=== PATIENT | female | born 1950 | race Caucasian/White ===

== ENCOUNTER → 2018-03-06 07:58 | Outpatient (CLI) | payer MEDICARE, SELFPAY ==
--- NOTE | 2018-03-06 08:05 | BI_ITS ---
MAMMOGRAPHY - BILATERAL SCREENING REASON FOR EXAM: Female, 67 years old. Routine annual screening examination. PERTINENT HISTORY: Aunt with breast cancer. TECHNIQUE: Digital bilateral breast [place] (3D mammographic acquisition) in the CC and MLO projections. 2-D mediolateral oblique (MLO) and craniocaudad (CC) views of both breasts were obtained. CAD: Full Field Digital Mammography with Computer Added Detection was performed. COMPARISON: Comparison is made with prior study dated August 01, 2016 and April 17, 2015. FINDINGS: Breast Composition: The breasts are heterogeneously dense, which may obscure small masses. There are no dominant masses or suspicious calcifications. Stable scattered bilateral calcifications. Stable well-defined 8 mm nodule in the upper lateral portion of the right breast. This is suggestive of a small benign-appearing lymph node. No other significant abnormalities are identified. There has been no significant change since the prior study. BI/SCREENING MAMM (CAD), BILAT IMPRESSION: Stable bilateral screening mammogram. Yearly follow-up mammogram recommended. (A) ASSESSMENT CATEGORY: BIRADS Category 2: Benign. A letter regarding these results will be sent to the patient by the facility within 30 days. Approximately 10% of breast cancers are not detected by mammography. A normal mammogram should not delay biopsy of a clinically suspicious abnormality. [id number] Electronically Signed: Keyon Floyd MD at 10:29 EDT Tel [phone], Service support ,
== END ==
PROVIDERS: Family Provider Family Medicine; PCP Family Medicine; Visit Provider Family Medicine
DX: Z12.31 Encounter for screening mammogram for malignant neoplasm of breast (principal)
CPT/HCPCS: 77063; 77067

== ENCOUNTER → 2019-03-09 07:36 | Outpatient (CLI) | payer MEDICARE, OTHER, SELFPAY ==
[2019-03-09 10:36] LABS: Absolute Neutrophil Count 1.7 X10^3/uL (2.0-7.7); Basophil# 0.07 X10^3/uL; Basophil% 1.7 % (0-1); Eosinophil# 0.65 X10^3/uL; Eosinophils% 15.9 % (0-5); Hematocrit 40.7 % (37-47); Hemoglobin 13.3 g/dl (12.0-15.0); Lymphocyte % 26.9 % (19-41); Mean Corp Hgb Conc 32.7 g/gl (32-36); Mean Corpuscular Hgb 30.6 pg (27.0-32.0); Mean Corpuscular Volume 93.6 fL (81-99); Mean Platelet Vol. 9.9 fl (6.2-12.0); Monocyte# 0.54 X10^3/uL; Monocyte% 13.2 % (0-10); Neutrophil # 1.71 X10^3/uL (2.7-7.7); Neutrophil % 41.8 % (47-70); Platelet Count 253 K/mm3 (150-450); RBC Distribution Width CV 12.9 % (11.6-14.6); Red Blood Count 4.35 M/mm3 (4.2-5.4); White Blood Count 4.1 K/mm3 (4.4-11.0)
[2019-03-09 10:43] LABS: POSITIVE COUNT NO; POSITIVE DIFFERENTIAL NO; POSITIVE MORPHOLOGY NO
[2019-03-09 10:44] LABS: Color, Urine Yellow (Yellow); Glucose, Dipstick Normal (Normal); Ketone-Dipstick Negative (Negative); Leukocyte Esterase-Dipstick 500 /ul (Negative); Nitrite-Dipstick Positive (Negative); Occult Blood-Urine 25 /ul (Negative); Protein-Dipstick 15 mg/dl (Negative); Specific Gravity, Urine 1.015 (1.002-1.030); Urine Bilirubin Dipstick Negative (Negative); Urine Clarity Sl. Cloudy (Clear); Urine Urobilinogen Normal (Normal)
[2019-03-09 10:52] LABS: ALB/GLOB Ratio 1.1 RATIO (0.9-2.4); AST(SGOT) 20 U/L (15-37); Alanine Aminotransfer ALT/SGPT 22 U/L (13-56); Albumin, Serum 3.7 g/dL (3.2-5.0); Alkaline Phosphatase 71 U/L (45-117); Anion Gap 5 (5-15); BUN 28 mg/dL (7-18); BUN/Creat Ratio 25.5 RATIO (10-20); Calcium,Total 8.8 mg/dL (8.5-10.1); Chloride 107 mmol/L (98-107); Cholesterol 207 mg/dL (200); EST Glomerular Filtration Rate 53 mL/min (>60); Est Glom Filt Rate - Afr Amer 64 mL/min (>60); Globulin 3.5 g/dL (2.2-4.2); Glucose 98 mg/dL (74-106); High Density Lipoprotein 88 mg/dL; Potassium 4.1 mmol/L (3.5-5.1); Protein, Total 7.2 g/dL (6.4-8.2); Sodium Level 138 mmol/L (136-145); Thyroid Stim Hormone (TSH) 0.32 uIU/mL (0.358-3.74); Triglycerides 56 mg/dL; Very Low Density Lipoprotein 11 mg/dL (5-40)
== END ==
PROVIDERS: Family Provider Family Medicine; PCP Family Medicine; Referring Provider Family Medicine; Visit Provider Family Medicine
DX: Z00.00 Encounter for general adult medical examination without abnormal findings (principal); E03.9 Hypothyroidism, unspecified; I10 Essential (primary) hypertension; K21.9 Gastro-esophageal reflux disease without esophagitis
CPT/HCPCS: 36415; 80053; 80061; 81002; 84443; 85025

== ENCOUNTER → 2019-04-30 14:42 | Outpatient (CLI) | payer MEDICARE, OTHER, SELFPAY ==
--- NOTE | 2019-04-30 14:47 | BI_ITS ---
MAMMOGRAPHY - BILATERAL SCREENING 3-D TOMOSYNTHESIS REASON FOR EXAM: Female, 68 years old. Bilateral Screening 3-D tomosynthesis PERTINENT HISTORY: No significant family history. TECHNIQUE: 2-D mammograms and 3-D Tomosynthesis of the breast (s) were performed. CAD was performed. COMPARISON: March 06, 2018, August 01, 2016 FINDINGS: The breast composition is composed of scattered fibroglandular density. Scattered benign calcifications are seen. No dense spiculated masses or suspicious microcalcifications are identified. No architectural distortion is identified. There is no skin thickening or retraction. There is a stable lymph node in the upper outer quadrant of the right breast. There has been no significant change since the prior study. BI/SCREEN MAMM (CAD) W/MAGGIE BILAT IMPRESSION: No mammographic signs of malignancy. Routine yearly mammograms recommended. ASSESSMENT CATEGORY: BIRADS Category 2: Benign. A letter regarding these results will be sent to the patient by the facility within 30 days. FOLLOW UP RECOMMENDATION: Yearly follow up mammogram recommended. (A) Approximately 10% of breast cancers are not detected by mammography. A normal mammogram should not delay biopsy of a clinically suspicious abnormality. Electronically Signed: Reji Valero MD at 18:03 EDT , Service support ,
== END ==
PROVIDERS: Family Provider Family Medicine; PCP Family Medicine; Referring Provider Family Medicine; Visit Provider Family Medicine
DX: Z12.31 Encounter for screening mammogram for malignant neoplasm of breast (principal)
CPT/HCPCS: 77063; 77067

== ENCOUNTER → 2020-05-08 12:51 | Outpatient (CLI) | payer MEDICARE, OTHER, SELFPAY ==
--- NOTE | 2020-05-08 12:54 | BI_ITS ---
MAMMOGRAPHY - BILATERAL SCREENING REASON FOR EXAM: Female, 69 years old. Routine annual screening examination. PERTINENT HISTORY: Aunts with breast cancer. TECHNIQUE: Digital bilateral breast maggie (3D mammographic acquisition) in the CC and MLO projections. 2-D mediolateral oblique (MLO) and craniocaudad (CC) views of both breasts were obtained. CAD: Full Field Digital Mammography with Computer Added Detection was performed. COMPARISON: Comparison is made with prior examination dated April 30, 2019 and March 06, 2018. FINDINGS: Breast Composition: The breasts are heterogeneously dense, which may obscure small masses. There are no dominant masses or suspicious calcifications. Stable bilateral microcalcifications. Stable 8 mm lymph node in the axillary region of the right breast. No other significant abnormalities are identified. There has been no significant change since the prior study. BI/SCREEN MAMM (CAD) W/MAGGIE BILAT IMPRESSION: Stable bilateral screening mammogram. Yearly follow-up mammogram recommended. (A) ASSESSMENT CATEGORY: BIRADS Category 2: Benign. A letter regarding these results will be sent to the patient by the facility within 30 days. Approximately 10% of breast cancers are not detected by mammography. A normal mammogram should not delay biopsy of a clinically suspicious abnormality. [id number] Electronically Signed: Keyon Floyd, at 13:54 EDT , Service support ,
== END ==
PROVIDERS: PCP Family Medicine; Referring Provider Family Medicine; Visit Provider Family Medicine
DX: Z12.31 Encounter for screening mammogram for malignant neoplasm of breast (principal)
CPT/HCPCS: 77063; 77067

== ENCOUNTER → 2021-05-08 11:54 | Outpatient (CLI) | payer MEDICARE, OTHER, SELFPAY ==
[2021-05-08 15:12] LABS: Absolute Lymphocyte Count 1.03 X10^3/uL (0.83-4.51); Absolute Neutrophil Count 2.6 X10^3/uL (2.0-7.7); Basophil# 0.06 X10^3/uL; Basophil% 1.4 % (0-1); Eosinophil# 0.36 X10^3/uL; Eosinophils% 8.2 % (0-5); Hematocrit 38.8 % (37-47); Hemoglobin 12.8 g/dL (12.0-15.0); Lymphocyte # 1.03 X10^3/ul (0.83-4.51); Lymphocyte % 23.4 % (19-41); Mean Corpuscular Hgb 31.3 pg (27.0-32.0); Mean Corpuscular Volume 94.9 fL (81-99); Mean Platelet Vol. 10.2 fl (6.2-12.0); Monocyte# 0.39 X10^3/uL; Monocyte% 8.8 % (0-10); NRBC Flagged by Analyzer 0 % (0-5); Neutrophil # 2.55 X10^3/uL (2.7-7.7); Neutrophil % 57.7 % (47-70); POSITIVE MORPHOLOGY YES; Platelet Count 251 K/mm3 (150-450); RBC Distribution Width CV 12.2 % (11.6-14.6); RBC Distribution Width SD 42.8 fl (35.1-43.9); Red Blood Count 4.09 M/mm3 (4.2-5.4); White Blood Count 4.4 K/mm3 (4.4-11.0)
[2021-05-08 15:15] LABS: Differential Indicated SCAN CRITERIA MET
[2021-05-08 15:18] LABS: Color, Urine Yellow (Yellow); Glucose, Dipstick Normal (Normal); Ketone-Dipstick Negative (Negative); Leukocyte Esterase-Dipstick 100 /ul (Negative); Nitrite-Dipstick Positive (Negative); Occult Blood-Urine 10 /ul (Negative); Protein-Dipstick Negative (Negative); Urine Bilirubin Dipstick Negative (Negative); Urine Clarity Cloudy (Clear); Urine Urobilinogen Normal (Normal)
[2021-05-08 15:28] LABS: ALB/GLOB Ratio 1.1 RATIO (0.9-2.4); AST(SGOT) 23 U/L (15-37); Alanine Aminotransfer ALT/SGPT 20 U/L (13-56); Albumin, Serum 3.8 g/dL (3.2-5.0); Alkaline Phosphatase 65 U/L (45-117); Anion Gap 7 (5-15); BUN 29 mg/dL (7-18); BUN/Creat Ratio 20.3 RATIO (10-20); Chloride 107 mmol/L (98-107); Cholesterol 223 mg/dL (200); Creatinine, Serum 1.43 mg/dL (0.55-1.02); EST Glomerular Filtration Rate 39 mL/min (>60); Est Glom Filt Rate - Afr Amer 47 mL/min (>60); Globulin 3.5 g/dL (2.2-4.2); Glucose 84 mg/dL (74-106); High Density Lipoprotein 90 mg/dL; Potassium 4.3 mmol/L (3.5-5.1); Protein, Total 7.3 g/dL (6.4-8.2); Sodium Level 137 mmol/L (136-145); T4 Free Direct 1.16 ng/dL (0.76-1.46); Thyroid Stim Hormone (TSH) 2.11 uIU/mL (0.358-3.74); Triglycerides 62 mg/dL; Very Low Density Lipoprotein 12 mg/dL (5-40)
[2021-05-08 15:46] LABS: Differential Comment SCANNED
== END ==
PROVIDERS: PCP Family Medicine
DX: I10 Essential (primary) hypertension (principal); E78.5 Hyperlipidemia, unspecified; E03.9 Hypothyroidism, unspecified; Z13.0 Encounter for screening for diseases of the blood and blood-forming organs and certain disorders involving the immune mechanism
CPT/HCPCS: 36415; 80053; 80061; 81002; 84439; 84443; 85025

== ENCOUNTER → 2021-05-11 13:59 | Outpatient (CLI) | payer MEDICARE, OTHER, SELFPAY ==
--- NOTE | 2021-05-11 14:01 | BI_ITS ---
MAMMOGRAPHY - BILATERAL SCREENING REASON FOR EXAM: Female, 70 years old. Routine annual screening examination. PERTINENT HISTORY: Aunts with breast cancer. TECHNIQUE: Digital bilateral breast maggie (3D mammographic acquisition) in the CC and MLO projections. 2-D mediolateral oblique (MLO) and craniocaudad (CC) views of both breasts were obtained. CAD: Full Field Digital Mammography with Computer Added Detection was performed. COMPARISON: Comparison is made with prior examination dated 05/08/2020 and 04/30/2019. FINDINGS: Breast Composition: The breasts are heterogeneously dense, which may obscure small masses. There are no dominant masses or suspicious calcifications. Stable bilateral macrocalcifications. Stable benign-appearing right axillary lymph node. No other significant abnormalities are identified. There has been no significant change since the prior study. BI/SCRN MAMM (CAD)W/MAGGIE BILAT IMPRESSION: Stable bilateral screening mammogram. Yearly follow-up mammogram recommended. (A) ASSESSMENT CATEGORY: BIRADS Category 2: Benign. A letter regarding these results will be sent to the patient by the facility within 30 days. Approximately 10% of breast cancers are not detected by mammography. A normal mammogram should not delay biopsy of a clinically suspicious abnormality. [id number] Electronically Signed: Keyon Floyd MD at 15:03 EDT , Service support ,
== END ==
PROVIDERS: PCP Family Medicine
DX: Z12.31 Encounter for screening mammogram for malignant neoplasm of breast (principal); Z80.3 Family history of malignant neoplasm of breast
CPT/HCPCS: 77063; 77067

== ENCOUNTER → 2021-05-25 12:44 | Outpatient (CLI) | payer MEDICARE, OTHER, SELFPAY ==
[2021-05-25 13:22] LABS: Color, Urine Yellow (Yellow); Glucose, Dipstick Normal (Normal); Ketone-Dipstick Negative (Negative); Leukocyte Esterase-Dipstick 25 /ul (Negative); Nitrite-Dipstick Negative (Negative); Occult Blood-Urine Negative /ul (Negative); Protein-Dipstick Negative (Negative); Urine Bilirubin Dipstick Negative (Negative); Urine Clarity Clear (Clear); Urine Urobilinogen Normal (Normal)
[2021-05-25 13:41] LABS: Anion Gap 8 (5-15); BUN 28 mg/dL (7-18); BUN/Creat Ratio 20.3 RATIO (10-20); Calcium,Total 9.1 mg/dL (8.5-10.1); Chloride 105 mmol/L (98-107); Creatinine, Serum 1.38 mg/dL (0.55-1.02); EST Glomerular Filtration Rate 40 mL/min (>60); Est Glom Filt Rate - Afr Amer 49 mL/min (>60); Glucose 96 mg/dL (74-106); Potassium 4.7 mmol/L (3.5-5.1); Sodium Level 138 mmol/L (136-145)
== END ==
PROVIDERS: PCP Family Medicine
DX: N28.9 Disorder of kidney and ureter, unspecified (principal)
CPT/HCPCS: 36415; 80048; 81002

== ENCOUNTER → 2022-05-17 | Outpatient (CLI) | payer MEDICARE, OTHER, SELFPAY ==
--- NOTE | 2022-05-17 12:09 | BI_ITS ---
MAMMOGRAPHY - BILATERAL SCREENING REASON FOR EXAM: Female, 71 years old. Routine annual screening examination. PERTINENT HISTORY: Aunts with breast cancer. TECHNIQUE: Digital bilateral breast maggie (3D mammographic acquisition) in the CC and MLO projections. 2-D mediolateral oblique (MLO) and craniocaudad (CC) views of both breasts were obtained. CAD: Full Field Digital Mammography with Computer Added Detection was performed. COMPARISON: Comparison is made with prior study dated 05/11/2021 and 05/08/2020. FINDINGS: Breast Composition: The breasts are heterogeneously dense, which may obscure small masses. There are no dominant masses or suspicious calcifications. Stable scattered bilateral benign appearing calcifications. No other significant abnormalities are identified. There has been no significant change since the prior study. BI/SCRN MAMM (CAD)W/MAGGIE BILAT IMPRESSION: Stable bilateral screening mammogram. Yearly follow-up mammogram recommended. (A) ASSESSMENT CATEGORY: BIRADS Category 2: Benign. A letter regarding these results will be sent to the patient by the facility within 30 days. Approximately 10% of breast cancers are not detected by mammography. A normal mammogram should not delay biopsy of a clinically suspicious abnormality. [id number] Electronically Signed: Keyon Floyd MD at 12:53 EDT ,
== END | disposition home or self-care (01) ==
LOC: OPBI 12:06
PROVIDERS: PCP Family Medicine
DX: Z12.31 Encounter for screening mammogram for malignant neoplasm of breast (principal)
CPT/HCPCS: 77063; 77067

== ENCOUNTER 2022-09-24 12:11 | Day surgery (SDC) | payer MEDICARE, OTHER, SELFPAY ==
[2022-09-24] MEDS: Lactated Ringers 1,000 ML 15 ML IV (12:25)
[2022-09-24 12:40] VITALS: BP 158/85; PULSE 68; RESP 16; TEMP 36.8; O2SAT 99; BMI 24.0
--- NOTE | 2022-09-24 13:07 | PCM.HP.BLA ---
History and Physical Date of Admission: 09/24/22 71 F who presents to the office today for GERD. Has friends who of esophageal cancer. She has been on omeprazole 20 mg for several years, doesn't think it ever helped with symptoms. At times it feels like food gets stuck in mid to distal esophagus, may have to cough the food or even the water back up. Remote hx of esophagram, was told esophagus was sluggish. No retrosternal chest pain. No heartburn. Rarely feels acid come up. Can have burning in her stomach occas when she lies down, better with yogurt, better if she sleeps on left side. No nausea or vomiting. No early satiety. Can get gas and bloating. Can have diarrhea and cramping soon after eating, no pattern, could go for months w/o it but then might last for months when it happens. Tolerates dairy much of the time, other times it causes symtoms. Tries to avoid spicy foods. No abd pain other than cramping. No constipation. No melena or hematochezia. ROS Const Constitutional: No fatigue, fever(s), headache(s), weight change, sleep problems, abnormal sleep pattern or change in appetite ENT ENT: No headache(s), difficulty swallowing, hoarseness or sore throat Resp Respiratory: No cough, hemoptysis or shortness of breath Cardio Cardiology: No chest pain at rest or generalized swelling Gastro GI: No abdominal pain, belching, bloating, change in bowel habits, change in stool character, coffee ground emesis, constipation, cramping, diarrhea, heartburn, difficulty swallowing, feeling full early, excessive flatus, incontinent of stools, Vomiting blood/hematemesis, Blood in stool, loose stools, Black,tarry stools, nausea/dyspepsia, pain with swallowing or vomiting Musc Musculoskeletal: Positive for Arthritis and restless legs; No joint pain, back pain, joint swelling, numbness or tingling Skin Skin: No itchy eyes or rash Neuro Neurology: Positive for restless legs; No behavioral changes, confusion, headache(s), numbness or tingling Psych Psychiatric: No abnormal sleep pattern, No anxiety, No behavioral changes, No change in appetite, No confusion and No depression Endo Endocrine: No cold intolerance, fatigue, heat intolerance, increased thirst/drinking or weight change Aller/Imm Allergy/Immunologic: No food intolerance or itchy eyes Santos/Lymp Hematologic/Lymphatic: No easy bleeding, easy bruising or enlarged lymph nodes Exam Const General: cooperative, healthy appearing, well developed and well groomed Nutritional Appearance: average body habitus Orientation: alert, awake and oriented x3 HENMT Head: normal to inspection Eyes General: appearance normal, both eyes and all related structures Resp Effort & Inspection: normal respiratory effort GI Inspection: normal to inspection Palpation: soft, no hepatosplenomegaly, no masses and nontender Skin General: no jaundice Neuro Speech: speech normal Gait: normal gait Quality Reporting Tobacco Screening ([facility] 138) Smoking Status: Never smoker Assessment and Plan Assessment and Plan (1) Dysphagia: ?Status:?Acute ?Plan: Will schedule EGD Not due for colonoscopy for another year She'll continue omeprazole 20 mg for now I have examined the patient and the H&P has been reviewed. There are no clinical changes since date of exam.
--- NOTE | 2022-09-24 13:15 | EGD_PTH ---
PATIENT: BETHANY BANKS LOC: EN U#:[id number] AGE/SX: 71/F ROOM: RE09/24/[address]: Dr. Mj Abarca DO : 1950 BED: DIS: 09/24/2022 SPEC #: [id number] RECD: 09/24/22 15:47 STATUS: JOCELYNE RETena #: [id number] [place]: 09/24/22 13:[address]: Mj Abarca DEPT: SURGICAL PATHOLOGY RECD BY: Bonnie Dooley ENTERED: 09/25/22 08:55 SP TYPE: EGD BIOPSY SEDRICK DR: Dr. Win Sandoval MD Tissues: Esophagus, NOS Procedures: Special Stain Group II Surgery Specimen Level IV Alcian Blue/PAS (control) HEADER OPERATION: EGD with biopsy and dilation (MAC) PRE-OP DIAGNOSIS: Dysphagia TISSUE SUBMITTED: Distal esophagus biopsy MICROSCOPIC DIAGNOSIS Distal esophagus, biopsy: Fragments of gastroesophageal mucosa with chronic inflammation. Intestinal metaplasia (goblet cell metaplasia) not identified. See comment. JONATHAN:ani 09/27/2022 COMMENT Alcian blue/PAS stain with matched control is used in the evaluation of the specimen. MICROSCOPIC DESCRIPTION Slides are reviewed. GROSS DESCRIPTION Received in fixative is one container labeled with the patient's name and designated distal esophagus biopsy. The specimen consists of multiple irregular fragments of light moe soft tissue that in aggregate measure 2 x 0.8 x 0.1 cm. The specimen is totally submitted in one cassette. / JONATHAN:ani 09/25/2022 TC:3 CPT: 92030, 69451
[2022-09-24 13:30] VITALS: BP 131/84; BP 158/85; PULSE 74; RESP 16; TEMP 36.7; O2SAT 98
--- NOTE | 2022-09-24 13:30 | OP.EGD_ITS ---
Patient Name: Gayle Burton Procedure Date: 09/24/2022 1:06 PM Date of : 1950 Age: 71 Procedure: Upper GI endoscopy Indications: Dysphagia, Heartburn Providers: Mj Abarca DO Referring MD: Mj Abarca DO Medicines: Monitored Anesthesia Care Patient Profile: This is a 71 year old female. This is a 71 year old female. Refer to note in patient chart for documentation of history and physical. Patient has symptoms of chronic dysphagia and chronic heartburn. Complications: No immediate complications. Procedure: Pre-Anesthesia Assessment: - Prior to the procedure, a History and Physical was performed, and patient medications and allergies were reviewed. The risks and benefits of the procedure and the sedation options and risks were discussed with the patient. All questions were answered and informed consent was obtained. Patient identification and proposed procedure were verified by the physician in the pre-procedure area. Mental Status Examination: alert and oriented. Airway Examination: normal oropharyngeal airway and neck mobility. Respiratory Examination: clear to auscultation. CV Examination: normal. Prophylactic Antibiotics: The patient does not require prophylactic antibiotics. Prior Anticoagulants: The patient has taken no previous anticoagulant or antiplatelet agents. ASA Grade Assessment: II - A patient with mild systemic disease. After reviewing the risks and benefits, the patient was deemed in satisfactory condition to undergo the procedure. The anesthesia plan was to use monitored anesthesia care (MAC). Immediately prior to administration of medications, the patient was re-assessed for adequacy to receive sedatives. The heart rate, respiratory rate, oxygen saturations, blood pressure, adequacy of pulmonary ventilation, and response to care were monitored throughout the procedure. The physical status of the patient was re-assessed after the procedure. After obtaining informed consent, the endoscope was passed under direct vision. Throughout the procedure, the patient's blood pressure, pulse, and oxygen saturations were monitored continuously. The gastroscope was introduced through the mouth, and advanced to the second part of duodenum. The upper GI endoscopy was accomplished without difficulty. The patient tolerated the procedure well. Scope In: 1:15:43 PM Scope Out: 1:23:29 PM Total Procedure Duration Time 0 hours 7 minutes 46 seconds Findings: LA Grade B (one or more mucosal breaks greater than 5 mm, not extending between the tops of two mucosal folds) esophagitis with no bleeding was found 37 to 38 cm from the incisors. Biopsies were taken with a cold forceps for histology. Verification of patient identification for the specimen was done. Estimated blood loss was minimal. A severe Schatzki ring was found in the lower third of the esophagus. A guidewire was placed and the scope was withdrawn. Dilation was performed with a Savary dilator with no resistance at 60 Fr. The dilation site was examined following endoscope reinsertion and showed moderate improvement in luminal narrowing. Estimated blood loss was minimal. A small hiatal hernia was present. No other significant abnormalities were identified in a careful examination of the stomach. The first portion of the duodenum was normal. Impression: - LA Grade B reflux esophagitis. Biopsied. - Severe Schatzki ring. Dilated. - Small hiatal hernia. - Normal first portion of the duodenum. Recommendation: - Discharge patient to home (ambulatory). - Advance diet as tolerated today. - Use Protonix (pantoprazole) 40 mg PO BID for 8 weeks. - Continue present medications. - No aspirin, ibuprofen, naproxen, or other non-steroidal anti-inflammatory drugs for 8 days after biopsy. Procedure Code(s): --- Professional --- 06508, Esophagogastroduodenoscopy, flexible, transoral; with insertion of guide wire followed by passage of dilator(s) through esophagus over guide wire 92763, 59, Esophagogastroduodenoscopy, flexible, transoral; with biopsy, single or multiple CPT copyright 2017 [employer]. All rights reserved. The codes documented in this report are preliminary and upon sub arc operator review may be revised to meet current compliance requirements. Mj Abarca DO 09/24/2022 1:29:48 PM This report has been signed electronically. Number of Addenda: 0 Note Initiated On: 09/24/2022 1:06 PM
--- NOTE | 2022-09-24 13:30 | OP.CCLET_ITS ---
09/24/2022 Win Sandoval Re : Upper GI endoscopy procedure for Gayle Burton Dear Jaime This procedure was performed on Saturday, September 24, 2022. My impressions and recommendations are as follows: Impressions : - LA Grade B reflux esophagitis. Biopsied. - Severe Schatzki ring. Dilated. - Small hiatal hernia. - Normal first portion of the duodenum. Recommendations : - Discharge patient to home (ambulatory). - Advance diet as tolerated today. - Use Protonix (pantoprazole) 40 mg PO BID for 8 weeks. - Continue present medications. - No aspirin, ibuprofen, naproxen, or other non-steroidal anti-inflammatory drugs for 8 days after biopsy. My findings are described in the full procedure note, which is enclosed. If I can be of further assistance, please feel free to contact me at . Sincerely, Mj Friend, 09/24/2022 1:29:48 PM This report has been signed electronically.
[2022-09-24 13:35] VITALS: BP 137/80; BP 158/85; PULSE 75; RESP 16; O2SAT 98
[2022-09-24 13:40] VITALS: BP 141/81; BP 158/85; PULSE 71; RESP 16; O2SAT 98
[2022-09-24 13:46] VITALS: BP 124/84; BP 158/85; PULSE 65; RESP 16; TEMP 36.5; O2SAT 98
[2022-09-24 14:08] VITALS: BP 158/85
[2022-09-24] MEDS: Pantoprazole Sodium 40 MG Tablet 80 MG PO (14:30)
== END 2022-09-24 14:34 | disposition home or self-care (01) ==
LOC: EN 12:13 → AC 12:15
PROVIDERS: PCP Family Medicine; Referring Provider Family Medicine; Visit Provider Internal Medicine Gastroenterology
PROC: 0DJ08ZZ Inspection of Upper Intestinal Tract, Via Natural or Artificial Opening Endoscopic (ICD-10-PCS; CPT 43235; principal; 2022-09-24 13:10)
DX: K22.2 Esophageal obstruction (principal); K21.00 Gastro-esophageal reflux disease with esophagitis, without bleeding; K44.9 Diaphragmatic hernia without obstruction or gangrene; E03.9 Hypothyroidism, unspecified; I10 Essential (primary) hypertension; Z79.899 Other long term (current) drug therapy
CPT/HCPCS: 43248; 43239; 88305; 88313; J7120; C1769; J2405

== ENCOUNTER → 2023-01-30 | Outpatient (CLI) | payer MEDICARE, OTHER, SELFPAY | END | disposition home or self-care (01) | LOC: LAB 10:16 | PROVIDERS: PCP Family Medicine; Referring Provider Family Medicine; Visit Provider Family Medicine | DX: E03.9 Hypothyroidism, unspecified (principal) | CPT/HCPCS: 36415; 84443 ==

== ENCOUNTER → 2023-04-14 | Outpatient (CLI) | payer MEDICARE, OTHER, SELFPAY ==
[2023-04-14 19:11] LABS: T4 Free Direct 1.18 ng/dL (0.76-1.46); Thyroid Stim Hormone (TSH) 1.87 uIU/mL (0.358-3.74)
== END | disposition home or self-care (01) ==
LOC: MFPLAB 15:52
PROVIDERS: PCP Family Medicine; Visit Provider Family Medicine
DX: E03.9 Hypothyroidism, unspecified (principal)
CPT/HCPCS: 36415; 84439; 84443

== ENCOUNTER → 2023-04-25 | Outpatient (CLI) | payer MEDICARE, OTHER, SELFPAY ==
--- NOTE | 2023-04-25 09:10 | ECHOD_ITS ---
Reason For Study: HEART MURMUR Procedure This was a 2D Doppler, Color Flow transthoracic echocardiogram. Exam performed in department. Left Ventricle Normal size and thickness. The left ventricular ejection fraction is 55 %. Unable to assess diastolic function based on available data. Right Ventricle Normal right ventricle. Atria The left atrium is severely enlarged. The right atrium is mildly enlarged. Mitral Valve Moderate (2+) eccentric mitral valve insufficiency. Tricuspid Valve Trivial tricuspid valve insufficiency. Unable to estimate RV systolic pressure due to insufficient tricuspid regurgitant envelope. Aortic Valve Normal aortic valve. Pulmonic Valve The pulmonic valve is not well visualized. Mild (1+) pulmonic valve insufficiency. Great Vessels Normal sized aortic root. Pericardium/Pleural No pericardial effusion. MMode/2D Measurements & Calculations LVIDd: 5.3 cm IVSd: 0.79 cm Ao root diam: 3.1 cm LVIDs: 4.0 cm LVPWd: 1.0 cm RVDd: 4.1 cm FS: 23.5 % LAV(MOD-bp): 72.6 ml LVAd ap4: 29.5 cm2 SV(MOD-sp4): 52.4 ml LAV(MOD-bp) Indexed: 39.0 ml/m2 LVLd ap4: 7.2 cm LAV(MOD-sp2): 76.5 ml EDV(MOD-sp4): 98.1 ml LAV(MOD-sp4): 67.0 ml EDV(sp4-el): 102.8 ml LVAs ap4: 18.7 cm2 LVLs ap4: 6.3 cm ESV(MOD-sp4): 45.7 ml ESV(sp4-el): 46.9 ml EF(MOD-sp4): 53.4 % EF(sp4-el): 54.4 % SV(sp4-el): 55.9 ml LA A4 area: 21.9 cm2 LA dimension(2D): 4.1 cm RA A4 area: 12.9 cm2 Time Measurements MV dec time: 0.07 sec Doppler Measurements & Calculations MV E max ismael: 100.7 cm/sec MV V2 max: 98.9 cm/sec MV dec slope: 1618 cm/sec2 MV A max ismael: 64.1 cm/sec MV max P.9 mmHg MV E/A: 1.6 MV V2 mean: 62.8 cm/sec MV mean P.8 mmHg MV V2 VTI: 26.1 cm Ao V2 max: 163.3 cm/sec LV V1 max: 130.4 cm/sec MR max ismael: 514.2 cm/sec Ao max P.7 mmHg LV V1 max P.9 mmHg MR max P.8 mmHg Ao V2 mean: 120.0 cm/sec LV V1 mean P.1 mmHg MR mean ismael: 399.3 cm/sec Ao mean P.4 mmHg LV V1 mean: 96.4 cm/sec MR mean P.4 mmHg Ao V2 VTI: 38.1 cm LV V1 VTI: 28.6 cm MR VTI: 190.4 cm AV (velocity ratio): 0.75 PA V2 max: 89.9 cm/sec PA V2 mean: 64.9 cm/sec ECHO/Echo Complete Interpretation Summary The left ventricular ejection fraction is 55 %. The right atrium is mildly enlarged. The left atrium is severely enlarged. Moderate (2+) eccentric mitral valve insufficiency. Mild (1+) pulmonic valve insufficiency. Ordering Physician: Rhianna Christine Referring Physician: Rhianna Christine Performed By: Queta Benton RCS
== END | disposition home or self-care (01) ==
LOC: CVS 09:09
PROVIDERS: PCP Family Medicine; Referring Provider Family Medicine; Visit Provider Family Medicine
DX: R01.1 Cardiac murmur, unspecified (principal)
CPT/HCPCS: 93306

== ENCOUNTER → 2023-05-27 | Outpatient (CLI) | payer MEDICARE, OTHER, SELFPAY ==
--- NOTE | 2023-05-27 15:07 | BI_ITS ---
MAMMOGRAPHY - BILATERAL SCREENING REASON FOR EXAM: Female, 72 years old. Routine annual screening examination. PERTINENT HISTORY: Aunts with breast cancer. TECHNIQUE: Digital bilateral breast maggie (3D mammographic acquisition) in the CC and MLO projections. 2-D mediolateral oblique (MLO) and craniocaudad (CC) views of both breasts were obtained. CAD: Full Field Digital Mammography with Computer Added Detection was performed. COMPARISON: Comparison is made with prior study dated May 17, 2022 and May 11, 2021. FINDINGS: Breast Composition: The breasts are heterogeneously dense, which may obscure small masses. There are no dominant masses or suspicious calcifications. Stable bilateral benign-appearing calcifications. Stable benign-appearing intramammary lymph node in the axillary region of the right breast. No other significant abnormalities are identified. There has been no significant change since the prior study. BI/SCRN MAMM (CAD)W/MAGGIE BILAT IMPRESSION: Stable bilateral screening mammogram. Yearly follow-up mammogram recommended. (A) ASSESSMENT CATEGORY: BIRADS Category 2: Benign. A letter regarding these results will be sent to the patient by the facility within 30 days. Approximately 10% of breast cancers are not detected by mammography. A normal mammogram should not delay biopsy of a clinically suspicious abnormality. [id number] Electronically Signed: Keyon Floyd MD at 8:13 EDT ,
== END | disposition home or self-care (01) ==
PROVIDERS: PCP Family Medicine; Referring Provider Family Medicine; Visit Provider Family Medicine
DX: Z12.31 Encounter for screening mammogram for malignant neoplasm of breast (principal)
CPT/HCPCS: 77063; 77067

== ENCOUNTER → 2023-10-17 | Outpatient (CLI) | payer MEDICARE, OTHER, SELFPAY ==
[2023-10-17 10:28] LABS: Microalbumin,Random Urine 96.8 mg/L (NO RANGE EST.)
[2023-10-17 10:54] LABS: AST(SGOT) 19 U/L (15-37); Alanine Aminotransfer ALT/SGPT 15 U/L (13-56); Albumin, Serum 3.5 g/dL (3.2-5.0); Alkaline Phosphatase 60 U/L (45-117); Anion Gap 8 (5-15); BUN 18 mg/dL (7-18); BUN/Creat Ratio 15.5 RATIO (10-20); Calcium,Total 8.6 mg/dL (8.5-10.1); Chloride 109 mmol/L (98-107); Cholesterol 201 mg/dL (200); Creatinine, Serum 1.16 mg/dL (0.55-1.02); EST Glomerular Filtration Rate 49 mL/min (>60); Est Glom Filt Rate - Afr Amer 59 mL/min (>60); Globulin 3.5 g/dL (2.2-4.2); Glucose 106 mg/dL (74-106); High Density Lipoprotein 94 mg/dL; Potassium 3.9 mmol/L (3.5-5.1); Sodium Level 140 mmol/L (136-145); T4 Free Direct 1.34 ng/dL (0.76-1.46); Thyroid Stim Hormone (TSH) 4.55 uIU/mL (0.358-3.74); Triglycerides 69 mg/dL; Very Low Density Lipoprotein 14 mg/dL (5-40)
== END | disposition home or self-care (01) ==
LOC: LAB 09:22
PROVIDERS: PCP Family Medicine; Referring Provider Family Medicine; Visit Provider Family Medicine
DX: I10 Essential (primary) hypertension (principal); E03.9 Hypothyroidism, unspecified; Z13.6 Encounter for screening for cardiovascular disorders
CPT/HCPCS: 36415; 80053; 80061; 82043; 82570; 84439; 84443

== ENCOUNTER → 2023-11-14 | Outpatient (CLI) | payer MEDICARE, OTHER, SELFPAY ==
--- OUTSIDE RECORDS SUMMARY | 2023-11-14 09:34 | XMS RPT_ITS | CCD ---
Author Name Unknown Address [address] [place] [address] Organization [facility] Care Team Providers Care Truck Cleaner Name Role Phone Anna Duque DO Primary Care Provider [phone] Kayden SUAREZ.Maria R TATE Primary Care Provid er CHATA TONG, DR KAPOOR Primary Care Physician GUICHO TONG, RENEE Cortés Attending Ghislaine BRIZUELA MD., DR. KAPOOR Primary Care Unavailab Kirsten TONG, RENEE Cortés Attending Ghislaine BRIZUELA MD., DR. KAPOOR Primary Care Unavailab Kirsten TONG, RENEE Cortés Attending Ghislaine BRIZUELA MD., DR. KAPOOR Primary Care Win Fang MD Primary Care Provider Win Brizuela MD Primary Care Provider MARIA R MEMBRENO Attending Unavailable MARIA R MEMBRENO Primary Care Unavailable MARIA R MEMBRENO Referring Unavailable MARIA R MEMBRENO Primary Care Unavailable MARIA R MEMBRENO Referring Unavailable MARIA R MEMBRENO Primary Care Unavailable WIN BRIZUELA Attending WIN Fang Primary Care WIN Fang Referring UnavailWIN Jacob Primary Care Juanjo charlton Allergies Allergy Classification Reported Allergen(s) Allergy Type Date of Onset Reaction(s) Facility (13 sources) olmesartan; Translations: [OLMESARTAN] Drug Allergy 07-15-2017 [facility] (1 source) Angiotensin-conv erting enzyme inhibitor agent; Translations: [angiotensin converting enzyme inhibitors] Propensity to adverse reactions to drug [facility] Medications Current Medications Medication Drug Class(es) Dates Sig (Normalized) Sig (Original) D3 (1 source) Start: 07-26-2022 D3 5000 IU, Oral, qDay, 0 Refill(s) Start Date: 07/26/22 Status: Ordered omeprazole 20 mg delayed release oral capsule (8 sources) Proton Pump Inhibitor Start: 07-26-2022 End: 11-13-2022 omeprazole 20 mg oral delayed release capsule Dose : 20 mg = 1 cap(s), Oral, qDay, 0 Refill(s) Start Date: 07/26/22 Status: Ordered Completed/Discontinued Medications Medication Drug Class(es) Dates Sig (Normalized) Sig (Original) amLODIPine 5 mg oral tablet (14 sources) Dihydropyridine Calcium Channel Fuentes Start: 03-08-2019 End: 11-13-2022 take 1 tablet by mouth once daily amLODIPine (NORVASC) 5 mg tablet Take 1 tablet by mouth once daily. 90 tablet 3 11/13/2022 Active Problems Active Problems Problem Classification Problem Date Documented Date Episodic/Chronic Disorders of lipid metabolism (16 sources) Hyperlipidemia; Translations: [Hyperlipidemia, unspecified] Onset: 10-24-2020 03-19-2022 Chronic Esophageal disorders (20 sources) Gastroesophageal reflux disease; Translations: [Gastro-esophageal reflux disease without esophagitis] Onset: 03-19-2022 03-19-2022 Chronic Esophageal disorders (1 source) Esophageal disorders; Translations: [Gastroesophageal reflux disease with esophagitis without hemorrhage] Onset: 03-19-2022 Essential hypertension (15 sources) Hypertensive disorder; Translations: [Essential (primary) hypertension] Onset: 07-15-2017 03-19-2022 Chronic Thyroid disorders (18 sources) Hypothyroidism; Translations: [Hypothyroidism, unspecified] Onset: 07-15-2017 03-19-2022 Chronic Past or Other Problems Problem Classification Problem Date Documented Date Episodic/Chronic Abdominal pain (12 sources) Abdominal pain; Translations: [Unspecified abdominal pain] Onset: 01-05-2020 03-19-2022 Episodic Immunizations and screening for infectious disease (12 sources) Requires vaccination; Translations: [Encounter for immunization] Onset: 05-01-2021 03-19-2022 Episodic Other diseases of kidney and ureters (13 sources) Renal impairment; Translations: [Disorder of kidney and ureter, unspecified] Onset: 10-25-2020 03-19-2022 Episodic Other diseases of kidney and ureters (1 source) Disorder of kidney and ureter, unspecified; Translations: [Renal insufficiency syndrome] Onset: 03-19-2022 Episodic Other screening for suspected conditions (not mental disorders or infectious disease) (20 sources) Patient encounter status; Translations: [Encounter for screening for malignant neoplasm of colon] Onset: 02-26-2018 03-19-2022 Episodic Urinary tract infections (12 sources) Urinary tract infectious disease; Translations: [Urinary tract infection, site not specified] Onset: 05-10-2021 03-19-2022 Episodic Viral infection (12 sources) Herpes zoster; Translations: [Zoster without complications] Onset: 09-30-2017 03-19-2022 Episodic Results Test Name Value Interpretation Reference Range Facil ity Vital Signs Date Time Vital Sign Value Performing Clinician Facility 11-13-2022 13:34-0500 Body height 175.3 cm Win Brizuela MD Work Phone: [facility] 11-13-2022 13:34-0500 Body temperature 97.3 [degF] Win Brizuela MD Work Phone: [facility] 11-13-2022 13:34-0500 Body weight 75.93 kg Win Brizuela MD Work Phone: [facility] 11-13-2022 13:34-0500 Diastolic blood pressure 82 mm[Hg] Win Brizuela MD Work Phone: [facility] 11-13-2022 13:34-0500 Heart rate 63 /min Win rBizuela MD Work Phone: [facility] 11-13-2022 13:34-0500 Respiratory rate 18 /min Win Brizuela MD Work Phone: [facility] 11-13-2022 13:34-0500 SaO2% (BldA) [Mass fraction] 97 % Win Brizuela MD Work Phone: [facility] 11-13-2022 13:34-0500 Systolic blood pressure 134 mm[Hg] Win Brizuela MD Work Phone: [facility] 07-26-2022 08:27-0400 Body height 172.[address] RENEE LINDO MD [facility] 07-26-2022 08:27-0400 Body weight 73.[address] RENEE LINDO MD [facility] 05-07-2022 13:09-0400 Body height 172.7 cm Maria R Membreno APRN.ELECTRIC LOCOMOTIVE FIRER/FIREMAN Work Phone: [facility] 05-07-2022 13:09-0400 Body temperature 97.11 [degF] Maria R Membreno PSYCHOLOGY DEPARTMENT CHAIR.ELECTRIC LOCOMOTIVE FIRER/FIREMAN Work Phone: [facility] 05-07-2022 13:09-0400 Body weight 76.57 kg Maria R Membreno APRN.ELECTRIC LOCOMOTIVE FIRER/FIREMAN Work Phone: [facility] 05-07-2022 13:09-0400 Diastolic blood pressure 84 mm[Hg] Maria R Membreno PSYCHOLOGY DEPARTMENT CHAIR.ELECTRIC LOCOMOTIVE FIRER/FIREMAN Work Phone: [facility] 05-07-2022 13:09-0400 Heart rate 61 /min Maria R Membreno PSYCHOLOGY DEPARTMENT CHAIR.ELECTRIC LOCOMOTIVE FIRER/FIREMAN Work Phone: [facility] 05-07-2022 13:09-0400 Respiratory rate 14 /min Maria R Membreno PSYCHOLOGY DEPARTMENT CHAIR.ELECTRIC LOCOMOTIVE FIRER/FIREMAN Work Phone: [facility] 05-07-2022 13:09-0400 SaO2% (BldA) [Mass fraction] 98 % Maria R Membreno PSYCHOLOGY DEPARTMENT CHAIR.ELECTRIC LOCOMOTIVE FIRER/FIREMAN Work Phone: [facility] 05-07-2022 13:09-0400 Systolic blood pressure 130 mm[Hg] Maria R Membreno APRN.ELECTRIC LOCOMOTIVE FIRER/FIREMAN Work Phone: [facility] 10-22-2021 07:39-0500 Body temperature 97.5 [degF] Emeli Membreno PSYCHOLOGY DEPARTMENT CHAIR.ELECTRIC LOCOMOTIVE FIRER/FIREMAN Work Phone: [facility] 10-22-2021 07:39-0500 Body weight 74.39 kg Emeli Membreno PSYCHOLOGY DEPARTMENT CHAIR.ELECTRIC LOCOMOTIVE FIRER/FIREMAN Work Phone: [facility] 10-22-2021 07:39-0500 Diastolic blood pressure 78 mm[Hg] Emeli Membreno APRN.ELECTRIC LOCOMOTIVE FIRER/FIREMAN Work Phone: [facility] 10-22-2021 07:39-0500 Heart rate 73 /min Emeli Membreno APRN.ELECTRIC LOCOMOTIVE FIRER/FIREMAN Work Phone: [facility] 10-22-2021 07:39-0500 Respiratory rate 14 /min Emeli Membreno APRN.ELECTRIC LOCOMOTIVE FIRER/FIREMAN Work Phone: [facility] 10-22-2021 07:39-0500 SaO2% (BldA) [Mass fraction] 98 % Emeli Membreno APRN.ELECTRIC LOCOMOTIVE FIRER/FIREMAN Work Phone: [facility] 10-22-2021 07:39-0500 Systolic blood pressure 112 mm[Hg] Emeli Membreno APRN.ELECTRIC LOCOMOTIVE FIRER/FIREMAN Work Phone: [facility] Encounters Encounter Date Encounter Type Care Provider Facility Start: 02-03-2023 Telephone encounter Win Brizuela MD Work Phone: [facility] Procedures Date Procedure Procedure Detail Performing Clinician Start: 01-30-2023 TSH, REFLEX Win Brizuela MD Work Phone: Start: 05-07-2022 Adult depression scr eening assessment Maria R Membrneo APRN.ELECTRIC LOCOMOTIVE FIRER/FIREMAN Work Phone: Start: 11-10-2006 Mammography [facility] Start: 01-02-2004 Colonoscopy [facility] Excision of bunion DR RENEE LINDO MD Plan of Treatment Date Care Activity Detail Author Start: 05-07-2027 LIPID SCREEN LIPID SCREEN [facility] Start: 10-24-2025 LIPID SCREEN LIPID SCREEN [facility] Start: 05-07-2025 DIABETES SCREEN DIABETES SCREEN [facility] Start: 03-24-2024 Colonoscopy COLONOSCOPY [facility] Start: 03-24-2024 COLORECTAL CANCER SCREENING COLORECTAL CANCER SCREENING [facility] Start: 11-13-2023 ANNUAL PCP TEAM CHRONIC DISEASE VISIT ANNUAL PCP TEAM CHRONIC DISEASE VISIT [facility] Start: 10-24-2023 DIABETES SCREEN DIABETES SCREEN [facility] Start: 05-07-2023 Adult depression screening assessment DEPRESSION SCREENING [facility] Start: 05-07-2023 ANNUAL PCP TEAM CHRONIC DISEASE VISIT ANNUAL PCP TEAM CHRONIC DISEASE VISIT [facility] Start: 03-05-2023 End: 05-05-2023 Thyrotropin [Units/volume] in Serum or Plasma TSH BLD Lab Routine Acquired hypothyroidism Expected: 03/05/2023, Expires: 05/05/2023 [facility] Work Phone: Immunizations Immunization Date Immunization Notes Care Provider Fa shahab 05-01-2021 pneumococcal polysaccharide vaccine, 23 valent Emeli Membreno PSYCHOLOGY DEPARTMENT CHAIR.ELECTRIC LOCOMOTIVE FIRER/FIREMAN Work Phone: [facility] 09-06-2019 influenza nasal, unspecified formulation Emeli Membreno PSYCHOLOGY DEPARTMENT CHAIR.ELECTRIC LOCOMOTIVE FIRER/FIREMAN Work Phone: [facility] Payers Date Payer Category Payer Medicare MEDICARE MEDICAR E A AND B [id number] 2017-Present [phone] [place] [address] Medicare [id number] 2017 Medicare [id number] 2017 Medicare MEDICARE MEDICAR E A AND B [id number] 2017-Present [phone] [place] [address] Medicare [id number] 2017 Unknown [id number] 2017 Unknown [employer] 2N D [id number] 2017-Present [phone] [address] [address] [place] [address] Indemnity [id number] 2006 Unknown [employer] BLUE CARD PPO OOS [id number] 2006-Present [phone] [address] [place] [address] PPO [id number] 2006 Unknown [id number] 2005 Unknown PSYCH GENERIC BH GENERIC [id number] 2005-Present [phone] [address] [place] [address] Indemnity [id number] 1952 Unknown [id number] 1952 Unknown [id number] 1950 Unknown [id number] Social History Date Type Detail Facility Start: 07-26-2022 End: 11-13-2022 Tobacco smoking status NHIS Never smoked tobacco [facility] Start: 05-15-2015 End: 11-13-2022 Alcohol intake Current drinker of alcohol (finding) [facility] Start: 1950 Sex Assigned At Not on [facility] Start: 1950 [facility] Assigned At [facility] Start: 04-27-2022 End: 05-07-2022 Exposure to SARS-CoV-2 (event) Not sure [facility] Start: 05-07-2022 End: 11-13-2022 Tobacco use and exposure Smokeless tobacco non-user [facility] Functional Status Date Assessment Result Facility 07-26-2022 Functional Status Sensory Deficits None A [facility] Clinical Notes 05-07-2022 to 02-03-2023 Telephone Encounter - Arline Farooq LPN - 02/03/2023 12:49 PM EDTTelephone Encounter - Arline Farooq LPN - 02/03/2023 12:49 PM Jewels Farooq LPN - 01/31/2023 2:16 PM EDTPatient Instructions Note Date & Type Note Facility 02-03-2023 Miscellaneous Notes Patient notified of information, verbalized understanding Arline Farooq LPN February 03, 2023 12:50 PM ----- Message from Win Brizuela MD sent at 02/03/2023 8:17 AM EDT ----- increase Synthroid to 112 mcg daily. Recheck in 2 months documented in this encounter [facility] 01-31-2023 Note HNO ID: [id number] Author: Arline Farooq LPN Service: ? Author Type: LICENSED NURSE Type: Progress Notes Filed: 01/31/2023 2:17 PM Note Text: TSH 10.8 [facility] Result scanned in chart Arline Farooq LPN January 31, 2023 2:17 PM [facility] 01-31-2023 History of Present illness Narrative TSH 10.8 [facility] Result scanned in chart Arline Farooq LPN January 31, 2023 2:17 PM documented in this encounter [facility] 01-20-2023 Miscellaneous Notes Patient phoned office, requesting order. Patient was advised in November to have lab rechecked in 2 months. Please sign attached order. Arline Farooq LPN January 20, 2023 11:52 AM documented in this encounter [facility] 12-20-2022 Miscellaneous Notes Lvm to sched mammo documented in this encounter [facility] 11-18-2022 Miscellaneous Notes Patient returned call. Stated that at the time she was taking her synthroid with her protonix together at 4 am. She stated that she now has been taking her Synthroid at 2 am and her protonix around 5 am Arline Farooq LPN November 18, 2022 4:32 PM Message left for patient to phone office at earliest convenience. Arline Farooq LPN November 18, 2022 4:12 PM ----- Message from Win Brizuela MD sent at 11/17/2022 8:48 PM EST ----- Patient's TSH elevated. Was she taking her thyroid medicine daily at the time of her lab? documented in this encounter [facility] 11-13-2022 Note HNO ID: [id number] Author: Win Brizuela MD Service: ? Author Type: Physician Type: Progress Notes Filed: 11/16/2022 3:51 PM Note Text: This note was created using Actimagineter. Subjective Gayle Burton is a 71 year old female. Gayle presents today for follow-up for multiple medical problems. See list. Her chronic medical problems have been stable. Her blood pressure is under good control on her current regimen. She is due for recheck of her TSH Review of Systems Constitutional: Negative. HENT: Negative. Eyes: Negative. Respiratory: Negative. Cardiovascular: Negative. Gastrointestinal: Negative. Endocrine: Negative. Genitourinary: Negative. Musculoskeletal: Negative. Skin: Negative. Allergic/Immunologic: Negative. Neurological: Negative. Hematological: Negative. Psychiatric/Behavioral: Negative. Objective BP 134/82 (BP Site: Left Arm, BP Position: Sitting, BP Cuff Size: Large Adult) Pulse 63 Temp 36.3 ?C (97.3 ?F) (Temporal) Resp 18 Ht 175.3 cm (5' 9 ) Wt 75.9 kg (167 lb 6.4 oz) LMP 04/12/2005 SpO2 97% BMI 24.72 kg/m? Physical Exam Vitals reviewed. Constitutional: Appearance: Normal appearance. HENT: Head: Normocephalic and atraumatic. Nose: Nose normal. Eyes: Extraocular Movements: Extraocular movements intact. Pupils: Pupils are equal, round, and reactive to light. Cardiovascular: Rate and Rhythm: Normal rate and regular rhythm. Pulmonary: Effort: Pulmonary effort is normal. Breath sounds: Normal breath sounds. Abdominal: General: Bowel sounds are normal. Palpations: Abdomen is soft. Musculoskeletal: General: Normal range of motion. Cervical back: Normal range of motion and neck supple. Skin: General: Skin is warm and dry. Capillary Refill: Capillary refill takes less than 2 seconds. Neurological: General: No focal deficit present. Mental Status: She is alert and oriented to person, place, and time. Mental status is at baseline. Psychiatric: Mood and Affect: Mood normal. Behavior: Behavior normal. Assessment and Plan Gayle was seen today for 6 month exam. Diagnoses and all orders for this visit: Acquired hypothyroidism - TSH BLD; Future Pure hypercholesterolemia Primary hypertension Gastroesophageal reflux disease with esophagitis without hemorrhage Renal insufficiency syndrome Other orders - metoprolol succinate ER (TOPROL XL) 50 mg 24 hr tablet; Take 1 tablet by mouth once daily. - amLODIPine (NORVASC) 5 mg tablet; Take 1 tablet by mouth once daily. - levothyroxine (SYNTHROID) 100 mcg tablet; Take 1 tablet by mouth once daily. - Cholecalciferol, Vitamin D3, 50 mcg (2,000 unit) cap; Take 1 capsule by mouth twice daily. - Ascorbic Acid 100 mg tablet; Take 1 tablet by mouth once daily. [facility] 11-13-2022 Note HNO ID: [id number] Author: Arline Farooq LPN Service: ? Author Type: LICENSED NURSE Type: Progress Notes Filed: 11/16/2022 3:51 PM Note Text: Patient is in office today for 6 month exam. No complaints or concerns at this time Arline Farooq LPN November 13, 2022 1:26 PM [facility] 11-13-2022 History of Present illness Narrative This note was created using Nyxoahriter. Subjective Gayle Burton is a 71 year old female. Gayle presents today for follow-up for multiple medical problems. See list. Her chronic medical problems have been stable. Her blood pressure is under good control on her current regimen. She is due for recheck of her TSH Review of Systems Constitutional: Negative. HENT: Negative. Eyes: Negative. Respiratory: Negative. Cardiovascular: Negative. Gastrointestinal: Negative. Endocrine: Negative. Genitourinary: Negative. Musculoskeletal: Negative. Skin: Negative. Allergic/Immunologic: Negative. Neurological: Negative. Hematological: Negative. Psychiatric/Behavioral: Negative. Objective BP 134/82 (BP Site: Left Arm, BP Position: Sitting, BP Cuff Size: Large Adult) Pulse 63 Temp 36.3 C (97.3 F) (Temporal) Resp 18 Ht 175.3 cm (5' 9 ) Wt 75.9 kg (167 lb 6.4 oz) LMP 04/12/2005 SpO2 97% BMI 24.72 kg/m Physical Exam Vitals reviewed. Constitutional: Appearance: Normal appearance. HENT: Head: Normocephalic and atraumatic. Nose: Nose normal. Eyes: Extraocular Movements: Extraocular movements intact. Pupils: Pupils are equal, round, and reactive to light. Cardiovascular: Rate and Rhythm: Normal rate and regular rhythm. Pulmonary: Effort: Pulmonary effort is normal. Breath sounds: Normal breath sounds. Abdominal: General: Bowel sounds are normal. Palpations: Abdomen is soft. Musculoskeletal: General: Normal range of motion. Cervical back: Normal range of motion and neck supple. Skin: General: Skin is warm and dry. Capillary Refill: Capillary refill takes less than 2 seconds. Neurological: General: No focal deficit present. Mental Status: She is alert and oriented to person, place, and time. Mental status is at baseline. Psychiatric: Mood and Affect: Mood normal. Behavior: Behavior normal. Assessment and Plan Gayle was seen today for 6 month exam. Diagnoses and all orders for this visit: Acquired hypothyroidism - TSH BLD; Future Pure hypercholesterolemia Primary hypertension Gastroesophageal reflux disease with esophagitis without hemorrhage Renal insufficiency syndrome Other orders - metoprolol succinate ER (TOPROL XL) 50 mg 24 hr tablet; Take 1 tablet by mouth once daily. - amLODIPine (NORVASC) 5 mg tablet; Take 1 tablet by mouth once daily. - levothyroxine (SYNTHROID) 100 mcg tablet; Take 1 tablet by mouth once daily. - Cholecalciferol, Vitamin D3, 50 mcg (2,000 unit) cap; Take 1 capsule by mouth twice daily. - Ascorbic Acid 100 mg tablet; Take 1 tablet by mouth once daily. Patient is in office today for 6 month exam. No complaints or concerns at this time Arline Farooq LPN November 13, 2022 1:26 PM documented in this encounter [facility] 09-30-2022 Miscellaneous Notes Last office visit 05-07-2022 Requested Prescriptions Pending Prescriptions Disp Refills metoprolol succinate ER (TOPROL XL) 50 mg 24 hr tablet [Pharmacy Med Name: Metoprolol Succinate ER 50 MG Oral Tablet Extended Release 24 Hour] 90 tablet 0 Sig: Take 1 tablet by mouth once daily Arline Farooq LPN September 30, 2022 12:07 PM documented in this encounter [facility] 05-07-2022 Note HNO ID: [id number] Author: Maria R Membreno APRN.ELECTRIC LOCOMOTIVE FIRER/FIREMAN Service: ? Author Type: Nurse Practitioner Type: Progress Notes Filed: 05/07/2022 1:45 PM Note Text: This note was created using Nyxoahriter. Subjective Gayle Burton is a 71 year old female. Patient presents to the office today for a wellness exam. Patient reports she is feeling good. Review of Systems Constitutional: Negative. HENT: Negative. Eyes: Negative. Respiratory: Negative. Cardiovascular: Negative. Gastrointestinal: Negative. Patient experiencing recurrent GERD symptoms despite PPI therapy Endocrine: Negative. Genitourinary: Negative. Musculoskeletal: Negative. Skin: Negative. Allergic/Immunologic: Negative. Neurological: Negative. Hematological: Negative. Psychiatric/Behavioral: Negative. Objective BP 130/84 (BP Site: Left Arm, BP Position: Sitting) Pulse 61 Temp 36.2 ?C (97.1 ?F) (Temporal) Resp 14 Ht 172.7 cm (5' 8 ) Wt 76.6 kg (168 lb 12.8 oz) LMP 04/12/2005 SpO2 98% BMI 25.67 kg/m? Physical Exam HENT: Head: Normocephalic. Right Ear: Tympanic membrane, ear canal and external ear normal. Left Ear: Tympanic membrane, ear canal and external ear normal. Nose: Nose normal. Eyes: Extraocular Movements: Extraocular movements intact. Conjunctiva/sclera: Conjunctivae normal. Pupils: Pupils are equal, round, and reactive to light. Cardiovascular: Rate and Rhythm: Normal rate and regular rhythm. Pulses: Normal pulses. Pulmonary: Effort: Pulmonary effort is normal. Breath sounds: Normal breath sounds. Chest: Chest wall: No mass, lacerations, deformity, swelling, tenderness, crepitus or edema. There is no dullness to percussion. Breasts: Right: Normal. No swelling, bleeding, inverted nipple, mass, nipple discharge, skin change or tenderness. Left: Normal. No swelling, bleeding, inverted nipple, mass, nipple discharge, skin change or tenderness. Abdominal: General: Bowel sounds are normal. Palpations: Abdomen is soft. Musculoskeletal: General: Normal range of motion. Cervical back: Normal range of motion and neck supple. Skin: General: Skin is warm and dry. Neurological: General: No focal deficit present. Mental Status: She is alert. Psychiatric: Mood and Affect: Mood normal. Behavior: Behavior normal. Thought Content: Thought content normal. Judgment: Judgment normal. Assessment and Plan ASSESSMENT/PLAN: 1. Wellness examination - ICD9: V70.0, ICD10: Z00.00 (primary diagnosis) - Counseled on healthy diet and regular exercise - Calcium intake with supplements or by diet of 1000 mg/day for under 50, 5180-6994 mg/day for 50+ - CBC + DIFF 2. Hypothyroidism, unspecified type - ICD9: 244.9, ICD10: E03.9 - Instructed patient on importance of taking on an empty stomach either first thing in the morning or at bedtime. Stable - Continue current medications - TSH BLD 3. Primary hypertension - ICD9: 401.9, ICD10: I10 - good control - Continue current medication(s) - Recommended regular aerobic exercise. - Recommend home blood pressure monitoring, to bring results in on next visit - Goal of BP <130/80 - COMP METABOLIC PANEL 4. Mixed hyperlipidemia - ICD9: 272.2, ICD10: E78.2 - good control and - to be determined upon return of lab results - Check fasting lipid panel - LIPID PANEL BASIC 5. Encounter for screening mammogram for malignant neoplasm of breast - ICD9: V76.12, ICD10: Z12.31 - Completed breast exam - Encouraged monthly BSE - Follow up for annual exam in one year. - CHRIS SCREENING 6. GERD without esophagitis - ICD9: 530.81, ICD10: K21.9 - Continue current meds - Refer for GI consult - CONSULT TO GASTROENTEROLOGY Maria R Membreno APRN.ELECTRIC LOCOMOTIVE FIRER/FIREMAN [facility] 05-07-2022 Note HNO ID: [id number] Author: Maria R Membreno APRN.ELECTRIC LOCOMOTIVE FIRER/FIREMAN Service: ? Author Type: Nurse Practitioner Type: Progress Notes Filed: 05/07/2022 1:45 PM Note Text: This note was created using [employer]. Subjective Gayle Burton is a 71 year old female. HPI Review of Systems Objective BP 130/84 (BP Site: Left Arm, BP Position: Sitting) Pulse 61 Temp 36.2 ?C (97.1 ?F) (Temporal) Resp 14 Ht 172.7 cm (5' 8 ) Wt 76.6 kg (168 lb 12.8 oz) LMP 04/12/2005 SpO2 98% BMI 25.67 kg/m? Physical Exam Assessment and Plan [facility] 05-07-2022 History of Present illness Narrative This note was created using [employer]. Subjective Gayle Burton is a 71 year old female. Patient presents to the office today for a wellness exam. Patient reports she is feeling good. Review of Systems Constitutional: Negative. HENT: Negative. Eyes: Negative. Respiratory: Negative. Cardiovascular: Negative. Gastrointestinal: Negative. Patient experiencing recurrent GERD symptoms despite PPI therapy Endocrine: Negative. Genitourinary: Negative. Musculoskeletal: Negative. Skin: Negative. Allergic/Immunologic: Negative. Neurological: Negative. Hematological: Negative. Psychiatric/Behavioral: Negative. Objective BP 130/84 (BP Site: Left Arm, BP Position: Sitting) Pulse 61 Temp 36.2 C (97.1 F) (Temporal) Resp 14 Ht 172.7 cm (5' 8 ) Wt 76.6 kg (168 lb 12.8 oz) LMP 04/12/2005 SpO2 98% BMI 25.67 kg/m Physical Exam HENT: Head: Normocephalic. Right Ear: Tympanic membrane, ear canal and external ear normal. Left Ear: Tympanic membrane, ear canal and external ear normal. Nose: Nose normal. Eyes: Extraocular Movements: Extraocular movements intact. Conjunctiva/sclera: Conjunctivae normal. Pupils: Pupils are equal, round, and reactive to light. Cardiovascular: Rate and Rhythm: Normal rate and regular rhythm. Pulses: Normal pulses. Pulmonary: Effort: Pulmonary effort is normal. Breath sounds: Normal breath sounds. Chest: Chest wall: No mass, lacerations, deformity, swelling, tenderness, crepitus or edema. There is no dullness to percussion. Breasts: Right: Normal. No swelling, bleeding, inverted nipple, mass, nipple discharge, skin change or tenderness. Left: Normal. No swelling, bleeding, inverted nipple, mass, nipple discharge, skin change or tenderness. Abdominal: General: Bowel sounds are normal. Palpations: Abdomen is soft. Musculoskeletal: General: Normal range of motion. Cervical back: Normal range of motion and neck supple. Skin: General: Skin is warm and dry. Neurological: General: No focal deficit present. Mental Status: She is alert. Psychiatric: Mood and Affect: Mood normal. Behavior: Behavior normal. Thought Content: Thought content normal. Judgment: Judgment normal. Assessment and Plan ASSESSMENT/PLAN: 1. Wellness examination - ICD9: V70.0, ICD10: Z00.00 (primary diagnosis) - Counseled on healthy diet and regular exercise - Calcium intake with supplements or by diet of 1000 mg/day for under 50, 1840-3499 mg/day for 50+ - CBC + DIFF 2. Hypothyroidism, unspecified type - ICD9: 244.9, ICD10: E03.9 - Instructed patient on importance of taking on an empty stomach either first thing in the morning or at bedtime. Stable - Continue current medications - TSH BLD 3. Primary hypertension - ICD9: 401.9, ICD10: I10 - good control - Continue current medication(s) - Recommended regular aerobic exercise. - Recommend home blood pressure monitoring, to bring results in on next visit - Goal of BP <130/80 - COMP METABOLIC PANEL 4. Mixed hyperlipidemia - ICD9: 272.2, ICD10: E78.2 - good control and - to be determined upon return of lab results - Check fasting lipid panel - LIPID PANEL BASIC 5. Encounter for screening mammogram for malignant neoplasm of breast - ICD9: V76.12, ICD10: Z12.31 - Completed breast exam - Encouraged monthly BSE - Follow up for annual exam in one year. - CHRIS SCREENING 6. GERD without esophagitis - ICD9: 530.81, ICD10: K21.9 - Continue current meds - Refer for GI consult - CONSULT TO GASTROENTEROLOGY Maria R Membreno APRN.CNP This note was created using [employer]. Subjective Gayle Burton is a 71 year old female. HPI Review of Systems Objective BP 130/84 (BP Site: Left Arm, BP Position: Sitting) Pulse 61 Temp 36.2 C (97.1 F) (Temporal) Resp 14 Ht 172.7 cm (5' 8 ) Wt 76.6 kg (168 lb 12.8 oz) LMP 04/12/2005 SpO2 98% BMI 25.67 kg/m Physical Exam Assessment and Plan documented in this encounter [facility] 05-07-2022 Instructions Maria R Membreno APRN.CNP - 05/07/2022 1:31 PM EDT - Complete labs, fast for 12 hrs prior to lab draw - Complete mammogram-----dial [phone] to schedule - Follow up with GI, notify office if you do not hear from them in next 1-2 weeks - Follow up with an OBGYN of your choice to complete cervical cancer screening pap smear - Will be due for repeat colonoscopy in 2023 - Continue current meds - Stay active and eat healthy - Notify office with any health issues or concerns documented in this encounter [facility] Evaluation + Plan note Future Appointments [facility] [place] [facility] Diagnosis Acquired hypothyroidism- Primary Unspecified hypothyroidism Pure hypercholesterolemia Primary hypertension Unspecified essential hypertension Gastroesophageal reflux disease with esophagitis without hemorrhage Renal insufficiency syndrome Unspecified disorder of kidney and ureter [facility] [place] [facility] Diagnosis Hypothyroidism, acquired- Primary Unspecified hypothyroidism documented in this encounter [facility] note* Diagnosis Acquired hypothyroidism- Primary Unspecified hypothyroidism documented in this encounter [facility] course Narrative No data available for this section [facility] Hospital Discharge instructions No data available for this section [facility] Summary Purpose Family History No Family History Records FoundNo Family History Records FoundNo Family History Records Found Advance Directives No Advanced Directives Records FoundNo Advanced Directives Records FoundNo Advanced Directives Records Found Reason for Referral Specialty Diagnoses / Procedures Referred By Eleonora martinez Referred To Contact Gastroenterology Diagnoses GERD without esophagitis Procedures CONSULT TO GASTROENTEROLOGY OFFICE/OUTPATIENT [facility] MDM 60-74 MINUTES Maria R Membreno, DANIELA.ELECTRIC LOCOMOTIVE FIRER/FIREMAN [address] [place] [address] Referral ID Status Reason Start Date Expiration Date Visits Requested Visits Authorized [id number] Authorized PCP Requested Referral 05/07/2022 05/07/2023 1 1 Specialty Diagnoses / Procedures Referred By Eleonora martinez Referred To Contact [facility] Diagnoses Encounter for screening mammogram for malignant neoplasm of breast Procedures CHRIS SCREENING SCREENING MAMMOGRAPHY BI 2-VIEW BREAST INC CAD Maria R Membreno, PSYCHOLOGY DEPARTMENT CHAIR.ELECTRIC LOCOMOTIVE FIRER/FIREMAN [address] [place] [address] [facility] [address] [place] [address] Referral ID Status Reason Start Date Expiration Date Visits Requested Visits Authorized [id number] Authorized Auto-Generat ed Referral 05/07/2022 06/06/2023 1 1 Additional Source Comments Source Comments (unrecognize d section and content) In the event this informatio n is protected by the Federal Confidentiality of Alcohol and Drug Abuse Patient Records regulations: The Federal rules restrict any use of the information to criminally investigate or prosecute any alcohol or drug abuse patient.[facility] the event this information is protected by the Federal Confidentiality of Alcohol and Drug Abuse Patient Records regulations: The Federal rules restrict any use of the information to criminally investigate or prosecute any alcohol or drug abuse patient.[facility] the event this information is protected by the Federal Confidentiality of Alcohol and Drug Abuse Patient Records regulations: The Federal rules restrict any use of the information to criminally investigate or prosecute any alcohol or drug abuse patient.[facility] the event this information is protected by the Federal Confidentiality of Alcohol and Drug Abuse Patient Records regulations: The Federal rules restrict any use of the information to criminally investigate or prosecute any alcohol or drug abuse patient.[facility] the event this information is protected by the Federal Confidentiality of Alcohol and Drug Abuse Patient Records regulations: The Federal rules restrict any use of the information to criminally investigate or prosecute any alcohol or drug abuse patient.[facility] the event this information is protected by the Federal Confidentiality of Alcohol and Drug Abuse Patient Records regulations: The Federal rules restrict any use of the information to criminally investigate or prosecute any alcohol or drug abuse patient.[facility] the event this information is protected by the Federal Confidentiality of Alcohol and Drug Abuse Patient Records regulations: The Federal rules restrict any use of the information to criminally investigate or prosecute any alcohol or drug abuse patient.[facility] the event this information is protected by the Federal Confidentiality of Alcohol and Drug Abuse Patient Records regulations: The Federal rules restrict any use of the information to criminally investigate or prosecute any alcohol or drug abuse patient.[facility] the event this information is protected by the Federal Confidentiality of Alcohol and Drug Abuse Patient Records regulations: The Federal rules restrict any use of the information to criminally investigate or prosecute any alcohol or drug abuse patient.[facility] the event this information is protected by the Federal Confidentiality of Alcohol and Drug Abuse Patient Records regulations: The Federal rules restrict any use of the information to criminally investigate or prosecute any alcohol or drug abuse patient.[facility] Center[facility] the event this information is protected by the Federal Confidentiality of Alcohol and Drug Abuse Patient Records regulations: The Federal rules restrict any use of the information to criminally investigate or prosecute any alcohol or drug abuse patient.[facility] Center[facility] the event this information is protected by the Federal Confidentiality of Alcohol and Drug Abuse Patient Records regulations: The Federal rules restrict any use of the information to criminally investigate or prosecute any alcohol or drug abuse patient.[facility] Center[facility] the event this information is protected by the Federal Confidentiality of Alcohol and Drug Abuse Patient Records regulations: The Federal rules restrict any use of the information to criminally investigate or prosecute any alcohol or drug abuse patient.[facility] Care Teams (unrecognized sec tion and content) Truck Cleaner Relationship Specialty Start Date End Date Anna Duque DO PCP - General Internal Medicine 03/27/12 Truck Cleaner Relationship Specialty Start Date End Date Maria R Membreno, PSYCHOLOGY DEPARTMENT CHAIR.ELECTRIC LOCOMOTIVE FIRER/FIREMAN [address] [place] [address] PCP - General Internal Medicine 05/07/22 Truck Cleaner Relationship Specialty Start Date End Date Maria R Membreno, PSYCHOLOGY DEPARTMENT CHAIR.ELECTRIC LOCOMOTIVE FIRER/FIREMAN [address] [place] [address] PCP - General Internal Medicine 05/07/22 Truck Cleaner Relationship Specialty Start Date End Date Win Brizuela MD [address] [place] [address] PCP - General Family Medicine 07/24/22 Truck Cleaner Relationship Specialty Start Date End Date Win Brizuela MD [address] [place] [address] PCP - General Family Medicine 07/24/22 Truck Cleaner Relationship Specialty Start Date End Date Win Brizuela MD [address] [place], [place] [id number] PCP - General Family Medicine 07/24/22 Truck Cleaner Relationship Specialty Start Date End Date Win Brizuela MD [address] [place], [place] [address] PCP - General Family Medicine 07/24/22 Truck Cleaner Relationship Specialty Start Date End Date Win Brizuela MD [address] [place], [place] [address] PCP - General Family Medicine 07/24/22 INFORMATION SOURCE (unrecogn ized section and content) DATE CREATED AUTHOR AUTHOR'S ORGANIZ ATION 08/14/2022 [facility] ([place]) DATE CREATED AUTHOR AUTHOR'S ORGANIZ ATION 02/05/2023 [facility] Reason for Visit (unrecogniz ed section and content) Reason Comments Orders Reason Comments Refill Request Reason Comments 6 Month Exam Reason Comments Results Reason Comments Appointment Care Team (unrecognized sect ion and content) Care Team Personnel Name: WIN BRIZUELA MD Member Role: Primary Care Physician Address: Address: [address] [place] [id number]- Care Team Related Persons Name: TEA FELICIANO Name: HARRIET BURTON Address: [address] [address] FOR RECORDS PERTAINING TO PATIENTS WHO ARE OR HAVE BEEN ENROLLED IN A CHEMICAL DEPENDENCY/SUBSTANCEABUSE PROGRAM, SOME INFORMATION MAY BE OMITTED. This clinical summary was aggregated from multiple sources. Caution should be exercised in using it in the provision of clinical care. This summary normalizes information from multiple sources, and as a consequence, information in this document may materially change the coding, format and clinical context of patient data. In addition, data may be omitted in some cases. CLINICAL DECISIONS SHOULD BE BASED ON THE PRIMARY CLINICAL RECORDS. [employer] [facility]. provides no warranty or guarantee of the accuracy or completeness of information in this document.
[2023-11-14 10:42] LABS: Anion Gap 6 (5-15); BUN 23 mg/dL (7-18); BUN/Creat Ratio 18.9 RATIO (10-20); Chloride 106 mmol/L (98-107); Creatinine, Serum 1.22 mg/dL (0.55-1.02); EST Glomerular Filtration Rate 46 mL/min (>60); Est Glom Filt Rate - Afr Amer 56 mL/min (>60); Glucose 92 mg/dL (74-106); Potassium 4.2 mmol/L (3.5-5.1); Sodium Level 138 mmol/L (136-145); T4 Free Direct 1.38 ng/dL (0.76-1.46); Thyroid Stim Hormone (TSH) 4.98 uIU/mL (0.358-3.74)
== END | disposition home or self-care (01) ==
PROVIDERS: PCP Family Medicine; Referring Provider Family Medicine; Visit Provider Family Medicine
DX: I10 Essential (primary) hypertension (principal); E03.9 Hypothyroidism, unspecified
CPT/HCPCS: 36415; 80048; 84439; 84443

== ENCOUNTER → 2024-01-02 | Outpatient (CLI) | payer MEDICARE, OTHER, SELFPAY ==
[2024-01-02 10:58] LABS: Anion Gap 3 (5-15); BUN 23 mg/dL (7-18); Calcium,Total 9.8 mg/dL (8.5-10.1); Chloride 113 mmol/L (98-107); Creatinine, Serum 1.21 mg/dL (0.55-1.02); EST Glomerular Filtration Rate 47 mL/min (>60); Est Glom Filt Rate - Afr Amer 56 mL/min (>60); Glucose 101 mg/dL (74-106); Potassium 4.3 mmol/L (3.5-5.1); Sodium Level 140 mmol/L (136-145); T4 Free Direct 1.53 ng/dL (0.76-1.46); Thyroid Stim Hormone (TSH) 0.36 uIU/mL (0.358-3.74)
== END | disposition home or self-care (01) ==
LOC: LAB 09:17
PROVIDERS: PCP Family Medicine; Referring Provider Family Medicine; Visit Provider Family Medicine
DX: I10 Essential (primary) hypertension (principal); E03.9 Hypothyroidism, unspecified
CPT/HCPCS: 36415; 80048; 84439; 84443

== ENCOUNTER → 2024-05-03 | Outpatient (CLI) | payer MEDICARE, OTHER, SELFPAY ==
--- NOTE | 2024-05-03 10:01 | US_ITS ---
STUDY: ABDOMINAL ULTRASOUND - ELASTOGRAPHY REASON FOR VISIT: Female, 73 years old. Abdomen pain, cholecystitis TECHNIQUE: Liver stiffness measurements were obtained on a [employer] RS 85 ultrasound machine using a CA 1-7 probe following the SRU guidelines. 3 measurements were obtained using a 2-D-SWE method. TheIQR/M was 12% suggesting a quality data set. TECHNICAL QUALITY: Adequate. COMPARISON: FINDINGS: Liver: There is no demonstrated mass lesion. Median liver stiffness measured 9.53 kPa. Abdomen: There is no demonstrated mass lesion. US/ABD Limited w/ Elastography IMPRESSION: Liver stiffness measures 9.53 kPa compatible with F2-F3 Metavir score. Electronically Signed: Marbin Fuentes MD at 12:31 EDT ,
== END | disposition home or self-care (01) ==
LOC: US 10:00
PROVIDERS: PCP Family Medicine; Referring Provider Internal Medicine; Visit Provider Internal Medicine
DX: R10.11 Right upper quadrant pain (principal); K21.9 Gastro-esophageal reflux disease without esophagitis
CPT/HCPCS: 76705; 76981

== ENCOUNTER → 2024-05-28 | Outpatient (CLI) | payer MEDICARE, OTHER, SELFPAY ==
--- NOTE | 2024-05-28 10:50 | BI_ITS ---
MAMMOGRAPHY - BILATERAL SCREENING REASON FOR EXAM: Female, 73 years old. Routine annual screening examination. PERTINENT HISTORY: Aunts with breast cancer. TECHNIQUE: Digital bilateral breast maggie (3D mammographic acquisition) in the CC and MLO projections. 2-D mediolateral oblique (MLO) and craniocaudad (CC) views of both breasts were obtained. CAD: Full Field Digital Mammography with Computer Added Detection was performed. COMPARISON: Comparison is made with prior study dated May 27, 2023 and May 17, 2022. FINDINGS: Breast Composition: The breasts are heterogeneously dense, which may obscure small masses. There are no dominant masses or suspicious calcifications. Stable bilateral benign-appearing calcifications. No other significant abnormalities are identified. There has been no significant change since the prior study. BI/SCRN MAMM (CAD)W/MAGGIE BILAT IMPRESSION: Stable bilateral screening mammogram. Yearly follow-up mammogram recommended. (A) ASSESSMENT CATEGORY: BIRADS Category 2: Benign. A letter regarding these results will be sent to the patient by the facility within 30 days. Approximately 10% of breast cancers are not detected by mammography. A normal mammogram should not delay biopsy of a clinically suspicious abnormality. [id number] Electronically Signed: Keyon Floyd MD at 12:24 EDT ,
== END | disposition home or self-care (01) ==
LOC: OPBI 10:49
PROVIDERS: PCP Family Medicine; Visit Provider Family Medicine
DX: Z12.31 Encounter for screening mammogram for malignant neoplasm of breast (principal)
CPT/HCPCS: 77063; 77067

== ENCOUNTER → 2024-06-09 | Outpatient (CLI) | payer MEDICARE, OTHER, SELFPAY ==
--- NOTE | 2024-06-09 13:37 | ECHOD_ITS ---
Reason For Study: MITRAL REGURGITATION Procedure This was a 2D Doppler, Color Flow transthoracic echocardiogram. Exam performed in department. Left Ventricle Normal LV size. Left ventricular systolic function is normal. The left ventricular ejection fraction is 55 %. Stage 1 diastolic dysfunction. No regional wall motion abnormalities noted. Right Ventricle Normal RV size. Normal systolic function. Atria Normal left atrium. Normal right atrium. Mitral Valve Normal mitral valve. Mild-Moderate (1-2+) eccentric mitral valve insufficiency. Tricuspid Valve Normal tricuspid valve. Aortic Valve Trisinus/trileaflet aortic valve. Pulmonic Valve Normal pulmonic valve. Great Vessels Normal aortic root. The pulmonary artery is normal size. Normal inferior vena cava. Pericardium/Pleural No pericardial effusion. MMode/2D Measurements & Calculations LVIDd: 5.1 cm IVSd: 0.95 cm LVOT diam: 2.0 cm LVIDs: 3.7 cm LVPWd: 0.80 cm LVOT area: 3.2 cm2 RVDd: 3.8 cm FS: 27.3 % Ao root diam: 3.5 cm LAV(MOD-bp): 72.6 ml LVAd ap4: 30.3 cm2 LAV(MOD-bp) Indexed: 39.4 ml/m2 LVLd ap4: 8.1 cm LAV(MOD-sp2): 85.8 ml EDV(MOD-sp4): 93.4 ml LAV(MOD-sp4): 59.5 ml EDV(sp4-el): 96.9 ml LVAs ap4: 18.3 cm2 LVLs ap4: 6.5 cm ESV(MOD-sp4): 42.0 ml ESV(sp4-el): 44.0 ml EF(MOD-sp4): 55.1 % EF(sp4-el): 54.6 % LVAd ap2: 29.7 cm2 SV(MOD-sp4): 51.5 ml SV(MOD-sp2): 49.9 ml LVLd ap2: 8.5 cm EDV(MOD-sp2): 84.9 ml EDV(sp2-el): 88.4 ml LVAs ap2: 17.8 cm2 LVLs ap2: 7.3 cm ESV(MOD-sp2): 35.0 ml ESV(sp2-el): 36.9 ml EF(MOD-sp2): 58.8 % SV(sp4-el): 52.9 ml LA dimension(2D): 3.7 cm LA A4 area: 20.5 cm2 RA A4 area: 12.5 cm2 TAPSE: 1.9 cm Time Measurements MV dec time: 0.21 sec Doppler Measurements & Calculations MV E max alok: 65.5 cm/sec Lat Peak E' Alok: 9.2 cm/sec Med Peak E' Alok: 5.1 cm/sec MV A max alok: 97.8 cm/sec E/E' lat: 7.1 E/E' med: 12.8 MV E/A: 0.67 Ao V2 max: 161.2 cm/sec LV V1 max: 121.3 cm/sec MV dec slope: 306.6 cm/sec2 Ao max P.4 mmHg LV V1 max P.9 mmHg Ao V2 mean: 111.1 cm/sec LV V1 mean P.6 mmHg Ao mean P.4 mmHg LV V1 mean: 89.8 cm/sec Ao V2 VTI: 36.1 cm LV V1 VTI: 27.7 cm AV (velocity ratio): 0.77 PENG(I,D): 2.5 cm2 PENG(V,D): 2.4 cm2 SV(LVOT): 88.7 ml PA V2 max: 82.5 cm/sec PA max PG (full): 0.82 mmHg ECHO/Echo Complete Interpretation Summary Normal LV size. Left ventricular systolic function is normal. The left ventricular ejection fraction is 55 %. Stage 1 diastolic dysfunction. Mild-Moderate (1-2+) eccentric mitral valve insufficiency. The global longitudinal strain is normal. The global longitudinal strain = -18. 1 % (normal). Ordering Physician: Jose Neil Referring Physician: Jose Neil MD Performed By: Loretta Cruz RDCS
== END | disposition home or self-care (01) ==
LOC: CVS 13:37
PROVIDERS: PCP Family Medicine; Referring Provider Internal Medicine Cardiovascular Disease; Visit Provider Internal Medicine Cardiovascular Disease
DX: I34.0 Nonrheumatic mitral (valve) insufficiency (principal)
CPT/HCPCS: 93306

== ENCOUNTER → 2024-07-27 | Outpatient (CLI) | payer MEDICARE, OTHER, SELFPAY ==
[2024-07-27 11:49] LABS: Absolute Lymphocyte Count 1.33 X10^3/uL (0.83-4.51); Absolute Neutrophil Count 2.4 X10^3/uL (2.0-7.7); Basophil# 0.04 X10^3/uL; Basophil% 0.8 % (0-1); Eosinophil# 0.61 X10^3/uL; Eosinophils% 12.7 % (0-5); Hematocrit 36.5 % (37-47); Hemoglobin 12.2 g/dL (12.0-15.0); Lymphocyte # 1.33 X10^3/ul (0.83-4.51); Lymphocyte % 27.6 % (19-41); Mean Corp Hgb Conc 33.4 g/dL (32-36); Mean Corpuscular Hgb 31.9 pg (27.0-32.0); Mean Corpuscular Volume 95.5 fL (81-99); Mean Platelet Vol. 9.5 fl (6.2-12.0); Monocyte# 0.47 X10^3/uL; Monocyte% 9.8 % (0-10); NRBC Flagged by Analyzer 0 % (0-5); Neutrophil # 2.36 X10^3/uL (2.7-7.7); Neutrophil % 48.9 % (47-70); Platelet Count 261 K/mm3 (150-450); RBC Distribution Width CV 12.9 % (11.6-14.6); RBC Distribution Width SD 45.4 fl (35.1-43.9); Red Blood Count 3.82 M/mm3 (4.2-5.4); White Blood Count 4.8 K/mm3 (4.4-11.0)
[2024-07-27 12:00] LABS: International Normalized Ratio 1.1; Prothrombin Time (Protime)PT. 14.6 SECONDS (11.7-14.9)
[2024-07-27 12:28] LABS: AST(SGOT) 19 U/L (15-37); Alanine Aminotransfer ALT/SGPT 20 U/L (13-56); Albumin, Serum 3.7 g/dL (3.2-5.0); Alkaline Phosphatase 61 U/L (45-117); Anion Gap 4 (5-15); BUN 25 mg/dL (7-18); BUN/Creat Ratio 17.9 RATIO (10-20); Bilirubin, Direct 0.12 mg/dL (0.00-0.30); CRP < 2.90 mg/L (0.0-3.0); Calcium,Total 9.3 mg/dL (8.5-10.1); Chloride 110 mmol/L (98-107); Cholesterol 211 mg/dL (200); EST Glomerular Filtration Rate 39 mL/min (>60); Est Glom Filt Rate - Afr Amer 48 mL/min (>60); Globulin 3.8 g/dL (2.2-4.2); Glucose 97 mg/dL (74-106); High Density Lipoprotein 90 mg/dL; Iron 92 ug/dL (50-170); Iron Binding Capacity,Total 240 ug/dL (250-450); Lipase 32 U/L (13-75); PERCENT IRON SATURATION 38.3 % (15.0-55.0); Phosphorus 3.2 mg/dL (2.5-4.9); Protein, Total 7.5 g/dL (6.4-8.2); Sodium Level 138 mmol/L (136-145); T4 Free Direct 1.07 ng/dL (0.76-1.46); Triglycerides 82 mg/dL; Very Low Density Lipoprotein 16 mg/dL (5-40)
[2024-07-28 15:08] LABS: ANTINUCLEAR ANTIBODIES DIRECT Negative (Negative); Anti-Mitochondrial AB <20.0 Units (0.0-20.0)
[2024-08-01 04:06] LABS: Albumin 3.9 g/dL (2.9-4.4); Alpha-1-Globulins 0.2 g/dL (0.0-0.4); Alpha-2-Globulins 0.6 g/dL (0.4-1.0); Anti-Parietal Cell AB, QN 1.9 Units (0.0-20.0); Anti-Smooth Muscle ABS 8 Units (0-19); Endomysial Antibody IgA Negative (Negative); Free Kappa Light Chains 31.6 mg/L (3.3-19.4); Free Lambda Light Chains 21.1 mg/L (5.7-26.3); Gamma Globulin 1.2 g/dL (0.4-1.8); Gastrin, Serum 22 pg/mL (0-115); HEPATITIS B SURFACE AG Negative (Negative); Hep C Antibodies Non Reactive (Non Reactive); Hepatitis A IgM Antibody Negative (Negative); Hepatitis B Core AB IgM Negative (Negative); Immunoglobulin A 245 mg/dL (64-422); Immunoglobulin E 59 IU/mL (6-495); Immunoglobulin G 1326 mg/dL (586-1602); Immunoglobulin M 50 mg/dL (26-217); Intrinsic Factor Ab 1.1 AU/mL (0.0-1.1); PROEL- TOTAL PROTEIN 6.7 g/dL (6.0-8.5); t-Transglutaminase IgA <2 U/mL (0-3)
== END | disposition home or self-care (01) ==
PROVIDERS: PCP Family Medicine; Referring Provider Internal Medicine; Visit Provider Internal Medicine
DX: R10.11 Right upper quadrant pain (principal); K21.9 Gastro-esophageal reflux disease without esophagitis; R10.13 Epigastric pain; L90.0 Lichen sclerosus et atrophicus; E78.5 Hyperlipidemia, unspecified; K44.9 Diaphragmatic hernia without obstruction or gangrene; R63.4 Abnormal weight loss; E03.9 Hypothyroidism, unspecified
CPT/HCPCS: 36415; 80053; 80061; 80074; 82248; 82784; 82785; 82941; 83516; 83540; 83550; 83690; 83883; 84100; 84165; 84439; 84443; 85025; 85610; 86038; 86140; 86225; 86235; 86255; 86334; 86340

== ENCOUNTER 2024-09-10 10:57 | Day surgery (SDC) | payer MEDICARE, OTHER, SELFPAY ==
[2024-09-10] VITALS (10 sets, daily range): BP systolic 73–125; BP diastolic 45–81; PULSE 55–75; RESP 16; TEMP 36.2–36.8; O2SAT 95–100; BMI 22.2
[2024-09-10] MEDS: 0.9% Normal Saline (500mL Bag) 500 ML 999 ML IV (13:23)
== END 2024-09-10 13:56 | disposition home or self-care (01) ==
LOC: EN 10:58 → AC 10:59
PROVIDERS: PCP Family Medicine; Referring Provider Family Medicine; Visit Provider Internal Medicine Gastroenterology
PROC: 0DJD8ZZ Inspection of Lower Intestinal Tract, Via Natural or Artificial Opening Endoscopic (ICD-10-PCS; CPT 45378; principal; 2024-09-10 11:55)
DX: K52.9 Noninfective gastroenteritis and colitis, unspecified (principal); K44.9 Diaphragmatic hernia without obstruction or gangrene; K22.2 Esophageal obstruction; K57.30 Diverticulosis of large intestine without perforation or abscess without bleeding; K63.89 Other specified diseases of intestine; K21.9 Gastro-esophageal reflux disease without esophagitis; I12.9 Hypertensive chronic kidney disease with stage 1 through stage 4 chronic kidney disease, or unspecified chronic kidney disease; N18.9 Chronic kidney disease, unspecified; E03.9 Hypothyroidism, unspecified; Z79.899 Other long term (current) drug therapy
CPT/HCPCS: 43239; 43248; 45380; 88305; 88312; J7040; A4216; C1769; J2405

== ENCOUNTER → 2024-10-18 | Outpatient (CLI) | payer MEDICARE, OTHER, SELFPAY | END | disposition home or self-care (01) | PROVIDERS: PCP Family Medicine; Referring Provider Family Medicine; Visit Provider Family Medicine | DX: E03.9 Hypothyroidism, unspecified (principal) | CPT/HCPCS: 36415; 84443 ==

== ENCOUNTER → 2024-11-10 | Outpatient (CLI) | payer MEDICARE, OTHER, SELFPAY ==
--- NOTE | 2024-11-10 12:08 | NM_ITS ---
CLINICAL: 73-year-old female with history of abdominal pain and reflux. SEMI-SOLID PHASE 99m Tc SULFUR COLLOID GASTRIC EMPTYING STUDY COMPARISON: Abdominal ultrasound report 05/03/2024 FINDINGS: The patient was administered 1.0 mCi of 99m Tc sulfur colloid mixed with oatmeal and consumed per os. Image acquisitions in the anterior-posterior projections for a total of 60 minutes. There is prompt visualization of the stomach. There is no gastroesophageal reflux identified. The T ? raw data emptying was calculated to be 27.18 minutes, (Normal: 12-56 minutes). NM/Gastric Emptying Study IMPRESSION: 1. NORMAL 99m Tc sulfur colloid semi-solid phase (oatmeal) gastric emptying imaging examination. A. There is normal and preserved semi-solid phase gastric emptying compared to normal controls. (Nicholas et al, J Nucl Med Tech 38: 186, 2010). Electronically Signed: Marbin Schreiber DO at 8:14 EST ,
== END | disposition home or self-care (01) ==
LOC: NM 12:08
PROVIDERS: PCP Family Medicine; Referring Provider Internal Medicine; Visit Provider Internal Medicine
DX: K31.89 Other diseases of stomach and duodenum (principal); K21.9 Gastro-esophageal reflux disease without esophagitis; R13.10 Dysphagia, unspecified
CPT/HCPCS: 78264; A9541

== ENCOUNTER 2024-11-16 14:33 | Emergency (ER) | payer MEDICARE, OTHER, SELFPAY ==
[2024-11-16 14:33] VITALS: BP 126/67; PULSE 58; RESP 16; TEMP 35.8; O2SAT 99; BMI 23.6
--- NOTE | 2024-11-16 15:15 | EX.ED.UPPERE ---
HPI History of Present Illness Chief Complaint: Upper Extremity Injury Narrative Narrative: Patient is a 73-year-old female past medical history of depression, hypertension, hypothyroidism, GERD who presented to the emergency department with a chief complaint of left wrist pain. Patient states that she was taking her neighbor her mail and when she was coming off the porch slipped on the step on ice causing her to fall and land on her left wrist. States that she has pain in the left wrist denies pain anywhere else. Patient states that she did not hit her head she did not pass out she remembers the entire event. Patient states that she did not take anything for pain prior to arrival here. [facility] Medical History Wears glasses Wears dentures Post-menopausal Low iron Non-smoker Leg cramps History of echocardiogram Cardiology follow-up encounter Renal insufficiency syndrome Depression Mitral stenosis Gallbladder anomaly RUQ abdominal pain Hiatal hernia Schatzki's ring of distal esophagus Thyroid disease Arthritis Restless legs Dysphagia Lichen sclerosus HTN (hypertension) Hypothyroidism GERD (gastroesophageal reflux disease) Home Medications ?Medication ?Instructions ?Recorded ?Last Taken ?Type amlodipine 5 mg tablet 5 mg PO DAILY 06/06/22 09/10/24 History metoprolol succinate 50 mg 50 mg PO DAILY 06/06/22 09/10/24 History tablet,extended release 24 hr Lactobacillus acidophilus 10 10,000 mmu cells PO DAILY 09/18/22 Unknown History billion cell capsule (Probiotic) levothyroxine 100 mcg tablet 100 mcg PO QDAY 1 month #30 tabs 07/28/24 Unknown Rx pantoprazole 40 mg tablet,delayed 40 mg PO BID 1 month #60 tabs 10/13/24 Unknown Rx release ondansetron 4 mg disintegrating 4 mg PO Q6H PRN nausea and 11/16/24 Unknown Rx tablet vomiting #20 tabs oxycodone-acetaminophen 5 mg-325 1 tab PO Q6H PRN pain 3 days #12 11/16/24 Unknown Rx mg tablet (Endocet) tabs Allergy/AdvReac Type Severity Reaction Status Date / Time HUY Inhibitors AdvReac Intermediate COUGH Verified 11/16/24 14:33 fosinopril (From Monopril) AdvReac Intermediate Cough Verified 11/16/24 14:33 Family History Mother Hypertension Thyroid disorder Father Hypertension Heart disease Arthritis Sister Arthritis Hyperlipidemia Hypertension Aunt Breast cancer Surgical History History of esophagogastroduodenoscopy (EGD) Hx of total knee arthroplasty History of tubal ligation History of rotator cuff surgery History of foot surgery Social History household members: spouse current occupational status: 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 Smoking Status: Never smoker alcohol intake: current alcohol intake frequency: a few times a month substance use type: does not use what type of physical activity do you participate in: none seatbelt use: always do you feel safe at home: Yes additional social history: - Felix ROS ROS ED ROS Narrative Constitutional: Denies any headaches, lightness, dizziness Eyes: Denies change in vision double vision blurry vision Cardiovascular: Denies chest pain or palpitations Respiratory: Denies coughing wheezing shortness of breath Abdomen: Denies abdominal pain nausea vomit diarrhea : Denies any urinary symptoms Neurological: Denies numbness, weakness, tingling Musculoskeletal: Complains of left wrist pain as noted above Skin: Denies rashes or lesions EXAM Physical Exam Narrative Exam Narrative: General: Patient lying in bed rest comfortably did not appear to be acute distress Head: Atraumatic, normocephalic Eyes: PERRL bilaterally, EOMI bilaterally, no conjunctival injection noted Neck: Soft, supple, trachea midline, no tense palpation midline of the cervical spine patient has full range of motion of her neck no pain elicited Cardiovascular: Regular rate and rhythm no murmurs gallops rubs noted Respiratory: Clear to auscultation bilaterally no rales rhonchi or wheezes noted Abdomen: Soft, nondistended, nontender to palpation, bowel sounds present x 4 Musculoskeletal: No tenderness palpation the midline of the thoracolumbar spine. Patient has tenderness palpation over the left wrist. No tenderness palpation her hand on the left side all other bony prominences palpated and joints taken through full range of motion no pain elicited Extremities: Radial pulses +2/4 in the bilateral upper extremities, +4/5 strength to the left hand secondary to pain, +5/5 strength noted in the rest of her extremities Neurological: Patient following commands knew that she was at [facility] year is 2024 sensation grossly intact in the median ulnar radial nerve distributions bilaterally Skin: Warm, dry, intact no rashes or lesions noted Const Vital Signs: 11/16/24 14:33 Temperature 96.5 F L Temperature Source Temporal Pulse Rate 58 L Respiratory Rate 16 Blood Pressure 126/67 H Blood Pressure Mean 86 Pulse Ox 99 Oxygen Delivery Method Room Air MDM MDM MDM Narrative Medical decision making narrative: patient is a 73-year-old female who presents to the emerged part with a chief complaint of left wrist pain after a mechanical fall on ice. On the differential diagnose includes but not limited to distal radius fracture, musculoskeletal strain, ulnar fracture. Once workup is obtained reviewed she will be reevaluated. Patient will be given a gram of Tylenol as she drove here. Patient's original x-ray was reviewed by myself and by radiology showed comminuted intra-articular displaced fracture of the distal radius. She Patient was placed in finger traps. I discussed case with on-call orthopedic surgeon who she also follows with Dr. Zamora who agrees with plan of reduction and sugar-tong splint and follow-up in the office. After significant mount time of the patient being in finger traps and was given a oxycodone with Zofran. The distal radius was attempted to be reduced with a sugar-tong splint applied. She remained neurovascular intact afterwards. Post reduction x-ray was obtained and reviewed by myself and by radiology which showed Reduction and cast placement for the distal wrist fracture. Patient was advised to ice and elevate. She was encouraged to rotate Tylenol and ibuprofen [id number] for mild to moderate pain and use the Percocet and Zofran for severe pain. She was advised to not operate anything under the influence of the narcotics. She is advised to return with worsening symptoms or concerns. She is agree with this plan she would like to go home at this point time all question concerns answered she was discharged home in stable condition. Discharge Plan Triage Chief Complaint: Upper Extremity Injury ED Provider: Tony Grant Dx/Rx/DC Orders Clinical Impression: Closed fracture of distal end of left radius Prescriptions: New oxycodone-acetaminophen [Endocet] 5-325 mg tablet 1 tab PO Q6H PRN (Reason: pain) 3 Days Qty: 12 0RF ondansetron 4 mg tablet,disintegrating 4 mg PO Q6H PRN (Reason: nausea and vomiting) Qty: 20 0RF No Action amlodipine 5 mg tablet 5 mg PO DAILY metoprolol succinate 50 mg tablet extended release 24 hr 50 mg PO DAILY pantoprazole 40 mg tablet,delayed release (DR/EC) 40 mg PO BID 30 Days Qty: 60 2RF Rx Instructions: Changed to 40 mg once daily on 10/26/2024. Probiotic 10 billion cell Capsule 10,000 mmu cells PO DAILY levothyroxine 100 mcg tablet 100 mcg PO QDAY 30 Days Qty: 30 6RF Primary Care Provider: Nathan Degroot Referrals: Nathan Degroot MD [Primary Care Provider] - Christiano Zamora MD [Med Staff - Active Staff] - Activity Restrictions/Additional Instructions: Follow-up with Dr. Zamora in the outpatient setting. Ice, elevate, rotate Tylenol and ibuprofen [id number] for pain control mild to moderate pain and use the Percocet Zofran for severe pain. Return with worsening symptoms or concerns. Print Language: Jordanian Disposition Disposition: Home, Self Care
--- NOTE | 2024-11-16 15:16 | RAD_ITS ---
INDICATION: fall on ice EXAMINATION/TECHNIQUE: X-RAY - LEFT XR Wrist Min 3 Views 3 VIEWS COMPARISON: No relevant prior comparison study available FINDINGS: SOFT TISSUES: Soft tissue swelling. No radiopaque foreign body. BONES/JOINTS: Comminuted intra-articular displaced fracture of the distal radius. Demineralization of the osseous structures. No evidence of dislocation. Degenerative arthrosis of the trapezium first metacarpal joint. No sclerotic or destructive changes observed. RAD/Wrist min 3 Views IMPRESSION: Comminuted intra-articular displaced fracture of the distal radius. Electronically Signed: Angelo Archibald MD at 15:40 EST ,
[2024-11-16] MEDS: Acetaminophen 500 MG Tablet 1000 MG PO (15:27)
[2024-11-16] MEDS: oxyCODONE 5 MG Tablet PO (16:44)
[2024-11-16] MEDS: Ondansetron ODT 4 MG Tablet PO (16:44)
--- NOTE | 2024-11-16 17:15 | RAD_ITS ---
INDICATION: distal radius fx s/p splint EXAMINATION/TECHNIQUE: X-RAY - LEFT XR Wrist Min 3 Views 3 VIEWS COMPARISON: November 16, 2024 at 15:11 hours FINDINGS: Status post reduction and cast placement for a distal radial comminuted fracture. Fracture fragments demonstrates slight improvement in alignment. RAD/Wrist min 3 Views IMPRESSION: Reduction and cast placement for distal radial fracture.. Electronically Signed: Cipriano Lewis DO at 17:30 EST ,
--- NOTE | 2024-11-16 18:17 | ED.RN ---
did not get bone health print off prior to dc
== END 2024-11-16 18:17 | disposition home or self-care (01) ==
PROVIDERS: Emergency Provider Emergency Medicine; PCP Family Medicine; Visit Provider Emergency Medicine
DX: S52.572A Other intraarticular fracture of lower end of left radius, initial encounter for closed fracture (principal); W00.1XXA Fall from stairs and steps due to ice and snow, initial encounter
CPT/HCPCS: 29125; 29405; 73110; 99283

== ENCOUNTER → 2024-11-25 | Outpatient (CLI) | payer MEDICARE, OTHER, SELFPAY ==
--- NOTE | 2024-11-25 12:51 | BD_ITS ---
STUDY: DUAL ENERGY X-RAY ABSORPTIOMETRY / DXA REASON FOR EXAM: Female, 73 years old. 733.00OsteoporosisBONE DENSITY REASON FOR EXAM TECHNIQUE: Bone Mineral Density (BMD) measurements of lumbar spine and bilateral hips were obtained. COMPARISON: Comparison is made with prior study dated November 13, 2011. FINDINGS: Lumbar Spine (L1-L4): g/cm2 (0.915) / T-score (-0.9) / Z-score (1.2) Findings are suggestive of normal bone density with a low fracture risk. Left Femur Total: g/cm2 (0.727) / T-score (-1.8) / Z-score (-0.2) Left Femoral Neck: g/cm2 (0.645) / T-score (-1.8) / Z-score (0.1) Right Femur Total: g/cm2 (0.676) / T-score (-2.2) / Z-score (-0.6) Right Femoral Neck: g/cm2 (0.575) / T-score (-2.5) / Z-score (-0.6) The T-Scores on the most recent prior examination were: Lumbar Spine (L1-L4): There has been worsening of bone density since the previous examination. Left Femur Total: which represents a worsening of 10.8%. Right Femur Total: which represents a worsening of 10.2%. BD/Dexa Bone Density Study IMPRESSION: The patient is considered osteopenic as outlined below according to World Joey Organization (WHO) criteria with a high fracture risk. There has been worsening of bone density since the previous examination. Reference Information: The T-score is the number of standard deviations above or below the standard which is normal for young adults at their peak bone mineral density. The World Health Organization (WHO) interprets the T-scores as follows: Above -1 Normal bone density Between -1 and -2.5 Osteopenia Equal to / or below -2.5 Osteoporosis As a practical clinical guideline, osteopenia may be graded as follows: Mild -1 through -1.5 Moderate -1.6 through -2.0 Severe -2.1 through -2.4 The Z-score is the number of standard deviations above or below age-matched controls. A Z-score of less than -1.5 would be considered abnormal. References: 1. NIH Osteoporosis and Related Bone Diseases www osteo.org 2. International Society for Clinical Densitometry www iscd.org 3. National Osteoporosis Foundation www nof.org Electronically Signed: Keyon Floyd MD at 14:27 EST ,
== END | disposition home or self-care (01) ==
PROVIDERS: PCP Family Medicine; Referring Provider Family Medicine; Visit Provider Family Medicine
DX: M81.0 Age-related osteoporosis without current pathological fracture (principal)
CPT/HCPCS: 77080

== ENCOUNTER 2025-01-20 07:06 | Day surgery (SDC) | payer MEDICARE, OTHER, SELFPAY ==
--- NOTE | 2025-01-14 19:16 | PAT.ANE_ITS ---
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 When Was Last Pacemaker Check QUESTION #4 FULL TEXT: You/Your Family Experience fever (hyperthermia) with Anesthesia Last Oral Intake Last Oral intake: Last Oral Intake NPO since Meds taken in AM with sips of water? Meds patient instructed to take am of surgery PONV PONV - equine breeder: PONV - equine breeder Female Yes 01/14/25 15:38 HX of Motion Sickness No 01/14/25 15:38 HX of N/V After Surgery No 01/14/25 15:38 Non-Smoker Yes 01/14/25 15:38 Duration of Surgery greater No 01/14/25 15:38 than 60 minutes Number of Risk Factors 2 01/14/25 15:38 PONV Score Moderate Risk 01/14/25 15:38 Height & Weight Height & Weight: Anesthesia: Height & Weight Height 5 ft 9 in 12/08/24 13:53 Respiratory Assessment Respiratory Assessment - equine breeder: Respiratory Tract Infection Hx - equine breeder Hx Respiratory Tract Infection No 01/14/25 15:38 STOP Sleep Apnea STOP Sleep Apnea - equine breeder: STOP Sleep Apnea - equine breeder Hx Hypertension Yes: CONTROLLED WITH MED 01/14/25 15:38 Hx Sleep Apnea No 01/14/25 15:38 CPAP BIPAP Do you snore loudly (louder Yes 01/14/25 15:38 than talking or can be heard Do you often feel tired/ No 01/14/25 15:38 fatigued/ sleepy during daytime? Has anyone observed you stop No 01/14/25 15:38 breathing during sleep? STOP Results Positive 01/14/25 15:38 QUESTION #5 FULL TEXT : Do you snore loudly (louder than talking or can be heard through closed doors)? 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 Specify any problems Hx of Preganancy in last 3 No 01/14/25 15:38 Months Nurse Filling Out Transfusion DSCHRIBER 01/14/25 15:38 & Questions: Date: 01/14/25 01/14/25 15:38 Time: 15:39 01/14/25 15:38 Patient unable to answer at this time (ie. confused, unrespo /Reproduction History /Reproductive History - equine breeder: /Reproductive Hx- equine breeder Hx Now No 01/14/25 15:38 Gestational Age (in weeks): EDC: Hx Hx Para Hx Section SAB No 01/14/25 15:38 PFSH Medical History (Updated 01/14/25 @ 15:46 by Carmen Carrero) Bladder disease Restless legs History of hiatal hernia Wears glasses Wears dentures Post-menopausal Low iron Non-smoker History of echocardiogram Cardiology follow-up encounter Renal insufficiency syndrome Depression Mitral stenosis Gallbladder anomaly RUQ abdominal pain Schatzki's ring of distal esophagus Thyroid disease Arthritis Restless legs Dysphagia Lichen sclerosus HTN (hypertension) Hypothyroidism GERD (gastroesophageal reflux disease) Home Medications ?Medication ?Instructions ?Recorded ?Last Taken ?Type amlodipine 5 mg tablet 5 mg PO DAILY 06/06/2209/10 History metoprolol succinate 50 mg 50 mg PO DAILY 06/06/2206/26 History tablet,extended release 24 hr Lactobacillus acidophilus 10 10,000 mmu cells PO DAILY 09/18/22 Unknown History billion cell capsule (Probiotic) levothyroxine 100 mcg tablet 100 mcg PO QDAY 1 month # 30 tabs 07/28/24 Unknown Rx cholecalciferol (vitamin D3) 125 125 mcg PO DAILY 01/01 02/25 Unknown History mcg (5,000 unit) tablet (Vitamin D3) pantoprazole 40 mg tablet,delayed 40 mg PO DAILY 01/14 Unknown History release Allergy/AdvReac Type Severity Reaction Status Date / Time HUY Inhibitors AdvReac Intermediate COUGH Verified 01/14/25 15:34 fosinopril (From Monopril) AdvReac Intermediate Cough Verified 01/14/25 15:34 Family History Mother Hypertension Thyroid disorder Father Hypertension Heart disease Arthritis Sister Arthritis Hyperlipidemia Hypertension Aunt Breast cancer Surgical History (Updated 01/14/25 @ 15:46 by Carmen Carrero) Hx of colonoscopy History of esophagogastroduodenoscopy (EGD) Hx of total knee arthroplasty History of tubal ligation History of rotator cuff surgery History of foot surgery Social History household members: spouse current occupational status: 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 Smoking Status: Never smoker alcohol intake: current alcohol intake frequency: a few times a month substance use type: does not use what type of physical activity do you participate in: none seatbelt use: always do you feel safe at home: Yes additional social history: - Felix Audit: Pertinent Findings Pertinent Findings EKG Perinent findings: 05/19/2024. Sinus rhythm with occasional ectopic ventricular beats. Echo (EF%) pertinent findings: 06/09/2024 EF 55%. Consult pertinent findings: Cardiology 05/19/2024. Mitral regurgitation. Asymptomatic. Hypertension. Chronic. Continue current medications. Recommendation Anesthesia Recommendation Anesthesia recommendation: OPTIMIZED for anesthesia
[2025-01-20] VITALS (9 sets, daily range): BP systolic 81–143; BP diastolic 54–69; PULSE 63–69; RESP 16–18; TEMP 36.1–36.5; O2SAT 92–100; BMI 24.5
--- NOTE | 2025-01-20 07:51 | PCM.PRE.AN2 ---
ASA Classification* ASA Classification ASA Classification: 3 Assessment & Plan Anesthesia* Anesthesia Assessment Anesthesia Assessment: Discussed sedation and/or anesthesia options, risks, benefits, and alternatives with patient/parents/legal guardian/POA. Questions invited. The patient/parents/legal guardian/POA seems to understand and agrees to proceed with anesthesia plan. Reviewed the physical assessment, medical history, allergy history and patient home medications list prior to surgery/procedure/anesthetic and documented any changes. Performed airway and anesthesia risk assessments. Anesthesia Type Anesthesia Type: MAC (General anesthesia as a backup.) History Source History Obtained from:: Patient and Chart Anesthesia Focused Assessment* Temperature: 97.7 F Pulse Rate: 69 Blood Pressure: 143/64 Respiratory Rate: 18 Pulse Ox: 98 Oxygen Delivery Method: Room Air Airway Assessment Mouth opens: >3 cm Mallampati Score: I Teeth Condition: Dentures (Patient has full upper and lower dentures.) Neck Range of motion (ROM): Full ROM Focused Labs Anesthesia Preop lab: CBC WBC 4.8 K/mm3 (4.4-11.0) 07/27/24 11:11 07/27/24 RBC 3.82 M/mm3 (4.2-5.4) L 07/27/24 11:11 07/27/24 Hgb 12.2 g/dL (12.0-15.0) 07/27/24 11:11 07/27/24 Hct 36.5 % (37-47) L 07/27/24 11:11 07/27/24 Plt Count 261 K/mm3 (150-450) 07/27/24 11:11 07/27/24 CHEMISTRY Potassium 4.0 mmol/L (3.5-5.1) 07/27/24 11:11 07/27/24 Sodium 138 mmol/L (136-145) 07/27/24 11:11 07/27/24 Phosphorus 3.2 mg/dL (2.5-4.9) 07/27/24 11:11 07/27/24 BUN 25 mg/dL (7-18) H 07/27/24 11:11 07/27/24 Creatinine 1.40 mg/dL (0.55-1.02) H 07/27/24 11:11 07/27/24 Glucose 97 mg/dL (74-106) 07/27/24 11:11 07/27/24 TSH 2.090 uIU/mL (0.358-3.740) 10/18/24 11:39 10/18/24 COAG PT 14.6 SECONDS (11.7-14.9) 07/27/24 11:11 07/27/24 Pre-Assessment Diagnosis/Proposed Procedure Planned Operative Procedure(s): CYSTO BLADDER BIOPSY WITH FULGERATION Anesthesia History Anesthesia History - operations management trainee: Anesthesia History - operations management trainee Hx Hospitalization No 01/14/25 15:38 Any Problems With Anesthesia No 01/14/25 15:38 Cholinesterase deficiency No 01/14/25 15:38 You/Your Family Experience No 01/14/25 15:38 fever (hyperthermia) with Relationship Recent Exposure to Contagious No 01/20/25 07:33 Disease Does patient have nerve No 01/14/25 15:38 stimulator Patient instructed to have device shut off --Does patient have Pacemaker No 01/20/25 07:34 or ICD? When Was Last Pacemaker Check QUESTION #4 FULL TEXT: You/Your Family Experience fever (hyperthermia) with Anesthesia Last Oral Intake Last Oral intake: Last Oral Intake NPO since 06:00 01/20/25 07:34 Meds taken in AM with sips of water? Meds patient instructed to take am of surgery Any additional information?: Yes NPO since: 06:30 (Patient had some black coffee at 6:30 AM.) Meds taken in AM with sips of water?: Yes PONV PONV - operations management trainee: PONV - operations management trainee Female Yes 01/14/25 15:38 HX of Motion Sickness No 01/14/25 15:38 HX of N/V After Surgery No 01/14/25 15:38 Non-Smoker Yes 01/14/25 15:38 Duration of Surgery greater No 01/14/25 15:38 than 60 minutes Number of Risk Factors 2 01/14/25 15:38 PONV Score Moderate Risk 01/14/25 15:38 Height & Weight Height & Weight: Anesthesia: Height & Weight Height 5 ft 9 in 01/20/25 07:34 Weight: 75.296 kg 01/20/25 07:34 Body Mass Index (BMI) 24.5 01/20/25 07:34 Respiratory Assessment Respiratory Assessment - operations management trainee: Respiratory Tract Infection Hx - operations management trainee Hx Respiratory Tract Infection No 01/14/25 15:38 STOP Sleep Apnea STOP Sleep Apnea - operations management trainee: STOP Sleep Apnea - operations management trainee Hx Hypertension Yes: CONTROLLED WITH MED 01/14/25 15:38 Hx Sleep Apnea No 01/14/25 15:38 CPAP BIPAP Do you snore loudly (louder Yes 01/14/25 15:38 than talking or can be heard Do you often feel tired/ No 01/14/25 15:38 fatigued/ sleepy during daytime? Has anyone observed you stop No 01/14/25 15:38 breathing during sleep? STOP Results Positive 01/14/25 15:38 QUESTION #5 FULL TEXT : Do you snore loudly (louder than talking or can be heard through closed doors)? 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 Specify any problems Hx of Preganancy in last 3 No 01/14/25 15:38 Months Nurse Filling Out Transfusion DSCHRIBER 01/14/25 15:38 & Questions: Date: 01/14/25 01/14/25 15:38 Time: 15:39 01/14/25 15:38 Patient unable to answer at this time (ie. confused, unrespo /Reproduction History /Reproductive History - operations management trainee: /Reproductive Hx- operations management trainee Hx Now No 01/14/25 15:38 Gestational Age (in weeks): EDC: Hx Hx Para Hx Section SAB No 01/14/25 15:38 Active Medications Active Medications: Current Medications Generic Name Dose Route Start Last Admin Trade Name Freq PRN Reason Stop Dose Admin Cefazolin Sodium 2 gm/ N/A 20 mls @ 400 mls/hr 01/20/25 08:30 IV 01/20/25 08:32 PREOP ONE PFSH Medical History Bladder disease Restless legs History of hiatal hernia Wears glasses Wears dentures Post-menopausal Low iron Non-smoker History of echocardiogram Cardiology follow-up encounter Renal insufficiency syndrome Depression Mitral stenosis Gallbladder anomaly RUQ abdominal pain Schatzki's ring of distal esophagus Thyroid disease Arthritis Restless legs Dysphagia Lichen sclerosus HTN (hypertension) Hypothyroidism GERD (gastroesophageal reflux disease) Home Medications ?Medication ?Instructions ?Recorded ?Last Taken ?Type amlodipine 5 mg tablet 5 mg PO DAILY 06/06/22 01/20/25 05:30 History metoprolol succinate 50 mg 50 mg PO DAILY 06/06/22 01/20/25 05:30 History tablet,extended release 24 hr Lactobacillus acidophilus 10 10,000 mmu cells PO DAILY 09/18/22 01/17/25 History billion cell capsule (Probiotic) levothyroxine 100 mcg tablet 100 mcg PO QDAY 1 month #30 tabs 07/28/24 01/20/25 05:30 Rx cholecalciferol (vitamin D3) 125 125 mcg PO DAILY 01/14/25 01/17/25 History mcg (5,000 unit) tablet (Vitamin D3) pantoprazole 40 mg tablet,delayed 40 mg PO DAILY 01/14/25 01/20/25 03:00 History release Allergy/AdvReac Type Severity Reaction Status Date / Time HUY Inhibitors AdvReac Intermediate COUGH Verified 01/20/25 07:31 fosinopril (From Monopril) AdvReac Intermediate Cough Verified 01/20/25 07:31 Family History Mother Hypertension Thyroid disorder Father Hypertension Heart disease Arthritis Sister Arthritis Hyperlipidemia Hypertension Aunt Breast cancer Surgical History Hx of colonoscopy History of esophagogastroduodenoscopy (EGD) Hx of total knee arthroplasty History of tubal ligation History of rotator cuff surgery History of foot surgery Social History household members: spouse current occupational status: retired 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
--- NOTE | 2025-01-20 08:30 | BLA_PTH ---
PATIENT: BETHANY BANKS LOC: [facility] [place][id number] AGE/SX: 74/F ROOM: RE01/20/[address]: Dr. Giselle Booth MD : 1950 BED: DIS: 01/20/2025 SPEC #: [id number] RECD: 01/20/25 10:29 STATUS: JOCELYNE BRAVO #: [id number] [place]: 01/20/25 08:[address]: Giselle Booth DEPT: SURGICAL PATHOLOGY RECD BY: Miguelina Levine ENTERED: 01/20/25 11:22 SP TYPE: BLADDER BX OTHR DR: Nathan Degroot MD Tissues: A - Urinary bladder, NOS Procedures: Surgery Specimen Level IV HEADER OPERATION: Bladder biopsy with fulguration PRE-OP DIAGNOSIS: Bladder ulceration TISSUE SUBMITTED: A- Bladder biopsy MICROSCOPIC DIAGNOSIS Bladder biopsy:Fragments of urothelium and underlying smooth muscle with erosion, acute and chronic inflammation, and lymphoid folliclesJ Sailors MD, 01/28/2025 MICROSCOPIC DESCRIPTION Slides are reviewed. GROSS DESCRIPTION A. Received in fixative is one container labeled with the patient's name and designated Bladder biopsy. The specimen consists of two pieces of pink tissue each measuring 0.1 x 0.1 x 0.1cm. The entire specimen is submitted in one cassette. 01/20/2025 CPT:25458, TC:2 & 3
[2025-01-20 08:38] LABS: Hematocrit 35.5 % (37-47); Hemoglobin 11.8 g/dL (12.0-15.0); Mean Corp Hgb Conc 33.2 g/dL (32-36); Mean Corpuscular Hgb 31.6 pg (27.0-32.0); Mean Corpuscular Volume 94.9 fL (81-99); Mean Platelet Vol. 10.3 fl (6.2-12.0); Platelet Count 221 K/mm3 (150-450); RBC Distribution Width CV 12.6 % (11.6-14.6); RBC Distribution Width SD 44.2 fl (35.1-43.9); Red Blood Count 3.74 M/mm3 (4.2-5.4); White Blood Count 4.6 K/mm3 (4.4-11.0)
--- NOTE | 2025-01-20 08:53 | EX.PCM.DISCH ---
Discharge Instructions Diet Discharge Diet: No restrictions Activity Discharge Activity: Return to Normal Activity May resume sexual activity in: No Restrictions Dressing / Incision Call your doctor if you observe: Fever of 101 or Higher, Inability to urinate and Inability to have a bowel movement Follow Up Care Please Follow Up With: Giselle Booth MD When: She will need to follow-up with her primary care physician regarding some premature atrial contractions seen during surgery. Test Results: Test results from this visit will be discussed in further detail at your follow-up appointment, if applicable. Discharge Plan Admission Attending Provider: Giselle Booth Primary Care Provider: Nathan Degroot Instructions Print Language: Kyrgyz Discharge Orders/Prescriptions Prescriptions: Continued amlodipine 5 mg tablet 5 mg PO DAILY metoprolol succinate 50 mg tablet extended release 24 hr 50 mg PO DAILY Probiotic 10 billion cell Capsule 10,000 mmu cells PO DAILY cholecalciferol (vitamin D3) [Vitamin D3] 125 mcg (5,000 unit) tablet 125 mcg PO DAILY pantoprazole 40 mg tablet,delayed release (DR/EC) 40 mg PO DAILY levothyroxine 100 mcg tablet 100 mcg PO QDAY 30 Days Qty: 30 6RF Referrals / Follow Up: Nathan Degroot MD [Primary Care Provider] - Disposition Disposition (needs filled in before D/C Order can be placed): Home, Self Care
[2025-01-20 08:56] LABS: Anion Gap 14 (5-15); BUN 24 mg/dL (4-19); BUN/Creat Ratio 19.2 RATIO (10-20); Carbon Dioxide 18.4 mmol/L (21.0-32.0); Chloride 108 mmol/L (98-108); Creatinine, Serum 1.24 mg/dL (0.70-1.20); EST Glomerular Filtration Rate 46 (>60); Estimated Creatinine Clearance 42.86 ml/min (50-250); Glucose 105 mg/dL (70-99); Potassium 3.9 mmol/L (3.3-5.1); Sodium Level 140 mmol/L (133-145)
[2025-01-20] MEDS: Cefazolin 2 GM in Syringe IV (09:00)
--- NOTE | 2025-01-20 09:31 | PCM.POST.ANE ---
Anesthesia: Postop Eval I Current Vital Signs Temperature: 97 F Pulse Rate: 68 Blood Pressure: 81/54 Respiratory Rate: 16 Pulse Ox: 96 Oxygen Delivery Method: Room Air Assessment Airway patent: Yes Spontaneous unlabored respirations: Yes Mental status: Awake and Calm nausea: No Vomiting: No Anesthesia Complication: No Fluid Hydration Crystalloid volume administer (ml): 10 Total IV fluid infused: 10 Progress Note Anesthesia document: Postop Eval 1 completed: Yes
--- NOTE | 2025-01-20 10:39 | OP.PCM_ITS ---
Operative Report (Standard) Operative Information Date of Procedure: 01/20/25 Pre-Operative Diagnosis: Bladder ulceration Post-Operative Diagnosis: Same Surgery/Procedure Performed: Cystoscopy, bladder biopsy with fulguration swaging machine adjuster: No Type of Anesthesia: MAC RN Documented Start/Stop Times: Operation Date: 01/20/25 08:30 Case Time Into Pre-Op 01/20/25 07:09 Out of Pre-Op 01/20/25 08:39 Anesthesia Start 01/20/25 08:43 Into Room 01/20/25 08:43 Procedure Start 01/20/25 09:11 Procedure End 01/20/25 09:19 Anesthesia End 01/20/25 09:25 Out of Room 01/20/25 09:25 Into Recovery 01/20/25 09:27 Out of Recovery 01/20/25 09:51 Into Phase II Recovery 01/20/25 09:53 Out of Phase II 01/20/25 10:25 Procedure Start Time: 09:11 Procedure Stop Time: 09:19 Select all DRAINS/GRAFTS/IMPLANTS that apply: None Estimated Blood Loss: 5cc Specimen collected: Yes Description of specimen(s) removed: Bladder biopsy x 2 Description of surgery: The patient is a 74-year-old female who is having issues with prolapse and had a cystoscopy in the office revealing 2 Hunner ulcerations. She now presents for biopsy and fulguration. Informed consent was obtained. The patient was taken to the operating room and placed on the operating room table. Anesthesia monitored the head, neck, airway, IV access and vital signs throughout the case. Once anesthesia was appropriately ministered she was placed into dorsolithotomy position was prepped and draped in usual sterile fashion. The cystoscope was inserted through the urethra under direct visualization into the urinary bladder. The ulcerations were identified 1 on the left lateral bladder wall and 1 on the right lateral bladder wall. Each approximately 1 cm in diameter. These appear to be approximately 50% improved in appearance from the time of cystoscopy in the office. Biopsy forceps were utilized to obtain specimens from each area. These areas were then fulgurated with the Bugbee cautery for hemostatic control and tissue treatment. The bladder was then emptied and the cystoscope was removed. She was awakened and taken to the recovery room in good condition. There were no complications during this procedure. Surgical Findings: Bladder biopsy x 2. Of note, she was experiencing some premature atrial contractions and will be following up with her primary care physician for further evaluation and management. Complications Complications: No Admit VTE Documentation VTE Present on Admission: Yes VTE Mechan Device Prophylaxis: SCD's VTE Pharm Prophylaxis ordered?: No Reason prophylaxis not ordered: Treatment Not Indicated
--- NOTE | 2025-01-20 14:12 | POSTOPAN2_ITS ---
Anesthesia Postop Eval I Sum Postop Eval Completion status Anesthesia document: Postop Eval 1 completed: Yes Anesthesia Postop Eval I Summary Anesthesia Postop Eval I Summary: Anesthesia Postop Eval I: Assessment Summary Airway patent Yes 01/20/25 09:32 JOB SITE SUPERINTENDENT.[email or web address] Spontaneous unlabored Yes 01/20/25 09:32 JOB SITE SUPERINTENDENT.MIN respirations Mental status Awake,Calm 01/20/25 09:32 JOB SITE SUPERINTENDENT.MIN nausea No 01/20/25 09:32 JOB SITE SUPERINTENDENT.MIN Vomiting No 01/20/25 09:32 JOB SITE SUPERINTENDENT.MIN Anesthesia Postop Eval I: Fluid Summary Crystalloid volume administer 10 01/20/25 09:32 JOB SITE SUPERINTENDENT.DEANNOBY (ml) Colloids volume administered ( ml) Blood Product volume administered (ml) Total IV fluid infused 10 01/20/25 09:32 JOB SITE SUPERINTENDENT.MIN Anesthesia Postop Eval I: Summary Notes Anesthesia Complication No 01/20/25 09:32 JOB SITE SUPERINTENDENTGHAZAL Anesthesia Complication Comment: Post-operative progress note Anesthesia: Postop Eval II Evaluation Mental status: Awake Pain Level: 1 nausea: No Vomiting: No
--- NOTE | 2025-01-20 14:12 | PCM.POSTANE2 ---
Anesthesia Postop Eval I Sum Postop Eval Completion status Anesthesia document: Postop Eval 1 completed: Yes Anesthesia Postop Eval I Summary Anesthesia Postop Eval I Summary: Anesthesia Postop Eval I: Assessment Summary Airway patent Yes 01/20/25 09:32 ASSISTANT PROFESSOR OF CHEMISTRY.DEANNOBNaz Spontaneous unlabored Yes 01/20/25 09:32 ASSISTANT PROFESSOR OF CHEMISTRY.MIN respirations Mental status Awake,Calm 01/20/25 09:32 ASSISTANT PROFESSOR OF CHEMISTRY.MIN nausea No 01/20/25 09:32 ASSISTANT PROFESSOR OF CHEMISTRY.MIN Vomiting No 01/20/25 09:32 ASSISTANT PROFESSOR OF CHEMISTRY.MIN Anesthesia Postop Eval I: Fluid Summary Crystalloid volume administer 10 01/20/25 09:32 ASSISTANT PROFESSOR OF CHEMISTRY.DEANNOBY (ml) Colloids volume administered ( ml) Blood Product volume administered (ml) Total IV fluid infused 10 01/20/25 09:32 ASSISTANT PROFESSOR OF CHEMISTRY.MIN Anesthesia Postop Eval I: Summary Notes Anesthesia Complication No 01/20/25 09:32 ASSISTANT PROFESSOR OF CHEMISTRYGHAZAL Anesthesia Complication Comment: Post-operative progress note Anesthesia: Postop Eval II Evaluation Mental status: Awake Pain Level: 1 nausea: No Vomiting: No
== END 2025-01-20 10:25 | disposition home or self-care (01) ==
LOC: SDC 07:06 → AC 07:07
PROVIDERS: Anesthesiology; PCP Family Medicine; Referring Provider Urology; Visit Provider Urology
PROC: 0TBB8ZX Excision of Bladder, Via Natural or Artificial Opening Endoscopic, Diagnostic (ICD-10-PCS; CPT 52204; principal; 2025-01-20 08:20)
DX: N32.89 Other specified disorders of bladder (principal); I10 Essential (primary) hypertension; N95.2 Postmenopausal atrophic vaginitis; N39.46 Mixed incontinence; R35.1 Nocturia; N81.2 Incomplete uterovaginal prolapse; Z79.899 Other long term (current) drug therapy
CPT/HCPCS: 52204; 52214; 00910; 80048; 84443; 85027; 88305; A4216; J2405

== ENCOUNTER → 2025-02-18 | Outpatient (CLI) | payer MEDICARE, OTHER, SELFPAY ==
--- NOTE | 2025-02-18 15:32 | US_ITS ---
PROCEDURE: PELVIC W/ TRANSVAGINAL 02/18/2025 REASON FOR EXAM: PROLAPSE TECHNIQUE: Transabdominal and transvaginal pelvic ultrasound COMPARISON: None. FINDINGS: The uterus is anteverted measuring 6.6 x 4.3 x 2.6 cm. The endometrium measures 8.2 mm in its thickness. Fluid is noted in the endometrial cavity. Normal visualized cervix. No intrauterine device is noted. Polyp is noted in the endometrial cavity measuring 0.3 x 0.3 x 0.1 cm. Normal right ovary measuring 2.5 x 2 x 2.1 cm. Normal left ovary measuring 2.5 x 1.9 x 1.1 cm, only visualized on transabdominal imaging. Normal bilateral ovarian flow without evidence of ovarian flow. No free fluid is noted in the pelvic cul-de-sac. The bladder volume measures 174 cc. US/Pelvic w/ Transvaginal IMPRESSION: 1. Endometrial polyp is noted measuring 0.3 x 0.3 x 0.1 cm. 2. Normal bilateral ovarian flow. Reading [facility]
== END | disposition home or self-care (01) ==
PROVIDERS: PCP Family Medicine; Referring Provider Obstetrics & Gynecology; Visit Provider Obstetrics & Gynecology
DX: N81.2 Incomplete uterovaginal prolapse (principal)
CPT/HCPCS: 76830; 76856

== ENCOUNTER → 2025-03-08 | Outpatient (CLI) | payer MEDICARE, OTHER, SELFPAY ==
[2025-03-08 11:32] LABS: Absolute Lymphocyte Count 1.22 X10^3/uL (0.83-4.51); Absolute Neutrophil Count 2.5 X10^3/uL (2.0-7.7); Basophil# 0.05 X10^3/uL; Basophil% 1.1 % (0-1); Eosinophils% 8.6 % (0-5); Hematocrit 37.6 % (37-47); Hemoglobin 12.5 g/dL (12.0-15.0); Lymphocyte # 1.22 X10^3/ul (0.83-4.51); Lymphocyte % 26.2 % (19-41); Mean Corp Hgb Conc 33.2 g/dL (32-36); Mean Corpuscular Hgb 31.1 pg (27.0-32.0); Mean Corpuscular Volume 93.5 fL (81-99); Mean Platelet Vol. 10.3 fl (6.2-12.0); Monocyte# 0.47 X10^3/uL; Monocyte% 10.1 % (0-10); NRBC Flagged by Analyzer 0 % (0-5); Neutrophil % 53.8 % (47-70); Platelet Count 231 K/mm3 (150-450); RBC Distribution Width SD 41.2 fl (35.1-43.9); Red Blood Count 4.02 M/mm3 (4.2-5.4); White Blood Count 4.7 K/mm3 (4.4-11.0)
[2025-03-08 12:39] LABS: ALB/GLOB Ratio 1.4 RATIO (0.9-2.4); AST(SGOT) 22 U/L (<=31); Alanine Aminotransfer ALT/SGPT 13 U/L (<=34); Albumin, Serum 4.1 g/dL (3.4-4.8); Alkaline Phosphatase 60 U/L (35-104); Anion Gap 13 (5-15); BUN 24 mg/dL (4-19); BUN/Creat Ratio 19.8 RATIO (10-20); Calcium,Total 9.3 mg/dL (7.6-11.0); Carbon Dioxide 19.3 mmol/L (21.0-32.0); Chloride 105 mmol/L (98-108); Creatinine, Serum 1.22 mg/dL (0.70-1.20); EST Glomerular Filtration Rate 47 (>60); Globulin 2.9 g/dL (2.2-4.2); Glucose 95 mg/dL (70-99); Sodium Level 137 mmol/L (133-145); Thyroid Stim Hormone (TSH) 0.267 uIU/mL (0.300-4.200); Total Bilirubin 0.46 mg/dL (0.00-1.30)
[2025-03-08 12:44] LABS: Vitamin D,25 Hydroxy 74.2 ng/mL (30-100)
[2025-03-08 17:11] LABS: CRP < 3.00 mg/L (0.0-3.0)
== END | disposition home or self-care (01) ==
LOC: LAB 09:48
PROVIDERS: Internal Medicine; PCP Family Medicine; Referring Provider Family Medicine; Visit Provider Family Medicine
DX: E03.9 Hypothyroidism, unspecified (principal); E55.9 Vitamin D deficiency, unspecified; K31.89 Other diseases of stomach and duodenum; K21.9 Gastro-esophageal reflux disease without esophagitis; R13.10 Dysphagia, unspecified
CPT/HCPCS: 80053; 82306; 84439; 84443; 85025; 86140

== ENCOUNTER 2025-05-17 11:32 | Day surgery (SDC) | payer MEDICARE, OTHER, SELFPAY ==
--- NOTE | 2025-05-05 10:09 | EKG12_ITS ---
Test Reason : PREOP Blood Pressure : */* mmHG Vent. Rate : 67 BPM Atrial Rate : 67 BPM P-R Int : 142 ms QRS Dur : 94 ms QT Int : 390 ms P-R-T Axes : 56 35 61 degrees QTcB Int : 412 ms Normal sinus rhythm Normal ECG Confirmed by LACIE TONG, LORNA ([id number]), publications editor JIM DOOLEY ([id number]) on 05/09/2025 9:48:19 AM Referred By: Gayle Dinh Confirmed By: LORNA MEDELLIN MD
--- NOTE | 2025-05-05 10:09 | EKG12_ITS ---
Test Reason : PREOP Blood Pressure : */* mmHG Vent. Rate : 67 BPM Atrial Rate : 67 BPM P-R Int : 142 ms QRS Dur : 94 ms QT Int : 390 ms P-R-T Axes : 56 35 61 degrees QTcB Int : 412 ms Normal sinus rhythm Normal ECG Confirmed by LACIE TONG, LORNA ([id number]), managing editor JIM DOOLEY ([id number]) on 05/09/2025 9:48:19 AM Referred By: Gayle Dinh Confirmed By: LORNA MEDELLIN MD
[2025-05-05 11:21] LABS: Hematocrit 36.4 % (37-47); Hemoglobin 12.1 g/dL (12.0-15.0); Immature Granulocytes Count 0.010 X10^3/uL (0.0-0.0); Mean Corp Hgb Conc 33.2 g/dL (32-36); Mean Corpuscular Volume 93.1 fL (81-99); Mean Platelet Vol. 9.6 fl (6.2-12.0); NRBC Flagged by Analyzer 0 % (0-5); Platelet Count 241 K/mm3 (150-450); RBC Distribution Width CV 12.7 % (11.6-14.6); RBC Distribution Width SD 43.3 fl (35.1-43.9); Red Blood Count 3.91 M/mm3 (4.2-5.4); White Blood Count 4.1 K/mm3 (4.4-11.0)
[2025-05-05 11:33] LABS: Prothrombin Time (Protime)PT. 13.2 SECONDS (11.7-14.9)
[2025-05-05 11:51] LABS: AST(SGOT) 23 U/L (<=31); Alanine Aminotransfer ALT/SGPT 15 U/L (<=34); Albumin, Serum 4.1 g/dL (3.4-4.8); Alkaline Phosphatase 56 U/L (35-104); Anion Gap 11 (5-15); BUN 24 mg/dL (4-19); BUN/Creat Ratio 20.9 RATIO (10-20); Calcium,Total 9.1 mg/dL (7.6-11.0); Carbon Dioxide 20.2 mmol/L (21.0-32.0); Chloride 104 mmol/L (98-108); Globulin 2.8 g/dL (2.2-4.2); Glucose 94 mg/dL (70-99); Potassium 4.3 mmol/L (3.3-5.1)
[2025-05-05 11:56] LABS: Cholesterol 201 mg/dL (<=200); Low Density Lipoprotein Calc. 104 mg/dL; Triglycerides 48 mg/dL; Very Low Density Lipoprotein 10 mg/dL (5-40); cholesterol:hdl ratio screen 2.29
[2025-05-05 12:00] LABS: CRP < 3.00 mg/L (0.0-3.0)
[2025-05-17] VITALS (8 sets, daily range): BP systolic 90–123; BP diastolic 62–81; PULSE 54–63; RESP 16; TEMP 36.2–36.3; O2SAT 93–97; BMI 23.8
--- NOTE | 2025-05-17 12:15 | HP.PCM_ITS ---
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 Is patient in pain?: No Allergies HUY Inhibitors Adverse Reaction (Intermediate, Verified 04/04/25 10:48) COUGHfosinopril (From Monopril) Adverse Reaction (Intermediate, Verified 04/04/25 10:48) Cough Medications ?Medication ?Instructions ?Recorded ?Confirmed ?Type amlodipine 5 mg tablet 5 mg PO DAILY 06/06/22 04/04/25 History metoprolol succinate 50 mg 50 mg PO DAILY 06/06/22 04/04/25 History tablet,extended release 24 hr Lactobacillus acidophilus 10 10,000 mmu cells PO DAILY 09/18/2204/04 History billion cell capsule (Probiotic) cholecalciferol (vitamin D3) 125 125 mcg PO DAILY 01/14/25 04/04/25 Histo ry mcg (5,000 unit) tablet (Vitamin D3) famotidine 20 mg tablet (Pepcid AC) 20 mg PO BID PRN heart burn 1 02/10/25 04/04/25 Rx month #60 tabs levothyroxine 75 mcg tablet 75 mcg PO QDAY 1 month #30 tabs 03/08/25 04/04/25 Rx misoprostol 200 mcg tablet 200 mcg PO .complex #2 tabs 04/04/2512/28 Rx (Cytotec) Is last menstrual period known: No Post menopausal: Yes Patient : No : No PFSH Medical History Bladder disease Restless legs History of hiatal hernia Wears glasses Wears dentures Post-menopausal Low iron Non-smoker History of echocardiogram Cardiology follow-up encounter Renal insufficiency syndrome Depression Mitral stenosis Gallbladder anomaly RUQ abdominal pain Schatzki's ring of distal esophagus Thyroid disease Arthritis Restless legs Dysphagia Lichen sclerosus HTN (hypertension) Hypothyroidism GERD (gastroesophageal reflux disease) Surgical History Hx of colonoscopy History of esophagogastroduodenoscopy (EGD) Hx of total knee arthroplasty History of tubal ligation History of rotator cuff surgery History of foot surgery Family History Mother Hypertension Thyroid disorderFather Hypertension Heart disease ArthritisSister Arthritis Hyperlipidemia HypertensionAunt Breast cancer Social History household members: spouse current occupational status: 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 she denies any bleeding or discharge. she had an attempted EMB and was unable to be done. s he is having ahsyterectomy in the fall. US shows 8 mm lining. History 2 Elective abortions Hx Para Spontaneous abortions Hx # Term Pregnancies Ectopic pregnancies Hx # Pregnancies Multiple births # of living children 2 ROS Const Constitutional: Reports system reviewed and no additional complaints, except as documented ENT ENT: Reports system reviewed and no additional complaints, except as documented Cardio Card: Denies chest pain Resp Resp: Denies cough or dyspnea GI GI: Reports system reviewed and no additional complaints, except as documented : Reports prolapse symptoms, urinary incontinence (with pessary in) and vaginal dryness; Denies nipple discharge, pelvic pain, vaginal discharge, vaginal odor or vaginal pruritus Musc Musc: Denies arthralgias or muscle weakness Skin Skin/Breast: Denies alopecia, change in hair, dry skin, breast mass, breast pain, breast skin changes or nipple discharge Neuro Neuro: Reports system reviewed and no additional complaints, except as documented Psych Psych: Reports system reviewed and no additional complaints, except as documented Endo Endo: Denies cold intolerance, excessive sweating, heat intolerance or polydipsia Santos/Lymph Hematologic/Lymphatic: Denies easy bleeding, Denies easy bruising and Denies lymphadenopathy Exam Const General: cooperative and no acute distress Nutritional Appearance: well nourished Orientation: oriented x3 HENMT Head: normal to inspection and normocephalic Ears: hearing grossly normal bilaterally and external ears normal Nose: external nose normal and nares normal Face and sinus: normal facial exam Neck Neck: normal visual inspection and no lymphadenopathy Thyroid: thyroid normal Chest Chest palpation & inspection: normal inspection of the chest Resp Effort & Inspection: normal respiratory effort Auscultation: clear to auscultation bilaterally Cardio Rate: regular rate Rhythm: regular rhythm Heart Sounds: S1 normal and S2 normal GI Inspection: normal to inspection and non-distended Palpation: soft and no hepatosplenomegaly Musc Other: gross motor intact no deficits, full bilateral strength Skin General: no rashes or lesions noted Neuro General: patient alert, patient awake, moves all extremities and no focal motor deficits Motor: muscle tone normal throughout Extrem General: normal to inspection and no pedal edema Psych Appearance: grossly normal Mental Status: mental status grossly normal Affect: normal affect Speech and Movement: speech and movement normal Coding Level of Care Code Off vis,est,level 4 Diagnoses Thickened endometrium R93.89 Stenosis, cervix N88.2 Cystocele and rectocele with incomplete uterovaginal prolapse N81.2 Assessment and Plan Assessment and Plan (1) Thickened endometrium: Status: Acute Comment: 8mm. Unable to complete EMB due to cervical stenosis. recommend d and c hysteroscopy prior to hyst (2) Stenosis, cervix: Status: Acute Comment: give cytotec preop (3) Cystocele and rectocele with incomplete uterovaginal prolapse: Status: Acute Comment: #3 donut fell out. #4 ring w/support and knob fell out. plan TVH BS combo with Emmy Medications: New misoprostol (Cytotec) take the night before and two hours prior to the procedure 2 tabs 1RF Plan After discussing the patient's diagnosis and treatment plan options, patient wishes to proceed with surgical management. I have discussed with the patient the risks, benefits, and alternatives of the procedure which include but are not limited to risks of anesthesia, bleeding, infection, possible damage to bowel, bladder, or surrounding vasculature which could lead to additional surgery to evaluate any complications. Patient agrees to procedure and wishes to proceed. ACOG/uptodate references given for additional information regarding procedure.
[2025-05-17] MEDS: Lactated Ringers 1,000 ML 15 ML IV (12:26)
--- NOTE | 2025-05-17 12:48 | PCM.PRE.AN2 ---
ASA Classification* ASA Classification ASA Classification: 2 Assessment & Plan Anesthesia* Anesthesia Assessment Anesthesia Assessment: Discussed sedation and/or anesthesia options, risks, benefits, and alternatives with patient/parents/legal guardian/POA. Questions invited. The patient/parents/legal guardian/POA seems to understand and agrees to proceed with anesthesia plan. Reviewed the physical assessment, medical history, allergy history and patient home medications list prior to surgery/procedure/anesthetic and documented any changes. Performed airway and anesthesia risk assessments. Anesthesia Type Anesthesia Type: MAC History Source History Obtained from:: Patient and Chart Anesthesia Focused Assessment* Temperature: 97.2 F Pulse Rate: 63 Blood Pressure: 121/81 Respiratory Rate: 16 Pulse Ox: 96 Oxygen Delivery Method: Room Air Airway Assessment Mouth opens: >3 cm Mallampati Score: III Teeth Condition: Dentures (Patient has full upper and lower dentures. They will stay in.) Neck Range of motion (ROM): Full ROM Labs Anesthesia Preop lab: CBC WBC 4.1 K/mm3 (4.4-11.0) L 05/05/25 10:05/05/25 RBC 3.91 M/mm3 (4.2-5.4) L 05/05/25 10:05/05/25 Hgb 12.1 g/dL (12.0-15.0) 05/05/25 10:05/05/25 Hct 36.4 % (37-47) L 05/05/25 10:05/05/25 Plt Count 241 K/mm3 (150-450) 05/05/25 10:05/05/25 CHEMISTRY Potassium 4.3 mmol/L (3.3-5.1) 05/05/25 10:05/05/25 Sodium 136 mmol/L (133-145) 05/05/25 10:05/05/25 Phosphorus 3.2 mg/dL (2.5-4.9) 07/27/24 11:11 07/27/24 BUN 24 mg/dL (4-19) H 05/05/25 10:05/05/25 Creatinine 1.17 mg/dL (0.70-1.20) 05/05/25 10:05/05/25 Glucose 94 mg/dL (70-99) 05/05/25 10:30 05/05/25 TSH 5.630 uIU/mL (0.300-4.200) H 05/05/25 10:29 05/05/25 COAG PT 13.2 SECONDS (11.7-14.9) 05/05/25 10:29 05/05/25 Pre-Assessment Diagnosis/Proposed Procedure Planned Operative Procedure(s): Hysteroscopy, Dilation and Curettage Anesthesia History 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 When Was Last Pacemaker Check QUESTION #4 FULL TEXT: You/Your Family Experience fever (hyperthermia) with Anesthesia Last Oral Intake Last Oral intake: Last Oral Intake NPO since 21:30 05/17/25 12:20 Meds taken in AM with sips of Yes 05/17/25 12:20 water? Meds patient instructed to LEVOTHYROXINE 05/17/25 12:20 take am of surgery AMLODIPINE METOPROLOL CYTOTEC Any additional information?: Yes Meds taken in AM with sips of water?: Yes PONV PONV - sectional belt mold assembler: PONV - sectional belt mold assembler Female Yes 05/03/25 14:01 HX of Motion Sickness No 05/03/25 14:01 HX of N/V After Surgery No 05/03/25 14:01 Non-Smoker Yes 05/03/25 14:01 Duration of Surgery greater No 05/03/25 14:01 than 60 minutes Number of Risk Factors 2 05/03/25 14:01 PONV Score Moderate Risk 05/03/25 14:01 Height & Weight Height & Weight: Anesthesia: Height & Weight Height 5 ft 9 in 05/17/25 12:20 Weight: 73 kg 05/17/25 12:20 Body Mass Index (BMI) 23.8 05/17/25 12:20 Respiratory Assessment Respiratory Assessment - sectional belt mold assembler: Respiratory Tract Infection Hx - sectional belt mold assembler Hx Respiratory Tract Infection No 05/03/25 14:01 STOP Sleep Apnea STOP Sleep Apnea - sectional belt mold assembler: STOP Sleep Apnea - sectional belt mold assembler Hx Hypertension Yes: CONTROLLED WITH MED 05/03/25 14:01 Hx Sleep Apnea No 05/03/25 14:01 CPAP BIPAP Do you snore loudly (louder No 05/03/25 14:01 than talking or can be heard Do you often feel tired/ No 05/03/25 14:01 fatigued/ sleepy during daytime? Has anyone observed you stop No 05/03/25 14:01 breathing during sleep? STOP Results Negative 05/03/25 14:01 QUESTION #5 FULL TEXT : Do you snore loudly (louder than talking or can be heard through closed doors)? 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 Specify any problems Hx of Preganancy in last 3 No 05/03/25 14:01 Months Nurse Filling Out Transfusion VCHRISTIN 05/03/25 14:01 & Questions: Date: 05/03/25 05/03/25 14:01 Time: 14:02 05/03/25 14:01 Patient unable to answer at this time (ie. confused, unrespo /Reproduction History /Reproductive History - sectional belt mold assembler: /Reproductive Hx- sectional belt mold assembler Hx Now No 05/03/25 14:01 Gestational Age (in weeks): EDC: Hx Hx Para Hx Section SAB No 05/03/25 14:01 Active Medications Active Medications: Current Medications Generic Name Dose Route Start Last Admin Trade Name Freq PRN Reason Stop Dose Admin Lactated Ringer's 1,000 mls @ 15 mls/hr 05/17/25 12:30 05/17/25 12:26 IV 15 mls/hr .Q48H EDUARDO Administration [facility] Medical History Bladder disease Restless legs History of hiatal hernia Wears glasses Wears dentures Post-menopausal Low iron Non-smoker History of echocardiogram Cardiology follow-up encounter Renal insufficiency syndrome Depression Mitral stenosis Gallbladder anomaly RUQ abdominal pain Schatzki's ring of distal esophagus Thyroid disease Arthritis Restless legs Dysphagia Lichen sclerosus HTN (hypertension) Hypothyroidism GERD (gastroesophageal reflux disease) Home Medications ?Medication ?Instructions ?Recorded ?Last Taken ?Type amlodipine 5 mg tablet 5 mg PO DAILY 06/06/22 05/17/25 History metoprolol succinate 50 mg 50 mg PO DAILY 06/06/22 05/17/25 History tablet,extended release 24 hr famotidine 20 mg tablet (Pepcid AC) 20 mg PO BID PRN heart burn 1 02/10/25 Unknown Rx month #60 tabs levothyroxine 75 mcg tablet 75 mcg PO QDAY 1 month #30 tabs 03/08/25 05/17/25 Rx misoprostol 200 mcg tablet 200 mcg PO .complex #2 tabs 04/04/25 05/17/25 Rx (Cytotec) Allergy/AdvReac Type Severity Reaction Status Date / Time HUY Inhibitors AdvReac Intermediate COUGH Verified 05/17/25 12:17 fosinopril (From Monopril) AdvReac Intermediate Cough Verified 05/17/25 12:17 Family History Mother Hypertension Thyroid disorder Father Hypertension Heart disease Arthritis Sister Arthritis Hyperlipidemia Hypertension Aunt Breast cancer Surgical History History of bladder surgery Hx of colonoscopy History of esophagogastroduodenoscopy (EGD) Hx of total knee arthroplasty History of tubal ligation History of rotator cuff surgery History of foot surgery Social History household members: spouse current occupational status: retired 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
--- NOTE | 2025-05-17 12:48 | PCM.PRE.AN2 ---
ASA Classification* ASA Classification ASA Classification: 2 Assessment & Plan Anesthesia* Anesthesia Assessment Anesthesia Assessment: Discussed sedation and/or anesthesia options, risks, benefits, and alternatives with patient/parents/legal guardian/POA. Questions invited. The patient/parents/legal guardian/POA seems to understand and agrees to proceed with anesthesia plan. Reviewed the physical assessment, medical history, allergy history and patient home medications list prior to surgery/procedure/anesthetic and documented any changes. Performed airway and anesthesia risk assessments. Anesthesia Type Anesthesia Type: MAC History Source History Obtained from:: Patient and Chart Anesthesia Focused Assessment* Temperature: 97.2 F Pulse Rate: 63 Blood Pressure: 121/81 Respiratory Rate: 16 Pulse Ox: 96 Oxygen Delivery Method: Room Air Airway Assessment Mouth opens: >3 cm Mallampati Score: III Teeth Condition: Dentures (Patient has full upper and lower dentures. They will stay in.) Neck Range of motion (ROM): Full ROM Labs Anesthesia Preop lab: CBC WBC 4.1 K/mm3 (4.4-11.0) L 05/05/25 10:05/05/25 RBC 3.91 M/mm3 (4.2-5.4) L 05/05/25 10:05/05/25 Hgb 12.1 g/dL (12.0-15.0) 05/05/25 10:05/05/25 Hct 36.4 % (37-47) L 05/05/25 10:05/05/25 Plt Count 241 K/mm3 (150-450) 05/05/25 10:05/05/25 CHEMISTRY Potassium 4.3 mmol/L (3.3-5.1) 05/05/25 10:05/05/25 Sodium 136 mmol/L (133-145) 05/05/25 10:05/05/25 Phosphorus 3.2 mg/dL (2.5-4.9) 07/27/24 11:11 07/27/24 BUN 24 mg/dL (4-19) H 05/05/25 10:05/05/25 Creatinine 1.17 mg/dL (0.70-1.20) 05/05/25 10:05/05/25 Glucose 94 mg/dL (70-99) 05/05/25 10:30 05/05/25 TSH 5.630 uIU/mL (0.300-4.200) H 05/05/25 10:29 05/05/25 COAG PT 13.2 SECONDS (11.7-14.9) 05/05/25 10:29 05/05/25 Pre-Assessment Diagnosis/Proposed Procedure Planned Operative Procedure(s): Hysteroscopy, Dilation and Curettage Anesthesia History Anesthesia History - talcer: Anesthesia History - talcer Hx Hospitalization No 05/03/25 14:01 Any Problems With Anesthesia No 05/03/25 14:01 Cholinesterase deficiency No 05/03/25 14:01 You/Your Family Experience No 05/03/25 14:01 fever (hyperthermia) with Relationship Recent Exposure to Contagious No 05/17/25 12:20 Disease Does patient have nerve No 05/03/25 14:01 stimulator Patient instructed to have device shut off --Does patient have Pacemaker No 05/17/25 12:20 or ICD? When Was Last Pacemaker Check QUESTION #4 FULL TEXT: You/Your Family Experience fever (hyperthermia) with Anesthesia Last Oral Intake Last Oral intake: Last Oral Intake NPO since 21:30 05/17/25 12:20 Meds taken in AM with sips of Yes 05/17/25 12:20 water? Meds patient instructed to LEVOTHYROXINE 05/17/25 12:20 take am of surgery AMLODIPINE METOPROLOL CYTOTEC Any additional information?: Yes Meds taken in AM with sips of water?: Yes PONV PONV - talcer: PONV - talcer Female Yes 05/03/25 14:01 HX of Motion Sickness No 05/03/25 14:01 HX of N/V After Surgery No 05/03/25 14:01 Non-Smoker Yes 05/03/25 14:01 Duration of Surgery greater No 05/03/25 14:01 than 60 minutes Number of Risk Factors 2 05/03/25 14:01 PONV Score Moderate Risk 05/03/25 14:01 Height & Weight Height & Weight: Anesthesia: Height & Weight Height 5 ft 9 in 05/17/25 12:20 Weight: 73 kg 05/17/25 12:20 Body Mass Index (BMI) 23.8 05/17/25 12:20 Respiratory Assessment Respiratory Assessment - talcer: Respiratory Tract Infection Hx - talcer Hx Respiratory Tract Infection No 05/03/25 14:01 STOP Sleep Apnea STOP Sleep Apnea - talcer: STOP Sleep Apnea - talcer Hx Hypertension Yes: CONTROLLED WITH MED 05/03/25 14:01 Hx Sleep Apnea No 05/03/25 14:01 CPAP BIPAP Do you snore loudly (louder No 05/03/25 14:01 than talking or can be heard Do you often feel tired/ No 05/03/25 14:01 fatigued/ sleepy during daytime? Has anyone observed you stop No 05/03/25 14:01 breathing during sleep? STOP Results Negative 05/03/25 14:01 QUESTION #5 FULL TEXT : Do you snore loudly (louder than talking or can be heard through closed doors)? 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 Specify any problems Hx of Preganancy in last 3 No 05/03/25 14:01 Months Nurse Filling Out Transfusion VCHRISTIN 05/03/25 14:01 & Questions: Date: 05/03/25 05/03/25 14:01 Time: 14:02 05/03/25 14:01 Patient unable to answer at this time (ie. confused, unrespo /Reproduction History /Reproductive History - talcer: /Reproductive Hx- talcer Hx Now No 05/03/25 14:01 Gestational Age (in weeks): EDC: Hx Hx Para Hx Section SAB No 05/03/25 14:01 Active Medications Active Medications: Current Medications Generic Name Dose Route Start Last Admin Trade Name Freq PRN Reason Stop Dose Admin Lactated Ringer's 1,000 mls @ 15 mls/hr 05/17/25 12:30 05/17/25 12:26 IV 15 mls/hr .Q48H EDUARDO Administration [facility] Medical History Bladder disease Restless legs History of hiatal hernia Wears glasses Wears dentures Post-menopausal Low iron Non-smoker History of echocardiogram Cardiology follow-up encounter Renal insufficiency syndrome Depression Mitral stenosis Gallbladder anomaly RUQ abdominal pain Schatzki's ring of distal esophagus Thyroid disease Arthritis Restless legs Dysphagia Lichen sclerosus HTN (hypertension) Hypothyroidism GERD (gastroesophageal reflux disease) Home Medications ?Medication ?Instructions ?Recorded ?Last Taken ?Type amlodipine 5 mg tablet 5 mg PO DAILY 06/06/22 05/17/25 History metoprolol succinate 50 mg 50 mg PO DAILY 06/06/22 05/17/25 History tablet,extended release 24 hr famotidine 20 mg tablet (Pepcid AC) 20 mg PO BID PRN heart burn 1 02/10/25 Unknown Rx month #60 tabs levothyroxine 75 mcg tablet 75 mcg PO QDAY 1 month #30 tabs 03/08/25 05/17/25 Rx misoprostol 200 mcg tablet 200 mcg PO .complex #2 tabs 04/04/25 05/17/25 Rx (Cytotec) Allergy/AdvReac Type Severity Reaction Status Date / Time HUY Inhibitors AdvReac Intermediate COUGH Verified 05/17/25 12:17 fosinopril (From Monopril) AdvReac Intermediate Cough Verified 05/17/25 12:17 Family History Mother Hypertension Thyroid disorder Father Hypertension Heart disease Arthritis Sister Arthritis Hyperlipidemia Hypertension Aunt Breast cancer Surgical History History of bladder surgery Hx of colonoscopy History of esophagogastroduodenoscopy (EGD) Hx of total knee arthroplasty History of tubal ligation History of rotator cuff surgery History of foot surgery Social History household members: spouse 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 Smoking Status: Never smoker alcohol intake: current alcohol intake frequency: a few times a month substance use type: does not use what type of physical activity do you participate in: none seatbelt use: always do you feel safe at home: Yes additional social history: - Felix Review of Systems (Anesthesia) ROS Narrative System reviewed and no additional complaints, except as documented.
[2025-05-17] MEDS: Silver Nitrate (BKC) 1 EACH (14:06)
--- NOTE | 2025-05-17 14:12 | OP.PCM_ITS ---
Problems Associated Problem List Diagnoses (1) Thickened endometrium: (2) Stenosis, cervix: (3) Cystocele and rectocele with incomplete uterovaginal prolapse: Multi Select Codes Urinary/Genital Urinary/Genital CPT Codes: 73935 RICHARD Operative Report (Standard) Operative Information Date of Procedure: 05/17/25 Pre-Operative Diagnosis: cervical stenosis Post-Operative Diagnosis: same Surgery/Procedure Performed: pelvic exam under anesthesia director internal communications: No Type of Anesthesia: MAC RN Documented Start/Stop Times: Operation Date: 05/17/25 13:15 Case Time Into Pre-Op 05/17/25 11:37 Out of Pre-Op 05/17/25 13:38 Anesthesia Start 05/17/25 13:39 Into Room 05/17/25 13:39 Procedure Start 05/17/25 13:55 Procedure End 05/17/25 14:07 Procedure Start Time: 13:55 Procedure Stop Time: 14:07 Select all DRAINS/GRAFTS/IMPLANTS that apply: None Estimated Blood Loss: 0 Specimen collected: No Description of surgery: Patient was placed under anesthesia and was prepped and draped in normal sterile fashion the dorsolithotomy position. Bladder drained of clear urine. Weighted speculum placed in the vagina and cervix inspected and absolutely no discernible cervical os visualized. There is barely an apical reflection present. Pelvic exam performed and uterus and cervix palpated however tissue was very thick over the vaginal apex where the opening of the cervix would be expected to be. No discernible location to be able to make an incision to open the vagina in order to get the cervix. Decision was made to abort the procedure to not disrupt anatomy that would interfere with the hysterectomy that she will have done in August. Will discuss with patient postoperatively how to proceed Surgical Findings: complete obliteration of the cervical opening Complications Complications: No
--- NOTE | 2025-05-17 14:12 | OP.PCM_ITS ---
Problems Associated Problem List Diagnoses (1) Thickened endometrium: (2) Stenosis, cervix: (3) Cystocele and rectocele with incomplete uterovaginal prolapse: Multi Select Codes Urinary/Genital Urinary/Genital CPT Codes: 75283 RICHARD Operative Report (Standard) Operative Information Date of Procedure: 05/17/25 Pre-Operative Diagnosis: cervical stenosis Post-Operative Diagnosis: same Surgery/Procedure Performed: pelvic exam under anesthesia school treasurer: No Type of Anesthesia: MAC RN Documented Start/Stop Times: Operation Date: 05/17/25 13:15 Case Time Into Pre-Op 05/17/25 11:37 Out of Pre-Op 05/17/25 13:38 Anesthesia Start 05/17/25 13:39 Into Room 05/17/25 13:39 Procedure Start 05/17/25 13:55 Procedure End 05/17/25 14:07 Procedure Start Time: 13:55 Procedure Stop Time: 14:07 Select all DRAINS/GRAFTS/IMPLANTS that apply: None Estimated Blood Loss: 0 Specimen collected: No Description of surgery: Patient was placed under anesthesia and was prepped and draped in normal sterile fashion the dorsolithotomy position. Bladder drained of clear urine. Weighted speculum placed in the vagina and cervix inspected and absolutely no discernible cervical os visualized. There is barely an apical reflection present. Pelvic exam performed and uterus and cervix palpated however tissue was very thick over the vaginal apex where the opening of the cervix would be expected to be. No discernible location to be able to make an incision to open the vagina in order to get the cervix. Decision was made to abort the procedure to not disrupt anatomy that would interfere with the hysterectomy that she will have done in August. Will discuss with patient postoperatively how to proceed Surgical Findings: complete obliteration of the cervical opening Complications Complications: No
--- NOTE | 2025-05-17 14:17 | PCM.DC ---
Discharge Instructions DC O2, CPAP, BIPAP needs Home O2 Discharge instructions: No Dressing / Incision Discharge Activity: Return to Normal Activity, May Shower and May Take a Tub Bath (after 1 week) May resume sexual activity in: 1-2 weeks Weight Bearing Status: Weight bearing as tolerated Lifting Restrictions: none Dressing / Incision Call your doctor if you observe: Fever of 101 or Higher, Using more than 1 pad per hour, Shortness of breath and Uncontrolled pain Follow Up Care Please Follow Up With: Gayle Dinh MD When: Call [phone] to schedule appointment. Test Results: Test results from this visit will be discussed in further detail at your follow-up appointment, if applicable. Discharge Plan Admission Attending Provider: Gayle Dinh Primary Care Provider: Nathan Degroot Consulting Providers: Giorgio Egan Instructions Print Language: Armenian Discharge Orders/Prescriptions Prescriptions: No Action amlodipine 5 mg tablet 5 mg PO DAILY metoprolol succinate 50 mg tablet extended release 24 hr 50 mg PO DAILY famotidine [Pepcid AC] 20 mg tablet 20 mg PO BID PRN (Reason: heart burn) 30 Days Qty: 60 2RF misoprostol [Cytotec] 200 mcg tablet 200 mcg PO .complex Qty: 2 1RF Rx Instructions: take the night before and two hours prior to the procedure levothyroxine 75 mcg tablet 75 mcg PO QDAY 30 Days Qty: 30 3RF Referrals / Follow Up: Nathan Degroot MD [Primary Care Provider] - Disposition Disposition (needs filled in before D/C Order can be placed): Home, Self Care
--- NOTE | 2025-05-17 14:19 | PCM.POST.ANE ---
Anesthesia: Postop Eval I Current Vital Signs Temperature: 97.3 F Pulse Rate: 61 Blood Pressure: 90/62 Respiratory Rate: 16 Pulse Ox: 97 Assessment Airway patent: Yes Spontaneous unlabored respirations: Yes nausea: No Vomiting: No Anesthesia Complication: No Fluid Hydration Crystalloid volume administer (ml): 800 Total IV fluid infused: 800 Progress Note Anesthesia document: Postop Eval 1 completed: Yes
--- NOTE | 2025-05-17 19:17 | POSTOPAN2_ITS ---
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 Spontaneous unlabored Yes 05/17/25 14:19 DEPUTY JUVENILE [email or web address].[email or web address] respirations Mental status nausea No 05/17/25 14:19 DEPUTY JUVENILE [email or web address].[email or web address] Vomiting No 05/17/25 14:19 DEPUTY JUVENILE [email or web address].TNES Anesthesia Postop Eval I: Fluid Summary Crystalloid volume administer 800 05/17/25 14:19 DEPUTY JUVENILE [email or web address].TNES (ml) Colloids volume administered ( ml) Blood Product volume administered (ml) Total IV fluid infused 800 05/17/25 14:19 DEPUTY JUVENILE [email or web address].[email or web address] Anesthesia Postop Eval I: Summary Notes Anesthesia Complication No 05/17/25 14:19 DEPUTY JUVENILE [email or web address].TNES Anesthesia Complication Comment: Post-operative progress note Anesthesia: Postop Eval II Evaluation Mental status: Awake and Calm Pain Level: 1 nausea: No Vomiting: No Complications Anesthesia Complication: No
--- NOTE | 2025-05-17 19:17 | POSTOPAN2_ITS ---
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 Spontaneous unlabored Yes 05/17/25 14:19 ASSEMBLER MOTOR [email or web address] respirations Mental status nausea No 05/17/25 14:19 ASSEMBLER MOTOR [email or web address] Vomiting No 05/17/25 14:19 ASSEMBLER MOTOR [email or web address] Anesthesia Postop Eval I: Fluid Summary Crystalloid volume administer 800 05/17/25 14:19 ASSEMBLER MOTOR [email or web address] (ml) Colloids volume administered ( ml) Blood Product volume administered (ml) Total IV fluid infused 800 05/17/25 14:19 ASSEMBLER MOTOR [email or web address] Anesthesia Postop Eval I: Summary Notes Anesthesia Complication No 05/17/25 14:19 ASSEMBLER MOTOR [email or web address] Anesthesia Complication Comment: Post-operative progress note Anesthesia: Postop Eval II Evaluation Mental status: Awake and Calm Pain Level: 1 nausea: No Vomiting: No Complications Anesthesia Complication: No
--- NOTE | 2025-05-17 19:17 | PCM.POSTANE2 ---
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 TILE [email or web address] Spontaneous unlabored Yes 05/17/25 14:19 ROOF TILE [email or web address].[email or web address] respirations Mental status nausea No 05/17/25 14:19 ROOF TILE [email or web address].TNES Vomiting No 05/17/25 14:19 ROOF TILE [email or web address] Anesthesia Postop Eval I: Fluid Summary Crystalloid volume administer 800 05/17/25 14:19 ROOF TILE [email or web address] (ml) Colloids volume administered ( ml) Blood Product volume administered (ml) Total IV fluid infused 800 05/17/25 14:19 ROOF TILE [email or web address] Anesthesia Postop Eval I: Summary Notes Anesthesia Complication No 05/17/25 14:19 ROOF TILE [email or web address] Anesthesia Complication Comment: Post-operative progress note Anesthesia: Postop Eval II Evaluation Mental status: Awake and Calm Pain Level: 1 nausea: No Vomiting: No Complications Anesthesia Complication: No
--- NOTE | 2025-05-17 19:17 | PCM.POSTANE2 ---
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 Spontaneous unlabored Yes 05/17/25 14:19 FOUNDRY [email or web address].TNES respirations Mental status nausea No 05/17/25 14:19 FOUNDRY [email or web address].TNES Vomiting No 05/17/25 14:19 FOUNDRY [email or web address].TNES Anesthesia Postop Eval I: Fluid Summary Crystalloid volume administer 800 05/17/25 14:19 FOUNDRY [email or web address].TNES (ml) Colloids volume administered ( ml) Blood Product volume administered (ml) Total IV fluid infused 800 05/17/25 14:19 FOUNDRY [email or web address].TNES Anesthesia Postop Eval I: Summary Notes Anesthesia Complication No 05/17/25 14:19 FOUNDRY [email or web address].TNES Anesthesia Complication Comment: Post-operative progress note Anesthesia: Postop Eval II Evaluation Mental status: Awake and Calm Pain Level: 1 nausea: No Vomiting: No Complications Anesthesia Complication: No
== END 2025-05-17 15:07 | disposition home or self-care (01) ==
LOC: SDC 11:33 → AC 11:34
PROVIDERS: Internal Medicine; PCP Family Medicine; Referring Provider Obstetrics & Gynecology; Visit Provider Obstetrics & Gynecology
PROC: 0UDB8ZZ Extraction of Endometrium, Via Natural or Artificial Opening Endoscopic (ICD-10-PCS; CPT 58558; principal; 2025-05-17 13:05)
DX: N88.2 Stricture and stenosis of cervix uteri (principal); N81.2 Incomplete uterovaginal prolapse; R93.89 Abnormal findings on diagnostic imaging of other specified body structures; I10 Essential (primary) hypertension; K21.9 Gastro-esophageal reflux disease without esophagitis; E03.9 Hypothyroidism, unspecified; K76.0 Fatty (change of) liver, not elsewhere classified; K52.832 Lymphocytic colitis; Z79.899 Other long term (current) drug therapy
CPT/HCPCS: 57410; 00940; 36415; 80053; 80061; 84439; 84443; 85025; 85610; 86140; 86850; 86900; 86901; 93005

== ENCOUNTER → 2025-06-02 | Outpatient (CLI) | payer MEDICARE, OTHER, SELFPAY ==
--- NOTE | 2025-06-02 09:37 | US_ITS ---
PROCEDURE: ABD LIMITED W/ ELASTOGRAPHY, 06/02/2025 REASON FOR EXAM: LIVER FIBROSIS, RULE OUT MASS COMPARISON: 05/03/2024 TECHNIQUE: Grayscale and color Doppler imaging of the right upper quadrant was performed. Elastography was performed for non-invasive assessment of liver tissue stiffness utilizing a [email or web address] S-shear wave imaging unit. FINDINGS: Liver: Questionably slightly coarsened appearance. 14.8 cm in length. Gallbladder: Unremarkable. Reportedly, sonographic Ruby's was negative. Biliary tree: Unremarkable. CBD measures 5 mm. Pancreas: Partially obscured by shadowing bowel gas, grossly unremarkable as visualized. Right kidney: 2.1 x 1.9 x 1.3 cm cyst. 8.6 cm in length. Other: Spleen measures 9.7 x 4.1 x 4.7 cm. Hepatic elastography: Number of measurements: 15 measurements across 3 regions, 5 measurements per region. US probe: CA1-7A. EQI median: 9.6 kPa EQI median velocity: 1.8 m/s IQR/Med: 16.3-24.5% (kPa) and 7.9-12.6% (m/s). If the IQR/Med is IQR/median >30% (for kPa) or >15% in m/s, the variance in the measurements is a large and the accuracy of the measurement may be in question. US/ABD Limited w/ Elastography IMPRESSION: 1. Questionable slight hepatic parenchymal coarsening which could be seen in ea rly chronic liver disease. Correlate with clinical and laboratory evaluation. 2. Liver stiffness is 9.6 kPa. Per the below 2020 SRU criteria, this is suggest elyse of compensated advanced chronic liver disease but requires further testing for confirmation. 3. Additional description as above. Assessment is per the Update to the SRU Liver Elastography Consensus Statement (2020) Note that the above assessment of liver fibrosis is vendor-neutral and intended for use in fibrosis related to viral etiologies and non-alcoholic fatty-liver disease (NAFLD); in causes other than viral hepat itis and NAFLD, the cutoff values are currently not well established. In some patients with NAFLD, the cutoff values for cACLD may be lower (7-9 kPa). Note also that in the setting of elevated LFTs, nonfasting or vascular congestion, the stage of lifer fibrosis may be overestimated. Previous SRU reference values: <1.37 m/s (5.7kPa): No to mild fibrosis 1.37 m/s - 2.2 m/s: Moderate to severe fibrosis >2.2 m/s (15kPa): Significant fibrosis / cirrhosis Reading Location: [id number]
== END | disposition home or self-care (01) ==
LOC: US 09:37
PROVIDERS: PCP Family Medicine; Referring Provider Internal Medicine; Visit Provider Internal Medicine
DX: K52.832 Lymphocytic colitis (principal); K31.89 Other diseases of stomach and duodenum; K76.0 Fatty (change of) liver, not elsewhere classified; N18.9 Chronic kidney disease, unspecified; I12.9 Hypertensive chronic kidney disease with stage 1 through stage 4 chronic kidney disease, or unspecified chronic kidney disease; E03.9 Hypothyroidism, unspecified
CPT/HCPCS: 76705; 76981

== ENCOUNTER → 2025-06-15 | Outpatient (CLI) | payer MEDICARE, OTHER, SELFPAY ==
--- NOTE | 2025-06-15 12:45 | ECHOD_ITS ---
Reason For Study Reason For Study: Mitral Valve Prolapse Procedure This was a 2D Doppler, Color Flow transthoracic echocardiogram. Myocardial strain analysis was performed in this exam to aid in the assessment of cardiac function. Exam performed in department. Left Ventricle Normal LV size. The global longitudinal strain = -19.4 % (normal). The left ventricular ejection fraction is 55 %. Stage 1 diastolic dysfunction. No regional wall motion abnormalities noted. Right Ventricle Normal RV size. Normal systolic function. Atria Normal left atrium. Normal right atrium. Mitral Valve Equivocal mitral valve prolapse. Tricuspid Valve Normal tricuspid valve. Aortic Valve Trisinus/trileaflet aortic valve. Pulmonic Valve Normal pulmonic valve. Great Vessels Normal aortic root. The pulmonary artery is normal size. Inferior vena cava collapse with respiration. Pericardium/Pleural No pericardial effusion. MMode/2D Measurements & Calculations LVIDd: 5.1 cm IVSd: 1.0 cm Ao root diam: 3.2 cm LVIDs: 4.0 cm LVPWd: 0.91 cm RVDd: 3.5 cm FS: 21.2 % LAV(MOD-bp): 59.8 ml LVAd ap4: 33.1 cm2 SV(MOD-sp4): 58.2 ml LAV(MOD-bp) Indexed: 31.6 ml/m2 LVLd ap4: 8.1 cm SI(MOD-sp4): 30.7 ml/m2 LAV(MOD-sp2): 62.1 ml EDV(MOD-sp4): 108.7 ml LAV(MOD-sp4): 57.9 ml EDV(sp4-el): 114.3 ml LVAs ap4: 20.5 cm2 LVLs ap4: 7.0 cm ESV(MOD-sp4): 50.5 ml ESV(sp4-el): 51.1 ml EF(MOD-sp4): 53.5 % EF(sp4-el): 55.3 % SV(sp4-el): 63.1 ml LA A4 area: 20.5 cm2 LA dimension(2D): 3.9 cm RA A4 area: 14.0 cm2 TAPSE: 2.1 cm Time Measurements MV dec time: 0.29 sec Doppler Measurements & Calculations MV E max alok: 64.2 cm/sec Lat Peak E' Alok: 10.1 cm/sec Med Peak E' Alok: 7.9 cm/sec MV A max alok: 104.9 cm/sec E/E' lat: 6.3 E/E' med: 8.2 MV E/A: 0.61 MV V2 max: 96.4 cm/sec MV P1/2t max alok: 70.5 cm/sec Ao V2 max: 153.9 cm/sec MV max P.7 mmHg MV P1/2t: 100.7 msec Ao max P.5 mmHg MV V2 mean: 45.3 cm/sec Ao V2 mean: 107.9 cm/sec MV mean P.0 mmHg MV dec slope: 205.2 cm/sec2 Ao mean P.2 mmHg MV V2 VTI: 35.1 cm MVA(P1/2t): 2.2 cm2 Ao V2 VTI: 36.8 cm AV (velocity ratio): 0.59 LV V1 max: 85.1 cm/sec MR max alok: 609.0 cm/sec PA V2 max: 89.4 cm/sec LV V1 max P.9 mmHg MR max P.3 mmHg PA V2 mean: 61.7 cm/sec LV V1 mean P.6 mmHg MR mean alok: 427.3 cm/sec LV V1 mean: 58.6 cm/sec MR mean P.3 mmHg LV V1 VTI: 21.7 cm MR VTI: 234.4 cm TR max alok: 243.7 cm/sec TR max P.8 mmHg ECHO/Echo Complete Interpretation Summary Normal LV size. The global longitudinal strain = -19.4 % (normal). The left ventricular ejection fraction is 55 %. Stage 1 diastolic dysfunction. Equivocal mitral valve prolapse. Ordering Physician: Lenora Cabezas Referring Physician: Lenora Cabezas Performed By: Claudy Navarro RCS
--- OUTSIDE RECORDS SUMMARY | 2025-06-15 19:52 | XMS RPT_ITS | CCD ---
Author Organization [facility] Care Team Providers Care Food And Beverage Service Manager Name Role Phone Anna Duque DO Primary Care Provider Temi FORESTRY TECHNICIAN.Chivo TATE Primary Care Provid er CHATA TONG, DR KAPOOR Primary Care Physician GUICHO TONG, RENEE Cortés Attending Ghislaine BRIZUELA MD., DR. KAPOOR Primary Care Juanjo Curtis MD, RENEE Cortés Attending Ghislaine BRIZUELA MD., DR. KAPOOR Primary Care Juanjo Curtis MD, RENEE Cortés Attending Ghislaine BRIZUELA MD., DR. KAPOOR Primary Care Antwon Hernandez MD Primary Care Provider Dr. Antwon Brizuela Primary Care Provider [phone] Dr. Antwon Brizuela Referring Provider Dillon JOYNER, DIRECTOR ALUMNI RELATIONS-C Katia Attending Provider [phone] Pérez JOYNER, DIRECTOR ALUMNI RELATIONS-C Rafaela Britt Attending Provider [phone] FriendDr. Barker Attending Provider [phone] Dr. Mj Abarca Other Provider [phone] Antwon Brizuela MD Primary Care Provider Dr. Antwon Brizuela Primary Care Provider Dr. Antwon Brizuela Referring Provider Pérez JOYNER, DIRECTOR ALUMNI RELATIONS-C Rafaela Britt Attending Provider Dr. Scar Davis Attending Provider CHIVO MEMBRENO Attending Unavailable CHIVO MEMBRENO Primary Care Unavailable CHIVO MEMBRENO Referring Unavailable TEMI, ZAINERIE M Primary Care Unavailable TEMI, ZAINERIE M Referring Unavailable TEMI, ZAINJAILYNE M Primary Care Unavailable CHATA, ANTWON SOLARES Attending Unavailab le CHATA, ANTWON SOLARES Primary Care Unavailab le CHATA, ANTWON SOLARES Referring Unavailab le CHATA, ANTWON SOLARES Primary Care Unavailab le Chata, Dr. Kapoor Primary Care Provider DO Rhianna Christine Primary Care Provider Dr. Juna Luna Attending Provider Nathan Degroot MD Primary Care Provider Nathan Degroot MD Referring Provider Jignesh TONG, Dr. Alvares Attending Provider Nathan Degroot MD Attending Provider Dr. Giorgio Egan MD Referring Provider Dillon JOYNER-CKatia Attending Provider Dr. Tony Grant DO Attending Provider Dr. Tony Grant DO Emergency Provider Luis DIRECTOR ALUMNI RELATIONS-CBetty Attending Provider Emmy TONG, Dr. Desai Attending Provider Dr. Giselle Booth MD Referring Provider Nathan Degroot MD Primary Care Provider Nathan Degroot MD Referring Provider Nathan Degroot MD Attending Provider Dr. Joseph Hodges MD Attending Provider Dr. Joseph Hodges MD Referring Provider Dr. Giorgio Egan MD Attending Provider Dr. Gayle Dinh MD Attending Provider Dr. Gayle Dinh MD Referring Provider [phone] Dr. Giorgio Egan MD Other Provider Zane MD, Chalon Primary Care Provider Zane TONG, Jolantaon Referring Provider Zane TONG, Nathan Attending Provider Dillon JOYNER-CKatia Attending Provider Zane TONG, Chalon Primary Care Provider Zane TONG, Nathan Referring Provider Allegra TONG, Dr. Araujo Other Provider [phone] Lenora Henderson Attending Provider Zane TONG, Chalon Primary Care Provider [phone] Emmy TONG, Dr. Desai Attending Provider Jolynn TONG, Dr. Garcia Attending Provider Jignesh TONG, Dr. Alvares Referring Provider Zane, Chalon Referring Unavailable Zane, Chalon Primary Care Unavailable Katia Carranza NP Attending Unavailable Betty Smith Attending Unavailable Zane, Chalon Referring Unavailable Zane, Chalon Primary Care Unavailable Zane, Chalon Attending Unavailable Zane, Chalon Referring Unavailable Zane, Chalon Primary Care Unavailable Jignesh, Giorgio Attending Unavailable Jignesh, Giorgio Referring Unavailable Zane, Chalon Primary Care Unavailable SailorsJoseph Attending Unavailable Sailors, Referring Unavailable Zane, Chalon Primary Care Unavailable Maggiony, Gayle Referring Unavailable Jose Neil Attending Unavailable Zane, Chalon Primary Care Unavailable Marcanthony, Gayle Referring Unavailable Marcanthony, Gayle Attending Unavailable Jignesh, Giorgio Consulting Unavailable Zane, Chalon Primary Care Unavailable Marcanthony, Gayle Consulting Unavailable Zane, Chalon Referring Unavailable Zane, Chalon Primary Care Unavailable Friend, Mj Consulting Unavailable Friend, Mj Attending Unavailable Zane, Chalon Attending Unavailable Zane, Chalon Referring Unavailable Zane, Chalon Primary Care Unavailable Zane, Chalon Referring Unavailable Zane, Chalon Primary Care Unavailable Zane, Chalon Attending Unavailable Jignesh, Giorgio Consulting Unavailable Zane, Chalon Primary Care Unavailable Jignesh, Giorgio Attending Unavailable Jignesh, Giorgio Referring Unavailable Zane, Chalon Primary Care Unavailable Wyneski, Giselle Attending Unavailable Giselle Booth Referring Unavailable Marcanthony, Gayle Attending Unavailable Zane, Chalon Referring Unavailable Zane, Chalon Primary Care Unavailable Zane, Chalon Primary Care Unavailable Zane, Chalon Referring Unavailable Jignesh, Giorgio Attending Unavailable Zane, Chalon Referring Unavailable Zane, Chalon Primary Care Unavailable Dillon DIRECTOR ALUMNI RELATIONS, Katia Attending Unavailable Marcanthony, Gayle Referring Unavailable Jignesh, Giorgio Consulting Unavailable Marcanthony, Gayle Attending Unavailable Zane, Chalon Primary Care Unavailable Marcanthony, Gayle Attending Unavailable Marcanthony, Gayle Referring Unavailable Zane, Chalon Primary Care Unavailable Zane, Chalon Primary Care Unavailable Marcanthony, Gayle Attending Unavailable Raulito PA, Lenora Britt Attending Unavail able Raulito PA, Lenora Britt Referring Unavail able Zane, Chalon Primary Care Unavailable Zane, Chalon Primary Care Unavailable Tony Grant Attending Unavailable Zane, Chalon Referring Unavailable Zane, Chalon Primary Care Unavailable Dillon DIRECTOR ALUMNI RELATIONS, Katia Attending Unavailable Zane, Chalon Referring Unavailable Zane, Chalon Primary Care Unavailable Marcanthony, Gayle Attending Unavailable Zane, Chalon Referring Unavailable Jignesh, Giorgio Attending Unavailable Zane, Chalon Primary Care Unavailable Jignesh, Giorgio Attending Unavailable Jignesh, Giorgio Referring Unavailable Zane, Chalon Primary Care Unavailable Zane, Chalon Referring Unavailable Zane, Chalon Primary Care Unavailable Mj Abarca Attending Unavailable Zane, Chalon Referring Unavailable Raulito BAKER, Lenora Britt Attending Unavail able Zane, Chalon Primary Care Unavailable Marcanthony, Gayle Attending Unavailable Zane, Chalon Referring Unavailable Zane, Chalon Primary Care Unavailable Zane, Chalon Referring Unavailable Zane, Chalon Primary Care Unavailable Jignesh, Giorgio Attending Unavailable Allergies Allergy Classification Reported Allergen(s) Allergy Type Date of Onset Reaction(s) Facility (13 sources) olmesartan; Translations: [OLMESARTAN] Drug Allergy 7 Cough [facility] (1 source) Angiotensin-con verting enzyme inhibitor agent; Translations: [angiotensin converting enzyme inhibitors] Propensity to adverse reactions to drug [facility] Comment on above: COUGH (8 sources) Angiotensin-con verting enzyme inhibitor agent; Translations: [HUY INHIBITORS] Drug Allergy 3 Other: See Comments [facility] (7 sources) Angiotensin Converting Enzyme (Huy) Inhibitors Propensity to adverse reactions 5 [facility] (7 sources) Fosinopril Drug Allergy 5 [facility] (1 source) Angiotensin Converting Enzyme (Huy) Inhibitors Drug allergy (disorder) 5 [facility] (1 source) Fosinopril Drug Allergy 5 [facility] Medications Current Medications Medication Drug Class(es) Dates Sig (Normalized) Sig (Original) amLODIPine 5 mg oral tablet (20 sources) Dihydropyridine Calcium Channel Fuentes Start: 03-08-2019 End: 11-13-2022 take 1 tablet by mouth once daily Amlodipine 5 mg tablet Active 5 mg PO DAILY June 06, 2022 12:00am Comment on above: Take 1 tablet by deonte th once daily. Calcium Carbonate / vitamin D3 (20 sources) Start: 06-06-2022 take 1 capsule by mouth once daily Calcium Carbonate-Vitami n D3 Active 1 CAP PO DAILY June 06, 2022 12:00am Start: 06-06-2022 take 1 capsule by mo uth once daily Calcium Carbonate-Vitamin D3 Active 1 CAP PO DAILY June 05, 2022 11:00pm CALCIUM CARBONAT E/VITAMIN D3 (CALCIUM 500 + D, D3, ORAL) Take by mouth twice daily. 0 Active Comment on above: Take by mouth twice daily. D3 (1 source) Start: 2 D3 5000 IU, Oral, qDay, 0 Refill(s) Start Date: 07/26/22 Status: Ordered famotidine 20 mg oral tablet (6 sources) Histamine-2 Receptor Antagonist Start: 5 take 1 tablet by mouth twice daily as needed Famotidine (Pepcid Ac) 20 mg tablet Active 20 mg PO TWICE A DAY as needed for heart burn 60 30 2 February 10, 2025 12:00am levothyroxine sodium 0.088 mg oral tablet (20 sources) l-Thyroxine Start: 5 take 1 tablet by mouth once daily Levothyroxine 88 mcg tablet Active 88 ug PO daily May 19, 2025 12:00am Start: 03-08-2025 End: 05-19-2025 take 1 tablet by mouth once daily Levothyroxine 75 mcg tablet Discontinued 75 ug PO daily 30 30 3 March 08, 2025 12:00am May 19, 2025 10:35am Start: 07-28-2024 End: 03-08-2025 take 1 tablet by mouth once daily Levothyroxine 100 mcg tablet Discontinued 100 ug PO daily 30 30 6 July 28, 2024 12:00am March 08, 2025 3:23pm Start: 05-19-2024 End: 07-28-2024 take 1 tablet by mouth once daily Levothyroxine 88 mcg tablet Discontinued 88 ug PO daily May 19, 2024 12:00am July 28, 2024 3:35pm Start: 04-16-2024 End: 05-19-2024 take 1 tablet by mouth once daily Levothyroxine 125 mcg tablet Discontinued 125 ug PO daily April 16, 2024 12:00am May 19, 2024 11:20am Start: 04-15-2024 End: 04-16-2024 take 1 tablet by mouth once daily Levothyroxine 88 mcg tablet Discontinued 88 ug PO DAILY 30 30 4 April 15, 2024 12:00am April 16, 2024 11:38am Start: 07-26-2022 levothyroxine 100 mcg (0.1 mg) oral tablet Dose : 100 mcg = 1 tab(s), Oral, qDay, 0 Refill(s) Start Date: 07/26/22 Status: Ordered Start: 06-06-2022 End: 04-15-2024 take 1 capsule by mouth once daily Levothyroxine 100 mcg capsule Discontinued 100 ug PO DAILY June 06, 2022 12:00am April 15, 2024 12:09pm Start: 07-15-2017 End: 11-13-2022 take 1 tablet by mouth once daily levothyroxine (SYNTHROID) 100 mcg tablet Take 1 tablet by mouth once daily. 90 tablet 3 11/13/2022 Active End: 03-19-2022 take 1 tablet by mouth once daily before breakfast levothyroxine (LEVOXYL) 112 mcg tablet Take 112 mcg by mouth daily before breakfast. 0 03/19/2022 Discontinued (Dosage adjustment) Comment on above: Take 112 mcg by mout h daily before breakfast. Take 1 tablet by deonte th once daily. Probiotic (1 source) Start: 07-26-2022 take 1 tablet by mouth once daily Probiotic 1 TAB, Oral, qDay, 0 Refill(s) Start Date: 07/26/22 Status: Ordered Completed/Discontinued Medications Medication Drug Class(es) Dates Sig (Normalized) Sig (Original) acetaminophen 325 mg / oxyCODONE hydrochloride 5 mg oral tablet (7 sources) Opioid Agonist Start: 11-16-2024 End: 01-14-2025 Oxycodone-Acetami nophen (Endocet) 5-325 mg tablet Discontinued 1 {tbl} PO EVERY 6 HOURS as needed for pain 12 3 0 November 16, 2024 January 14, 2025 3:35pm Closed fracture of distal end of left radius ascorbic acid 100 mg oral tablet (20 sources) Vitamin C Start: 06-06-2022 End: 07-27-2024 take 1 tablet by mouth once daily Ascorbic Acid (Vitamin C) 100 mg tablet Discontinued 100 mg PO DAILY June 06, 2022 12:00am July 27, 2024 10:10am Comment on above: Take 100 mg by mouth once daily. Take 1 tablet by deonte th once daily. budesonide 3 mg delayed release oral capsule (20 sources) Corticosteroid Start: 09-20-2024 End: 11-16-2024 Budesonide 3 mg capsule,delayed,e xtend.release Discontinued 0 PO EVERY MORNING 20 0 October 13, 2024 11:59am November 16, 2024 12:03pm 9mg daily till 10/19,start taper on 10/20, 6mg x 5 days then 3 mg for 5 days then stop. Start: 09-16-2024 End: 10-13-2024 take 1 tablet by mouth once daily in the morning Budesonide 9 mg tablet,delayed and ext.release Discontinued 9 mg PO EVERY MORNING 90 90 0 September 16, 2024 1:00am December 14, 2024 1:00am October 13, 2024 12:22pm Calcium Carbonate-Vitamin D3 500 mg(1,250mg) -50 unit capsule (7 sources) Start: 06-06-2022 End: 07-27-2024 Calcium Carbonate-Vitamin D3 500 mg(1,250mg) -50 unit capsule Discontinued 1 NMA PO DAILY June 06, 2022 12:00am July 27, 2024 10:11am cholecalciferol 0.125 mg oral tablet (20 sources) Vitamin D Start: 01-14-2025 End: 05-03-2025 take 1 tablet by mouth once daily Cholecalciferol (Vitamin D3) (Vitamin D3) 125 mcg (5,000 unit) tablet Discontinued 125 ug PO DAILY January 14, 2025 12:00am May 03, 2025 1:57pm Start: 11-13-2022 End: 11-13-2022 take 1 capsule by mouth twice daily Cholecalciferol, Vitamin D3, 50 mcg (2,000 unit) cap Take 1 capsule by mouth twice daily. 180 capsule 3 11/13/2022 Active Comment on above: Take by mouth twice daily. Take 1 capsule by [facility] twice daily. clobetasol propionate 0.0005 mg/mg topical ointment (15 sources) Corticosteroid Start: 06-24-2022 End: 04-15-2024 Clobetasol 0.05 % ointment Discontinued 1 NMA TOPICAL .COMPLEX 15 2 June 24, 2022 12:00am April 15, 2024 11:41am 1 applic topical apply bid X 2 weeks, daily X 2 weeks then prn. Small amount and massge in; estradiol 0.1 mg/ml vaginal cream (20 sources) Estrogen Start: 07-24-2022 estradiol (ESTRACE) 0.01 % (0.1 mg/gram) vaginal cream Estradiol Active 0 VAGINAL .COMPLEX 42.5 July 23, 2022 11:00pm small amount as directed vaginal every other day X 4 weeks then twice a week; 0 07/24/2022 Active Start: 07-24-2022 End: 04-15-2024 Estradiol 0.01 % (0.1 mg/gra m) cream Discontinued 0 VAGINAL .COMPLEX 42.5 2 July 24, 2022 12:00am April 15, 2024 11:41am small amount as directed vaginal every other day X 4 weeks then twice a week; Start: 07-24-2022 Estradiol Acti ve 0 VAGINAL .COMPLEX 42.5 July 23, 2022 11:00pm small amount as directed vaginal every other day X 4 weeks then twice a week; Comment on above: Estradiol Active 0 V AGINAL .COMPLEX 42.5 July 23, 2022 11:00pm small amount as directed vaginal every other day X 4 weeks then twice a week; lactobacillus acidophilus [id number] unt oral capsule (15 sources) Start: 09-18-20 End: 05-03-20 take 10 capsules by mouth once daily Lactobacillus Acidophilus (Probiotic) 10 billion cell Capsule Discontinued [id number] NMA PO DAILY September 18, 2022 1:00am May 03, 2025 1:57pm 24 hr metoprolol succinate 50 mg extended release oral tablet (20 sources) beta-Adrenergic Fuentes Start: 07-26-20 Metoprolol Succinate ER 50 mg oral TABLET extended release Dose : 50 mg = 1 tab(s), Oral, qDay, 0 Refill(s) Start Date: 07/26/22 Status: Ordered Start: 07-15-2017 End: 11-13-2022 take 1 tablet by mouth once daily Metoprolol Succinate 50 mg tablet extended release 24 hr Active 50 mg PO DAILY June 06, 2022 12:00am Comment on above: Take 1 tablet by deonte th once daily. Take 1 tablet by deonte th once daily miSOPROStol 0.2 mg oral tablet (4 sources) Prostaglandin E1 Analog Start: 04-04-2025 End: 05-19-2025 Misoprostol (Cytotec) 200 mcg tablet Discontinued 200 ug PO .complex 2 1 April 04, 2025 12:00am May 19, 2025 10:36am take the night before and two hours prior to the procedure Multivitamin tablet (14 sources) Start: 05-19-2024 End: 09-07-2024 Multivitamin tablet Discontinued 1 {tbl} PO DAILY as needed May 19, 2024 11:20am September 07, 2024 3:39pm Start: 04-16-2024 End: 05-19-2024 Multivitamin tablet Disconti nued 1 {tbl} PO DAILY April 16, 2024 12:00am May 19, 2024 11:20am nebivolol 5 mg oral tablet (3 sources) End: 05-07-2022 take 1 tablet by mouth once daily nebivolol (BYSTOLIC) 5 mg tablet Take 5 mg by mouth once daily. 0 05/07/2022 Discontinued Comment on above: Take 5 mg by mouth o nce daily. omeprazole 20 mg delayed release oral capsule (20 sources) Proton Pump Inhibitor Start: 06-06-2022 End: 11-13-2022 take 1 capsule by mouth once daily Omeprazole 20 mg capsule,delayed release(DR/EC) Discontinued 20 mg PO DAILY June 06, 2022 12:00am October 08, 2022 9:07am Comment on above: Take 20 mg by mouth once daily. ondansetron 4 mg disintegrating oral tablet (7 sources) Serotonin-3 Receptor Antagonist Start: 11-16-2024 End: 01-14-2025 take 1 tablet by mouth every six hours as needed for nausea and vomiting Ondansetron 4 mg tablet,disintegrat ing Discontinued 4 mg PO EVERY 6 HOURS as needed for nausea and vomiting 20 November 16, 2024 1:00am January 14, 2025 3:35pm OTC NUTRITIONAL SUPPLEMENT (13 sources) Start: 10-30-2005 OTC NUTRITIONAL SUPPLEMENT Multi-Vitamin, Take one(1) tablet daily. 0 10/30/2005 Active Comment on above: Multi-Vitamin, Take one(1) tablet daily. pantoprazole 40 mg delayed release oral tablet (20 sources) Proton Pump Inhibitor Start: 01-14-2025 End: 02-10-2025 take 1 tablet by mouth once daily Pantoprazole 40 mg tablet,delayed release (DR/EC) Discontinued 40 mg PO DAILY January 14, 2025 12:00am February 10, 2025 12:28pm Start: 07-27-2024 End: 01-14-2025 take 1 tablet by mouth twice daily Pantoprazole 40 mg tablet,delayed release (DR/EC) Discontinued 40 mg PO TWICE A DAY 60 30 October 13, 2024 12:22pm January 14, 2025 3:36pm Changed to 40 mg once daily on 10/26/2024. Start: 11-26-2022 End: 04-15-2024 take 1 tablet by mouth once daily in the morning Pantoprazole 40 mg tablet,delayed release (DR/EC) Discontinued 40 mg PO EVERY MORNING 90 November 26, 2022 10:00am April 15, 2024 11:42am Start: 09-24-2022 End: 11-26-2022 take 1 tablet by mouth twice daily Pantoprazole 40 mg tablet,delayed release (DR/EC) Discontinued 40 mg PO TWICE A DAY 60 1 September 24, 2022 1:00am November 26, 2022 10:00am Comment on above: Take 40 mg by mouth twice daily. 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] 04-16-2024 Chronic Disorders of lipid metabolism (17 sources) Hyperlipidemia; Translations: [Hyperlipidemia, unspecified] Onset: 0 03-19-2022 Chronic Esophageal disorders (20 sources) Gastroesophageal reflux disease; Translations: [Gastro-esophageal reflux disease without esophagitis] Onset: 2 03-19-2022 Chronic Comment on above: CONTROLLED WITH MED Esophageal disorders (1 source) Esophageal disorders; Translations: [Gastroesophageal reflux disease with esophagitis without hemorrhage] Onset: 2 Essential hypertension (20 sources) Hypertensive disorder; Translations: [Essential (primary) hypertension] Onset: 7 03-19-2022 Chronic Comment on above: CONTROLLED WITH MED Fracture of upper limb (7 sources) Closed fracture of distal end of radius; Translations: [Unspecified fracture of the lower end of left radius, initial encounter for closed fracture] 11-24-2024 Episodic Genitourinary symptoms and ill-defined conditions (3 sources) Urinary incontinence Chronic Heart valve disorders (19 sources) Mitral valve regurgitation; Translations: [Nonrheumatic mitral (valve) insufficiency] Onset: 5 05-19-2024 Chronic Menopausal disorders (20 sources) Atrophic vaginitis; Translations: [Postmenopausal atrophic vaginitis] Onset: 5 Chronic Comment on above: add estradiol cream next visit Mood disorders (7 sources) Depressive disorder; Translations: [Depression] 04-16-2024 Chronic Noninfectious gastroenteritis (16 sources) Lymphocytic colitis; Translations: [Lymphocytic colitis] Onset: 5 10-13-2024 Chronic Osteoarthritis (7 sources) Arthritis; Translations: [Unspecified osteoarthritis, unspecified site] 04-16-2024 Chronic Osteoporosis (1 source) Age-related osteoporosis without current pathological fracture; Translations: [Age-related osteoporosis without current pathological fracture] Onset: 5 Chronic Other diseases of bladder and urethra (1 source) Other specified disorders of bladder; Translations: [Other specified disorders of bladder] Onset: 5 Chronic Other diseases of kidney and ureters (20 sources) Renal impairment; Translations: [Disorder of kidney and ureter, unspecified] Onset: 0 03-19-2022 Episodic Other disorders of stomach and duodenum (14 sources) Stenosis of stomach; Translations: [Other diseases of stomach and duodenum] 10-13-2024 Episodic Other female genital disorders (20 sources) Stenosis of cervix; Translations: [Stricture and stenosis of cervix uteri] 03-08-2025 Episodic Comment on above: EMB deferred give cytotec preop severe, unidentifiab le os. will reevaluate the lining on US by radiologist in house Other female genital disorders (1 source) Stricture and stenosis of cervix uteri; Translations: [Stricture and stenosis of cervix uteri] Onset: 5 Episodic Other gastrointestinal disorders (1 source) Irritable bowel syndrome with diarrhea; Translations: [Irritable bowel syndrome with diarrhea] Onset: 4 Chronic Other gastrointestinal disorders (15 sources) Dysphagia; Translations: [Dysphagia, unspecified] 07-26-2022 Episodic Other gastrointestinal disorders (1 source) Dysphagia, unspecified; Translations: [Dysphagia, unspecified] Episodic Other hereditary and degenerative nervous system conditions (7 sources) Restless legs; Translations: [Restless legs syndrome] 09-07-2024 Chronic Comment on above: OCC Other liver diseases (13 sources) Fatty (change of) liver, not elsewhere classified; Translations: [Metabolic dysfunction-associated steatotic liver disease (MASLD)] Onset: 5 02-10-2025 Chronic Other nutritional; endocrine; and metabolic disorders (2 sources) Abnormal weight loss; Translations: [Abnormal weight loss] Onset: 4 Episodic Other screening for suspected conditions (not mental disorders or infectious disease) (20 sources) Endometrium thickened; Translations: [Abnormal findings on diagnostic imaging of other specified body structures] Onset: 5 03-08-2025 Chronic Comment on above: 8mm. Unable to compl ete EMB due to cervical stenosis 8mm. Unable to compl ete EMB due to cervical stenosis. recommend d and c hysteroscopy prior to hyst Other skin disorders (17 sources) Lichen sclerosus et atrophicus; Translations: [Lichen sclerosus et atrophicus] Chronic Comment on above: clobetesol Prolapse of female genital organs (20 sources) Cystocele and rectocele co-occurrent with incomplete uterovaginal prolapse; Translations: [Incomplete uterovaginal prolapse] Onset: 5 Chronic Comment on above: #3 donut fell out. # 4 ring w/support and knob fell out #3 donut fell out. # 4 ring w/support and knob fell out. plan [facility] combo with [facility] care; fitting of prostheses; and adjustment of devices (3 sources) Patient encounter status; Translations: [Encounter for fitting and adjustment of other specified devices] Onset: 5 11-16-2024 Chronic Thyroid disorders (20 sources) Hypothyroidism; Translations: [Hypothyroidism, unspecified] Onset: 7 03-19-2022 Chronic Thyroid disorders (8 sources) Disorder of thyroid gland; Translations: [Disorder of thyroid, unspecified] Onset: 5 09-07-2024 Episodic Comment on above: ON MED Unclassified (6 sources) Cystocele and rectocele with incomplete uterovaginal prolapse; Translations: [R32 - Unspecified urinary incontinence,N81.2 - Incomplete uterovaginal prolapse] Past or Other Problems Problem Classification Problem Date Documented Da te Episodic/Chronic Abdominal hernia (17 sources) Hiatal hernia; Translations: [Diaphragmatic hernia without obstruction or gangrene] Onset: 08-31-2024 10-08-2022 Episodic Abdominal pain (20 sources) Abdominal pain; Translations: [Unspecified abdominal pain] Onset: 01-05-2020 03-19-2022 Episodic Deficiency and other anemia (1 source) Anemia, unspecified; Translations: [Anemia, unspecified] Onset: 08-31-2024 Episodic Immunizations and screening for infectious disease (12 sources) Requires vaccination; Translations: [Encounter for immunization] Onset: 05-01-2021 03-19-2022 Episodic Other diseases of kidney and ureters (1 source) Disorder of kidney and ureter, unspecified; Translations: [Renal insufficiency syndrome] Onset: 03-19-2022 Episodic Other disorders of stomach and duodenum (1 source) Other diseases of stomach and duodenum; Translations: [Other diseases of stomach and duodenum] Onset: 11-30-2024 Episodic Other gastrointestinal disorders (1 source) Diarrhea, unspecified; Translations: [Diarrhea, unspecified] Onset: 08-31-2024 Episodic Other non-traumatic joint disorders (1 source) Pain in left wrist; Translations: [Pain in left wrist] Onset: 12-06-2024 Episodic Other screening for suspected conditions (not [...] Results Test Name Value Interpretation Reference Range Facility ABD Limited w/ Elastographyo n 06-02-2025 ABD Limited w/ Elastography [facility] Imaging Services [address] [place] [address] [id number] ABD Limited w/ Elastography MR#: [id number] Acct: [id number] Name: GAYLE BANKS MELVIN Rep #: [id number] : 1950 F 74 From: Eriberto Alvarez MD PCP: Dr. Nathan Degroot MD Status: [facility] CL Study: ABD Limited w/ Elastography Date of Exam: 05/05 11/27 Exam# [id number] Ordering Dr: Giorgio Egan MD PROCEDURE: ABD LIMITED W/ ELASTOGRAPHY, 06/02/2025 REASON FOR EXAM: LIVER FIBROSIS, RULE OUT MASS COMPARISON: 05/03/2024 TECHNIQUE: Grayscale and color Doppler imaging of the right upper quadrant was performed. Elastography was performed for non-invasive assessment of liver tissue stiffness utilizing a [employer] S-shear wave imaging unit. FINDINGS: Liver: Questionably slightly coarsened appearance. 14.8 cm in length. Gallbladder: Unremarkable. Reportedly, sonographic Ruby's was negative. Biliary tree: Unremarkable. CBD measures 5 mm. Pancreas: Partially obscured by shadowing bowel gas, grossly unremarkable as visualized. Right kidney: 2.1 x 1.9 x 1.3 cm cyst. 8.6 cm in length. Other: Spleen measures 9.7 x 4.1 x 4.7 cm. Hepatic elastography: Number of measurements: 15 measurements across 3 regions, 5 measurements per region. US probe: CA1-7A. EQI median: 9.6 kPa EQI median velocity: 1.8 m/s IQR/Med: 16.3-24.5% (kPa) and 7.9-12.6% (m/s). If the IQR/Med is IQR/median >30% (for kPa) or >15% in m/s, the variance in the measurements is a large and the accuracy of the measurement may be in question. US/ABD Limited w/ Elastography IMPRESSION: 1. Questionable slight hepatic parenchymal coarsening which could be seen in early chronic liver disease. Correlate with clinical and laboratory evaluation. 2. Liver stiffness is 9.6 kPa. Per the below 2020 SRU criteria, this is suggestive of compensated advanced chronic liver disease but requires further testing for confirmation. 3. Additional description as above. Assessment is per the Update to the SRU Liver Elastography Consensus Statement (2020) Note that the above assessment of liver fibrosis is vendor-neutral and intended for use in fibrosis related to viral etiologies and non-alcoholic fatty-liver disease (NAFLD); in causes other than viral hepatitis and NAFLD, the cutoff values are currently not well established. In some patients with NAFLD, the cutoff values for cACLD may be lower (7-9 kPa). Note also that in the setting of elevated LFTs, nonfasting or vascular congestion, the stage of lifer fibrosis may be overestimated. Previous SRU reference values: <1.37 m/s (5.7kPa): No to mild fibrosis 1.37 m/s - 2.2 m/s: Moderate to severe fibrosis >2.2 m/s (15kPa): Significant fibrosis / cirrhosis Reading Location: [id number] CC: Dr. Nathan Degroot MD; Dr. Giorgio Egan MD Site Director: Signed Normal [facility] Special Education Para Professional Office Visit Reporton 05-27-2025 Special Education Para Professional Office Visit Report [facility] [address], [address] [place] [id number] OFFICE VISIT Date of Service: 05/27/25 MR#: [id number] Acct: [id number] Name: GAYLE BANKS Rep #: [id number] : 1950 Provider: Dr. Gayle stephen MD Age/Sex: 74/F [place] [facility] Status: Signed Intake Vital Signs 04/04/25 10:50 05/19/25 10:34 05/27/25 11:05 Height 5 ft 9 in 5 ft 9 in 5 ft 9 in Weight: 163 lb 163 lb 4 oz BMI 24.0 24.0 BP 126/73 H 117/68 Blood Pressure Location Lt brachial Position Sitting Respiration 18 Pulse 65 Pulse Source Monitor Intake Visit Reasons: 2 wk post op D C Report Writer Required: No Is patient in pain?: No Allergies HUY Inhibitors Adverse Reaction (Intermediate, Verified 05/27/25 11:12) COUGH fosinopril (From Monopril) Adverse Reaction (Intermediate, Verified 05/27/25 11:12) Cough Medications ???Medication ???Instructions ???Recorded ???Confirmed ???Type amlodipine 5 mg tablet 5 mg PO DAILY 06/06/22 05/27/25 Hi story metoprolol succinate 50 mg 50 mg PO DAILY 06/06/22 05/27/25 H istory tablet,extended release 24 hr famotidine 20 mg tablet (Pepcid AC) 20 mg PO BID PRN heart burn 1 0 02/10/25 05/27/25 Rx month #60 tabs levothyroxine 88 mcg tablet 88 mcg PO QDAY 05/19/25 05/27/25 H istory Is last menstrual period known: No Post menopausal: Yes Patient : No : No PFSH Medical History Bladder disease Restless legs History of hiatal hernia Wears glasses Wears dentures Post-menopausal Low iron Non-smoker History of echocardiogram Cardiology follow-up encounter Renal insufficiency syndrome Depression Mitral stenosis Gallbladder anomaly RUQ abdominal pain Schatzki's ring of distal esophagus Thyroid disease Arthritis Restless legs Dysphagia Lichen sclerosus HTN (hypertension) Hypothyroidism GERD (gastroesophageal reflux disease) Surgical History History of bladder surgery Hx of colonoscopy History of esophagogastroduodenoscopy (EGD) Hx of total knee arthroplasty History of tubal ligation History of rotator cuff surgery History of foot surgery Family History Mother Hypertension Thyroid disorder Father Hypertension Heart disease Arthritis Sister Arthritis Hyperlipidemia Hypertension Aunt Breast cancer Social History household members: spouse current occupational status: retired 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 d and c unable to be done due to severe cervical stenosis, os unable to be identified. History 2 Elective abortions Hx Para Spontaneous abortions Hx # Term Pregnancies Ectopic pregnancies Hx # Pregnancies Multiple births # of living children 2 ROS Const Constitutional: Reports system reviewed and no additional complaints, except as documented GI GI: Denies abdominal pain, cramping, nausea or vomiting : Denies pelvic pain, urinary frequency, urinary incontinence, urinary urgency, vaginal discharge, vaginal dryness or vaginal odor Exam Const General: cooperative, healthy appearing, comfortable and no acute distress Coding Level of Care Code Off vis,est,level 2 Diagnoses Thickened endometrium R93.89 Stenosis, cervix N88.2 Assessment and Plan Assessment and Plan (1) Thickened endometrium: Status: Acute Comment: 8mm. Unable to complete EMB due to cervical stenosis. recommend d and c hysteroscopy prior to hyst (2) Stenosis, cervix: Status: Acute Comment: severe, unidentifiable os. will reevaluate the lining on US by radiologist in house Plan Problem list updated and treatment plans were reviewed with the patient and relevant educational handouts given. See problem list details for specific plan information. 05/31/25 1651 Date Gayle Dinh MD Cosigner Signature: Date (if applicable) CC: Normal [facility] Cardiology Visit Reporton Cardiology Visit Report [facility] [address] [place] [address] OFFICE VISIT Date of Service: 05/19/25 MR#: [id number] Acct: [id number] Name: GAYLE BANKS MELVIN Rep #: [id number] : 1950 Provider: SAMUEL Gamble Age/Sex: 74/F Location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 She does have a history of moderate mitral valve regurgitation. From a cardiac standpoint, patient is doing well. She does not have any chest discomfort/heaviness/tightn ess. Her exercise tolerance is stable for her age. She does not have any worsening symptoms of shortness of breath. She does not have any orthopnea. She denies PND. She does not have any symptoms of congestive heart failure. She does not have any palpitations that she is aware of. She does not have any lightheadedness or dizziness. She does not have any near- syncope or syncope. She does not have any lower extremity edema. She does not have any symptoms of claudication. Intake Vital Signs 05/19/24 11:16 05/17/25 12:20 05/19/25 10:34 Height 5 ft 9 in 5 ft 9 in 5 ft 9 in Weight: 163 lb BMI 24.0 BP 126/73 H Blood Pressure Location Lt brachial Position Sitting Respiration 18 Pulse 65 Pulse Source Monitor Intake Visit Reasons: 1 Y FU Report Writer Required: No Accompanied by: Self Is patient in pain?: No Allergies HUY Inhibitors Adverse Reaction (Intermediate, Verified 05/19/25 10:34) COUGH fosinopril (From Monopril) Adverse Reaction (Intermediate, Verified 05/19/25 10:34) Cough Medications ???Medication ???Instructions ???Recorded ???Confirmed ???Type amlodipine 5 mg tablet 5 mg PO DAILY 06/06/22 05/19/25 Hi story metoprolol succinate 50 mg 50 mg PO DAILY 06/06/22 05/19/25 H istory tablet,extended release 24 hr famotidine 20 mg tablet (Pepcid AC) 20 mg PO BID PRN heart burn 1 0 02/10/25 05/19/25 Rx month #60 tabs levothyroxine 88 mcg tablet 88 mcg PO QDAY 05/19/25 05/19/25 H istory Ejection fraction %: 55 Have you fallen in the past year?: Yes (november fell on ice) [facility] Medical History Bladder disease Restless legs History of hiatal hernia Wears glasses Wears dentures Post-menopausal Low iron Non-smoker History of echocardiogram Cardiology follow-up encounter Renal insufficiency syndrome Depression Mitral stenosis Gallbladder anomaly RUQ abdominal pain Schatzki's ring of distal esophagus Thyroid disease Arthritis Restless legs Dysphagia Lichen sclerosus HTN (hypertension) Hypothyroidism GERD (gastroesophageal reflux disease) Surgical History History of bladder surgery Hx of colonoscopy History of esophagogastroduodenoscopy (EGD) Hx of total knee arthroplasty History of tubal ligation History of rotator cuff surgery History of foot surgery Family History Mother Hypertension Thyroid disorder Father Hypertension Heart disease Arthritis Sister Arthritis Hyperlipidemia Hypertension Aunt Breast cancer Social History household members: spouse current occupational status: retired 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[employer] Smoking Status: Never smoker alcohol intake: current alcohol intake frequency: a few times a month substance use type: does not use what type of physical activity do you participate in: none seatbelt use: always do you feel safe at home: Yes additional social history: - Felix ROS Const Const: Negative for fatigue or weakness Eyes Eyes: Negative for change in vision ENT ENT: Negative for dizziness or balance problems Cardio Chest Pain: No Palpitations: No Edema: None Resp Respiratory: Negative for SOB with activity, SOB at rest or SOB orthopnea SOB lying down GI GI: Negative nausea or heartburn Musc Musc: Negative for balance problems Neuro Neuro: Negative for dizziness, lightheadedness, near syncope, syncope or weakness Endo Endo: Negative for fatigue Cardiology Exam Const Appearance: cooperative, no acute distress and well developed Orientation: alert, awake and oriented x3 Head Head: normocephalic and atraumatic Mouth: moist mucous membranes Eyes General: appearance normal, both eyes and all related structures Conjunctivae: conjunctivae normal Pupils: PERRL EOM: EOM intact bilaterally Neck Neck: normal visual inspection, no lymphadenopathy and no JVD Carotids: Negative bruit Neck Mass: Nega (more content not included)... Normal [facility] Discharge Instructionon 05-03 Discharge Instruction [facility] Medical Records Department [address] [place] [address] Instructions for Home/Discharge Instructions 05/17/25 1417 MR#: [id number] Acct: [id number] Name: SONIAGAYLE HODGE MELVIN Rep #: [id number] : 1950 74 From: Gayle Dinh MD PCP: Dr. Nathan Degroot MD Status:REG SDC Discharge Instructions DC O2, CPAP, BIPAP needs Home O2 Discharge instructions: No Dressing / Incision Discharge Activity: Return to Normal Activity, May Shower and May Take a Tub Bath (after 1 week) May resume sexual activity in: 1-2 weeks Weight Bearing Status: Weight bearing as tolerated Lifting Restrictions: none Dressing / Incision Call your doctor if you observe: Fever of 101 or Higher, Using more than 1 pad per hour, Shortness of breath and Uncontrolled pain Follow Up Care Please Follow Up With: Gayle Dinh MD When: Call [phone] to schedule appointment. Test Results: Test results from this visit will be discussed in further detail at your follow-up appointment, if applicable. Discharge Plan Admission Attending Provider: Gayle Dinh Primary Care Provider: Nathan Degroot Consulting Providers: Giorgio Egan Instructions Print Language: Uruguayan Discharge Orders/Prescriptions Prescriptions: No Action amlodipine 5 mg tablet 5 mg PO DAILY metoprolol succinate 50 mg tablet extended release 24 hr 50 mg PO DAILY famotidine [Pepcid AC] 20 mg tablet 20 mg PO BID PRN (Reason: heart burn) 30 Days Qty: 60 2RF misoprostol [Cytotec] 200 mcg tablet 200 mcg PO .complex Qty: 2 1RF Rx Instructions: take the night before and two hours prior to the procedure levothyroxine 75 mcg tablet 75 mcg PO QDAY 30 Days Qty: 30 3RF Referrals / Follow Up: Nathan Degroot MD [Primary Care Provider] - Disposition Disposition (needs filled in before D/C Order can be placed): Home, Self Care 05/17/25 1418 Gayle Dinh MD CC: Dr. Nathan Degroot MD; Dr. Giorgio Egan MD Signed [facility] MR/POSTOP.Debbi 05-17-2025 MR/POSTOP.[facility] Medical Records Department [address] [place] [address] Anesthesia Postop Eval I 05/17/25 1419 MR#: [id number] Acct: [id number] Name: GAYLE BANKS MELVIN Rep #: [id number] : 1950 74 From: Hernan Olivas CRNA PCP: Dr. Nathan Degroot MD Status:REG SDC Y Race: C Location: [place] [address] Anesthesia: Postop Eval I Current Vital Signs Temperature: 97.3 F Pulse Rate: 61 Blood Pressure: 90/62 Respiratory Rate: 16 Pulse Ox: 97 Assessment Airway patent: Yes Spontaneous unlabored respirations: Yes nausea: No Vomiting: No Anesthesia Complication: No Fluid Hydration Crystalloid volume administer (ml): 800 Total IV fluid infused: 800 Progress Note Anesthesia document: Postop Eval 1 completed: Yes 05/17/25 1420 Date Hernan Olivas LOGISTICS TECH Cosigner Signature: Date CC: Signed [facility] MR/[id number] 05-17-2025 MR/POSTOPAN2 [facility] Medical Records Department [address] [place] [address] Anesthesia Postop Eval II 05/17/251916 MR#: [id number] Acct: [id number] Name: GAYLE BANKS Rep #: [id number] : 1950 74 From: Juan Limon MD PCP: Dr. Nathan Degroot MD Status:DEP [facility] Y Race: C [place] [facility] 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/25 14:19 LOGISTICS TECH.TNES Spontaneous unlabored Yes 05/17/25 14:19 LOGISTICS TECH.TNES respirations Mental status nausea No 05/17/25 14:19 LOGISTICS TECH.TNES Vomiting No 05/17/25 14:19 LOGISTICS TECH.TNES Anesthesia Postop Eval I: Fluid Summary Crystalloid volume administer 800 05/17/25 14:19 LOGISTICS TECH.TNES (ml) Colloids volume administered ( ml) Blood Product volume administered (ml) Total IV fluid infused 800 05/17/25 14:19 LOGISTICS TECH.TNES Anesthesia Postop Eval I: Summary Notes Anesthesia Complication No 05/17/25 14:19 LOGISTICS TECH.TNES Anesthesia Complication Comment: Post-operative progress note Anesthesia: Postop Eval II Evaluation Mental status: Awake and Calm Pain Level: 1 nausea: No Vomiting: No Complications Anesthesia Complication: No 05/17/251916 Date Juan Limon MD Cosigner Signature: Date CC: Signed [facility] Operative Reporton Operative Report [facility] Medical Records Department [address] [place] [address] Operative Report 05/17/25 1412 MR#: [id number] Acct: [id number] Name: GAYLE BANKS Rep #: [id number] : 1950 74 From: Gayle Dinh MD PCP: Dr. Nathan Degroot MD Status:[facility] Location: [place] [address] Problems Associated Problem List Diagnoses (1) Thickened endometrium: (2) Stenosis, cervix: (3) Cystocele and rectocele with incomplete uterovaginal prolapse: Multi Select Codes Urinary/Genital Urinary/Genital CPT Codes: 48902 PEUA Operative Report (Standard) Operative Information Date of Procedure: 05/17/25 Pre-Operative Diagnosis: cervical stenosis Post-Operative Diagnosis: same Surgery/Procedure Performed: pelvic exam under anesthesia carver and checkerer specials: No Type of Anesthesia: MAC RN Documented Start/Stop Times: Operation Date: 05/17/25 13:15 Case Time Into Pre-Op 05/17/25 11:37 Out of Pre-Op 05/17/25 13:38 Anesthesia Start 05/17/25 13:39 Into Room 05/17/25 13:39 Procedure Start 05/17/25 13:55 Procedure End 05/17/25 14:07 Procedure Start Time: 13:55 Procedure Stop Time: 14:07 Select all DRAINS/GRAFTS/IMPLANTS that apply: None Estimated Blood Loss: 0 Specimen collected: No Description of surgery: Patient was placed under anesthesia and was prepped and draped in normal sterile fashion the dorsolithotomy position. Bladder drained of clear urine. Weighted speculum placed in the vagina and cervix inspected and absolutely no discernible cervical os visualized. There is barely an apical reflection present. Pelvic exam performed and uterus and cervix palpated however tissue was very thick over the vaginal apex where the opening of the cervix would be expected to be. No discernible location to be able to make an incision to open the vagina in order to get the cervix. Decision was made to abort the procedure to not disrupt anatomy that would interfere with the hysterectomy that she will have done in August. Will discuss with patient postoperatively how to proceed Surgical Findings: complete obliteration of the cervical opening Complications Complications: No 05/17/25 1417 Cosigner Signature (if applicable): CC: Dr. Nathan Degroot MD; Dr. Giorgio Egan MD; Dr. Gayle Dinh MD Signed Normal [facility] [id number] 05-11-2025 [facility] [place]. COMMENT Normal . [facility] Comment on above: Order Comment: Order Date: 10/18/24 Order Info: 3016-3 - TSH Result Comment: Test Ordered: [id number] Enhanced Liver Fibrosis (ELF) ELF(TM) Score 10.33 [H ] BN Reference Range: <9.80 ELF(TM) Score Interpretation: Risk cut-offs to assess the likelihood of progression to cirrhosis and liver-related clinical events within 3.9 years following baseline ELF score (IQR: 14.0-22.4 months)*: Lower risk < 9.80 Mid risk 9.80 - 11.29 Higher risk >11.29 Note: The ELF(TM) Score is a unitless numerical value. *Nagi SA, Aureliano VW, Franny T, et al. Selonsertib for patients with bridging fibrosis or compensated cirrhosis due to SAWYER: Results from randomized phase III STELLAR trials. J Hepatol. 2020 May;73(1):26-39. Performed at: [facility] [address] [id number] [employer] Mate M: Clifford Denise MD, Phone: [phone] Performed at: [facility] [address] [id number] [employer] M: Caesar Brewster PhD, Phone: [phone] Performed By: #### L 500.4050, L501.6710, L506.0400 #### [facility] [address] [facility] [place], [place], [address] Electrocardiogram reportOrde red By: Jose Neil on 05-09-2025 EKG study [facility] Cardiovascular Services [address] [place] [address] 12 Lead EKG 05/05/25 1019 MR#: [id number] Acct: [id number] Name: GAYLE BANKS MELVIN Rep #:[id number] : 1950 74 From: Jose Neil MD Attending Dr: Dr. Gayle Dinh MD Status: PRE SDC Ordering Dr: Gayle Dinh MD Ronald e: 05/05/25 [place] [facility] Sex: F C Admitted: Test Reason : PREOP Blood Pressure : */* mmHG Vent. Rate : 67 BPM Atrial Rate : 67 BPM P-R Int : 142 ms QRS Dur : 94 ms QT Int : 390 ms P-R-T Axes : 56 35 61 degrees QTcB Int : 412 ms Normal sinus rhythm Normal ECG Confirmed by JOSE NEIL MD ([id number]), electronic news gathering editor JIM DOOLEY ([id number]) on 05/09/2025 9:48:19 AM Referred By: Gayle Dinh Confirmed By: JOSE NEIL MD 05/09/25 0948 Date _ Jose Neil MD CC: Dr. Nathan Degroot MD; Dr. Gayle Dinh MD ~ Signed [facility] Work Phone: 12 Lead EKGon 05-05-2025 12 Lead EKG [facility] Cardiovascular Services [address] [place] [address] 12 Lead EKG 05/05/25 1019 MR#: [id number] Acct: [id number] Name: GAYLE BANKS Rep #: [id number] : 1950 74 From: Jose Neil MD Attending Dr: Dr. Gayle Dinh MD Status: PRE SDC Ordering Dr: Gayle Dinh MD Date: 05/05/25 [place] [facility] Sex: F C Admitted: Test Reason : PREOP Blood Pressure : */* mmHG Vent. Rate : 67 BPM Atrial Rate : 67 BPM P-R Int : 142 ms QRS Dur : 94 ms QT Int : 390 ms P-R-T Axes : 56 35 61 degrees QTcB Int : 412 ms Normal sinus rhythm Normal ECG Confirmed by JOSE NEIL MD ([id number]), electronic news gathering editor JIM DOOLEY ([id number]) on 05/09/2025 9:48:19 AM Referred By: Gayle Dinh Confirmed By: JOSE NEIL MD 05/09/25 0948 Date Jose Neil MD CC: Dr. Nathan Degroot MD; Dr. Gayle Dinh MD Signed Normal [facility] Absolute lymphocyte countOrd ered By: Gayle Dinh on 05-05-2025 Lymphocytes Auto (Unsp spec) [#/Vol] 1.22 10*3/uL 0.83-4.51 [facility] Absolute neutrophil countOrd ered By: Gayle Dinh on 05-05-2025 Neutrophils (Bld) [#/Vol] 1.9 10*3/uL Low 2.0-7.7 [facility] Anion gap in Serum or Plasma Ordered By: Gayle Dinh on 05-05-2025 Anion gap [Moles/Vol] 11 mmol/L 5-15 [facility] Automated lymphocyte count a s percentage of total leukocytesOrdered By: Gayle Dinh on 05-05-2025 Lymphocytes/100 WBC Auto (Unsp spec) 30.0 % 19-41 [facility] BUN/creatinine ratioOrdered By: Gayle Dinh on 05-05-2025 Urea nitrogen/Creatinine [Mass ratio] 20.9 mg/mg High 10-20 [facility] Basophil percentageOrdered B y: Gayle Dinh on 05-05-2025 Basophils/100 WBC (Bld) 1.7 % High 0-1 [facility] Bilirubin, totalOrdered By: Gayle Dinh on 05-05-2025 Bilirubin [Mass/Vol] 0.49 mg/dL 0.00-1.30 [facility] CBC W/Diff, Automatedon Absolute Lymph 1.22 X10 3/uL Normal 0.83-4.51 [facility] Comment on above: Order Comment: Order Date: 10/18/24 Order Info: 3016-3 - TSH Performed By: #### L 500.4050, L501.6710, L506.0400 #### [facility] [address] [place], [address] Absolute Neut 1.9 X10 3/uL Low 2.0-7.7 [facility] Comment on above: Order Comment: Order Date: 10/18/24 Order Info: 3016-3 - TSH Performed By: #### L 500.4050, L501.6710, L506.0400 #### [facility] [address] [place], [address] Basophils/100 WBC (Bld) 1.7 % High 0-1 [facility] Comment on above: Order Comment: Order Date: 10/18/24 Order Info: 3016-3 - TSH Performed By: #### L 500.4050, L501.6710, L506.0400 #### [facility] [address] [place], [address] Eosinophils/100 WBC (Bld) 9.6 % High 0-5 [facility] Comment on above: Order Comment: Order Date: 10/18/24 Order Info: 3016-3 - TSH Performed By: #### L 500.4050, L501.6710, L506.0400 #### [facility] [address] [place], [address] Erythrocyte distribution width (RBC) [Ratio] 12.7 % Normal 11.6-14.6 [facility] Comment on above: Order Comment: Order Date: 10/18/24 Order Info: 3016-3 - TSH Performed By: #### L 500.4050, L501.6710, L506.0400 #### [facility] [address] [place], [address] Hematocrit (Bld) [Volume fraction] 36.4 % Low 37-47 [facility] Comment on above: Order Comment: Order Date: 10/18/24 Order Info: 3016-3 - TSH Performed By: #### L 500.4050, L501.6710, L506.0400 #### [facility] [address] [place], [address] Hemoglobin (Bld) [Mass/Vol] 12.1 g/dL Normal 12.0-15.0 [facility] Comment on above: Order Comment: Order Date: 10/18/24 Order Info: 3016-3 - TSH Performed By: #### L 500.4050, L501.6710, L506.0400 #### [facility] [address] [place], [address] IG% 0.200 Normal 0.0-0.9 [facility] Comment on above: Order Comment: Order Date: 10/18/24 Order Info: 3016-3 - TSH Result Comment: IG% - Immature Granulocytes (promyelocytes, myelocytes and metamyelocytes) > 1% indicates that a LEFT SHIFT is Present. Performed By: #### L 500.4050, L501.6710, L506.0400 #### [facility] [address] [place], [address] Lymphocytes/100 WBC (Bld) 30.0 % Normal 19-41 [facility] Comment on above: Order Comment: Order Date: 10/18/24 Order Info: 3016-3 - TSH Performed By: #### L 500.4050, L501.6710, L506.0400 #### [facility] [address] [place], [address] MCH (RBC) [Entitic mass] 30.9 pg Normal 27.0-32.0 [facility] Comment on above: Order Comment: Order Date: 10/18/24 Order Info: 3016-3 - TSH Performed By: #### L 500.4050, L501.6710, L506.0400 #### [facility] [address] [place], [address] MCHC (RBC) [Mass/Vol] 33.2 g/dL Normal 32-36 [facility] Comment on above: Order Comment: Order Date: 10/18/24 Order Info: 3016-3 - TSH Performed By: #### L 500.4050, L501.6710, L506.0400 #### [facility] [address] [place], [address] MCV (RBC) [Entitic vol] 93.1 fL Normal 81-99 [facility] Comment on above: Order Comment: Order Date: 10/18/24 Order Info: 3016-3 - TSH Performed By: #### L 500.4050, L501.6710, L506.0400 #### [facility] [address] [place], [address] Monocytes/100 WBC (Bld) 11.5 % High 0-10 [facility] Comment on above: Order Comment: Order Date: 10/18/24 Order Info: 3016-3 - TSH Performed By: #### L 500.4050, L501.6710, L506.0400 #### [facility] [address] [place], [address] Neutrophils/100 WBC (Bld) 47.0 % Normal 47-70 [facility] Comment on above: Order Comment: Order Date: 10/18/24 Order Info: 3016-3 - TSH Performed By: #### L 500.4050, L501.6710, L506.0400 #### [facility] [address] [place], [address] Nucleated RBC (Bld) [#/Vol] 0 10*3/uL Normal 0-5 [facility] Comment on above: Order Comment: Order Date: 10/18/24 Order Info: 3016-3 - TSH Performed By: #### L 500.4050, L501.6710, L506.0400 #### [facility] [address] [place], [address] Platelet mean volume (Bld) [Entitic vol] 9.6 fL Normal 6.2-12.0 [facility] Comment on above: Order Comment: Order Date: 10/18/24 Order Info: 3016-3 - TSH Performed By: #### L 500.4050, L501.6710, L506.0400 #### [facility] [address] [place], [address] Platelets (Bld) [#/Vol] 241 10*3/uL Normal 150-450 [facility] Comment on above: Order Comment: Order Date: 10/18/24 Order Info: 3016-3 - TSH Performed By: #### L 500.4050, L501.6710, L506.0400 #### [facility] [address] [place], [address] RBC (Bld) [#/Vol] 3.91 10*6/uL Low 4.2-5.4 [facility] Comment on above: Order Comment: Order Date: 10/18/24 Order Info: 3016-3 - TSH Performed By: #### L 500.4050, L501.6710, L506.0400 #### [facility] [address] [place], [address] RDW SD 43.3 fl Normal 35.1-43.9 [facility] Comment on above: Order Comment: Order Date: 10/18/24 Order Info: 3016-3 - TSH Performed By: #### L 500.4050, L501.6710, L506.0400 #### [facility] [address] [place], [address] WBC (Bld) [#/Vol] 4.1 10*3/uL Low 4.4-11.0 [facility] Comment on above: Order Comment: Order Date: 10/18/24 Order Info: 3016-3 - TSH Performed By: #### L 500.4050, L501.6710, L506.0400 #### [facility] [address] [place], [address] Absolute Neut Normal 2.0-7.7 [facility] Comment on above: Result Comment: ON O THER REG Performed By: #### L 500.4050, L501.6710, L506.0400 #### [facility] [address] [place], [address] HCT Normal 37-47 [facility] Comment on above: Result Comment: ON O THER REG Performed By: #### L 500.4050, L501.6710, L506.0400 #### [facility] [address] [place], [address] HGB Normal 12.0-15.0 [facility] Comment on above: Result Comment: ON O THER REG Performed By: #### L 500.4050, L501.6710, L506.0400 #### [facility] [address] [place], [address] MCH Normal 27.0-32.0 [facility] Comment on above: Result Comment: ON O THER REG Performed By: #### L 500.4050, L501.6710, L506.0400 #### [facility] [address] [place], [address] MCHC Normal 32-36 [facility] Comment on above: Result Comment: ON O THER REG Performed By: #### L 500.4050, L501.6710, L506.0400 #### [facility] [address] [place], [address] MCV Normal 81-99 [facility] Comment on above: Result Comment: ON O THER REG Performed By: #### L 500.4050, L501.6710, L506.0400 #### [facility] [address] [place], [address] NEUT% Normal 47-70 [facility] Comment on above: Result Comment: ON O THER REG Performed By: #### L 500.4050, L501.6710, L506.0400 #### [facility] [address] [place], [address] PLT Normal 150-450 [facility] Comment on above: Result Comment: ON O THER REG Performed By: #### L 500.4050, L501.6710, L506.0400 #### [facility] [address] [place], [address] RBC Normal 4.2-5.4 [facility] Comment on above: Result Comment: ON O THER REG Performed By: #### L 500.4050, L501.6710, L506.0400 #### [facility] [address] [place], [address] RDW CV Normal 11.6-14.6 [facility] Comment on above: Result Comment: ON O THER REG Performed By: #### L 500.4050, L501.6710, L506.0400 #### [facility] [address] [place], [address] RDW SD Normal 35.1-43.9 [facility] Comment on above: Result Comment: ON O THER REG Performed By: #### L 500.4050, L501.6710, L506.0400 #### [facility] [address] [place], [address] WBC Normal 4.4-11.0 [facility] Comment on above: Result Comment: ON O THER REG Performed By: #### L 500.4050, L501.6710, L506.0400 #### [facility] [address] [place], [address] CRPon 05-05-2025 C-REACTIVE PROT < 3.00 Normal 0.0-3.0 [facility] Comment on above: Performed By: #### L 500.4050, L501.6710, L506.0400 #### [facility] [address] [place], [address] Calculated very low density lipoprotein (VLDL) cholesterol measurementOrdered By: Giorgio Eagn on 05-05-2025 Calculated very low density lipoprotein (VLDL) cholesterol measurement 10 mg/dL 5-40 [facility] Carbon dioxide, total [Moles /volume] in Central venous bloodOrdered By: Gayle Dinh on 05-05-2025 CO2 [Moles/Vol] 20.2 mmol/L Low 21.0-32.0 [facility] Chloride assayOrdered By: Bree Dinh on 05-05-2025 Chloride [Moles/Vol] 104 mmol/L 98-108 [facility] Metabolic Prof ilon 05-05-2025 Albumin [Mass/Vol] 4.1 g/dL Normal 3.4-4.8 [facility] Comment on above: Order Comment: Order Date: 10/18/24 Order Info: 3016-3 - TSH Performed By: #### L 500.4050, L501.6710, L506.0400 #### [facility] [address] [place], [address] Albumin/Globulin [Mass ratio] 1.5 {ratio} Normal 0.9-2.4 [facility] Comment on above: Order Comment: Order Date: 10/18/24 Order Info: 3016-3 - TSH Performed By: #### L 500.4050, L501.6710, L506.0400 #### [facility] [address] [place], [address] ALK PHOS 56 U/L Normal 35-104 [facility] Comment on above: Order Comment: Order Date: 10/18/24 Order Info: 3016-3 - TSH Performed By: #### L 500.4050, L501.6710, L506.0400 #### [facility] [address] [place], [address] ALT [Catalytic activity/Vol] 15 U/L Normal <=34 [facility] Comment on above: Order Comment: Order Date: 10/18/24 Order Info: 3016-3 - TSH Performed By: #### L 500.4050, L501.6710, L506.0400 #### [facility] [address] [place], [address] AST [Catalytic activity/Vol] 23 U/L Normal <=31 [facility] Comment on above: Order Comment: Order Date: 10/18/24 Order Info: 3016-3 - TSH Performed By: #### L 500.4050, L501.6710, L506.0400 #### [facility] [address] [place], [address] Bilirubin [Mass/Vol] 0.49 mg/dL Normal 0.00-1.30 [facility] Comment on above: Order Comment: Order Date: 10/18/24 Order Info: 3016-3 - TSH Performed By: #### L 500.4050, L501.6710, L506.0400 #### [facility] [address] [place], [address] BUN/CRE 20.9 RATIO High 10-20 [facility] Comment on above: Order Comment: Order Date: 10/18/24 Order Info: 3016-3 - TSH Performed By: #### L 500.4050, L501.6710, L506.0400 #### [facility] [address] [place], [address] Calcium [Mass/Vol] 9.1 mg/dL Normal 7.6-11.0 [facility] Comment on above: Order Comment: Order Date: 10/18/24 Order Info: 3016-3 - TSH Performed By: #### L 500.4050, L501.6710, L506.0400 #### [facility] [address] [place], [address] Chloride [Moles/Vol] 104 mmol/L Normal 98-108 [facility] Comment on above: Order Comment: Order Date: 10/18/24 Order Info: 3016-3 - TSH Performed By: #### L 500.4050, L501.6710, L506.0400 #### [facility] [address] [place], [address] CO2 [Moles/Vol] 20.2 mmol/L Low 21.0-32.0 [facility] Comment on above: Order Comment: Order Date: 10/18/24 Order Info: 3016-3 - TSH Performed By: #### L 500.4050, L501.6710, L506.0400 #### [facility] [address] [place], [address] Creatinine [Mass/Vol] 1.17 mg/dL Normal 0.70-1.20 [facility] Comment on above: Order Comment: Order Date: 10/18/24 Order Info: 3016-3 - TSH Performed By: #### L 500.4050, L501.6710, L506.0400 #### [facility] [address] [place], [address] GAP 11 Normal 5-15 [facility] Comment on above: Order Comment: Order Date: 10/18/24 Order Info: 3016-3 - TSH Performed By: #### L 500.4050, L501.6710, L506.0400 #### [facility] [address] [place], [address] GFR/1.73 sq M.predicted among non-blacks MDRD (S/P/Bld) [Vol rate/Area] 50 mL/min/{1.73_m2} Low >60 [facility] Comment on above: Order Comment: Order Date: 10/18/24 Order Info: 3016-3 - TSH Result Comment: mL/m in/1.73m2 CKD-EPI Creatinine Equation (2020) Performed By: #### L 500.4050, L501.6710, L506.0400 #### [facility] [address] [place], [address] Globulin (S) [Mass/Vol] 2.8 g/dL Normal 2.2-4.2 [facility] Comment on above: Order Comment: Order Date: 10/18/24 Order Info: 3016-3 - TSH Performed By: #### L 500.4050, L501.6710, L506.0400 #### [facility] [address] [place], [address] Glucose [Mass/Vol] 94 mg/dL Normal 70-99 [facility] Comment on above: Order Comment: Order Date: 10/18/24 Order Info: 3016-3 - TSH Performed By: #### L 500.4050, L501.6710, L506.0400 #### [facility] [address] [place], [address] Potassium [Moles/Vol] 4.3 mmol/L Normal 3.3-5.1 [facility] Comment on above: Order Comment: Order Date: 10/18/24 Order Info: 3016-3 - TSH Performed By: #### L 500.4050, L501.6710, L506.0400 #### [facility] [address] [place], [address] Sodium [Moles/Vol] 136 mmol/L Normal 133-145 [facility] Comment on above: Order Comment: Order Date: 10/18/24 Order Info: 3016-3 - TSH Performed By: #### L 500.4050, L501.6710, L506.0400 #### [facility] [address] [place], [address] T PROT 6.8 g/dL Normal 5.9-8.4 [facility] Comment on above: Order Comment: Order Date: 10/18/24 Order Info: 3016-3 - TSH Performed By: #### L 500.4050, L501.6710, L506.0400 #### [facility] [address] [place], [place], [address] Urea nitrogen [Mass/Vol] 24 mg/dL High 4-19 [facility] Comment on above: Order Comment: Order Date: 10/18/24 Order Info: 3016-3 - TSH Performed By: #### L 500.4050, L501.6710, L506.0400 #### [facility] [address] [place], [address] Eosinophil percentageOrdered By: Gayle Dinh on 05-05-2025 Eosinophils/100 WBC (Bld) 9.6 % High 0-5 [facility] Erythrocyte distribution wid th ratioOrdered By: Gayle Dinh on 05-05-2025 Erythrocyte distribution width (RBC) [Ratio] 12.7 % 11.6-14.6 [facility] Erythrocyte distribution wid th standard deviationOrdered By: Gayle Dinh on 05-05-2025 Erythrocyte distribution width (RBC) [Ratio] 43.3 fl 35.1-43.9 [facility] Glomerular filtration rate ( GFR) estimation/1.73 sq m using serum, plasma, or whole bOrdered By: Gayle Dinh on 05-05-2025 GFR/1.73 sq M.predicted among non-blacks MDRD (S/P/Bld) [Vol rate/Area] 50 mL/min/{1.73_m2} Low >60 [facility] Comment on above: mL/min/1.73m2 CKD-EP I Creatinine Equation (2020) Hematocrit Auto (Bld) [Volum e fraction]Ordered By: Gayle Dinh on 05-05-2025 Hematocrit (Bld) [Volume fraction] 36.4 % Low 37-47 [facility] Hemoglobin measurementOrdere d By: Gayle Dinh on 05-05-2025 Hemoglobin (Bld) [Mass/Vol] 12.1 g/dL 12.0-15.0 [facility] Immature granulocytes/100 WB C Auto (Bld)Ordered By: Gayle Dinh on 05-05-2025 Immature granulocytes/100 WBC (Bld) 0.200 % 0.0-0.9 [facility] Comment on above: IG% - Immature Granu locytes (promyelocytes, myelocytes and metamyelocytes) > 1% indicates that a LEFT SHIFT is Present. International normalized rat io (INR) calculationOrdered By: Giorgio Egan on 05-05-2025 INR Coag (Bld) [Relative time] 1.0 {INR} [facility] LDL calc ser/plasOrdered By: Giorgio Egan on 05-05-2025 Cholesterol in LDL [Mass/Vol] 104 mg/dL [facility] Comment on above: Dbvwwgxyaq=536-736 m g/dL & Higher Qfnl=743 mg/dL or greater Laboratory - Chemistry and C hemistry - challengeOrdered By: Gayle Dinh on 05-05-2025 AST [Catalytic activity/Vol] 23 U/L <32 [facility] Lipid Profileon 05-05-2025 CHOL:HDL 2.29 Normal [facility] Comment on above: Performed By: #### L 500.4050, L501.6710, L506.0400 #### [facility] [address] [place], [place], [address] (236) Cholesterol [Mass/Vol] 201 mg/dL Normal <=200 [facility] Comment on above: Result Comment: Chol esterol level, Desirable <200 mg/dL Borderline high cholesterol 200-239 mg/dL High cholesterol >=240 mg/dL Recommendations of the NCEP Adult Treatment Panel for the following risk-cutoff thresholds for the [place] population. Performed By: #### L 500.4050, L501.6710, L506.0400 #### [facility] [address] [place], [address] Cholesterol in HDL [Mass/Vol] 88 mg/dL Normal [facility] Comment on above: Result Comment: Nora onal Cholesterol Education Program (NCEP) guidelines: <40 mg/dL: Low HDL-cholesterol (major risk factor for CHD) >= 60 mg/dL: High HDL-cholesterol (negative risk factor for CHD) HDL-cholesterol is affected by a number of factors, e.g. smoking, exercise, hormones, sex and age. Performed By: #### L 500.4050, L501.6710, L506.0400 #### [facility] [address] [place], [address] Cholesterol in LDL [Mass/Vol] 104 mg/dL Normal [facility] Comment on above: Result Comment: Bord grxjkt=968-071 mg/dL Higher Keng=241 mg/dL or greater Performed By: #### L 500.4050, L501.6710, L506.0400 #### [facility] [address] [place], [address] Cholesterol in VLDL [Mass/Vol] 10 mg/dL Normal 5-40 [facility] Comment on above: Performed By: #### L 500.4050, L501.6710, L506.0400 #### [facility] [address] [place], [address] Triglyceride [Mass/Vol] 48 mg/dL Normal [facility] Comment on above: Result Comment: The drugs N-Acetylcysteine and Metamizole may falsely depress this assay. Normal range: <150 mg/dL Borderline High: 150-199 mg/dL High: 200-499 mg/dL Very High: >500 mg/dL Performed By: #### L 500.4050, L501.6710, L506.0400 #### [facility] [address] [place], [address] MCV (mean corpuscular volume ) determinationOrdered By: Gayle Dinh on 05-05-2025 MCV (RBC) [Entitic vol] 93.1 fL 81-99 [facility] Mean corpuscular hemoglobin (MCH) determinationOrdered By: Gayle Dinh on 05-05-2025 MCH (RBC) [Entitic mass] 30.9 pg 27.0-32.0 [facility] Mean corpuscular hemoglobin concentration (MCHC) determinationOrdered By: Gayle Dinh on 05-05-2025 MCHC (RBC) [Mass/Vol] 33.2 g/dL 32-36 [facility] Mean platelet volume determi nationOrdered By: Gayle Dinh on 05-05-2025 Platelet mean volume (Bld) [Entitic vol] 9.6 fL 6.2-12.0 [facility] Monocyte percentageOrdered B y: Gayle Dinh on 05-05-2025 Monocytes/100 WBC (Bld) 11.5 % High 0-10 [facility] Neutrophil percentageOrdered By: Gayle Dinh on 05-05-2025 Neutrophils/100 WBC (Bld) 47.0 % 47-70 [facility] Nucleated red blood cell per centageOrdered By: Gayle Dinh on 05-05-2025 Nucleated RBC/100 WBC (Bld) [Ratio] 0 % 0-5 [facility] Platelet countOrdered By: Bree Dinh on 05-05-2025 Platelets (Bld) [#/Vol] 241 10*3/uL 150-450 [facility] Potassium measurement (mass/ volume)Ordered By: Gayle Dinh on 05-05-2025 Potassium (Unsp spec) [Mass/Vol] 4.3 mmol/L 3.3-5.1 [facility] Prothrombin Time w/INRon INR Coag (PPP) [Relative time] 1.0 {INR} Normal [facility] Comment on above: Performed By: #### L 500.4050, L501.6710, L506.0400 #### [facility] [address] [place], [address] PT Coag (PPP) [Time] 13.2 s Normal 11.7-14.9 [facility] Comment on above: Performed By: #### L 500.4050, L501.6710, L506.0400 #### [facility] [address] [place], [address] Prothrombin timeOrdered By: Giorgio Egan on 05-05-2025 PT Coag (PPP) [Time] 13.2 s 11.7-14.9 [facility] RBC Auto (Bld) [#/Vol]Ordere d By: Gayle Dinh on 05-05-2025 RBC (Bld) [#/Vol] 3.91 10*6/uL Low 4.2-5.4 [facility] Screening total cholesterol/ high density lipoprotein (HDL) cholesterol ratioOrdered By: Giorgio Egan on 05-05-2025 Cholesterol.total/Chol esterol in HDL [Mass ratio] 2.29 {ratio} [facility] Serum creatinine measurement (mass/volume)Ordered By: Gayle Dinh on 05-05-2025 Creatinine [Mass/Vol] 1.17 mg/dL 0.70-1.20 [facility] Serum globulin measurementOr dered By: Gayle Dinh on 05-05-2025 Globulin (S) [Mass/Vol] 2.8 g/dL 2.2-4.2 [facility] Serum glucose measurement (m ass/volume)Ordered By: Gayle Dinh on 05-05-2025 Glucose [Mass/Vol] 94 mg/dL 70-99 [facility] Serum or plasma C reactive p rotein measurement (mass/volume)Ordered By: Giorgio Egan on 05-05-2025 CRP [Mass/Vol] mg/L 0.0-3.0 [facility] Serum or plasma alanine alvarez otransferase (ALT) measurementOrdered By: Gayle Dinh on 05-05-2025 ALT [Catalytic activity/Vol] 15 U/L <35 [facility] Serum or plasma albumin carlitos urement (mass/volume)Ordered By: Gayle Dinh on 05-05-2025 Albumin [Mass/Vol] 4.1 g/dL 3.4-4.8 [facility] Serum or plasma albumin/glob ulin mass ratioOrdered By: Gayle Dinh on 05-05-2025 Albumin/Globulin [Mass ratio] 1.5 {ratio} 0.9-2.4 [facility] Serum or plasma alkaline micha sphatase measurementOrdered By: Gayle Dinh on 05-05-2025 ALP [Catalytic activity/Vol] 56 U/L 35-104 [facility] Serum or plasma calcium carlitos urement (mass/volume)Ordered By: Gayle Dinh on 05-05-2025 Calcium [Mass/Vol] 9.1 mg/dL 7.6-11.0 [facility] Serum or plasma cholesterol in HDL measurement (mass/volume)Ordered By: Giorgio Egan on 05-05-2025 Cholesterol in HDL [Mass/Vol] 88 mg/dL >40 [facility] Comment on above: National Cholesterol Education Program (NCEP) guidelines:<40 mg/dL: Low HDL-cholesterol (major risk factor for CHD)>= 60 mg/dL: High HDL-cholesterol (negative risk factor for CHD)HDL-cholesterol is affected by a number of factors, e.g. smoking, exercise, hormones, sex and age. Serum or plasma cholesterol measurement (mass/volume)Ordered By: Giorgio Egan on 05-05-2025 Cholesterol [Mass/Vol] 201 mg/dL <201 [facility] Comment on above: Cholesterol level, D esirable <200 mg/dLBorderline high cholesterol 200-239 mg/dLHigh cholesterol >=240 mg/dLRecommendations of the NCEP Adult Treatment Panel for the following risk-cutoff thresholds for the [place] population. Serum or plasma urea nitroge n measurement (mass/volume)Ordered By: Gayle Dinh on 05-05-2025 Urea nitrogen [Mass/Vol] 24 mg/dL High 4-19 [facility] Sodium levelOrdered By: Scout Dinh on 05-05-2025 Sodium [Moles/Vol] 136 mmol/L 133-145 [facility] T4 Free Directon 05-05-2025 T4 FREE DIRECT 1.30 ng/dL Normal 0.76-1.46 [facility] Comment on above: Performed By: #### L 500.4050, L501.6710, L506.0400 #### [facility] [address] [place] [place], [address] T4 freeOrdered By: Giorgio escalante on 05-05-2025 Free T4 [Mass/Vol] 1.30 ng/dL 0.76-1.46 [facility] TSH DL <= 0.005 mIU/L QnOrde red By: Giorgio Egan on 05-05-2025 TSH Qn 5.630 uIU/mL High 0.300-4.20 0 [facility] Thyroid Stim Hormone (TSH)on 05-05-2025 TSH 5.630 uIU/mL High 0.300-4.20 0 [facility] Comment on above: Performed By: #### L 500.4050, L501.6710, L506.0400 #### [facility] [address] [place], [place], [address] Total proteinOrdered By: Kurtis Dinh on 05-05-2025 Protein [Mass/Vol] 6.8 g/dL 5.9-8.4 [facility] Triglycerides measurementOrd ered By: Giorgio Egan on 05-05-2025 Triglyceride [Mass/Vol] 48 mg/dL <199 [facility] Comment on above: The drugs N-Acetylcy steine and Metamizole may falsely depress this assay. Normal range: <150 mg/dLBorderline High: 150-199 mg/dLHigh: 200-499 mg/dLVery High: >500 mg/dL Type AND Screen - PAT ONLYon 05-05-2025 Ab SCREEN GEL Negative Normal [facility] Comment on above: Order Comment: Order Date: 10/18/24 Order Info: 3016-3 - TSH Performed By: #### L 500.4050, L501.6710, L506.0400 #### [facility] [address] [place], [place], [address] White blood cell (WBC) count Ordered By: Gayle Dinh on 05-05-2025 WBC (Bld) [#/Vol] 4.1 10*3/uL Low 4.4-11.0 [facility] Special Education Para Professional Office Visit Reporton 04-04-2025 Special Education Para Professional Office Visit Report [facility] [address], [address] [place] [address] OFFICE VISIT Date of Service: 04/04/25 MR#: [id number] Acct: [id number] Name: SONIAGAYLE HODGE MELVIN Rep #: [id number] : 1950 Provider: Dr. Gayle stephen MD Age/Sex: 74/F [place] [facility] [place] Status: Signed Intake Vital Signs 05/06/25 10:30 04/04/25 10:50 Height 5 ft 9 in 5 ft 9 in Weight: 162 lb 4 oz BMI 23.9 BP 128/71 H Intake Visit Reasons: fu prolapse/stenosis per Report Writer Required: No Is patient in pain?: No Allergies HUY Inhibitors Adverse Reaction (Intermediate, Verified 04/04/25 10:48) COUGH fosinopril (From Monopril) Adverse Reaction (Intermediate, Verified 04/04/25 10:48) Cough Medications ???Medication ???Instructions ???Recorded ???Confirmed ???Type amlodipine 5 mg tablet 5 mg PO DAILY 06/06/22 04/04/25 Hi story metoprolol succinate 50 mg 50 mg PO DAILY 06/06/22 04/04/25 H istory tablet,extended release 24 hr Lactobacillus acidophilus 10 10,000 mmu cells PO DAILY 09/18/22 04/04/25 History billion cell capsule (Probiotic) cholecalciferol (vitamin D3) 125 125 mcg PO DAILY 01/14/25 04/04/25 History mcg (5,000 unit) tablet (Vitamin D3) famotidine 20 mg tablet (Pepcid AC) 20 mg PO BID PRN heart burn 1 0 02/10/25 04/04/25 Rx month #60 tabs levothyroxine 75 mcg tablet 75 mcg PO QDAY 1 month #30 tabs 04/04/25 Rx misoprostol 200 mcg tablet 200 mcg PO .complex #2 tabs 04/04/25 Rx (Cytotec) Is last menstrual period known: No Post menopausal: Yes Patient : No : No PFSH Medical History Bladder disease Restless legs History of hiatal hernia Wears glasses Wears dentures Post-menopausal Low iron Non-smoker History of echocardiogram Cardiology follow-up encounter Renal insufficiency syndrome Depression Mitral stenosis Gallbladder anomaly RUQ abdominal pain Schatzki's ring of distal esophagus Thyroid disease Arthritis Restless legs Dysphagia Lichen sclerosus HTN (hypertension) Hypothyroidism GERD (gastroesophageal reflux disease) Surgical History Hx of colonoscopy History of esophagogastroduodenoscopy (EGD) Hx of total knee arthroplasty History of tubal ligation History of rotator cuff surgery History of foot surgery Family History Mother Hypertension Thyroid disorder Father Hypertension Heart disease Arthritis Sister Arthritis Hyperlipidemia Hypertension Aunt Breast cancer Social History household members: spouse current occupational status: 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 she denies any bleeding or discharge. she had an attempted EMB and was unable to be done. s he is having ahsyterectomy in the fall. US shows 8 mm lining. History 2 Elective abortions Hx Para Spontaneous abortions Hx # Term Pregnancies Ectopic pregnancies Hx # Pregnancies Multiple births # of living children 2 ROS Const Constitutional: Reports system reviewed and no additional complaints, except as documented ENT ENT: Reports system reviewed and no additional complaints, except as documented Cardio Card: Denies chest pain Resp Resp: Denies cough or dyspnea GI GI: Reports system reviewed and no additional complaints, except as documented : Reports prolapse symptoms, urinary incontinence (with pessary in) and vaginal dryness; Denies nipple discharge, pelvic pain, vaginal discharge, vaginal odor or vaginal pruritus Musc Musc: Denies arthralgias or muscle weakness Skin Skin/Breast: Denies alopecia, change in hair, dry skin, breast mass, breast pain, breast skin changes or nipple discharge Neuro Neuro: Reports system reviewed and no additional complaints, except as documented Psych Psych: Reports system reviewed and no additional complaints, except as documented Endo Endo: Denies cold intolerance, excessive sweating, heat intolerance or polydipsia Santos/Lymph Hematologic/Lymphatic: Denies easy bleeding, Denies easy bruising and Denies lymphadenopathy Exam Const General: cooperative and no acute distress Nut (more content not included)... Normal [facility] Absolute lymphocyte countOrd ered By: Giorgio Egan on 03-08-2025 Lymphocytes Auto (Unsp spec) [#/Vol] 1.22 10*3/uL 0.83-4.51 [facility] Absolute neutrophil countOrd ered By: Giorgio Egan on 03-08-2025 Neutrophils (Bld) [#/Vol] 2.5 10*3/uL 2.0-7.7 [facility] Anion gap in Serum or Plasma Ordered By: Giorgio Egan on 03-08-2025 Anion gap [Moles/Vol] 13 mmol/L 5-15 [facility] Automated lymphocyte count a s percentage of total leukocytesOrdered By: Giorgio Egan on 03-08-2025 Lymphocytes/100 WBC Auto (Unsp spec) 26.2 % 19-41 [facility] BUN/creatinine ratioOrdered By: Giorgio Egan on 03-08-2025 Urea nitrogen/Creatinine [Mass ratio] 19.8 mg/mg 10-20 [facility] Basophil percentageOrdered B y: Giorgio Egan on 03-08-2025 Basophils/100 WBC (Bld) 1.1 % High 0-1 [facility] Bilirubin, totalOrdered By: Giorgio Egan on 03-08-2025 Bilirubin [Mass/Vol] 0.46 mg/dL 0.00-1.30 [facility] CBC W/Diff, Automatedon Absolute Lymph 1.22 X10 3/uL Normal 0.83-4.51 [facility] Comment on above: Performed By: #### L 500.4050, L501.6710, L506.0400 #### [facility] [address] [place], [address] Absolute Neut 2.5 X10 3/uL Normal 2.0-7.7 [facility] Comment on above: Performed By: #### L 500.4050, L501.6710, L506.0400 #### [facility] [address] [place], [address] Basophils/100 WBC (Bld) 1.1 % High 0-1 [facility] Comment on above: Performed By: #### L 500.4050, L501.6710, L506.0400 #### [facility] [address] [place], [address] Eosinophils/100 WBC (Bld) 8.6 % High 0-5 [facility] Comment on above: Performed By: #### L 500.4050, L501.6710, L506.0400 #### [facility] [address] [place], [address] Erythrocyte distribution width (RBC) [Ratio] 12.0 % Normal 11.6-14.6 [facility] Comment on above: Performed By: #### L 500.4050, L501.6710, L506.0400 #### [facility] [address] [place], [address] Hematocrit (Bld) [Volume fraction] 37.6 % Normal 37-47 [facility] Comment on above: Performed By: #### L 500.4050, L501.6710, L506.0400 #### [facility] [address] [place], [address] Hemoglobin (Bld) [Mass/Vol] 12.5 g/dL Normal 12.0-15.0 [facility] Comment on above: Performed By: #### L 500.4050, L501.6710, L506.0400 #### [facility] [address] [place], [address] IG% 0.200 Normal 0.0-0.9 [facility] Comment on above: Result Comment: IG% - Immature Granulocytes (promyelocytes, myelocytes and metamyelocytes) > 1% indicates that a LEFT SHIFT is Present. Performed By: #### L 500.4050, L501.6710, L506.0400 #### [facility] [address] [place], [address] Lymphocytes/100 WBC (Bld) 26.2 % Normal 19-41 [facility] Comment on above: Performed By: #### L 500.4050, L501.6710, L506.0400 #### [facility] [address] [place], [address] MCH (RBC) [Entitic mass] 31.1 pg Normal 27.0-32.0 [facility] Comment on above: Performed By: #### L 500.4050, L501.6710, L506.0400 #### [facility] [address] [place], [address] MCHC (RBC) [Mass/Vol] 33.2 g/dL Normal 32-36 [facility] Comment on above: Performed By: #### L 500.4050, L501.6710, L506.0400 #### [facility] [address] [place], [address] MCV (RBC) [Entitic vol] 93.5 fL Normal 81-99 [facility] Comment on above: Performed By: #### L 500.4050, L501.6710, L506.0400 #### [facility] [address] [place], [address] Monocytes/100 WBC (Bld) 10.1 % High 0-10 [facility] Comment on above: Performed By: #### L 500.4050, L501.6710, L506.0400 #### [facility] [address] [place], [address] Neutrophils/100 WBC (Bld) 53.8 % Normal 47-70 [facility] Comment on above: Performed By: #### L 500.4050, L501.6710, L506.0400 #### [facility] [address] [place], [address] Nucleated RBC (Bld) [#/Vol] 0 10*3/uL Normal 0-5 [facility] Comment on above: Performed By: #### L 500.4050, L501.6710, L506.0400 #### [facility] [address] [place], [address] Platelet mean volume (Bld) [Entitic vol] 10.3 fL Normal 6.2-12.0 [facility] Comment on above: Performed By: #### L 500.4050, L501.6710, L506.0400 #### [facility] [address] [place], [address] Platelets (Bld) [#/Vol] 231 10*3/uL Normal 150-450 [facility] Comment on above: Performed By: #### L 500.4050, L501.6710, L506.0400 #### [facility] [address] [place], [address] RBC (Bld) [#/Vol] 4.02 10*6/uL Low 4.2-5.4 [facility] Comment on above: Performed By: #### L 500.4050, L501.6710, L506.0400 #### [facility] [address] [place], [address] RDW SD 41.2 fl Normal 35.1-43.9 [facility] Comment on above: Performed By: #### L 500.4050, L501.6710, L506.0400 #### [facility] [address] [place], [address] WBC (Bld) [#/Vol] 4.7 10*3/uL Normal 4.4-11.0 [facility] Comment on above: Performed By: #### L 500.4050, L501.6710, L506.0400 #### [facility] [address] [place], [address] CRPon 03-08-2025 C-REACTIVE PROT < 3.00 Normal 0.0-3.0 [facility] Comment on above: Order Comment: Order Date: 10/18/24 Order Info: 3016-3 - TSH Performed By: #### L 500.4050, L501.6710, L506.0400 #### [facility] [address] [place], [address] Carbon dioxide, total [Moles /volume] in Central venous bloodOrdered By: Giorgio Egan on 03-08-2025 CO2 [Moles/Vol] 19.3 mmol/L Low 21.0-32.0 [facility] Chloride assayOrdered By: Val Egan on 03-08-2025 Chloride [Moles/Vol] 105 mmol/L 98-108 [facility] Comprehensive Metabolic Prof ilon 03-08-2025 Albumin [Mass/Vol] 4.1 g/dL Normal 3.4-4.8 [facility] Comment on above: Order Comment: Order Date: 10/18/24 Order Info: 3016-3 - TSH Performed By: #### L 500.4050, L501.6710, L506.0400 #### [facility] [address] [place], [address] Albumin/Globulin [Mass ratio] 1.4 {ratio} Normal 0.9-2.4 [facility] Comment on above: Order Comment: Order Date: 10/18/24 Order Info: 3016-3 - TSH Performed By: #### L 500.4050, L501.6710, L506.0400 #### [facility] [address] [place], [address] ALK PHOS 60 U/L Normal 35-104 [facility] Comment on above: Order Comment: Order Date: 10/18/24 Order Info: 3016-3 - TSH Performed By: #### L 500.4050, L501.6710, L506.0400 #### [facility] [address] [place], [address] ALT [Catalytic activity/Vol] 13 U/L Normal <=34 [facility] Comment on above: Order Comment: Order Date: 10/18/24 Order Info: 3016-3 - TSH Performed By: #### L 500.4050, L501.6710, L506.0400 #### [facility] [address] [place], [address] AST [Catalytic activity/Vol] 22 U/L Normal <=31 [facility] Comment on above: Order Comment: Order Date: 10/18/24 Order Info: 3016-3 - TSH Performed By: #### L 500.4050, L501.6710, L506.0400 #### [facility] [address] [place], [address] Bilirubin [Mass/Vol] 0.46 mg/dL Normal 0.00-1.30 [facility] Comment on above: Order Comment: Order Date: 10/18/24 Order Info: 3016-3 - TSH Performed By: #### L 500.4050, L501.6710, L506.0400 #### [facility] [address] [place], [address] BUN/CRE 19.8 RATIO Normal 10-20 [facility] Comment on above: Order Comment: Order Date: 10/18/24 Order Info: 3016-3 - TSH Performed By: #### L 500.4050, L501.6710, L506.0400 #### [facility] [address] [place], [address] Calcium [Mass/Vol] 9.3 mg/dL Normal 7.6-11.0 [facility] Comment on above: Order Comment: Order Date: 10/18/24 Order Info: 3016-3 - TSH Performed By: #### L 500.4050, L501.6710, L506.0400 #### [facility] [address] [place], [address] Chloride [Moles/Vol] 105 mmol/L Normal 98-108 [facility] Comment on above: Order Comment: Order Date: 10/18/24 Order Info: 3016-3 - TSH Performed By: #### L 500.4050, L501.6710, L506.0400 #### [facility] [address] [place], [address] CO2 [Moles/Vol] 19.3 mmol/L Low 21.0-32.0 [facility] Comment on above: Order Comment: Order Date: 10/18/24 Order Info: 3016-3 - TSH Performed By: #### L 500.4050, L501.6710, L506.0400 #### [facility] [address] [place], [address] Creatinine [Mass/Vol] 1.22 mg/dL High 0.70-1.20 [facility] Comment on above: Order Comment: Order Date: 10/18/24 Order Info: 3016-3 - TSH Performed By: #### L 500.4050, L501.6710, L506.0400 #### [facility] [address] [place], [address] GAP 13 Normal 5-15 [facility] Comment on above: Order Comment: Order Date: 10/18/24 Order Info: 3016-3 - TSH Performed By: #### L 500.4050, L501.6710, L506.0400 #### [facility] [address] [place], [address] GFR/1.73 sq M.predicted among non-blacks MDRD (S/P/Bld) [Vol rate/Area] 47 mL/min/{1.73_m2} Low >60 [facility] Comment on above: Order Comment: Order Date: 10/18/24 Order Info: 3016-3 - TSH Result Comment: mL/m in/1.73m2 CKD-EPI Creatinine Equation (2020) Performed By: #### L 500.4050, L501.6710, L506.0400 #### [facility] [address] [place], [address] Globulin (S) [Mass/Vol] 2.9 g/dL Normal 2.2-4.2 [facility] Comment on above: Order Comment: Order Date: 10/18/24 Order Info: 3016-3 - TSH Performed By: #### L 500.4050, L501.6710, L506.0400 #### [facility] [address] [place], [address] Glucose [Mass/Vol] 95 mg/dL Normal 70-99 [facility] Comment on above: Order Comment: Order Date: 10/18/24 Order Info: 3016-3 - TSH Performed By: #### L 500.4050, L501.6710, L506.0400 #### [facility] [address] [place], [address] Potassium [Moles/Vol] 4.0 mmol/L Normal 3.3-5.1 [facility] Comment on above: Order Comment: Order Date: 10/18/24 Order Info: 3016-3 - TSH Performed By: #### L 500.4050, L501.6710, L506.0400 #### [facility] [address] [place], [address] Sodium [Moles/Vol] 137 mmol/L Normal 133-145 [facility] Comment on above: Order Comment: Order Date: 10/18/24 Order Info: 3016-3 - TSH Performed By: #### L 500.4050, L501.6710, L506.0400 #### [facility] [address] [place], [address] T PROT 7.0 g/dL Normal 5.9-8.4 [facility] Comment on above: Order Comment: Order Date: 10/18/24 Order Info: 3016-3 - TSH Performed By: #### L 500.4050, L501.6710, L506.0400 #### [facility] [address] [place], [place], [address] Urea nitrogen [Mass/Vol] 24 mg/dL High 4-19 [facility] Comment on above: Order Comment: Order Date: 10/18/24 Order Info: 3016-3 - TSH Performed By: #### L 500.4050, L501.6710, L506.0400 #### [facility] [address] [place] [place], [address] Eosinophil percentageOrdered By: Giorgio Egan on 03-08-2025 Eosinophils/100 WBC (Bld) 8.6 % High 0-5 [facility] Erythrocyte distribution wid th ratioOrdered By: Giorgio Egan on 03-08-2025 Erythrocyte distribution width (RBC) [Ratio] 12.0 % 11.6-14.6 [facility] Erythrocyte distribution wid th standard deviationOrdered By: Giorgio Egan on 03-08-2025 Erythrocyte distribution width (RBC) [Ratio] 41.2 fl 35.1-43.9 [facility] Glomerular filtration rate ( GFR) estimation/1.73 sq m using serum, plasma, or whole bOrdered By: Giorgio Egan on 03-08-2025 GFR/1.73 sq M.predicted among non-blacks MDRD (S/P/Bld) [Vol rate/Area] 47 mL/min/{1.73_m2} Low >60 [facility] Comment on above: mL/min/1.73m2 CKD-EP I Creatinine Equation (2020) Hematocrit Auto (Bld) [Volum e fraction]Ordered By: Giorgio Egan on 03-08-2025 Hematocrit (Bld) [Volume fraction] 37.6 % 37-47 [facility] Hemoglobin measurementOrdere d By: Giorgio Egan on 03-08-2025 Hemoglobin (Bld) [Mass/Vol] 12.5 g/dL 12.0-15.0 [facility] Immature granulocytes/100 WB C Auto (Bld)Ordered By: Giorgio Egan on 03-08-2025 Immature granulocytes/100 WBC (Bld) 0.200 % 0.0-0.9 [facility] Comment on above: IG% - Immature Granu locytes (promyelocytes, myelocytes and metamyelocytes) > 1% indicates that a LEFT SHIFT is Present. Laboratory - Chemistry and C hemistry - challengeOrdered By: Giorgio Egan on 03-08-2025 AST [Catalytic activity/Vol] 22 U/L <32 [facility] MCV (mean corpuscular volume ) determinationOrdered By: Giorgio Egan on 03-08-2025 MCV (RBC) [Entitic vol] 93.5 fL 81-99 [facility] Mean corpuscular hemoglobin (MCH) determinationOrdered By: Giorgio Egan on 03-08-2025 MCH (RBC) [Entitic mass] 31.1 pg 27.0-32.0 [facility] Mean corpuscular hemoglobin concentration (MCHC) determinationOrdered By: Giorgio Egan on 03-08-2025 MCHC (RBC) [Mass/Vol] 33.2 g/dL 32-36 [facility] Mean platelet volume determi nationOrdered By: Giorgio Egan on 03-08-2025 Platelet mean volume (Bld) [Entitic vol] 10.3 fL 6.2-12.0 [facility] Monocyte percentageOrdered B y: Giorgio Egan on 03-08-2025 Monocytes/100 WBC (Bld) 10.1 % High 0-10 [facility] Neutrophil percentageOrdered By: Giorgio Egan on 03-08-2025 Neutrophils/100 WBC (Bld) 53.8 % 47-70 [facility] Nucleated red blood cell per centageOrdered By: Giorgio Egan on 03-08-2025 Nucleated RBC/100 WBC (Bld) [Ratio] 0 % 0-5 [facility] Special Education Para Professional Office Visit Reporton 03-08-2025 Special Education Para Professional Office Visit Report [facility] [address], [address] [place] [address] OFFICE VISIT Date of Service: 03/08/25 MR#: [id number] Acct: [id number] Name: GAYLE BANKS MELVIN Rep #: [id number] : 1950 Provider: PATRICE merino Age/Sex: 74/F [place] [facility] [place] Status: Signed with Addenda ADDENDUM by PATRICE Carranza on 03/08/25 at 1151 Assessment and Plan Assessment and Plan (1) Thickened endometrium: Status: Acute Comment: 8mm. Unable to complete EMB due to cervical stenosis (2) Stenosis, cervix: Status: Acute Comment: EMB deferred (3) Cystocele and rectocele with incomplete uterovaginal prolapse: Status: Acute Comment: #3 donut fell out. #4 ring w/support and knob fell out. plan TVH BS combo with Emmy (4) Atrophic vaginitis: Status: Acute Orders: Orders Endometrial Biopsy Today R93.89 - Abnormal findings on diagnostic imaging of other specified body structures Plan Endometrial biopsy was NOT completed 03/08/25 1151 Date Katia Carranza NP cc: * Signed Intake Vital Signs 02/15/25 09:56 03/08/25 10:29 03/08/25 10:30 Height 5 ft 9 in 5 ft 9 in 5 ft 9 in Weight: 164 lb 165 lb 8 oz BMI 24.2 24.4 BP 101/66 139/73 H Intake Visit Reasons: EMB Report Writer Required: No Is patient in pain?: No Allergies HUY Inhibitors Adverse Reaction (Intermediate, Verified 03/08/25 10:34) COUGH fosinopril (From Monopril) Adverse Reaction (Intermediate, Verified 03/08/25 10:34) Cough Medications ???Medication ???Instructions ???Recorded ???Confirmed ???Type amlodipine 5 mg tablet 5 mg PO DAILY 06/06/22 03/08/25 Hi story metoprolol succinate 50 mg 50 mg PO DAILY 06/06/22 03/08/25 H istory tablet,extended release 24 hr Lactobacillus acidophilus 10 10,000 mmu cells PO DAILY 09/18/22 03/08/25 History billion cell capsule (Probiotic) levothyroxine 100 mcg tablet 100 mcg PO QDAY 1 month #30 tabs 0 07/28/24 03/08/25 Rx cholecalciferol (vitamin D3) 125 125 mcg PO DAILY 01/14/25 03/08/25 History mcg (5,000 unit) tablet (Vitamin D3) famotidine 20 mg tablet (Pepcid AC) 20 mg PO BID PRN heart burn 1 0 02/10/25 03/08/25 Rx month #60 tabs Is last menstrual period known: No Post menopausal: Yes Patient : No : No PFSH PFSH Medical History Bladder disease Restless legs History of hiatal hernia Wears glasses Wears dentures Post-menopausal Low iron Non-smoker History of echocardiogram Cardiology follow-up encounter Renal insufficiency syndrome Depression Mitral stenosis Gallbladder anomaly RUQ abdominal pain Schatzki's ring of distal esophagus Thyroid disease Arthritis Restless legs Dysphagia Lichen sclerosus HTN (hypertension) Hypothyroidism GERD (gastroesophageal reflux disease) Surgical History Hx of colonoscopy History of esophagogastroduodenoscopy (EGD) Hx of total knee arthroplasty History of tubal ligation History of rotator cuff surgery History of foot surgery Family History Mother Hypertension Thyroid disorder Father Hypertension Heart disease Arthritis Sister Arthritis Hyperlipidemia Hypertension Aunt Breast cancer Social History household members: spouse current occupational status: retired 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 Plans LAVH, A P repair Lashawn Dinh/Emmy. US indicates lining of 8mm. Denies recent bleeding. ROS Const Constitutional: Reports system reviewed and no additional complaints, except as documented Eyes Eyes: Reports system reviewed and no additional complaints, except as documented GI GI: Denies abdominal pain or change in bowel habits : Reports as per HPI Exam Const General: cooperative and no acute distress Nutritional Appearance: well nourished Orientation: oriented x3 Resp Effort Inspection: normal respiratory effort General: bladder normal to palpation External Female Exam: normal a (more content not included)... Normal [facility] Platelet countOrdered By: Val Egan on 03-08-2025 Platelets (Bld) [#/Vol] 231 10*3/uL 150-450 [facility] Potassium measurement (mass/ volume)Ordered By: Giorgio Egan on 03-08-2025 Potassium (Unsp spec) [Mass/Vol] 4.0 mmol/L 3.3-5.1 [facility] RBC Auto (Bld) [#/Vol]Ordere d By: Giorgio Egan on 03-08-2025 RBC (Bld) [#/Vol] 4.02 10*6/uL Low 4.2-5.4 [facility] Serum creatinine measurement (mass/volume)Ordered By: Giorgio Egan on 03-08-2025 Creatinine [Mass/Vol] 1.22 mg/dL High 0.70-1.20 [facility] Serum globulin measurementOr dered By: Giorgio Egan on 03-08-2025 Globulin (S) [Mass/Vol] 2.9 g/dL 2.2-4.2 [facility] Serum glucose measurement (m ass/volume)Ordered By: Giorgio Egan on 03-08-2025 Glucose [Mass/Vol] 95 mg/dL 70-99 [facility] Serum or plasma C reactive p rotein measurement (mass/volume)Ordered By: Giorgio Egan on 03-08-2025 CRP [Mass/Vol] mg/L 0.0-3.0 [facility] Serum or plasma alanine alvarez otransferase (ALT) measurementOrdered By: Giorgio Egan on 03-08-2025 ALT [Catalytic activity/Vol] 13 U/L <35 [facility] Serum or plasma albumin carlitos urement (mass/volume)Ordered By: Giorgio Egan on 03-08-2025 Albumin [Mass/Vol] 4.1 g/dL 3.4-4.8 [facility] Serum or plasma albumin/glob ulin mass ratioOrdered By: Giorgio Egan on 03-08-2025 Albumin/Globulin [Mass ratio] 1.4 {ratio} 0.9-2.4 [facility] Serum or plasma alkaline micha sphatase measurementOrdered By: Giorgio Egan on 03-08-2025 ALP [Catalytic activity/Vol] 60 U/L 35-104 [facility] Serum or plasma calcium carlitos urement (mass/volume)Ordered By: Giorgio Egan on 03-08-2025 Calcium [Mass/Vol] 9.3 mg/dL 7.6-11.0 [facility] Serum or plasma urea nitroge n measurement (mass/volume)Ordered By: Giorgio Egan on 03-08-2025 Urea nitrogen [Mass/Vol] 24 mg/dL High 4-19 [facility] Sodium levelOrdered By: Bryanna Egan on 03-08-2025 Sodium [Moles/Vol] 137 mmol/L 133-145 [facility] T4 Free Directon 03-08-2025 T4 FREE DIRECT 1.90 ng/dL High 0.76-1.46 [facility] Comment on above: Order Comment: Order Date: 10/18/24 Order Info: 3016-3 - TSH Performed By: #### L 500.4050, L501.6710, L506.0400 #### [facility] [address] [place], [place], [address] T4 freeOrdered By: Giorgio escalante on 03-08-2025 Free T4 [Mass/Vol] 1.90 ng/dL High 0.76-1.46 [facility] TSH DL <= 0.005 mIU/L QnOrde red By: Nathan Degroot on 03-08-2025 TSH Qn 0.267 uIU/mL Low 0.300-4.20 0 [facility] Thyroid Stim Hormone (TSH)on 03-08-2025 TSH 0.267 uIU/mL Low 0.300-4.20 0 [facility] Comment on above: Order Comment: Order Date: 10/18/24Order Info: 3016-3 - TSH Performed By: #### L 501.9520 ####[facility] [address] [place], [address] Total proteinOrdered By: Graham Egan on 03-08-2025 Protein [Mass/Vol] 7.0 g/dL 5.9-8.4 [facility] Vitamin D,25 Hydroxyon 03-08 Vitamin D 25-OH 74.2 ng/mL Normal 30-100 [facility] Comment on above: Result Comment: Yanna min D Status Deficiency: <20 ng/mL (50nmol/L) Insufficiency: 20-30 ng/mL (50-75 nmol/L) Sufficiency: 30-100 ng/mL (75-250 nmol/L) Toxicity: >100 ng/mL (>250 nmol/L) Performed By: #### L 500.4050, L501.6710, L506.0400 #### [facility] [address] [place], [address] White blood cell (WBC) count Ordered By: Giorgiobree Egan on 03-08-2025 WBC (Bld) [#/Vol] 4.7 10*3/uL 4.4-11.0 [facility] Pelvic w/ Transvaginalon Pelvic w/ Transvaginal [facility] Imaging Services [address] [place], [place] [address] Pelvic w/ Transvaginal MR#: [id number] Acct: [id number] Name: GAYLE BANKS MELVIN Rep #: [id number] : 1950 F 74 From: Nohemy steen MD PCP: Dr. Nathan Degroot MD Status: REG CLI Study: Pelvic w/ Transvaginal Date of Exam: 02/18/25 Exam# [id number] Ordering Dr: Gayle Dinh PROCEDURE: PELVIC W/ TRANSVAGINAL 02/18/2025 REASON FOR EXAM: PROLAPSE TECHNIQUE: Transabdominal and transvaginal pelvic ultrasound COMPARISON: None. FINDINGS: The uterus is anteverted measuring 6.6 x 4.3 x 2.6 cm. The endometrium measures 8.2 mm in its thickness. Fluid is noted in the endometrial cavity. Normal visualized cervix. No intrauterine device is noted. Polyp is noted in the endometrial cavity measuring 0.3 x 0.3 x 0.1 cm. Normal right ovary measuring 2.5 x 2 x 2.1 cm. Normal left ovary measuring 2.5 x 1.9 x 1.1 cm, only visualized on transabdominal imaging. Normal bilateral ovarian flow without evidence of ovarian flow. No free fluid is noted in the pelvic cul-de-sac. The bladder volume measures 174 cc. US/Pelvic w/ Transvaginal IMPRESSION: 1. Endometrial polyp is noted measuring 0.3 x 0.3 x 0.1 cm. 2. Normal bilateral ovarian flow. Reading [facility] CC: Dr. Nathan Degroot MD; Dr. Gayle Dinh MD Site Director: Signed Normal [facility] Special Education Para Professional Office Visit Reporton 02-15-2025 Special Education Para Professional Office Visit Report [facility] Women[facility] [address], [address] [place] [address] OFFICE VISIT Date of Service: 02/15/25 MR#: [id number] Acct: [id number] Name: GALYE BANKS MELVIN Rep #: [id number] : 1950 Provider: Dr. Gayle stephen MD Age/Sex: 74/F [place] [facility] Status: Signed Intake Vital Signs 12/08/24 13:53 01/20/25 07:34 02/10/25 11:09 02/15/25 09:56 Height 5 ft 9 in 5 ft 9 in 5 ft 9 in 5 ft 9 in Weight: 166 lb 164 lb BMI 24.5 24.2 BP 118/65 101/66 Blood Pressure Location Lt brachial Position Sitting Respiration 16 Pulse 64 Pulse Source Monitor Temp 98.1 F Pulse Oximetry (%) 95 Oxygen Delivery Method room air Intake Visit Reasons: Consult hysterectomy, combo surgery Report Writer Required: No Is patient in pain?: No Allergies HUY Inhibitors Adverse Reaction (Intermediate, Verified 02/15/25 09:57) COUGH fosinopril (From Monopril) Adverse Reaction (Intermediate, Verified 02/15/25 09:57) Cough Medications ???Medication ???Instructions ???Recorded ???Confirmed ???Type amlodipine 5 mg tablet 5 mg PO DAILY 06/06/22 02/15/25 Hi story metoprolol succinate 50 mg 50 mg PO DAILY 06/06/22 02/15/25 H istory tablet,extended release 24 hr Lactobacillus acidophilus 10 10,000 mmu cells PO DAILY 09/18/22 02/15/25 History billion cell capsule (Probiotic) levothyroxine 100 mcg tablet 100 mcg PO QDAY 1 month #30 tabs 0 07/28/24 02/15/25 Rx cholecalciferol (vitamin D3) 125 125 mcg PO DAILY 01/14/25 02/15/25 History mcg (5,000 unit) tablet (Vitamin D3) famotidine 20 mg tablet (Pepcid AC) 20 mg PO BID PRN heart burn 1 0 02/10/25 02/15/25 Rx month #60 tabs Is last menstrual period known: No Post menopausal: Yes Patient : No : No [facility] Medical History Bladder disease Restless legs History of hiatal hernia Wears glasses Wears dentures Post-menopausal Low iron Non-smoker History of echocardiogram Cardiology follow-up encounter Renal insufficiency syndrome Depression Mitral stenosis Gallbladder anomaly RUQ abdominal pain Schatzki's ring of distal esophagus Thyroid disease Arthritis Restless legs Dysphagia Lichen sclerosus HTN (hypertension) Hypothyroidism GERD (gastroesophageal reflux disease) Surgical History Hx of colonoscopy History of esophagogastroduodenoscopy (EGD) Hx of total knee arthroplasty History of tubal ligation History of rotator cuff surgery History of foot surgery Family History Mother Hypertension Thyroid disorder Father Hypertension Heart disease Arthritis Sister Arthritis Hyperlipidemia Hypertension Aunt Breast cancer Social History household members: spouse current occupational status: retired 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 she has been struggling with this for years and it is worsening now and the pessary won't stay in, she has been seeing Katia and Betty. she is feels vaginal bulge and pressure that is annoying, mainly the bladder. History 2 Elective abortions Hx Para Spontaneous abortions Hx # Term Pregnancies Ectopic pregnancies Hx # Pregnancies Multiple births # of living children 2 ROS Const Constitutional: Reports system reviewed and no additional complaints, except as documented ENT ENT: Reports system reviewed and no additional complaints, except as documented Cardio Card: Denies chest pain Resp Resp: Denies cough or dyspnea GI GI: Reports system reviewed and no additional complaints, except as documented : Reports prolapse symptoms, urinary incontinence (with pessary in) and vaginal dryness; Denies nipple discharge, pelvic pain, vaginal discharge, vaginal odor or vaginal pruritus Musc Musc: Denies arthralgias or muscle weakness Skin Skin/Breast: Denies alopecia, change in hair, dry skin, breast mass, breast pain, breast skin changes or nipple discharge Neuro Neuro: Reports system reviewed and no additional complaints, except as documented Psych Psych: Reports system reviewed and no additional complaints, except as documented Endo Endo: Denies cold intolerance, excessive sweating (more content not included)... Normal [facility] Gastroenterology Visit Repor ton 02-10-2025 Gastroenterology Visit Report [facility] Gastroenterology [address] [place] [address] OFFICE VISIT Date of Service: 02/10/25 MR#: [id number] Acct: [id number] Name: GAYLE BANKS Rep #: [id number] : 1950 Provider: Dr. Giorgio machuca MD Age/Sex: 74/F Location: [email or web address] Status: Signed Intake Vital Signs 10/13/24 10:41 12/08/24 13:53 01/20/25 07:34 02/10/25 11:09 Height 5 ft 9 in 5 ft 9 in 5 ft 9 in 5 ft 9 in Weight: 166 lb BMI 24.5 BP 118/65 Blood Pressure Location Lt brachial Position Sitting Respiration 16 Pulse 64 Pulse Source Monitor Temp 98.1 F Temp Source Oral Pulse Oximetry (%) 95 Oxygen Delivery Method room air Intake Visit Reasons: 4 M FU Report Writer Required: No Accompanied by: Self Is patient in pain?: No Allergies HUY Inhibitors Adverse Reaction (Intermediate, Verified 02/10/25 11:10) COUGH fosinopril (From Monopril) Adverse Reaction (Intermediate, Verified 02/10/25 11:10) Cough Medications ???Medication ???Instructions ???Recorded ???Confirmed ???Type amlodipine 5 mg tablet 5 mg PO DAILY 06/06/22 02/10/25 Hi story metoprolol succinate 50 mg 50 mg PO DAILY 06/06/22 02/10/25 H istory tablet,extended release 24 hr Lactobacillus acidophilus 10 10,000 mmu cells PO DAILY 09/18/22 02/10/25 History billion cell capsule (Probiotic) levothyroxine 100 mcg tablet 100 mcg PO QDAY 1 month #30 tabs 0 07/28/24 02/10/25 Rx cholecalciferol (vitamin D3) 125 125 mcg PO DAILY 01/14/25 02/10/25 History mcg (5,000 unit) tablet (Vitamin D3) famotidine 20 mg tablet (Pepcid AC) 20 mg PO BID PRN heart burn 1 0 02/10/25 02/10/25 Rx month #60 tabs Have you fallen in the past year?: No PFSH Medical History Bladder disease Restless legs History of hiatal hernia Wears glasses Wears dentures Post-menopausal Low iron Non-smoker History of echocardiogram Cardiology follow-up encounter Renal insufficiency syndrome Depression Mitral stenosis Gallbladder anomaly RUQ abdominal pain Schatzki's ring of distal esophagus Thyroid disease Arthritis Restless legs Dysphagia Lichen sclerosus HTN (hypertension) Hypothyroidism GERD (gastroesophageal reflux disease) Surgical History Hx of colonoscopy History of esophagogastroduodenoscopy (EGD) Hx of total knee arthroplasty History of tubal ligation History of rotator cuff surgery History of foot surgery Family History Mother Hypertension Thyroid disorder Father Hypertension Heart disease Arthritis Sister Arthritis Hyperlipidemia Hypertension Aunt Breast cancer Social History household members: spouse current occupational status: retired 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 Pt has new concerns about her gallbladder. For the last 6 months she has been experiencing episodes of RUQ and epigastric pain. She said the pain is around the right upper quadrant wraps around the back, on and off stays for half an hour, recurrent for 1 to 2 weeks and then goes away, pain-free for about 2 to 3 months. Last pain episode was 2 and half weeks ago. She mostly grilled food without oily or spicy food. Her father mother all had cholecystectomy. BM are usually 1-2 times a day. Will have intermittent post prandial diarrhea. Has not had any issues of heartburn or dysphagia. Has cut out spicy foods, red sauces and greasy foods. Says both her parents had gallbladder issues and wants to have hers worked up. OV 07.27.24- During the last month increased episodes abdominal pain, cramping, and diarrhea especially after eating. Stools watery dark brown and sometimes slimy. Vegetables may contribute to diarrhea at times. Although, diarrhea episodes may not be consistent with certain types of foods. Reports feeling better and having first solid BM today. Questions need for cholecystectomy. 05/05/24 US/ABD Limited w/ Elastography IMPRESSION: Liver stiffness measures 9.53 kPa compatible with F2-F3 Metavir score. EGD/Colonoscopy 09.10.24 10.13.24 Pt here for f/u and reports she is feeling well. Denies swallowing issues. Denies GI issues. No (more content not included)... Normal [facility] Anion gap in Serum or Plasma Ordered By: Giselle Booth on 01-20-2025 Anion gap [Moles/Vol] 14 mmol/L 5-15 [facility] BUN/creatinine ratioOrdered By: Giselle Booth on 01-20-2025 Urea nitrogen/Creatinine [Mass ratio] 19.2 mg/mg 08-22 [facility] Basic Metabolic Profile (BMP )on 01-20-2025 BUN/CRE 19.2 RATIO Normal 08-22 [facility] Comment on above: Performed By: #### L 500.4050, L501.6710, L506.0400 #### [facility] [address] [place], [address] Calcium [Mass/Vol] 9.0 mg/dL Normal 7.6-11.0 [facility] Comment on above: Performed By: #### L 500.4050, L501.6710, L506.0400 #### [facility] [address] [place], [address] Chloride [Moles/Vol] 108 mmol/L Normal 98-108 [facility] Comment on above: Performed By: #### L 500.4050, L501.6710, L506.0400 #### [facility] [address] [place], [address] CO2 [Moles/Vol] 18.4 mmol/L Low 21.0-32.0 [facility] Comment on above: Performed By: #### L 500.4050, L501.6710, L506.0400 #### [facility] [address] [place], [address] Creatinine [Mass/Vol] 1.24 mg/dL High 0.70-1.20 [facility] Comment on above: Performed By: #### L 500.4050, L501.6710, L506.0400 #### [facility] [address] [place], [address] ECRCL 42.86 ml/min Low 50-250 [facility] Comment on above: Performed By: #### L 500.4050, L501.6710, L506.0400 #### [facility] [address] [place], [address] GAP 14 Normal 5-15 [facility] Comment on above: Performed By: #### L 500.4050, L501.6710, L506.0400 #### [facility] [address] [place], [address] GFR/1.73 sq M.predicted among non-blacks MDRD (S/P/Bld) [Vol rate/Area] 46 mL/min/{1.73_m2} Low >60 [facility] Comment on above: Result Comment: mL/m in/1.73m2 CKD-EPI Creatinine Equation (2020) Performed By: #### L 500.4050, L501.6710, L506.0400 #### [facility] [address] [place], [address] Glucose [Mass/Vol] 105 mg/dL High 70-99 [facility] Comment on above: Performed By: #### L 500.4050, L501.6710, L506.0400 #### [facility] [address] [place], [address] Potassium [Moles/Vol] 3.9 mmol/L Normal 3.3-5.1 [facility] Comment on above: Performed By: #### L 500.4050, L501.6710, L506.0400 #### [facility] [address] [place], [address] Sodium [Moles/Vol] 140 mmol/L Normal 133-145 [facility] Comment on above: Performed By: #### L 500.4050, L501.6710, L506.0400 #### [facility] [address] [place], [address] Urea nitrogen [Mass/Vol] 24 mg/dL High 4-19 [facility] Comment on above: Performed By: #### L 500.4050, L501.6710, L506.0400 #### [facility] [address] [place], [address] CBC-Complete Blood Cnt No Di ffon 01-20-2025 Erythrocyte distribution width (RBC) [Ratio] 12.6 % Normal 11.6-14.6 [facility] Comment on above: Performed By: #### L 500.4050, L501.6710, L506.0400 #### [facility] [address] [place], [address] Hematocrit (Bld) [Volume fraction] 35.5 % Low 37-47 [facility] Comment on above: Performed By: #### L 500.4050, L501.6710, L506.0400 #### [facility] [address] [place], [address] Hemoglobin (Bld) [Mass/Vol] 11.8 g/dL Low 12.0-15.0 [facility] Comment on above: Performed By: #### L 500.4050, L501.6710, L506.0400 #### [facility] [address] [place], [address] MCH (RBC) [Entitic mass] 31.6 pg Normal 27.0-32.0 [facility] Comment on above: Performed By: #### L 500.4050, L501.6710, L506.0400 #### [facility] [address] [place], [address] MCHC (RBC) [Mass/Vol] 33.2 g/dL Normal 32-36 [facility] Comment on above: Performed By: #### L 500.4050, L501.6710, L506.0400 #### [facility] [address] [place], [address] MCV (RBC) [Entitic vol] 94.9 fL Normal 81-99 [facility] Comment on above: Performed By: #### L 500.4050, L501.6710, L506.0400 #### [facility] [address] [place], [address] Platelet mean volume (Bld) [Entitic vol] 10.3 fL Normal 6.2-12.0 [facility] Comment on above: Performed By: #### L 500.4050, L501.6710, L506.0400 #### [facility] [address] [place], [address] Platelets (Bld) [#/Vol] 221 10*3/uL Normal 150-450 [facility] Comment on above: Performed By: #### L 500.4050, L501.6710, L506.0400 #### [facility] [address] [place], [address] RBC (Bld) [#/Vol] 3.74 10*6/uL Low 4.2-5.4 [facility] Comment on above: Performed By: #### L 500.4050, L501.6710, L506.0400 #### [facility] [address] [place], [address] RDW SD 44.2 fl High 35.1-43.9 [facility] Comment on above: Performed By: #### L 500.4050, L501.6710, L506.0400 #### [facility] [address] [place], [address] WBC (Bld) [#/Vol] 4.6 10*3/uL Normal 4.4-11.0 [facility] Comment on above: Performed By: #### L 500.4050, L501.6710, L506.0400 #### [facility] [address] [place], [address] Carbon dioxide, total [Moles /volume] in Central venous bloodOrdered By: Giselle Booth on 01-20-2025 CO2 [Moles/Vol] 18.4 mmol/L Low 21.0-32.0 [facility] Chloride assayOrdered By: Iasías nunezregna Emmy on 01-20-2025 Chloride [Moles/Vol] 108 mmol/L 98-108 [facility] Discharge Instructionon 01-02 Discharge Instruction [facility] Medical Records Department [address] [place] [address] Instructions for Home/Discharge Instructions 01/20/25 0853 MR#: [id number] Acct: [id number] Name: GAYLE BANKS Rep #: [id number] : 1950 74 From: Giselle Booth MD PCP: Dr. Nathan Degroot MD Status:[place] [facility] [place] Instructions Diet Discharge Diet: No restrictions Activity Discharge Activity: Return to Normal Activity May resume sexual activity in: No Restrictions Dressing / Incision Call your doctor if you observe: Fever of 101 or Higher, Inability to urinate and Inability to have a bowel movement Follow Up Care Please Follow Up With: Giselle Booth MD When: She will need to follow-up with her primary care physician regarding some premature atrial contractions seen during surgery. Test Results: Test results from this visit will be discussed in further detail at your follow-up appointment, if applicable. Discharge Plan Admission Attending Provider: Giselle Booth Primary Care Provider: Nathan Degroot Instructions Print Language: Uruguayan Discharge Orders/Prescriptions Prescriptions: Continued amlodipine 5 mg tablet 5 mg PO DAILY metoprolol succinate 50 mg tablet extended release 24 hr 50 mg PO DAILY Probiotic 10 billion cell Capsule 10,000 mmu cells PO DAILY cholecalciferol (vitamin D3) [Vitamin D3] 125 mcg (5,000 unit) tablet 125 mcg PO DAILY pantoprazole 40 mg tablet,delayed release (DR/EC) 40 mg PO DAILY levothyroxine 100 mcg tablet 100 mcg PO QDAY 30 Days Qty: 30 6RF Referrals / Follow Up: Nathan Degroot MD [Primary Care Provider] - Disposition Disposition (needs filled in before D/C Order can be placed): Home, Self Care 01/20/25 5544 Giselle Booth MD CC: Dr. Nathan Degroot MD Signed Normal [facility] Erythrocyte distribution wid th ratioOrdered By: Giselle Booth on 01-20-2025 Erythrocyte distribution width (RBC) [Ratio] 12.6 % 11.6-14.6 [facility] Erythrocyte distribution wid th standard deviationOrdered By: Giselle Booth on 01-20-2025 Erythrocyte distribution width (RBC) [Entitic vol] 44.2 fL High 35.1-43.9 [facility] Erythrocyte distribution width (RBC) [Ratio] 44.2 fl High 35.1-43.9 [facility] Estimation of creatinine stacy aranceOrdered By: Giselle Booth on 01-20-2025 Estimated Creatinine Clearance Calc 42.86 ml/min Low 50-250 [facility] GFR/1.73 sq M.predicted zuhair g non-blacks MDRD (S/P/Bld) [Vol rate/Area]Ordered By: Giselle Booth on 01-20-2025 Estimated GFR (MDRD) Non-Af Amer 46 Low >60 [facility] Comment on above: mL/min/1.73m2 CKD-EP I Creatinine Equation (2020) Glomerular filtration rate ( GFR) estimation/1.73 sq m using serum, plasma, or whole bOrdered By: Giselle Booth on 01-20-2025 GFR/1.73 sq M.predicted among non-blacks MDRD (S/P/Bld) [Vol rate/Area] 46 mL/min/{1.73_m2} Low >60 [facility] Comment on above: mL/min/1.73m2 CKD-EP I Creatinine Equation (2020) Hematocrit Auto (Bld) [Volum e fraction]Ordered By: Giselle Booth on 01-20-2025 Hematocrit (Bld) [Volume fraction] 35.5 % Low 37-47 [facility] Hemoglobin measurementOrdere d By: Giselle Booth on 01-20-2025 Hemoglobin (Bld) [Mass/Vol] 11.8 g/dL Low 12.0-15.0 [facility] MCV (mean corpuscular volume ) determinationOrdered By: Giselle Booth on 01-20-2025 MCV (RBC) [Entitic vol] 94.9 fL 81-99 [facility] MR/POSTOP.ANEon 01-20-2025 MR/POSTOP.ANE [facility] Medical Records Department [address] [place] [address] Anesthesia Postop Eval I 01/20/25 0931 MR#: [id number] Acct: [id number] Name: GAYLE BANKS MELVIN Rep #: [id number] : 1950 74 From: Juliane Taveras CRNA PCP: Dr. Nathan Degroot MD Status:[facility] Y Race: C Location: [place] [address] Anesthesia: Postop Eval I Current Vital Signs Temperature: 97 F Pulse Rate: 68 Blood Pressure: 81/54 Respiratory Rate: 16 Pulse Ox: 96 Oxygen Delivery Method: Room Air Assessment Airway patent: Yes Spontaneous unlabored respirations: Yes Mental status: Awake and Calm nausea: No Vomiting: No Anesthesia Complication: No Fluid Hydration Crystalloid volume administer (ml): 10 Total IV fluid infused: 10 Progress Note Anesthesia document: Postop Eval 1 completed: Yes 01/20/25931 Date Juliane Taveras CRNA Cosigner Signature: Date CC: Signed Normal [facility] MR/[id number] 01-20-2025 MR/POSTOPAN2 [facility] Medical Records Department [address] [place] [address] Anesthesia Postop Eval II 01/20/25 1412 MR#: [id number] Acct: [id number] Name: GAYLE BANKS MELVIN Rep #: [id number] : 1950 74 From: Miranda Link PCP: Dr. Nathan Degroot MD Status:DEP [facility] [place] Race: C [place] [facility] Anesthesia Postop Eval I Sum Postop Eval Completion status Anesthesia document: Postop Eval 1 completed: Yes Anesthesia Postop Eval I Summary Anesthesia Postop Eval I Summary: Anesthesia Postop Eval I: Assessment Summary Airway patent Yes 01/20/25 09:32 LOGISTICS TECH.MIN Spontaneous unlabored Yes 01/20/25 09:32 LOGISTICS TECHGHAZAL respirations Mental status Awake,Calm 01/20/25 09:32 LOGISTICS TECHGHAZAL nausea No 01/20/25 09:32 LOGISTICS TECH.MIN Vomiting No 01/20/25 09:32 LOGISTICS TECHGHAZAL Anesthesia Postop Eval I: Fluid Summary Crystalloid volume administer 10 01/20/25 09:32 TATYANA (ml) Colloids volume administered ( ml) Blood Product volume administered (ml) Total IV fluid infused 10 01/20/25 09:32 TATYANA Anesthesia Postop Eval I: Summary Notes Anesthesia Complication No 01/20/25 09:32 TATYANA Anesthesia Complication Comment: Post-operative progress note Anesthesia: Postop Eval II Evaluation Mental status: Awake Pain Level: 1 nausea: No Vomiting: No 01/20/25 1412 Date Miranda Acosta Signature: Date CC: Signed Normal [facility] Mean corpuscular hemoglobin (MCH) determinationOrdered By: Giselle Booth on 01-20-2025 MCH (RBC) [Entitic mass] 31.6 pg 27.0-32.0 [facility] Mean corpuscular hemoglobin concentration (MCHC) determinationOrdered By: Giselle Booth on 01-20-2025 MCHC (RBC) [Mass/Vol] 33.2 g/dL 32-36 [facility] Mean platelet volume determi nationOrdered By: Giselle Booth on 01-20-2025 Platelet mean volume (Bld) [Entitic vol] 10.3 fL 6.2-12.0 [facility] Operative Reporton 5 Operative Report [facility] Medical Records Department [address] [place] [address] Operative Report 01/20/25 1039 MR#: [id number] Acct: [id number] Name: GAYLE BANKS Rep #: [id number] : 1950 74 From: Giselle Booth MD PCP: Dr. Nathan Degroot MD Status:[facility] Location[place] [facility] Operative Report (Standard) Operative Information Date of Procedure: 01/20/25 Pre-Operative Diagnosis: Bladder ulceration Post-Operative Diagnosis: Same Surgery/Procedure Performed: Cystoscopy, bladder biopsy with fulguration carver and checkerer specials: No Type of Anesthesia: MAC RN Documented Start/Stop Times: Operation Date: 01/20/25 08:30 Case Time Into Pre-Op 01/20/25 07:09 Out of Pre-Op 01/20/25 08:39 Anesthesia Start 01/20/25 08:43 Into Room 01/20/25 08:43 Procedure Start 01/20/25 09:11 Procedure End 01/20/25 09:19 Anesthesia End 01/20/25 09:25 Out of Room 01/20/25 09:25 Into Recovery 01/20/25 09:27 Out of Recovery 01/20/25 09:51 Into Phase II Recovery 01/20/25 09:53 Out of Phase II 01/20/25 10:25 Procedure Start Time: 09:11 Procedure Stop Time: 09:19 Select all DRAINS/GRAFTS/IMPLANTS that apply: None Estimated Blood Loss: 5cc Specimen collected: Yes Description of specimen(s) removed: Bladder biopsy x 2 Description of surgery: The patient is a 74-year-old female who is having issues with prolapse and had a cystoscopy in the office revealing 2 Hunner ulcerations. She now presents for biopsy and fulguration. Informed consent was obtained. The patient was taken to the operating room and placed on the operating room table. Anesthesia monitored the head, neck, airway, IV access and vital signs throughout the case. Once anesthesia was appropriately ministered she was placed into dorsolithotomy position was prepped and draped in usual sterile fashion. The cystoscope was inserted through the urethra under direct visualization into the urinary bladder. The ulcerations were identified 1 on the left lateral bladder wall and 1 on the right lateral bladder wall. Each approximately 1 cm in diameter. These appear to be approximately 50% improved in appearance from the time of cystoscopy in the office. Biopsy forceps were utilized to obtain specimens from each area. These areas were then fulgurated with the Bugbee cautery for hemostatic control and tissue treatment. The bladder was then emptied and the cystoscope was removed. She was awakened and taken to the recovery room in good condition. There were no complications during this procedure. Surgical Findings: Bladder biopsy x 2. Of note, she was experiencing some premature atrial contractions and will be following up with her primary care physician for further evaluation and management. Complications Complications: No Admit VTE Documentation VTE Present on Admission: Yes VTE Mechan Device Prophylaxis: SCD's VTE Pharm Prophylaxis ordered?: No Reason prophylaxis not ordered: Treatment Not Indicated 01/20/25 1042 Cosigner Signature (if applicable): CC: Dr. Nathan Degroot MD; Dr. Giselle Booth MD Signed Normal [facility] Platelet countOrdered By: Isaías Booth on 01-20-2025 Platelets (Bld) [#/Vol] 221 10*3/uL 150-450 [facility] Potassium (Unsp spec) [Mass/ Vol]Ordered By: Giselle Booth on 01-20-2025 Potassium [Moles/Vol] 3.9 mmol/L 3.3-5.1 [facility] Potassium measurement (mass/ volume)Ordered By: Giselle Booth on 01-20-2025 Potassium (Unsp spec) [Mass/Vol] 3.9 mmol/L 3.3-5.1 [facility] RBC Auto (Bld) [#/Vol]Ordere d By: Giselle Booth on 01-20-2025 RBC (Bld) [#/Vol] 3.74 10*6/uL Low 4.2-5.4 [facility] Serum creatinine measurement (mass/volume)Ordered By: Giselle Booth on 01-20-2025 Creatinine [Mass/Vol] 1.24 mg/dL High 0.70-1.20 [facility] Serum glucose measurement (m ass/volume)Ordered By: Giselle Booth on 01-20-2025 Glucose [Mass/Vol] 105 mg/dL High 70-99 [facility] Serum or plasma calcium carlitos urement (mass/volume)Ordered By: Giselle Booth on 01-20-2025 Calcium [Mass/Vol] 9.0 mg/dL 7.6-11.0 [facility] Serum or plasma urea nitroge n measurement (mass/volume)Ordered By: Giselle Booth on 01-20-2025 Urea nitrogen [Mass/Vol] 24 mg/dL High 4-19 [facility] Sodium levelOrdered By: Miguel Booth on 01-20-2025 Sodium [Moles/Vol] 140 mmol/L 133-145 [facility] Surgery Specimen Level Ruby 01-20-2025 Surgery Specimen Level IV Patient Age/Sex Location Account Attending Physician GAYLE BANKS 74/F [facility] [id number] [place]. Giselle Booth MD Specimen: [id number] Received: 01/20/25 Status: JOCELYNE Gresham: [id number] Spec Type: BLADDER BX Subm Dr: Dr. Giselle Booth MD HEADER OPERATION: Bladder biopsy with fulguration PRE-OP DIAGNOSIS: Bladder ulceration TISSUE SUBMITTED: A- Bladder biopsy MICROSCOPIC DIAGNOSIS Bladder biopsy:Fragments of urothelium and underlying smooth muscle with erosion, acute and chronic inflammation, and lymphoid folliclesWillie Hodges MD, 01/28/2025 MICROSCOPIC DESCRIPTION Slides are reviewed. GROSS DESCRIPTION A. Received in fixative is one container labeled with the patient's name and designated Bladder biopsy. The specimen consists of two pieces of pink tissue each measuring 0.1 x 0.1 x 0.1cm. The entire specimen is submitted in one cassette. 01/20/2025 CPT:49058, TC:2 3 Patient Age/Sex Location Account Attending Physician GAYLE BANKS 74/F [facility] [id number] Dr. Giselle Booth MD Signed (signature on file) Dr. Joseph Hodges MD 01/28/252225 Normal [facility] Comment on above: Performed By: #### L 500.4050, L501.6710, L506.0400 #### [facility] [address] [place], [address] TSH DL <= 0.005 mIU/L QnOrde red By: Tito Peter on 01-20-2025 Thyroid Stimulating Hormone (TSH) 5.430 uIU/mL High 0.300-4.20 0 [facility] TSH Qn 5.430 uIU/mL High 0.300-4.20 0 [facility] Thyroid Stim Hormone (TSH)on 01-20-2025 TSH 5.430 uIU/mL High 0.300-4.20 0 [facility] Comment on above: Performed By: #### L 100.0100, L803.2200, L3100.3425, L500.4100, L501.2450, L501.6710, L3410.2400, L501.9520, L3300.1800, L501.2300, L3410.0900, L3200.1100, L500.4050, L3130.0010, L800.1280, L501.4700, L3410.1000, L3000.0375, L503.6030, L300.3900, L506.0400, L3100.5450 #### [facility] [address] [place], [address] White blood cell (WBC) count Ordered By: Giselle Booth on 01-20-2025 WBC (Bld) [#/Vol] 4.6 10*3/uL 4.4-11.0 [facility] MR/PAT.ANE 01-14-2025 MR/PAT.ANE [facility] Medical Records Department [address] [place] [address] PAT - Anesthesia 01/14/251915 MR#: [id number] Acct: [id number] Name: GAYLE BANKS Rep #: [id number] : 1950 74 From: Tito Peter MD PCP: Dr. 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 When Was Last Pacemaker Check QUESTION #4 FULL TEXT: You/Your Family Experience fever (hyperthermia) with Anesthesia Last Oral Intake Last Oral intake: Last Oral Intake NPO since Meds taken in AM with sips of water? Meds patient instructed to take am of surgery PONV PONV - facility operations manager: PONV - facility operations manager Female Yes 01/14/25 15:38 HX of Motion Sickness No 01/14/25 15:38 HX of N/V After Surgery No 01/14/25 15:38 Non-Smoker Yes 01/14/25 15:38 Duration of Surgery greater No 01/14/25 15:38 than 60 minutes Number of Risk Factors 2 01/14/25 15:38 PONV Score Moderate Risk 01/14/25 15:38 Height Weight Height Weight: Anesthesia: Height Weight Height 5 ft 9 in 12/08/24 13:53 Respiratory Assessment Respiratory Assessment - facility operations manager: Respiratory Tract Infection Hx - facility operations manager Hx Respiratory Tract Infection No 01/14/25 15:38 STOP Sleep Apnea STOP Sleep Apnea - facility operations manager: STOP Sleep Apnea - facility operations manager Hx Hypertension Yes: CONTROLLED WITH MED 01/14/25 15:38 Hx Sleep Apnea No 01/14/25 15:38 CPAP BIPAP Do you snore loudly (louder Yes 01/14/25 15:38 than talking or can be heard Do you often feel tired/ No 01/14/25 15:38 fatigued/ sleepy during daytime? Has anyone observed you stop No 01/14/25 15:38 breathing during sleep? STOP Results Positive 01/14/25 15:38 QUESTION #5 FULL TEXT : Do you snore loudly (louder than talking or can be heard through closed doors)? 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 Specify any problems Hx of Preganancy in last 3 No 01/14/25 15:38 Months Nurse Filling Out Transfusion DSCHRIBER 01/14/25 15:38 Questions: Date: 01/14/25 01/14/25 15:38 Time: 15:39 01/14/25 15:38 Patient unable to answer at this time (ie. confused, unrespo /Reproduction History /Reproductive History - facility operations manager: /Reproductive Hx- facility operations manager Hx Now No 01/14/25 15:38 Gestational Age (in weeks): EDC: Hx Hx Para Hx Section SAB No 01/14/25 15:38 PFSH Medical History (Updated 01/14/25 @ 15:46 by Carmen Carrero) Bladder disease Restless legs History of hiatal hernia Wears glasses Wears dentures Post-menopausal Low iron Non-smoker History of echocardiogram Cardiology follow-up encounter Renal insufficiency syndrome Depression Mitral stenosis Gallbladder anomaly RUQ abdominal pain Schatzki's ring of distal esophagus Thyroid disease Arthritis Restless legs Dysphagia Lichen sclerosus HTN (hypertension) Hypothyroidism GERD (gastroesophageal reflux disease) Home Medications ???Medication ???Instructions ???Recorded ???Last Taken ???Type amlodipine 5 mg tablet 5 mg PO DAILY 06/06/22 09/10/24 Hi story metoprolol succinate 50 mg 50 mg PO DAILY 06/06/22 09/10/24 H istory tablet,extended release 24 hr Lactobacillus acidophilus 10 10,000 mmu cells PO DAILY 09/18/22 Unknown History billion cell capsule (Probiotic) levothyroxine (more content not included)... Normal [facility] Special Education Para Professional Office Visit Reporton 12-08-2024 Special Education Para Professional Office Visit Report [facility] Women[facility] [address], [address] [place] [address] OFFICE VISIT Date of Service: 12/08/24 MR#: [id number] Acct: [id number] Name: GAYLE BANKS Rep #: [id number] : 1950 Provider: PATRICE Poe Age/Sex: 73/F [place] [facility] Status: Signed Intake Vital Signs 11/22/24 09:45 12/08/24 13:47 12/08/24 13:53 Height 5 ft 9 in 5 ft 9 in 5 ft 9 in Weight: 162 lb 162 lb BMI 23.9 23.9 BP 138/82 H 161/65 H Intake Visit Reasons: Pessary won't stay in Report Writer Required: No Is patient in pain?: No Allergies HUY Inhibitors Adverse Reaction (Intermediate, Verified 12/08/24 13:46) COUGH fosinopril (From Monopril) Adverse Reaction (Intermediate, Verified 12/08/24 13:46) Cough Medications ???Medication ???Instructions ???Recorded ???Confirmed ???Type amlodipine 5 mg tablet 5 mg PO DAILY 06/06/22 12/08/24 Hi story metoprolol succinate 50 mg 50 mg PO DAILY 06/06/22 12/08/24 H istory tablet,extended release 24 hr Lactobacillus acidophilus 10 10,000 mmu cells PO DAILY 09/18/22 12/08/24 History billion cell capsule (Probiotic) levothyroxine 100 mcg tablet 100 mcg PO QDAY 1 month #30 tabs 0 07/28/24 12/08/24 Rx pantoprazole 40 mg tablet,delayed 40 mg PO BID 1 month #60 tabs 09/2612/08/24 Rx release ondansetron 4 mg disintegrating 4 mg PO Q6H PRN nausea and 5 12/08/24 Rx tablet vomiting #20 tabs oxycodone-acetaminophen 5 mg-325 1 tab PO Q6H PRN pain 3 days #12 0 11/16/24 12/08/24 Rx mg tablet (Endocet) tabs Is last menstrual period known: No Post menopausal: No Patient : No : No [facility] Medical History Wears glasses Wears dentures Post-menopausal Low iron Non-smoker Leg cramps History of echocardiogram Cardiology follow-up encounter Renal insufficiency syndrome Depression Mitral stenosis Gallbladder anomaly RUQ abdominal pain Hiatal hernia Schatzki's ring of distal esophagus Thyroid disease Arthritis Restless legs Dysphagia Lichen sclerosus HTN (hypertension) Hypothyroidism GERD (gastroesophageal reflux disease) Surgical History History of esophagogastroduodenoscopy (EGD) Hx of total knee arthroplasty History of tubal ligation History of rotator cuff surgery History of foot surgery Family History Mother Hypertension Thyroid disorder Father Hypertension Heart disease Arthritis Sister Arthritis Hyperlipidemia Hypertension Aunt Breast cancer Social History household members: spouse current occupational status: retired 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 She has previously tried a donut number 3; this fell out on its own. She was then refitted with a ring with support with knob size 4. She reports this fell out about a week or 2 as well on its own. She continues to feel a vaginal bulge. Interested in her other options. History 2 Elective abortions Hx Para Spontaneous abortions Hx # Term Pregnancies Ectopic pregnancies Hx # Pregnancies Multiple births # of living children 2 ROS Const Constitutional: Reports system reviewed and no additional complaints, except as documented GI GI: Reports system reviewed and no additional complaints, except as documented : Reports prolapse symptoms, urinary incontinence (with pessary in) and vaginal dryness; Denies pelvic pain, vaginal discharge, vaginal odor or vaginal pruritus Exam Const General: cooperative and no acute distress Nutritional Appearance: well nourished Orientation: oriented x3 External Female Exam: other (atrophic changes. No silver whitening. Regression of minora) Speculum Exam - Vagina: vagina atrophic Bimanual Exam- Vagina Uterus: normal bimanual exam and uterine size normal Bimanual Exam- Adnexa, other: normal adnexae, rectocele (stage 2), cystocele (stage 4) and vaginal apex descent Pelvic Support: cystocele (stage 4) moderate, rectocele (stage 2), vaginal apex descent and other Coding Level of Care Code Established Pt Off vis,est,level 3 Patient Type Established Diagnoses Cystocele and rectocele with incomplete uterovaginal prolapse N81.2 Assess (more content not included)... Normal [facility] Dexa Bone Density Studyon Dexa Bone Density Study [facility] Imaging Services [address] [place] [id number] Dexa Bone Density Study MR#: [id number] Acct: [id number] Name: GAYLE BANKS MELVIN Rep #: [id number] : 1950 F 73 From: Keoyn nolan MD PCP: Dr. Nathan Degroot MD Status: REG CLI Study: Dexa Bone Density Study Date of Exam: 11/25/24 Exam# [id number] Ordering Dr: Nathan Degroot MD 2:[id number] STUDY: DUAL ENERGY X-RAY ABSORPTIOMETRY / DXA REASON FOR EXAM: Female, 73 years old. 733.00OsteoporosisBONE DENSITY REASON FOR EXAM TECHNIQUE: Bone Mineral Density (BMD) measurements of lumbar spine and bilateral hips were obtained. COMPARISON: Comparison is made with prior study dated November 13, 2011. FINDINGS: Lumbar Spine (L1-L4): g/cm2 (0.915) / T-score (-0.9) / Z-score (1.2) Findings are suggestive of normal bone density with a low fracture risk. Left Femur Total: g/cm2 (0.727) / T-score (-1.8) / Z-score (-0.2) Left Femoral Neck: g/cm2 (0.645) / T-score (-1.8) / Z-score (0.1) Right Femur Total: g/cm2 (0.676) / T-score (-2.2) / Z-score (-0.6) Right Femoral Neck: g/cm2 (0.575) / T-score (-2.5) / Z-score (-0.6) The T-Scores on the most recent prior examination were: Lumbar Spine (L1-L4): There has been worsening of bone density since the previous examination. Left Femur Total: which represents a worsening of 10.8%. Right Femur Total: which represents a worsening of 10.2%. BD/Dexa Bone Density Study IMPRESSION: The patient is considered osteopenic as outlined below according to World Joey Organization (WHO) criteria with a high fracture risk. There has been worsening of bone density since the previous examination. Reference Information: The T-score is the number of standard deviations above or below the standard which is normal for young adults at their peak bone mineral density. The World Health Organization (WHO) interprets the T-scores as follows: Above -1 Normal bone density Between -1 and -2.5 Osteopenia Equal to / or below -2.5 Osteoporosis As a practical clinical guideline, osteopenia may be graded as follows: Mild -1 through -1.5 Moderate -1.6 through -2.0 Severe -2.1 through -2.4 The Z-score is the number of standard deviations above or below age-matched controls. A Z-score of less than -1.5 would be considered abnormal. References: 1. NIH Osteoporosis and Related Bone Diseases www osteo.org 2. International Society for Clinical Densitometry www iscd.org 3. National Osteoporosis Foundation www nof.org Electronically Signed: Keyon Floyd MD at 14:27 EST , CC: Dr. Nathan Degroot MD Site Director: Signed Normal [facility] Special Education Para Professional Office Visit Reporton 11-22-2024 Special Education Para Professional Office Visit Report [facility], [address] [place] [address] OFFICE VISIT Date of Service: 11/22/24 MR#: [id number] Acct: [id number] Name: GAYLE BANKS MLEVIN Rep #: [id number] : 1950 Provider: PATRICE merino Age/Sex: 73/F [place] [facility] Status: Signed Intake Vital Signs 11/16/24 11:03 11/16/24 14:33 11/22/24 09:45 Height 5 ft 9 in 5 ft 9 in 5 ft 9 in Weight: 162 lb BMI 23.9 BP 138/82 H Intake Visit Reasons: PESSARY CHECK Chief Complaint: Pessary check Report Writer Required: No Is patient in pain?: No Allergies HUY Inhibitors Adverse Reaction (Intermediate, Verified 11/22/24 09:50) COUGH fosinopril (From Monopril) Adverse Reaction (Intermediate, Verified 11/22/24 09:50) Cough Medications ???Medication ???Instructions ???Recorded ???Confirmed ???Type amlodipine 5 mg tablet 5 mg PO DAILY 06/06/22 11/22/24 History metoprolol succinate 50 mg 50 mg PO DAILY 06/06/22 11/22/24 History tablet,extended release 24 hr Lactobacillus acidophilus 10 10,000 mmu cells PO DAILY 09/18/22 11/22/24 History billion cell capsule (Probiotic) levothyroxine 100 mcg tablet 100 mcg PO QDAY 1 month #30 tabs 07/28/24 11/22/24 Rx pantoprazole 40 mg tablet,delayed 40 mg PO BID 1 month #60 tabs 10/13/24 11/22/24 Rx release ondansetron 4 mg disintegrating 4 mg PO Q6H PRN nausea and 11/16/24 11/22/24 Rx tablet vomiting #20 tabs oxycodone-acetaminophen 5 mg-325 1 tab PO Q6H PRN pain 3 days #12 11/16/24 11/22/24 Rx mg tablet (Endocet) tabs Is last menstrual period known: No Post menopausal: Yes Patient : No : No [facility] Medical History Wears glasses Wears dentures Post-menopausal Low iron Non-smoker Leg cramps History of echocardiogram Cardiology follow-up encounter Renal insufficiency syndrome Depression Mitral stenosis Gallbladder anomaly RUQ abdominal pain Hiatal hernia Schatzki's ring of distal esophagus Thyroid disease Arthritis Restless legs Dysphagia Lichen sclerosus HTN (hypertension) Hypothyroidism GERD (gastroesophageal reflux disease) Surgical History History of esophagogastroduodenoscopy (EGD) Hx of total knee arthroplasty History of tubal ligation History of rotator cuff surgery History of foot surgery Family History Mother Hypertension Thyroid disorder Father Hypertension Heart disease Arthritis Sister Arthritis Hyperlipidemia Hypertension Aunt Breast cancer Social History household members: spouse current occupational status: retired 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 Was fitted 1 week ago with #3 donut and it fell out later same day. After leaving office, fell at neighbors house and broke left wrist. Did not need surgery. History 2 Elective abortions Hx Para Spontaneous abortions Hx # Term Pregnancies Ectopic pregnancies Hx # Pregnancies Multiple births # of living children 2 ROS Const Constitutional: Reports system reviewed and no additional complaints, except as documented Eyes Eyes: Reports system reviewed and no additional complaints, except as documented GI GI: Denies abdominal pain or change in bowel habits : Reports as per HPI Exam Const General: cooperative and no acute distress Nutritional Appearance: well nourished Orientation: oriented x3 Other: Refitted with #4 ring w/support and know. Unable to displaced. Trimosan gel used. Patient tolerated well External Female Exam: other (atrophic changes. No silver whitening. Regression of minora) Bimanual Exam- Adnexa, other: cystocele (2cm above introitus) Pelvic Support: cystocele (2cm above introitus) moderate Coding Level of Care Code Off vis,est,level 3 Diagnoses Cystocele and rectocele with incomplete uterovaginal prolapse N81.2 Atrophic vaginitis N95.2 Assessment and Plan Assessment and Plan (1) Cystocele and rectocele with incomplete uterovaginal prolapse: Status: Acute Comment: #3 donut fell out. #4 ring w/support and knob (2) Atrophic vaginitis: Status: Acute Comment: add estradiol cream next visit Plan RTO 1 week 11/22/24 1020 Date (more content not included)... Normal [facility] Emergency Department Summary on 11-16-2024 Emergency Department Summary [facility] Medical Records Department [address] [place] [address] Emergency Department Summary 11/16/24 MR#: [id number] Acct: [id number] Name: GAYLE BANKS MELVIN Rep #: [id number] : 1950 73 From: Tony Grant DO PCP: Dr. Nathan Degroot MD Status:REG ER Location: ED HPI History of Present Illness Chief Complaint: Upper Extremity Injury Narrative Narrative: Patient is a 73-year-old female past medical history of depression, hypertension, hypothyroidism, GERD who presented to the emergency department with a chief complaint of left wrist pain. Patient states that she was taking her neighbor her mail and when she was coming off the porch slipped on the step on ice causing her to fall and land on her left wrist. States that she has pain in the left wrist denies pain anywhere else. Patient states that she did not hit her head she did not pass out she remembers the entire event. Patient states that she did not take anything for pain prior to arrival here. [facility] Medical History Wears glasses Wears dentures Post-menopausal Low iron Non-smoker Leg cramps History of echocardiogram Cardiology follow-up encounter Renal insufficiency syndrome Depression Mitral stenosis Gallbladder anomaly RUQ abdominal pain Hiatal hernia Schatzki's ring of distal esophagus Thyroid disease Arthritis Restless legs Dysphagia Lichen sclerosus HTN (hypertension) Hypothyroidism GERD (gastroesophageal reflux disease) Home Medications ???Medication ???Instructions ???Recorded ???Last Taken ???Type amlodipine 5 mg tablet 5 mg PO DAILY 06/06/22 09/10/24 History metoprolol succinate 50 mg 50 mg PO DAILY 06/06/22 09/10/24 History tablet,extended release 24 hr Lactobacillus acidophilus 10 10,000 mmu cells PO DAILY 09/18/22 Unknown History billion cell capsule (Probiotic) levothyroxine 100 mcg tablet 100 mcg PO QDAY 1 month #30 tabs 07/28/24 Unknown Rx pantoprazole 40 mg tablet,delayed 40 mg PO BID 1 month #60 tabs 10/13/24 Unknown Rx release ondansetron 4 mg disintegrating 4 mg PO Q6H PRN nausea and 11/16/24 Unknown Rx tablet vomiting #20 tabs oxycodone-acetaminophen 5 mg-325 1 tab PO Q6H PRN pain 3 days #12 11/16/24 Unknown Rx mg tablet (Endocet) tabs Allergy/AdvReac Type Severity Reaction Status Date / Time HUY Inhibitors AdvReac Intermediate COUGH Verified 11/16/24 14:33 fosinopril (From Monopril) AdvReac Intermediate Cough Verified 11/16/24 14:33 Family History Mother Hypertension Thyroid disorder Father Hypertension Heart disease Arthritis Sister Arthritis Hyperlipidemia Hypertension Aunt Breast cancer Surgical History History of esophagogastroduodenoscopy (EGD) Hx of total knee arthroplasty History of tubal ligation History of rotator cuff surgery History of foot surgery Social History household members: spouse current occupational status: retired 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[employer] Smoking Status: Never smoker alcohol intake: current alcohol intake frequency: a few times a month substance use type: does not use what type of physical activity do you participate in: none seatbelt use: always do you feel safe at home: Yes additional social history: - Felix ROS ROS ED ROS Narrative Constitutional: Denies any headaches, lightness, dizziness Eyes: Denies change in vision double vision blurry vision Cardiovascular: Denies chest pain or palpitations Respiratory: Denies coughing wheezing shortness of breath Abdomen: Denies abdominal pain nausea vomit diarrhea : Denies any urinary symptoms Neurological: Denies numbness, weakness, tingling Musculoskeletal: Complains of left wrist pain as noted above Skin: Denies rashes or lesions EXAM Physical Exam Narrative Exam Narrative: General: Patient lying in bed rest comfortably did not appear to be acute distress Head: Atraumatic, normocephalic Eyes: PERRL bilaterally, EOMI bilaterally, no conjunctival injection noted Neck: Soft, supple, trachea midline, no tense palpation midline of the cervical spine patient has full range of motion of her neck no pain elicited Cardiovascular: Regular rate and rhythm no murmurs gallops rubs noted Respiratory: Clear to auscultation bilaterally no rales rhonchi or wheezes noted Abdomen: Soft, nondistended, nontender to palpation, bowel sounds present x 4 Musculoskeletal: No tenderness palpation the midline of the thoracolumbar spine. Patient has tenderness palpation over the left wrist. No tenderness palpation her hand on the left side all other bony prominences palpated and joints taken (more content not included)... Normal [facility] Special Education Para Professional Office Visit Reporton 11-16-2024 Special Education Para Professional Office Visit Report [facility] [address], [address] [place] [address] OFFICE VISIT Date of Service: 11/16/24 MR#: [id number] Acct: [id number] Name: GAYLE BANKS Rep #: [id number] : 1950 Provider: PATRICE merino Age/Sex: 73/F [place] [facility] Status: Signed Intake Vital Signs 10/13/24 10:41 11/16/24 10:56 11/16/24 11:03 Height 5 ft 9 in 5 ft 9 in 5 ft 9 in Weight: 155 lb BMI 22.8 BP 128/67 H 130/78 H Blood Pressure Location Lt radial Position Sitting Respiration 18 Pulse 39 L Pulse Oximetry (%) 96 Intake Visit Reasons: Pessary fitting Chief Complaint: Pessary fitting Report Writer Required: No Is patient in pain?: No Allergies HUY Inhibitors Adverse Reaction (Intermediate, Verified 11/16/24 10:55) COUGH fosinopril (From Monopril) Adverse Reaction (Intermediate, Verified 11/16/24 10:55) Cough Medications ???Medication ???Instructions ???Recorded ???Confirmed ???Type amlodipine 5 mg tablet 5 mg PO DAILY 06/06/22 11/16/24 History metoprolol succinate 50 mg 50 mg PO DAILY 06/06/22 11/16/24 History tablet,extended release 24 hr Lactobacillus acidophilus 10 10,000 mmu cells PO DAILY 09/18/22 11/16/24 History billion cell capsule (Probiotic) levothyroxine 100 mcg tablet 100 mcg PO QDAY 1 month #30 tabs 07/28/24 11/16/24 Rx pantoprazole 40 mg tablet,delayed 40 mg PO BID 1 month #60 tabs 10/13/24 11/16/24 Rx release Is last menstrual period known: No Post menopausal: Yes Patient : No : No PFSH Medical History Wears glasses Wears dentures Post-menopausal Low iron Non-smoker Leg cramps History of echocardiogram Cardiology follow-up encounter Renal insufficiency syndrome Depression Mitral stenosis Gallbladder anomaly RUQ abdominal pain Hiatal hernia Schatzki's ring of distal esophagus Thyroid disease Arthritis Restless legs Dysphagia Lichen sclerosus HTN (hypertension) Hypothyroidism GERD (gastroesophageal reflux disease) Surgical History History of esophagogastroduodenoscopy (EGD) Hx of total knee arthroplasty History of tubal ligation History of rotator cuff surgery History of foot surgery Family History Mother Hypertension Thyroid disorder Father Hypertension Heart disease Arthritis Sister Arthritis Hyperlipidemia Hypertension Aunt Breast cancer Social History household members: spouse current occupational status: retired 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 We discussed at last visit in 2021 but was having GI issues and did not want to pursue. States she feels it has progressed. Sometimes has to push it up to empty bladder. Denies pain, bleeding or discharge. History 2 Elective abortions Hx Para Spontaneous abortions Hx # Term Pregnancies Ectopic pregnancies Hx # Pregnancies Multiple births # of living children 2 ROS Const Constitutional: Reports system reviewed and no additional complaints, except as documented Eyes Eyes: Reports system reviewed and no additional complaints, except as documented GI GI: Denies abdominal pain or change in bowel habits : Reports as per HPI Exam Const General: cooperative and no acute distress Nutritional Appearance: well nourished Orientation: oriented x3 External Female Exam: other (atrophic changes. No silver whitening. Regression of minora) Speculum Exam - Vagina: vagina atrophic Speculum Exam - Cervix: normal appearance of the cervix Bimanual Exam- Vagina Uterus: normal bimanual exam and uterine size normal Bimanual Exam- Adnexa, other: normal adnexae, rectocele, cystocele (2cm above introitus) and vaginal apex descent Pelvic Support: cystocele (2cm above introitus) moderate, rectocele and vaginal apex descent Office Procedures Pessary Insertion Pessary Insertion Indication for Pessary: Yes rectocele and Yes uterine prolapse Style: Yes doughnut Size:: 3 triamcinolone used:: Yes vaginal estrogen prescribed: No Coding Level of Care Code Attention Black Top Roller Diagnoses Fitting and adjustment of pessary Z46.89 Cystocele and rectocele with incomplete uterovaginal prolapse N81. (more content not included)... Normal [facility] Wrist min 3 Viewson 11-16-19 Wrist min 3 Views [facility] Imaging Services [address] [place], [place] [id number] Wrist min 3 Views MR#: [id number] Acct: [id number] Name: GAYLE BANKS Rep #: [id number] : 1950 F 73 From: Cipriano Lewis DO PCP: Dr. Nathan Degroot MD Status: REG ER Study: Wrist min 3 Views Date of Exam: 11/16/24 Exam# [id number] Ordering Dr: Tony Grant DO [id number] INDICATION: distal radius fx s/p splint EXAMINATION/TECHNIQUE: X-RAY - LEFT XR Wrist Min 3 Views 3 VIEWS COMPARISON: November 16, 2024 at 15:11 hours FINDINGS: Status post reduction and cast placement for a distal radial comminuted fracture. Fracture fragments demonstrates slight improvement in alignment. RAD/Wrist min 3 Views IMPRESSION: Reduction and cast placement for distal radial fracture.. Electronically Signed: Cipriano Lewis DO at 17:30 EST , CC: Dr. Nathan Degroot MD; Dr. Tony Grant DO Site Director: Signed [facility] Wrist min 3 Views [facility] Imaging Services [address] [place], [place] [id number] Wrist min 3 Views MR#: [id number] Acct: [id number] Name: GAYLE BANKS Rep #: [id number] : 1950 F 73 From: Angelo Machuca PCP: Dr. Nathan Degroot MD Status: REG ER Study: Wrist min 3 Views Date of Exam: 11/16/24 Exam# [id number] Ordering Dr: Tony Grant DO [id number] INDICATION: fall on ice EXAMINATION/TECHNIQUE: X-RAY - LEFT XR Wrist Min 3 Views 3 VIEWS COMPARISON: No relevant prior comparison study available FINDINGS: SOFT TISSUES: Soft tissue swelling. No radiopaque foreign body. BONES/JOINTS: Comminuted intra-articular displaced fracture of the distal radius. Demineralization of the osseous structures. No evidence of dislocation. Degenerative arthrosis of the trapezium first metacarpal joint. No sclerotic or destructive changes observed. RAD/Wrist min 3 Views IMPRESSION: Comminuted intra-articular displaced fracture of the distal radius. Electronically Signed: Angelo Archibald MD at 15:40 EST , CC: Dr. Nathan Degroot MD; Dr. Tony Grant DO Site Director: Signed Normal [facility] Gastric Emptying Studyon Gastric Emptying Study [facility] Imaging Services [address] [facility] [address] [place], [place] [id number] Gastric Emptying Study MR#: [id number] Acct: [id number] Name: GAYLE BANKS MELVIN Rep #: [id number] : 1950 F 73 From: Marbin Busch PCP: Dr. Nathan Degroot MD Status: REG CLI Study: Gastric Emptying Study Date of Exam: 11/10/24 Exam# [id number] Ordering Dr: Giorgio Egan MD [id number] CLINICAL: 73-year-old female with history of abdominal pain and reflux. SEMI-SOLID PHASE 99m Tc SULFUR COLLOID GASTRIC EMPTYING STUDY COMPARISON: Abdominal ultrasound report 05/03/2024 FINDINGS: The patient was administered 1.0 mCi of 99m Tc sulfur colloid mixed with oatmeal and consumed per os. Image acquisitions in the anterior-posterior projections for a total of 60 minutes. There is prompt visualization of the stomach. There is no gastroesophageal reflux identified. The T ? raw data emptying was calculated to be 27.18 minutes, (Normal: 12-56 minutes). NM/Gastric Emptying Study IMPRESSION: 1. NORMAL 99m Tc sulfur colloid semi-solid phase (oatmeal) gastric emptying imaging examination. A. There is normal and preserved semi-solid phase gastric emptying compared to normal controls. (Nicholas et al, J Nucl Med Tech 38: 186, 2010). Electronically Signed: Marbin Schreiber DO at 8:14 EST , CC: Dr. Nathan Degroot MD; Dr. Giorgio Egan MD Site Director: Signed Normal [facility] TSH QnOrdered By: Nathan sanchez on 10-18-2024 Thyroid Stimulating Hormone (TSH) 2.090 uIU/mL 0.358-3.74 0 [facility] Thyroid Stim Hormone (TSH)on 10-18-2024 TSH 2.090 uIU/mL Normal 0.358-3.74 0 [facility] Comment on above: Performed By: #### L [phone] #### [facility] Laboratory [address] [place], [address] Gastroenterology Visit Repor ton 10-13-2024 Gastroenterology Visit Report [facility] Gastroenterology [address] [place] [address] OFFICE VISIT Date of Service: 10/13/24 MR#: [id number] Acct: [id number] Name: GAYLE BANKS Rep #: [id number] : 1950 Provider: Dr. Giorgio machuca MD Age/Sex: 73/F Location: [facility] Status: Signed Intake Vital Signs 07/27/24 10:15 09/10/24 11:12 10/13/24 10:41 Height 5 ft 9 in 5 ft 9 in 5 ft 9 in BP 128/67 H Blood Pressure Location Lt radial Position Sitting Respiration 18 Pulse 39 L Pulse Oximetry (%) 96 Intake Visit Reasons: 3 M FU Chief Complaint: Gallbladder concerns Allergies HUY Inhibitors Adverse Reaction (Intermediate, Verified 09/10/24 11:11) COUGH fosinopril (From Monopril) Adverse Reaction (Intermediate, Verified 09/10/24 11:11) Cough Have you fallen in the past year?: No [facility] Medical History (Updated 10/13/24 @ 11:[address] Giorgio Egan MD) Wears glasses Wears dentures Post-menopausal Low iron Non-smoker Leg cramps History of echocardiogram Cardiology follow-up encounter Renal insufficiency syndrome Depression Mitral stenosis Gallbladder anomaly RUQ abdominal pain Hiatal hernia Schatzki's ring of distal esophagus Thyroid disease Arthritis Restless legs Dysphagia Lichen sclerosus HTN (hypertension) Hypothyroidism GERD (gastroesophageal reflux disease) Surgical History (Updated 09/07/24 @ 14:45 by Carmen Carrero) History of esophagogastroduodenoscopy (EGD) Hx of total knee arthroplasty History of tubal ligation History of rotator cuff surgery History of foot surgery Family History Mother Hypertension Thyroid disorder Father Hypertension Heart disease Arthritis Sister Arthritis Hyperlipidemia Hypertension Aunt Breast cancer Social History household members: spouse current occupational status: retired 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 Pt has new concerns about her gallbladder. For the last 6 months she has been experiencing episodes of RUQ and epigastric pain. She said the pain is around the right upper quadrant wraps around the back, on and off stays for half an hour, recurrent for 1 to 2 weeks and then goes away, pain-free for about 2 to 3 months. Last pain episode was 2 and half weeks ago. She mostly grilled food without oily or spicy food. Her father mother all had cholecystectomy. BM are usually 1-2 times a day. Will have intermittent post prandial diarrhea. Has not had any issues of heartburn or dysphagia. Has cut out spicy foods, red sauces and greasy foods. Says both her parents had gallbladder issues and wants to have hers worked up. OV 07.27.24- During the last month increased episodes abdominal pain, cramping, and diarrhea especially after eating. Stools watery dark brown and sometimes slimy. Vegetables may contribute to diarrhea at times. Although, diarrhea episodes may not be consistent with certain types of foods. Reports feeling better and having first solid BM today. Questions need for cholecystectomy. 05/05/24 US/ABD Limited w/ Elastography IMPRESSION: Liver stiffness measures 9.53 kPa compatible with F2-F3 Metavir score. EGD/Colonoscopy 09.10.24 10.13.24 Pt here for f/u and reports she is feeling well. Denies swallowing issues. Denies GI issues. No diarrhea. Sometimes mild epigastric discomfort. Pt continue budesonide and states it is working well. Takes pantoprazole as needed. ROS Const Constitutional: Positive for fatigue; No fever(s), frequent falls, headache(s), weakness or weight change Eyes Eyes: No blurry vision, change in vision or double vision ENT ENT: No headache(s) or difficulty swallowing Resp Respiratory: No shortness of breath or wheezing Cardio Cardiology: No leg pain with exertion Gastro GI: Positive for abdominal pain, bloating, change in bowel habits and diarrhea; No constipation, heartburn, difficulty swallowing, excessive flatus, Vomiting blood/hematemesis, Blood in stool, nausea/dyspepsia or vomiting Genitourinary-Female: No difficulty urinating or burning urination Musc Musculoskeletal: Positive for restless legs and leg pain at night; No joint pain, back pain, j (more content not included)... Normal [facility] Colonoscopy Reporton 024 Colonoscopy Report [facility] Medical Records Department [address] [place] [address] Colonoscopy Report MR#: [id number] Acct: [id number] Name: GAYLE BANKS Rep #: [id number] : 1950 73 From: Mj Abarca DO PCP: Dr. Nathan Degroot MD Status:[facility] Patient Name: Gayle Banks Procedure Date: 09/10/2024 12:38 PM Date of : 1950 Age: 73 Procedure: Colonoscopy Indications: Generalized abdominal pain, Abdominal pain in the left lower quadrant, Abdominal pain in the left upper quadrant, Clinically significant diarrhea of unexplained origin Providers: Mj Abarca DO Medicines: Monitored Anesthesia Care Patient Profile: This is a 73 year old female. Refer to note in patient chart for documentation of history and physical. Patient has symptoms of acute right upper quadrant abdominal pain, chronic epigastric abdominal pain and chronic dysphagia. Last Colonoscopy: date unknown. Unable to locate last colonoscopy report. Complications: No immediate complications. Procedure: Pre-Anesthesia Assessment: - Prior to the procedure, a History and Physical was performed, and patient medications and allergies were reviewed. The patient is competent. The risks and benefits of the procedure and the sedation options and risks were discussed with the patient. All questions were answered and informed consent was obtained. Patient identification and proposed procedure were verified by the physician in the pre-procedure area. Mental Status Examination: alert and oriented. Airway Examination: normal oropharyngeal airway and neck mobility. Respiratory Examination: clear to auscultation. CV Examination: normal. Prophylactic Antibiotics: The patient does not require prophylactic antibiotics. Prior Anticoagulants: The patient has taken no anticoagulant or antiplatelet agents except for aspirin. ASA Grade Assessment: III - A patient with severe systemic disease. After reviewing the risks and benefits, the patient was deemed in satisfactory condition to undergo the procedure. The anesthesia plan was to use monitored anesthesia care (MAC). Immediately prior to administration of medications, the patient was re-assessed for adequacy to receive sedatives. The heart rate, respiratory rate, oxygen saturations, blood pressure, adequacy of pulmonary ventilation, and response to care were monitored throughout the procedure. The physical status of the patient was re-assessed after the procedure. After I obtained informed consent, the scope was passed under direct vision. Throughout the procedure, the patient's blood pressure, pulse, and oxygen saturations were monitored continuously. The was introduced through the anus and advanced to the terminal ileum. The colonoscopy was performed without difficulty. The patient tolerated the procedure well. The quality of the bowel preparation was adequate. The terminal ileum, ileocecal valve, appendiceal orifice, and rectum were photographed. Scope In: 12:40:36 PM Scope Withdrawal Time 0 hours 11 minutes 36 seconds Scope Out: 12:57:32 PM Total Procedure Duration Time 0 hours 16 minutes 56 seconds Findings: The perianal and digital rectal examinations were normal. Patchy moderate mucosal changes characterized by congestion (edema), erosions, erythema and loss of vascularity were found in the recto-sigmoid colon, in the sigmoid colon, in the descending colon and at the splenic flexure. Biopsies were taken with a cold forceps for histology. Verification of patient identification for the specimen was done by the physician. Estimated blood loss was minimal. The terminal ileum appeared normal. Multiple small and large-mouthed diverticula were found in the recto-sigmoid colon, sigmoid colon and descending colon. Impression: - Patchy moderate mucosal changes were found in the recto-sigmoid colon, in the sigmoid colon, in the descending colon and at the splenic flexure secondary to colitis. Biopsied. - The examined portion of the ileum was normal. - Diverticulosis in the recto-sigmoid colon, in the sigmoid colon and in the descending colon. Recommendation: - Discharge patient to home. - Resume previous diet. - Continue present medications. - Await pathology results. - Repeat colonoscopy is recommended to check healing. The colonoscopy date will be determined after pathology results from today's exam become available for review. Procedure Code(s): --- Professional --- 30012, Colonoscopy, flexible; with biopsy, single or multiple CPT copyright 2021 [employer]. All rights reserved. The codes documented in this report are preliminary and upon game preserve manager review may be revised to meet current compliance requirements. Mj Abarca DO 09/10/2024 1:06:34 PM This report has been signed electronically. Number (more content not included)... Normal [facility] EGD Reporton 09-10-2024 EGD Report [facility] Medical Records Department [address] [place] [address] EGD Report MR#: [id number] Acct: [id number] Name: GAYLE BANKS Rep #: [id number] : 1950 73 From: Mj Abarca DO PCP: Dr. Nathan Degroot MD Status:REG [facility] Patient Name: Gayle Banks Procedure Date: 09/10/2024 12:03 PM Date of : 1950 Age: 73 Procedure: Upper GI endoscopy Indications: Epigastric abdominal pain, Dysphagia Providers: Mj Abarca DO Medicines: Monitored Anesthesia Care Patient Profile: This is a 73 year old female. Refer to note in patient chart for documentation of history and physical. Patient has symptoms of acute right upper quadrant abdominal pain, chronic epigastric abdominal pain and chronic dysphagia. Complications: No immediate complications. Procedure: Pre-Anesthesia Assessment: - Prior to the procedure, a History and Physical was performed, and patient medications and allergies were reviewed. The patient is competent. The risks and benefits of the procedure and the sedation options and risks were discussed with the patient. All questions were answered and informed consent was obtained. Patient identification and proposed procedure were verified by the physician in the pre-procedure area. Mental Status Examination: alert and oriented. Airway Examination: normal oropharyngeal airway and neck mobility. Respiratory Examination: clear to auscultation. CV Examination: normal. Prophylactic Antibiotics: The patient does not require prophylactic antibiotics. Prior Anticoagulants: The patient has taken no anticoagulant or antiplatelet agents except for aspirin. ASA Grade Assessment: III - A patient with severe systemic disease. After reviewing the risks and benefits, the patient was deemed in satisfactory condition to undergo the procedure. The anesthesia plan was to use monitored anesthesia care (MAC). Immediately prior to administration of medications, the patient was re-assessed for adequacy to receive sedatives. The heart rate, respiratory rate, oxygen saturations, blood pressure, adequacy of pulmonary ventilation, and response to care were monitored throughout the procedure. The physical status of the patient was re-assessed after the procedure. After obtaining informed consent, the endoscope was passed under direct vision. Throughout the procedure, the patient's blood pressure, pulse, and oxygen saturations were monitored continuously. The was introduced through the mouth, and advanced to the second part of duodenum. The upper GI endoscopy was accomplished without difficulty. The patient tolerated the procedure well. Scope In: 12:31:22 PM Scope Out: 12:38:43 PM Total Procedure Duration Time 0 hours 7 minutes 21 seconds Findings: The Z-line was irregular and was found 39 cm from the incisors. Biopsies were taken with a cold forceps for histology. Verification of patient identification for the specimen was done. Estimated blood loss was minimal. A moderate Schatzki ring was found at the gastroesophageal junction. A guidewire was placed and the scope was withdrawn. Dilation was performed with a Savary dilator with no resistance at 60 Fr. The dilation site was examined and showed moderate improvement in luminal narrowing. A medium-sized hiatal hernia was present. A benign-appearing, intrinsic moderate stenosis was found at the pylorus. This was traversed. No gross lesions were noted in the first portion of the duodenum. Biopsies were taken with a cold forceps for histology. Verification of patient identification for the specimen was done. Estimated blood loss was minimal. Impression: - Z-line irregular, 39 cm from the incisors. Biopsied. - Moderate Schatzki ring. Dilated. - Medium-sized hiatal hernia. - Gastric stenosis was found at the pylorus. - No gross lesions in the first portion of the duodenum. Biopsied. Recommendation: - Discharge patient to home. - Resume previous diet. - Continue present medications. - Await pathology results. - Repeat upper endoscopy for surveillance. - Gastric emptying study Procedure Code(s): --- Professional --- 97509, Esophagogastroduodenoscopy, flexible, transoral; with insertion of guide wire followed by passage of dilator(s) through esophagus over guide wire 37624, 59,51, Esophagogastroduodenoscopy, flexible, transoral; with biopsy, single or multiple CPT copyright 2021 [employer]. All rights reserved. The codes documented in this report are preliminary and upon game preserve manager review may be revised to meet current compliance requirements. Mj Abarca DO 09/10/2024 1:03:43 PM This report has been signed electronically. Number of Addenda: 0 Note Initiated On: 09/10/2024 12:03 PM 09/10/24 1304 Date (more content not included)... [facility] MR/POSTOP.ANEon 09-10-2024 MR/POSTOP.[facility] Medical Records Department [address] [place] [address] Anesthesia Postop Eval I 09/10/24 1312 MR#: [id number] Acct: [id number] Name: GAYLE BANKS Rep #: [id number] : 1950 73 From: Reji Grant PCP: Dr. Nathan Degroot MD Status:REG [facility] [place] Race: C Location: [place] [address] Anesthesia: Postop Eval I Current Vital Signs Temperature: 97.1 F Pulse Rate: 72 Blood Pressure: 73/45 Respiratory Rate: 16 Pulse Ox: 96 Oxygen Delivery Method: Room Air Assessment Airway patent: Yes Spontaneous unlabored respirations: Yes Mental status: Awake nausea: No Vomiting: No Anesthesia Complication: No Fluid Hydration Crystalloid volume administer (ml): 60 Total IV fluid infused: 60 Progress Note Anesthesia document: Postop Eval 1 completed: Yes 09/10/24 131 Date Reji Acosta Signature: Date CC: Signed [facility] MR/GFFIVRDA3vy 09-10-2024 MR/POSTOPAN2 [facility] Medical Records Department [address] [place] [address] Anesthesia Postop Eval II 09/10/24 1710 MR#: [id number] Acct: [id number] Name: GAYLE BANKS MELVIN Rep #: [id number] : 1950 73 From: Juan Limon MD PCP: Dr. Nathan Degroot MD Status:DEP [facility] [place] Race: C Location: EN Anesthesia Postop Eval I Sum Postop Eval Completion status Anesthesia document: Postop Eval 1 completed: Yes Anesthesia Postop Eval I Summary Anesthesia Postop Eval I Summary: Anesthesia Postop Eval I: Assessment Summary Airway patent Yes 09/10/24 13:14 [email or web address] Spontaneous unlabored Yes 09/10/24 13:14 [email or web address] respirations Mental status Awake 09/10/24 13:14 [email or web address] nausea No 09/10/24 13:14 [email or web address] Vomiting No 09/10/24 13:14 [email or web address] Anesthesia Postop Eval I: Fluid Summary Crystalloid volume administer 60 09/10/24 13:14 [email or web address] (ml) Colloids volume administered ( ml) Blood Product volume administered (ml) Total IV fluid infused 60 09/10/24 13:14 [email or web address] Anesthesia Postop Eval I: Summary Notes Anesthesia Complication No 09/10/24 13:14 [email or web address] Anesthesia Complication Comment: Post-operative progress note Anesthesia: Postop Eval II Evaluation Mental status: Awake and Calm Pain Level: 0 nausea: No Vomiting: No Complications Anesthesia Complication: No 09/10/24 171 Date Juan Limon MD Cosigner Signature: Date CC: Signed Normal [facility] Trichrome (control)on 2023 Trichrome (control) ------- Patient Age/Sex Location Account Attending Physician GAYLE BANKS 73/F EN [id number] Mj Abarca DO Specimen: [id number] Received: 09/10/24 Status: JOCELYNE Bedoya Num: [id number] Spec Type: COLON BX Subm Dr: Mj Abarca DO HEADER OPERATION: Colonoscopy, EGD with biopsy PRE-OP DIAGNOSIS: Right upper quadrant abdominal pain, dysphagia TISSUE SUBMITTED: A- Distal esophagus biopsy, B- Duodenum biopsy, C- Random colon biopsy, D- Rectum biopsy MICROSCOPIC DIAGNOSIS A. Distal esophagus, biopsy: Fragments of gastroesophageal mucosa with acute and chronic inflammation and changes consistent with gastroesophageal reflux disease. Negative for intestinal metaplasia (goblet cell metaplasia). See comment. B. Duodenum, biopsy: Fragments of duodenal mucosa, no pathologic diagnosis. C. Colon, random biopsy: Fragments of colonic mucosa with changes consistent with lymphocytic (microscopic) colitis. See comment. D. Rectum, biopsy: Fragments of colonic mucosa with changes consistent with lymphocytic (microscopic) colitis. See comment. 09/14/2024 COMMENT A. Alcian blue/PAS stain with matched control is used in the evaluation of the specimen. This specimen predominantly consists of squamous mucosa. C, D. Trichrome stain with matched control is used in the evaluation of specimens and does not show significant thickening of the subepithelial collagen band. MICROSCOPIC DESCRIPTION Slides are reviewed. GROSS DESCRIPTION A. Received in fixative is one container labeled with the patient's name and designated Distal esophagus biopsy. The specimen consists of multiple irregular fragments of light moe soft tissue that in aggregate measure 1.4 x 0.5 x 0.1 cm. The specimen is totally submitted in one cassette. B. Received in fixative is one container labeled with the patient's name and designated Duodenum biopsy. The specimen consists of two irregular fragments of light moe soft Patient Age/Sex Location Account Attending Physician GAYLE BANKS 73/F EN [id number] Mj Abarca DO tissue that in aggregate measure 0.6 x 0.3 x 0.1 cm. The specimen is totally submitted in one cassette. C. Received in fixative is one container labeled with the patient's name and designated Random colon biopsy. The specimen consists of multiple irregular fragments of light moe soft tissue that in aggregate measure 2.5 x 0.5 x 0.1 cm. The specimen is totally submitted in one cassette. D. Received in fixative is one container labeled with the patient's name and designated Rectum biopsy. The specimen consists of multiple irregular fragments of light moe soft tissue that in aggregate measure 1.5 x 0.3 x 0.1 cm. The specimen is totally submitted in one cassette. 09/13/2024 TC:3 CPT:78617y3,16152n4 Patient Age/Sex Location Account Attending Physician GAYLE BANKS 73/F EN [id number] Mj Abarca DO Signed (signature on file) Dr. Carlos Jansen MD 09/14/24 1338 Normal [facility] Comment on above: Performed By: #### L 100.0100, L803.2200, L3100.3425, L500.4100, L501.2450, L501.6710, L3410.2400, L501.9520, L3300.1800, L501.2300, L3410.0900, L3200.1100, L500.4050, L3130.0010, L800.1280, L501.4700, L3410.1000, L3000.0375, L503.6030, L300.3900, L506.0400, L3100.5450 #### [facility] [address] [place], [place], [id number] Anti-Parietal Cell AB, QNon 08-01-2024 ANTIPARIET CELL 1.9 Units Normal 0.0-20.0 [facility] Comment on above: Order Comment: N Result Comment: Nega tive 0.0 - 20.0 Equivocal 20.1 - 24.9 Positive >24.9 Parietal Cell Antibodies are found in 90% of patients with pernicious anemia and 30% of first degree relatives with pernicious anemia. Performed By: #### L 100.0100, L803.2200, L3100.3425, L500.4100, L501.2450, L501.6710, L3410.2400, L501.9520, L3300.1800, L501.2300, L3410.0900, L3200.1100, L500.4050, L3130.0010, L800.1280, L501.4700, L3410.1000, L3000.0375, L503.6030, L300.3900, L506.0400, L3100.5450 ####[facility] [address] [place], [place], [phone] Anti-Smooth Muscle ABSon ANTISMOOTH MUSC 8 Units Normal 0-19 [facility] Comment on above: Order Comment: N Result Comment: Nega tive 0 - 19 Weak positive 20 - 30 Moderate to strong positive >30 Actin Antibodies are found in 52-85% of patients with autoimmune hepatitis or chronic active hepatitis and in 22% of patients with primary biliary cirrhosis. Performed By: #### L 100.0100, L803.2200, L3100.3425, L500.4100, L501.2450, L501.6710, L3410.2400, L501.9520, L3300.1800, L501.2300, L3410.0900, L3200.1100, L500.4050, L3130.0010, L800.1280, L501.4700, L3410.1000, L3000.0375, L503.6030, L300.3900, L506.0400, L3100.5450 ####[facility] [address] [place], [place], [phone] Celiac Disease Profileon ENDOMYSIAL IGA Negative Normal Negative [facility] Comment on above: Order Comment: N Performed By: #### L 100.0100, L803.2200, L3100.3425, L500.4100, L501.2450, L501.6710, L3410.2400, L501.9520, L3300.1800, L501.2300, L3410.0900, L3200.1100, L500.4050, L3130.0010, L800.1280, L501.4700, L3410.1000, L3000.0375, L503.6030, L300.3900, L506.0400, L3100.5450 ####[facility] [address] [place], [place], [address] tTG IGA <2 Normal 0-3 [facility] Comment on above: Order Comment: N Result Comment: Nega tive 0 - 3 Weak Positive 4 - 10 Positive >10 Tissue Transglutaminase (tTG) has been identified as the endomysial antigen. Studies have demonstr- ated that endomysial IgA antibodies have over 99% specificity for gluten sensitive enteropathy. Performed By: #### L 100.0100, L803.2200, L3100.3425, L500.4100, L501.2450, L501.6710, L3410.2400, L501.9520, L3300.1800, L501.2300, L3410.0900, L3200.1100, L500.4050, L3130.0010, L800.1280, L501.4700, L3410.1000, L3000.0375, L503.6030, L300.3900, L506.0400, L3100.5450 ####[facility] [address] [facility] [address] [place], [place], [address] Gastrin, Serumon 08-01-2024 GASTRIN 22 pg/mL Normal 0-115 [facility] Comment on above: Order Comment: N Result Comment: Siem ens Immulite 2000 Immunochemiluminometric assay (ICMA) Values obtained with different assay methods or kits cannot be used interchangeably. Results cannot be interpreted as absolute evidence of the presence or absence of malignant disease. Performed By: #### L 100.0100, L803.2200, L3100.3425, L500.4100, L501.2450, L501.6710, L3410.2400, L501.9520, L3300.1800, L501.2300, L3410.0900, L3200.1100, L500.4050, L3130.0010, L800.1280, L501.4700, L3410.1000, L3000.0375, L503.6030, L300.3900, L506.0400, L3100.5450 ####[facility] [address] [place], [place], [address] Hepatitis Panel Acuteon - COMMENT Comment Normal . [facility] Comment on above: Order Comment: N Result Comment: Not infected with HCV unless early or acute infection is suspected (which may be delayed in an immunocompromised individual), or other evidence exists to indicate HCV infection. Performed By: #### L 100.0100, L803.2200, L3100.3425, L500.4100, L501.2450, L501.6710, L3410.2400, L501.9520, L3300.1800, L501.2300, L3410.0900, L3200.1100, L500.4050, L3130.0010, L800.1280, L501.4700, L3410.1000, L3000.0375, L503.6030, L300.3900, L506.0400, L3100.5450 ####[facility] [address] [place], [place], [phone] HEP B CORE,IgM Negative Normal Negative [facility] Comment on above: Order Comment: N Performed By: #### L 100.0100, L803.2200, L3100.3425, L500.4100, L501.2450, L501.6710, L3410.2400, L501.9520, L3300.1800, L501.2300, L3410.0900, L3200.1100, L500.4050, L3130.0010, L800.1280, L501.4700, L3410.1000, L3000.0375, L503.6030, L300.3900, L506.0400, L3100.5450 ####[facility] [address] [place], [place], [address] HEP B SURF AG Negative Normal Negative [facility] Comment on above: Order Comment: N Performed By: #### L 100.0100, L803.2200, L3100.3425, L500.4100, L501.2450, L501.6710, L3410.2400, L501.9520, L3300.1800, L501.2300, L3410.0900, L3200.1100, L500.4050, L3130.0010, L800.1280, L501.4700, L3410.1000, L3000.0375, L503.6030, L300.3900, L506.0400, L3100.5450 ####[facility] [address] [facility] [place], [place], [phone] HEP C VIRUS AB Non-Reactive Normal Non Reactive [facility] Comment on above: Order Comment: N Performed By: #### L 100.0100, L803.2200, L3100.3425, L500.4100, L501.2450, L501.6710, L3410.2400, L501.9520, L3300.1800, L501.2300, L3410.0900, L3200.1100, L500.4050, L3130.0010, L800.1280, L501.4700, L3410.1000, L3000.0375, L503.6030, L300.3900, L506.0400, L3100.5450 ####[facility] [address] [facility] [place], [place], [address] HEPATITIS A-IgM Negative Normal Negative [facility] Comment on above: Order Comment: N Result Comment: A ne gative anti-HAV IgM result suggests no recent or current HAV infection. Performed By: #### L 100.0100, L803.2200, L3100.3425, L500.4100, L501.2450, L501.6710, L3410.2400, L501.9520, L3300.1800, L501.2300, L3410.0900, L3200.1100, L500.4050, L3130.0010, L800.1280, L501.4700, L3410.1000, L3000.0375, L503.6030, L300.3900, L506.0400, L3100.5450 ####[facility] [address] [place], [place], [phone] SUDHA + Protein Elect, Serumon 08-01-2024 Albumin [Mass/Vol] 3.9 g/dL Normal 2.9-4.4 [facility] Comment on above: Order Comment: N Performed By: #### L 100.0100, L803.2200, L3100.3425, L500.4100, L501.2450, L501.6710, L3410.2400, L501.9520, L3300.1800, L501.2300, L3410.0900, L3200.1100, L500.4050, L3130.0010, L800.1280, L501.4700, L3410.1000, L3000.0375, L503.6030, L300.3900, L506.0400, L3100.5450 ####[facility] [address] [place], [place], [address] Albumin/Globulin [Mass ratio] 1.4 {ratio} Normal 0.7-1.7 [facility] Comment on above: Order Comment: N Performed By: #### L 100.0100, L803.2200, L3100.3425, L500.4100, L501.2450, L501.6710, L3410.2400, L501.9520, L3300.1800, L501.2300, L3410.0900, L3200.1100, L500.4050, L3130.0010, L800.1280, L501.4700, L3410.1000, L3000.0375, L503.6030, L300.3900, L506.0400, L3100.5450 ####[facility] [address] [place], [place], [address] RBBTC-7-KTHR 0.2 g/dL Normal 0.0-0.4 [facility] Comment on above: Order Comment: N Performed By: #### L 100.0100, L803.2200, L3100.3425, L500.4100, L501.2450, L501.6710, L3410.2400, L501.9520, L3300.1800, L501.2300, L3410.0900, L3200.1100, L500.4050, L3130.0010, L800.1280, L501.4700, L3410.1000, L3000.0375, L503.6030, L300.3900, L506.0400, L3100.5450 ####[facility] [address] [facility] [place], [place], [address] KXJOU-6-XPEN 0.6 g/dL Normal 0.4-1.0 [facility] Comment on above: Order Comment: N Performed By: #### L 100.0100, L803.2200, L3100.3425, L500.4100, L501.2450, L501.6710, L3410.2400, L501.9520, L3300.1800, L501.2300, L3410.0900, L3200.1100, L500.4050, L3130.0010, L800.1280, L501.4700, L3410.1000, L3000.0375, L503.6030, L300.3900, L506.0400, L3100.5450 ####[facility] [address] [place], [place], [address] BETA GLOBULIN 0.8 g/dL Normal 0.7-1.3 [facility] Comment on above: Order Comment: N Performed By: #### L 100.0100, L803.2200, L3100.3425, L500.4100, L501.2450, L501.6710, L3410.2400, L501.9520, L3300.1800, L501.2300, L3410.0900, L3200.1100, L500.4050, L3130.0010, L800.1280, L501.4700, L3410.1000, L3000.0375, L503.6030, L300.3900, L506.0400, L3100.5450 ####[facility] [address] [place], [place], [phone] GAMMA GLOBULIN 1.2 g/dL Normal 0.4-1.8 [facility] Comment on above: Order Comment: N Performed By: #### L 100.0100, L803.2200, L3100.3425, L500.4100, L501.2450, L501.6710, L3410.2400, L501.9520, L3300.1800, L501.2300, L3410.0900, L3200.1100, L500.4050, L3130.0010, L800.1280, L501.4700, L3410.1000, L3000.0375, L503.6030, L300.3900, L506.0400, L3100.5450 ####[facility] [address] [place], [address] Globulin (S) [Mass/Vol] 2.8 g/dL Normal 2.2-3.9 [facility] Comment on above: Order Comment: N Performed By: #### L 100.0100, L803.2200, L3100.3425, L500.4100, L501.2450, L501.6710, L3410.2400, L501.9520, L3300.1800, L501.2300, L3410.0900, L3200.1100, L500.4050, L3130.0010, L800.1280, L501.4700, L3410.1000, L3000.0375, L503.6030, L300.3900, L506.0400, L3100.5450 ####[facility] [address] [place], [address] SUDHA RESULT,S Comment Normal . [facility] Comment on above: Order Comment: N Result Comment: No m onoclonality detected. Performed By: #### L 100.0100, L803.2200, L3100.3425, L500.4100, L501.2450, L501.6710, L3410.2400, L501.9520, L3300.1800, L501.2300, L3410.0900, L3200.1100, L500.4050, L3130.0010, L800.1280, L501.4700, L3410.1000, L3000.0375, L503.6030, L300.3900, L506.0400, L3100.5450 ####[facility] [address] [place], [place], [phone] IMMUNOGLOB A QN 245 mg/dL Normal 64-422 [facility] Comment on above: Order Comment: N Performed By: #### L 100.0100, L803.2200, L3100.3425, L500.4100, L501.2450, L501.6710, L3410.2400, L501.9520, L3300.1800, L501.2300, L3410.0900, L3200.1100, L500.4050, L3130.0010, L800.1280, L501.4700, L3410.1000, L3000.0375, L503.6030, L300.3900, L506.0400, L3100.5450 ####[facility] [address] [place], [place], [address] IMMUNOGLOB G QN 1326 mg/dL Normal 586-1602 [facility] Comment on above: Order Comment: N Performed By: #### L 100.0100, L803.2200, L3100.3425, L500.4100, L501.2450, L501.6710, L3410.2400, L501.9520, L3300.1800, L501.2300, L3410.0900, L3200.1100, L500.4050, L3130.0010, L800.1280, L501.4700, L3410.1000, L3000.0375, L503.6030, L300.3900, L506.0400, L3100.5450 ####[facility] [address] [place], [address] IMMUNOGLOB M QN 50 mg/dL Normal 26-217 [facility] Comment on above: Order Comment: N Performed By: #### L 100.0100, L803.2200, L3100.3425, L500.4100, L501.2450, L501.6710, L3410.2400, L501.9520, L3300.1800, L501.2300, L3410.0900, L3200.1100, L500.4050, L3130.0010, L800.1280, L501.4700, L3410.1000, L3000.0375, L503.6030, L300.3900, L506.0400, L3100.5450 ####[facility] [address] [place], [address] M-[place] Not Observed Normal Not Observed [facility] Comment on above: Order Comment: N Performed By: #### L 100.0100, L803.2200, L3100.3425, L500.4100, L501.2450, L501.6710, L3410.2400, L501.9520, L3300.1800, L501.2300, L3410.0900, L3200.1100, L500.4050, L3130.0010, L800.1280, L501.4700, L3410.1000, L3000.0375, L503.6030, L300.3900, L506.0400, L3100.5450 ####[facility] [address] [place], [address] NOTE: Comment Normal . [facility] Comment on above: Order Comment: N Result Comment: Prot ein electrophoresis scan will follow via computer, mail, or steam brush operator delivery. Performed By: #### L 100.0100, L803.2200, L3100.3425, L500.4100, L501.2450, L501.6710, L3410.2400, L501.9520, L3300.1800, L501.2300, L3410.0900, L3200.1100, L500.4050, L3130.0010, L800.1280, L501.4700, L3410.1000, L3000.0375, L503.6030, L300.3900, L506.0400, L3100.5450 ####[facility] [address] [place], [place], [address] Protein [Mass/Vol] 6.7 g/dL Normal 6.0-8.5 [facility] Comment on above: Order Comment: N Performed By: #### L 100.0100, L803.2200, L3100.3425, L500.4100, L501.2450, L501.6710, L3410.2400, L501.9520, L3300.1800, L501.2300, L3410.0900, L3200.1100, L500.4050, L3130.0010, L800.1280, L501.4700, L3410.1000, L3000.0375, L503.6030, L300.3900, L506.0400, L3100.5450 ####[facility] [address] [facility] [address] [place], [place], [address] Immunoglobulins G/A/M/Steve IMMUNOGLOB E QN 59 IU/mL Normal 6-495 [facility] Comment on above: Order Comment: N Performed By: #### L 100.0100, L803.2200, L3100.3425, L500.4100, L501.2450, L501.6710, L3410.2400, L501.9520, L3300.1800, L501.2300, L3410.0900, L3200.1100, L500.4050, L3130.0010, L800.1280, L501.4700, L3410.1000, L3000.0375, L503.6030, L300.3900, L506.0400, L3100.5450 ####[facility] [address] [place], [place], [phone] Intrinsic Factor Abon 2023 INTRINS FACT AB 1.1 AU/mL Normal 0.0-1.1 [facility] Comment on above: Order Comment: N Result Comment: Perf ormed at: - [facility] [address] [id number] [employer] M: Caesar Brewster PhD, Phone: [id number] Performed at: [facility] [address] [id number] [employer] M: Clifford Denise MD, Phone: [phone] Performed By: #### L 100.0100, L803.2200, L3100.3425, L500.4100, L501.2450, L501.6710, L3410.2400, L501.9520, L3300.1800, L501.2300, L3410.0900, L3200.1100, L500.4050, L3130.0010, L800.1280, L501.4700, L3410.1000, L3000.0375, L503.6030, L300.3900, L506.0400, L3100.5450 ####[facility] [address] [place], [place], [address] Vadito Lambda Light Chainson 08-01-2024 FR KAPPA LT CHN 31.6 mg/L Abnormal 3.3-19.4 [facility] Comment on above: Order Comment: N Performed By: #### L 100.0100, L803.2200, L3100.3425, L500.4100, L501.2450, L501.6710, L3410.2400, L501.9520, L3300.1800, L501.2300, L3410.0900, L3200.1100, L500.4050, L3130.0010, L800.1280, L501.4700, L3410.1000, L3000.0375, L503.6030, L300.3900, L506.0400, L3100.5450 ####[facility] [address] [place], [place], [id number] FR LAMBDA LT CH 21.1 mg/L Normal 5.7-26.3 [facility] Comment on above: Order Comment: N Performed By: #### L 100.0100, L803.2200, L3100.3425, L500.4100, L501.2450, L501.6710, L3410.2400, L501.9520, L3300.1800, L501.2300, L3410.0900, L3200.1100, L500.4050, L3130.0010, L800.1280, L501.4700, L3410.1000, L3000.0375, L503.6030, L300.3900, L506.0400, L3100.5450 ####[facility] [address] [place], [place], [id number] KAPPA/LAMBDA % 1.50 Normal 0.26-1.65 [facility] Comment on above: Order Comment: N Performed By: #### L 100.0100, L803.2200, L3100.3425, L500.4100, L501.2450, L501.6710, L3410.2400, L501.9520, L3300.1800, L501.2300, L3410.0900, L3200.1100, L500.4050, L3130.0010, L800.1280, L501.4700, L3410.1000, L3000.0375, L503.6030, L300.3900, L506.0400, L3100.5450 ####[facility] [address] [facility] [address] [place], [place], [phone] VERONICA w/ Reflex Mult Confirmon 07-28-2024 VERONICA,DIRECT Negative Normal Negative [facility] Comment on above: Result Comment: Perf ormed at: CB - [facility] [address] [place], [place] [id number] [employer] M: Caesar Brewster PhD, Phone: [phone] Performed By: #### L 100.0100, L803.2200, L3100.3425, L500.4100, L501.2450, L501.6710, L3410.2400, L501.9520, L3300.1800, L501.2300, L3410.0900, L3200.1100, L500.4050, L3130.0010, L800.1280, L501.4700, L3410.1000, L3000.0375, L503.6030, L300.3900, L506.0400, L3100.5450 ####[facility] [address] [facility] [place], [address] Anti-Mitochondrial ABon - ANTIMITOCHON AB <20.0 Normal 0.0-20.0 [facility] Comment on above: Result Comment: Nega tive 0.0 - 20.0 Equivocal 20.1 - 24.9 Positive >24.9 Mitochondrial (M2) Antibodies are found in 90-96% of patients with primary biliary cirrhosis. Performed By: #### L 100.0100, L803.2200, L3100.3425, L500.4100, L501.2450, L501.6710, L3410.2400, L501.9520, L3300.1800, L501.2300, L3410.0900, L3200.1100, L500.4050, L3130.0010, L800.1280, L501.4700, L3410.1000, L3000.0375, L503.6030, L300.3900, L506.0400, L3100.5450 ####[facility] [address] [facility] [place], [place], [phone] Bilirubin, Directon 07-27-20 24 Bilirubin.direct [Mass/Vol] 0.12 mg/dL Normal 0.00-0.30 [facility] Comment on above: Performed By: #### L 100.0100, L803.2200, L3100.3425, L500.4100, L501.2450, L501.6710, L3410.2400, L501.9520, L3300.1800, L501.2300, L3410.0900, L3200.1100, L500.4050, L3130.0010, L800.1280, L501.4700, L3410.1000, L3000.0375, L503.6030, L300.3900, L506.0400, L3100.5450 ####[facility] [address] [facility] [place], [address] CBC W/Diff, Automatedon 07-05 Absolute Lymph 1.33 X10 3/uL Normal 0.83-4.51 [facility] Comment on above: Performed By: #### L 100.0100, L803.2200, L3100.3425, L500.4100, L501.2450, L501.6710, L3410.2400, L501.9520, L3300.1800, L501.2300, L3410.0900, L3200.1100, L500.4050, L3130.0010, L800.1280, L501.4700, L3410.1000, L3000.0375, L503.6030, L300.3900, L506.0400, L3100.5450 #### [facility] [address] [place], [place], [id number] Absolute Neut 2.4 X10 3/uL Normal 2.0-7.7 [facility] Comment on above: Performed By: #### L 100.0100, L803.2200, L3100.3425, L500.4100, L501.2450, L501.6710, L3410.2400, L501.9520, L3300.1800, L501.2300, L3410.0900, L3200.1100, L500.4050, L3130.0010, L800.1280, L501.4700, L3410.1000, L3000.0375, L503.6030, L300.3900, L506.0400, L3100.5450 #### [facility] [address] [facility] [place], [place], [phone] (753) Basophils/100 WBC (Bld) 0.8 % Normal 0-1 [facility] Comment on above: Performed By: #### L 100.0100, L803.2200, L3100.3425, L500.4100, L501.2450, L501.6710, L3410.2400, L501.9520, L3300.1800, L501.2300, L3410.0900, L3200.1100, L500.4050, L3130.0010, L800.1280, L501.4700, L3410.1000, L3000.0375, L503.6030, L300.3900, L506.0400, L3100.5450 #### [facility] [address] [facility] [place], [address] (103 Eosinophils/100 WBC (Bld) 12.7 % High 0-5 [facility] Comment on above: Performed By: #### L 100.0100, L803.2200, L3100.3425, L500.4100, L501.2450, L501.6710, L3410.2400, L501.9520, L3300.1800, L501.2300, L3410.0900, L3200.1100, L500.4050, L3130.0010, L800.1280, L501.4700, L3410.1000, L3000.0375, L503.6030, L300.3900, L506.0400, L3100.5450 #### [facility] [address] [place], [place], [phone] (241) Erythrocyte distribution width (RBC) [Ratio] 12.9 % Normal 11.6-14.6 [facility] Comment on above: Performed By: #### L 100.0100, L803.2200, L3100.3425, L500.4100, L501.2450, L501.6710, L3410.2400, L501.9520, L3300.1800, L501.2300, L3410.0900, L3200.1100, L500.4050, L3130.0010, L800.1280, L501.4700, L3410.1000, L3000.0375, L503.6030, L300.3900, L506.0400, L3100.5450 #### [facility] [address] [place], [address] Hematocrit (Bld) [Volume fraction] 36.5 % Low 37-47 [facility] Comment on above: Performed By: #### L 100.0100, L803.2200, L3100.3425, L500.4100, L501.2450, L501.6710, L3410.2400, L501.9520, L3300.1800, L501.2300, L3410.0900, L3200.1100, L500.4050, L3130.0010, L800.1280, L501.4700, L3410.1000, L3000.0375, L503.6030, L300.3900, L506.0400, L3100.5450 #### [facility] [address] [place], [address] Hemoglobin (Bld) [Mass/Vol] 12.2 g/dL Normal 12.0-15.0 [facility] Comment on above: Performed By: #### L 100.0100, L803.2200, L3100.3425, L500.4100, L501.2450, L501.6710, L3410.2400, L501.9520, L3300.1800, L501.2300, L3410.0900, L3200.1100, L500.4050, L3130.0010, L800.1280, L501.4700, L3410.1000, L3000.0375, L503.6030, L300.3900, L506.0400, L3100.5450 #### [facility] [address] [facility] [place], [address] IG% 0.200 Normal 0.0-0.9 [facility] Comment on above: Result Comment: IG% - Immature Granulocytes (promyelocytes, myelocytes and metamyelocytes) > 1% indicates that a LEFT SHIFT is Present. Performed By: #### L 100.0100, L803.2200, L3100.3425, L500.4100, L501.2450, L501.6710, L3410.2400, L501.9520, L3300.1800, L501.2300, L3410.0900, L3200.1100, L500.4050, L3130.0010, L800.1280, L501.4700, L3410.1000, L3000.0375, L503.6030, L300.3900, L506.0400, L3100.5450 #### [facility] [address] [facility] [place], [address] Lymphocytes/100 WBC (Bld) 27.6 % Normal 19-41 [facility] Comment on above: Performed By: #### L 100.0100, L803.2200, L3100.3425, L500.4100, L501.2450, L501.6710, L3410.2400, L501.9520, L3300.1800, L501.2300, L3410.0900, L3200.1100, L500.4050, L3130.0010, L800.1280, L501.4700, L3410.1000, L3000.0375, L503.6030, L300.3900, L506.0400, L3100.5450 #### [facility] [address] [facility] [place], [address] MCH (RBC) [Entitic mass] 31.9 pg Normal 27.0-32.0 [facility] Comment on above: Performed By: #### L 100.0100, L803.2200, L3100.3425, L500.4100, L501.2450, L501.6710, L3410.2400, L501.9520, L3300.1800, L501.2300, L3410.0900, L3200.1100, L500.4050, L3130.0010, L800.1280, L501.4700, L3410.1000, L3000.0375, L503.6030, L300.3900, L506.0400, L3100.5450 #### [facility] [address] [place], [place], [phone] MCHC (RBC) [Mass/Vol] 33.4 g/dL Normal 32-36 [facility] Comment on above: Performed By: #### L 100.0100, L803.2200, L3100.3425, L500.4100, L501.2450, L501.6710, L3410.2400, L501.9520, L3300.1800, L501.2300, L3410.0900, L3200.1100, L500.4050, L3130.0010, L800.1280, L501.4700, L3410.1000, L3000.0375, L503.6030, L300.3900, L506.0400, L3100.5450 #### [facility] [address] [place], [place], [address] MCV (RBC) [Entitic vol] 95.5 fL Normal 81-99 [facility] Comment on above: Performed By: #### L 100.0100, L803.2200, L3100.3425, L500.4100, L501.2450, L501.6710, L3410.2400, L501.9520, L3300.1800, L501.2300, L3410.0900, L3200.1100, L500.4050, L3130.0010, L800.1280, L501.4700, L3410.1000, L3000.0375, L503.6030, L300.3900, L506.0400, L3100.5450 #### [facility] [address] [place], [address] Monocytes/100 WBC (Bld) 9.8 % Normal 0-10 [facility] Comment on above: Performed By: #### L 100.0100, L803.2200, L3100.3425, L500.4100, L501.2450, L501.6710, L3410.2400, L501.9520, L3300.1800, L501.2300, L3410.0900, L3200.1100, L500.4050, L3130.0010, L800.1280, L501.4700, L3410.1000, L3000.0375, L503.6030, L300.3900, L506.0400, L3100.5450 #### [facility] [address] [place], [address] Neutrophils/100 WBC (Bld) 48.9 % Normal 47-70 [facility] Comment on above: Performed By: #### L 100.0100, L803.2200, L3100.3425, L500.4100, L501.2450, L501.6710, L3410.2400, L501.9520, L3300.1800, L501.2300, L3410.0900, L3200.1100, L500.4050, L3130.0010, L800.1280, L501.4700, L3410.1000, L3000.0375, L503.6030, L300.3900, L506.0400, L3100.5450 #### [facility] [address] [place], [address] Nucleated RBC (Bld) [#/Vol] 0 10*3/uL Normal 0-5 [facility] Comment on above: Performed By: #### L 100.0100, L803.2200, L3100.3425, L500.4100, L501.2450, L501.6710, L3410.2400, L501.9520, L3300.1800, L501.2300, L3410.0900, L3200.1100, L500.4050, L3130.0010, L800.1280, L501.4700, L3410.1000, L3000.0375, L503.6030, L300.3900, L506.0400, L3100.5450 #### [facility] [address] [place], [place], [address] Platelet mean volume (Bld) [Entitic vol] 9.5 fL Normal 6.2-12.0 [facility] Comment on above: Performed By: #### L 100.0100, L803.2200, L3100.3425, L500.4100, L501.2450, L501.6710, L3410.2400, L501.9520, L3300.1800, L501.2300, L3410.0900, L3200.1100, L500.4050, L3130.0010, L800.1280, L501.4700, L3410.1000, L3000.0375, L503.6030, L300.3900, L506.0400, L3100.5450 #### [facility] [address] [place], [place], [address] Platelets (Bld) [#/Vol] 261 10*3/uL Normal 150-450 [facility] Comment on above: Performed By: #### L 100.0100, L803.2200, L3100.3425, L500.4100, L501.2450, L501.6710, L3410.2400, L501.9520, L3300.1800, L501.2300, L3410.0900, L3200.1100, L500.4050, L3130.0010, L800.1280, L501.4700, L3410.1000, L3000.0375, L503.6030, L300.3900, L506.0400, L3100.5450 #### [facility] [address] [facility] [place], [place], [phone] (754) RBC (Bld) [#/Vol] 3.82 10*6/uL Low 4.2-5.4 [facility] Comment on above: Performed By: #### L 100.0100, L803.2200, L3100.3425, L500.4100, L501.2450, L501.6710, L3410.2400, L501.9520, L3300.1800, L501.2300, L3410.0900, L3200.1100, L500.4050, L3130.0010, L800.1280, L501.4700, L3410.1000, L3000.0375, L503.6030, L300.3900, L506.0400, L3100.5450 #### [facility] [address] [facility] [place], [address] (816) RDW SD 45.4 fl High 35.1-43.9 [facility] Comment on above: Performed By: #### L 100.0100, L803.2200, L3100.3425, L500.4100, L501.2450, L501.6710, L3410.2400, L501.9520, L3300.1800, L501.2300, L3410.0900, L3200.1100, L500.4050, L3130.0010, L800.1280, L501.4700, L3410.1000, L3000.0375, L503.6030, L300.3900, L506.0400, L3100.5450 #### [facility] [address] [facility] [place], [place], [phone] WBC (Bld) [#/Vol] 4.8 10*3/uL Normal 4.4-11.0 [facility] Comment on above: Performed By: #### L 100.0100, L803.2200, L3100.3425, L500.4100, L501.2450, L501.6710, L3410.2400, L501.9520, L3300.1800, L501.2300, L3410.0900, L3200.1100, L500.4050, L3130.0010, L800.1280, L501.4700, L3410.1000, L3000.0375, L503.6030, L300.3900, L506.0400, L3100.5450 #### [facility] [address] [facility] [place], [address] CRPon 07-27-2024 C-REACTIVE PROT < 2.90 Normal 0.0-3.0 [facility] Comment on above: Result Comment: C-Re active Protein (CRP) provides useful information for the diagnosis, therapy and monitoring of inflammatory processes and associated diseases. For the evaluation of Relative Risk for Cardiovascular Disease, a High Sensitivity CRP (HSCRP) should be ordered. Performed By: #### L 100.0100, L803.2200, L3100.3425, L500.4100, L501.2450, L501.6710, L3410.2400, L501.9520, L3300.1800, L501.2300, L3410.0900, L3200.1100, L500.4050, L3130.0010, L800.1280, L501.4700, L3410.1000, L3000.0375, L503.6030, L300.3900, L506.0400, L3100.5450 ####[facility] [address] [facility] [place], [address] Comprehensive Metabolic Prof ilon 07-27-2024 Albumin [Mass/Vol] 3.7 g/dL Normal 3.2-5.0 [facility] Comment on above: Performed By: #### L 100.0100, L803.2200, L3100.3425, L500.4100, L501.2450, L501.6710, L3410.2400, L501.9520, L3300.1800, L501.2300, L3410.0900, L3200.1100, L500.4050, L3130.0010, L800.1280, L501.4700, L3410.1000, L3000.0375, L503.6030, L300.3900, L506.0400, L3100.5450 #### [facility] [address] [facility] [place], [place], [phone] (136) Albumin/Globulin [Mass ratio] 1.0 {ratio} Normal 0.9-2.4 [facility] Comment on above: Performed By: #### L 100.0100, L803.2200, L3100.3425, L500.4100, L501.2450, L501.6710, L3410.2400, L501.9520, L3300.1800, L501.2300, L3410.0900, L3200.1100, L500.4050, L3130.0010, L800.1280, L501.4700, L3410.1000, L3000.0375, L503.6030, L300.3900, L506.0400, L3100.5450 #### [facility] [address] [facility] [place], [place], [id number] ALK P 61 U/L Normal 45-117 [facility] Comment on above: Performed By: #### L 100.0100, L803.2200, L3100.3425, L500.4100, L501.2450, L501.6710, L3410.2400, L501.9520, L3300.1800, L501.2300, L3410.0900, L3200.1100, L500.4050, L3130.0010, L800.1280, L501.4700, L3410.1000, L3000.0375, L503.6030, L300.3900, L506.0400, L3100.5450 #### [facility] [address] [facility] [place], [address] ALT [Catalytic activity/Vol] 20 U/L Normal 13-56 [facility] Comment on above: Performed By: #### L 100.0100, L803.2200, L3100.3425, L500.4100, L501.2450, L501.6710, L3410.2400, L501.9520, L3300.1800, L501.2300, L3410.0900, L3200.1100, L500.4050, L3130.0010, L800.1280, L501.4700, L3410.1000, L3000.0375, L503.6030, L300.3900, L506.0400, L3100.5450 #### [facility] [address] [place], [address] AST [Catalytic activity/Vol] 19 U/L Normal 15-37 [facility] Comment on above: Performed By: #### L 100.0100, L803.2200, L3100.3425, L500.4100, L501.2450, L501.6710, L3410.2400, L501.9520, L3300.1800, L501.2300, L3410.0900, L3200.1100, L500.4050, L3130.0010, L800.1280, L501.4700, L3410.1000, L3000.0375, L503.6030, L300.3900, L506.0400, L3100.5450 #### [facility] [address] [facility] [place], [address] Bilirubin [Mass/Vol] 0.50 mg/dL Normal 0.20-1.00 [facility] Comment on above: Result Comment: For patients on eltrombopag therapy, use of Dimension [place] TBIL is not recommended. Performed By: #### L 100.0100, L803.2200, L3100.3425, L500.4100, L501.2450, L501.6710, L3410.2400, L501.9520, L3300.1800, L501.2300, L3410.0900, L3200.1100, L500.4050, L3130.0010, L800.1280, L501.4700, L3410.1000, L3000.0375, L503.6030, L300.3900, L506.0400, L3100.5450 #### [facility] [address] [place], [address] (377) BUN/CRE 17.9 RATIO Normal 10-20 [facility] Comment on above: Performed By: #### L 100.0100, L803.2200, L3100.3425, L500.4100, L501.2450, L501.6710, L3410.2400, L501.9520, L3300.1800, L501.2300, L3410.0900, L3200.1100, L500.4050, L3130.0010, L800.1280, L501.4700, L3410.1000, L3000.0375, L503.6030, L300.3900, L506.0400, L3100.5450 #### [facility] [address] [place], [address] (580) CA,Total 9.3 mg/dL Normal 8.5-10.1 [facility] Comment on above: Performed By: #### L 100.0100, L803.2200, L3100.3425, L500.4100, L501.2450, L501.6710, L3410.2400, L501.9520, L3300.1800, L501.2300, L3410.0900, L3200.1100, L500.4050, L3130.0010, L800.1280, L501.4700, L3410.1000, L3000.0375, L503.6030, L300.3900, L506.0400, L3100.5450 #### [facility] [address] [place], [address] Chloride [Moles/Vol] 110 mmol/L High 98-107 [facility] Comment on above: Performed By: #### L 100.0100, L803.2200, L3100.3425, L500.4100, L501.2450, L501.6710, L3410.2400, L501.9520, L3300.1800, L501.2300, L3410.0900, L3200.1100, L500.4050, L3130.0010, L800.1280, L501.4700, L3410.1000, L3000.0375, L503.6030, L300.3900, L506.0400, L3100.5450 #### [facility] [address] [facility] [place], [address] CO2 [Moles/Vol] 24.0 mmol/L Normal 21.0-32.0 [facility] Comment on above: Performed By: #### L 100.0100, L803.2200, L3100.3425, L500.4100, L501.2450, L501.6710, L3410.2400, L501.9520, L3300.1800, L501.2300, L3410.0900, L3200.1100, L500.4050, L3130.0010, L800.1280, L501.4700, L3410.1000, L3000.0375, L503.6030, L300.3900, L506.0400, L3100.5450 #### [facility] [address] [place], [address] Creatinine [Mass/Vol] 1.40 mg/dL High 0.55-1.02 [facility] Comment on above: Result Comment: The validity of the calculated GFR GFRAA in patients over 70 years has not been determined. Clinical correlation is essential. Performed By: #### L 100.0100, L803.2200, L3100.3425, L500.4100, L501.2450, L501.6710, L3410.2400, L501.9520, L3300.1800, L501.2300, L3410.0900, L3200.1100, L500.4050, L3130.0010, L800.1280, L501.4700, L3410.1000, L3000.0375, L503.6030, L300.3900, L506.0400, L3100.5450 #### [facility] [address] [place] [place], [address] EST GFR - AA 48 mL/min Low >60 [facility] Comment on above: Result Comment: Afri can Malagasy GFR Calc Performed By: #### L 100.0100, L803.2200, L3100.3425, L500.4100, L501.2450, L501.6710, L3410.2400, L501.9520, L3300.1800, L501.2300, L3410.0900, L3200.1100, L500.4050, L3130.0010, L800.1280, L501.4700, L3410.1000, L3000.0375, L503.6030, L300.3900, L506.0400, L3100.5450 #### [facility] [address] [facility] [place], [address] GAP 4 Low 5-15 [facility] Comment on above: Performed By: #### L 100.0100, L803.2200, L3100.3425, L500.4100, L501.2450, L501.6710, L3410.2400, L501.9520, L3300.1800, L501.2300, L3410.0900, L3200.1100, L500.4050, L3130.0010, L800.1280, L501.4700, L3410.1000, L3000.0375, L503.6030, L300.3900, L506.0400, L3100.5450 #### [facility] [address] [place], [address] GFR/1.73 sq M.predicted among non-blacks MDRD (S/P/Bld) [Vol rate/Area] 39 mL/min/{1.73_m2} Low >60 [facility] Comment on above: Result Comment: Non- GFR Calc Performed By: #### L 100.0100, L803.2200, L3100.3425, L500.4100, L501.2450, L501.6710, L3410.2400, L501.9520, L3300.1800, L501.2300, L3410.0900, L3200.1100, L500.4050, L3130.0010, L800.1280, L501.4700, L3410.1000, L3000.0375, L503.6030, L300.3900, L506.0400, L3100.5450 #### [facility] [address] [place], [address] (898) Globulin (S) [Mass/Vol] 3.8 g/dL Normal 2.2-4.2 [facility] Comment on above: Performed By: #### L 100.0100, L803.2200, L3100.3425, L500.4100, L501.2450, L501.6710, L3410.2400, L501.9520, L3300.1800, L501.2300, L3410.0900, L3200.1100, L500.4050, L3130.0010, L800.1280, L501.4700, L3410.1000, L3000.0375, L503.6030, L300.3900, L506.0400, L3100.5450 #### [facility] [address] [place], [address] (274) Glucose [Mass/Vol] 97 mg/dL Normal 74-106 [facility] Comment on above: Performed By: #### L 100.0100, L803.2200, L3100.3425, L500.4100, L501.2450, L501.6710, L3410.2400, L501.9520, L3300.1800, L501.2300, L3410.0900, L3200.1100, L500.4050, L3130.0010, L800.1280, L501.4700, L3410.1000, L3000.0375, L503.6030, L300.3900, L506.0400, L3100.5450 #### [facility] [address] [place], [address] Potassium [Moles/Vol] 4.0 mmol/L Normal 3.5-5.1 [facility] Comment on above: Performed By: #### L 100.0100, L803.2200, L3100.3425, L500.4100, L501.2450, L501.6710, L3410.2400, L501.9520, L3300.1800, L501.2300, L3410.0900, L3200.1100, L500.4050, L3130.0010, L800.1280, L501.4700, L3410.1000, L3000.0375, L503.6030, L300.3900, L506.0400, L3100.5450 #### [facility] [address] [place], [place], [id number] (592) Sodium [Moles/Vol] 138 mmol/L Normal 136-145 [facility] Comment on above: Performed By: #### L 100.0100, L803.2200, L3100.3425, L500.4100, L501.2450, L501.6710, L3410.2400, L501.9520, L3300.1800, L501.2300, L3410.0900, L3200.1100, L500.4050, L3130.0010, L800.1280, L501.4700, L3410.1000, L3000.0375, L503.6030, L300.3900, L506.0400, L3100.5450 #### [facility] [address] [place] [place], [address] T PROT 7.5 g/dL Normal 6.4-8.2 [facility] Comment on above: Performed By: #### L 100.0100, L803.2200, L3100.3425, L500.4100, L501.2450, L501.6710, L3410.2400, L501.9520, L3300.1800, L501.2300, L3410.0900, L3200.1100, L500.4050, L3130.0010, L800.1280, L501.4700, L3410.1000, L3000.0375, L503.6030, L300.3900, L506.0400, L3100.5450 #### [facility] [address] [place], [address] Urea nitrogen [Mass/Vol] 25 mg/dL High 7-18 [facility] Comment on above: Performed By: #### L 100.0100, L803.2200, L3100.3425, L500.4100, L501.2450, L501.6710, L3410.2400, L501.9520, L3300.1800, L501.2300, L3410.0900, L3200.1100, L500.4050, L3130.0010, L800.1280, L501.4700, L3410.1000, L3000.0375, L503.6030, L300.3900, L506.0400, L3100.5450 #### [facility] [address] [place], [address] Gastroenterology Visit Repor ton 07-27-2024 Gastroenterology Visit Report [facility] [address] [place] [address] OFFICE VISIT Date of Service: 07/27/24 MR#: [id number] Acct: [id number] Name: GAYLE BANKS Rep #: [id number] : 1950 Provider: Dr. Giorgio machuca MD Age/Sex: 73/F Location: [facility] Status: Signed with Addenda ADDENDUM by Dr. Giorgio Egan MD on 07/28/24 at 1541 HPI Details: GAYLE BANKS, is a 73 F who presents to the office today for Addendum Serum creatinine is increased from baseline 1.22-1.40. CKD stage IIIb. Etiology unclear. Patient not on diuretics, HUY or ARB. Complete UA with urine electrolytes, urine protein creatinine ratio and microalbumin ordered. Patient denies any burning micturition or dysuria. TSH elevated 5.76. Free T4 normal 1.07. Levothyroxine dose increased from 88 mcg to 100 mcg daily 07/28/24 1541 Date Giorgio Egan MD cc: Dr. Nathan Degroot MD * Signed Intake Vital Signs 04/15/24 11:37 05/19/24 11:16 07/27/24 10:15 Height 5 ft 9 in 5 ft 9 in 5 ft 9 in Weight: 154 lb BMI 22.7 BP 112/68 Blood Pressure Location Rt brachial Position Sitting Respiration 16 Pulse 65 Pulse Source Monitor Temp 97.8 F Temp Source Temporal Pulse Oximetry (%) 96 Oxygen Delivery Method room air Intake Visit Reasons: 3 M FU Chief Complaint: Gallbladder concerns Accompanied by: Self Is patient in pain?: No Allergies HUY Inhibitors Adverse Reaction (Intermediate, Verified 07/27/24 10:10) COUGH fosinopril (From Monopril) Adverse Reaction (Intermediate, Verified 07/27/24 10:10) Cough Medications ???Medication ???Instructions ???Recorded ???Confirmed ???Type amlodipine 5 mg tablet 5 mg PO DAILY 06/06/22 07/27/24 History metoprolol succinate 50 mg 50 mg PO DAILY 06/06/22 07/27/24 History tablet,extended release 24 hr Lactobacillus acidophilus 10 10,000 mmu cells PO DAILY 09/18/22 07/27/24 History billion cell capsule (Probiotic) levothyroxine 88 mcg tablet 88 mcg PO QDAY 05/19/24 07/27/24 History multivitamin 1 tab PO DAILY PRN 05/19/24 07/27/24 History pantoprazole 40 mg tablet,delayed 40 mg PO BID 1 month #60 tabs 07/27/24 07/27/24 Rx release Have you fallen in the past year?: No [facility] Medical History Renal insufficiency syndrome Depression Mitral stenosis Gallbladder anomaly Dysphagia Lichen sclerosus Schatzki's ring of distal esophagus Hiatal hernia RUQ abdominal pain Thyroid disease Arthritis Restless legs Difficulty swallowing HTN (hypertension) Hypothyroidism GERD (gastroesophageal reflux disease) Surgical History Hx of total knee arthroplasty Bunion, left foot History of tubal ligation History of rotator cuff surgery History of foot surgery Family History Mother Hypertension Thyroid disorder Father Hypertension Heart disease Arthritis Sister Arthritis Hyperlipidemia Hypertension Aunt Breast cancer Social History household members: spouse current occupational status: retired 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 Pt has new concerns about her gallbladder. For the last 6 months she has been experiencing episodes of RUQ and epigastric pain. She said the pain is around the right upper quadrant wraps around the back, on and off stays for half an hour, recurrent for 1 to 2 weeks and then goes away, pain-free for about 2 to 3 months. Last pain episode was 2 and half weeks ago. She mostly grilled food without oily or spicy food. Her father mother all had cholecystectomy. BM are usually 1-2 times a day. Will have intermittent post prandial diarrhea. Has not had any issues of heartburn or dysphagia. Has cut out spicy foods, red sauces and greasy foods. Says both her parents had gallbladder issues and wants to have hers worked up. OV 07.27.24- During the last month increased episodes abdominal pain, cramping, and diarrhea especially after eating. Stools watery dark brown and sometimes slimy. Vegetables may contribute to diarrhea at times. Although, diarrhea episodes (more content not included)... Normal [facility] Iron+Iron Binding Capacityon 07-27-2024 Iron [Mass/Vol] 92 ug/dL Normal 50-170 [facility] Comment on above: Performed By: #### L 100.0100, L803.2200, L3100.3425, L500.4100, L501.2450, L501.6710, L3410.2400, L501.9520, L3300.1800, L501.2300, L3410.0900, L3200.1100, L500.4050, L3130.0010, L800.1280, L501.4700, L3410.1000, L3000.0375, L503.6030, L300.3900, L506.0400, L3100.5450 ####[facility] [address] [place], [address] IRON SATURATION 38.3 Normal 15.0-55.0 [facility] Comment on above: Performed By: #### L 100.0100, L803.2200, L3100.3425, L500.4100, L501.2450, L501.6710, L3410.2400, L501.9520, L3300.1800, L501.2300, L3410.0900, L3200.1100, L500.4050, L3130.0010, L800.1280, L501.4700, L3410.1000, L3000.0375, L503.6030, L300.3900, L506.0400, L3100.5450 ####[facility] [address] [place], [address] TIBC 240 ug/dL Low 250-450 [facility] Comment on above: Performed By: #### L 100.0100, L803.2200, L3100.3425, L500.4100, L501.2450, L501.6710, L3410.2400, L501.9520, L3300.1800, L501.2300, L3410.0900, L3200.1100, L500.4050, L3130.0010, L800.1280, L501.4700, L3410.1000, L3000.0375, L503.6030, L300.3900, L506.0400, L3100.5450 ####[facility] [address] [place], [place], [id number] Lipaseon 07-27-2024 Lipase [Catalytic activity/Vol] 32 U/L Normal 13-75 [facility] Comment on above: Result Comment: Angelica miller note: LIPASE revised reference range effective 23. New Lipase methodology. Expected to produce lower values than the previous assay method. NEW Reference Range: 13 - 75 U/L Performed By: #### L 100.0100, L803.2200, L3100.3425, L500.4100, L501.2450, L501.6710, L3410.2400, L501.9520, L3300.1800, L501.2300, L3410.0900, L3200.1100, L500.4050, L3130.0010, L800.1280, L501.4700, L3410.1000, L3000.0375, L503.6030, L300.3900, L506.0400, L3100.5450 ####[facility] [address] [place], [place], [address] Lipid Profileon 07-27-2024 Cholesterol [Mass/Vol] 211 mg/dL High 200 [facility] Comment on above: Result Comment: <200 mg/dL Desirable 200-240 mg/dL Borderline >240 mg/dL High Risk Performed By: #### L 100.0100, L803.2200, L3100.3425, L500.4100, L501.2450, L501.6710, L3410.2400, L501.9520, L3300.1800, L501.2300, L3410.0900, L3200.1100, L500.4050, L3130.0010, L800.1280, L501.4700, L3410.1000, L3000.0375, L503.6030, L300.3900, L506.0400, L3100.5450 ####[facility] [address] [facility] [place], [address]) Cholesterol in HDL [Mass/Vol] 90 mg/dL Normal [facility] Comment on above: Result Comment: The drugs N-Acetylcysteine and Metamizole may falsely depress this assay. Reference Range HDL <40 mg/dL Low HDL Cholesterol HDL >or= 60 mg/dL High HDL Cholesterol Performed By: #### L 100.0100, L803.2200, L3100.3425, L500.4100, L501.2450, L501.6710, L3410.2400, L501.9520, L3300.1800, L501.2300, L3410.0900, L3200.1100, L500.4050, L3130.0010, L800.1280, L501.4700, L3410.1000, L3000.0375, L503.6030, L300.3900, L506.0400, L3100.5450 ####[facility] [address] [place], [place], [phone] Cholesterol in LDL [Mass/Vol] 105 mg/dL Normal 0-130 [facility] Comment on above: Performed By: #### L 100.0100, L803.2200, L3100.3425, L500.4100, L501.2450, L501.6710, L3410.2400, L501.9520, L3300.1800, L501.2300, L3410.0900, L3200.1100, L500.4050, L3130.0010, L800.1280, L501.4700, L3410.1000, L3000.0375, L503.6030, L300.3900, L506.0400, L3100.5450 ####[facility] [address] [place], [place], [id number] Cholesterol in VLDL [Mass/Vol] 16 mg/dL Normal 5-40 [facility] Comment on above: Performed By: #### L 100.0100, L803.2200, L3100.3425, L500.4100, L501.2450, L501.6710, L3410.2400, L501.9520, L3300.1800, L501.2300, L3410.0900, L3200.1100, L500.4050, L3130.0010, L800.1280, L501.4700, L3410.1000, L3000.0375, L503.6030, L300.3900, L506.0400, L3100.5450 ####[facility] [address] [place], [address] Triglyceride [Mass/Vol] 82 mg/dL Normal [facility] Comment on above: Result Comment: The drugs N-Acetylcysteine and Metamizole may falsely depress this assay. Serum Triglycerides Reference Interval Normal <150 mg/dL Borderline high 150 - 199 mg/dL High 200 - 499 mg/dL Very High > or = 500 mg/dL Performed By: #### L 100.0100, L803.2200, L3100.3425, L500.4100, L501.2450, L501.6710, L3410.2400, L501.9520, L3300.1800, L501.2300, L3410.0900, L3200.1100, L500.4050, L3130.0010, L800.1280, L501.4700, L3410.1000, L3000.0375, L503.6030, L300.3900, L506.0400, L3100.5450 ####[facility] [address] [place], [address] Phosphoruson 07-27-2024 Phosphate [Mass/Vol] 3.2 mg/dL Normal 2.5-4.9 [facility] Comment on above: Performed By: #### L 100.0100, L803.2200, L3100.3425, L500.4100, L501.2450, L501.6710, L3410.2400, L501.9520, L3300.1800, L501.2300, L3410.0900, L3200.1100, L500.4050, L3130.0010, L800.1280, L501.4700, L3410.1000, L3000.0375, L503.6030, L300.3900, L506.0400, L3100.5450 ####[facility] [address] [place], [place], [id number] Prothrombin Time w/INRon INR Coag (PPP) [Relative time] 1.1 {INR} Normal [facility] Comment on above: Performed By: #### L 100.0100, L803.2200, L3100.3425, L500.4100, L501.2450, L501.6710, L3410.2400, L501.9520, L3300.1800, L501.2300, L3410.0900, L3200.1100, L500.4050, L3130.0010, L800.1280, L501.4700, L3410.1000, L3000.0375, L503.6030, L300.3900, L506.0400, L3100.5450 #### [facility] [address] [place], [place], [id number] PT Coag (PPP) [Time] 14.6 s Normal 11.7-14.9 [facility] Comment on above: Performed By: #### L 100.0100, L803.2200, L3100.3425, L500.4100, L501.2450, L501.6710, L3410.2400, L501.9520, L3300.1800, L501.2300, L3410.0900, L3200.1100, L500.4050, L3130.0010, L800.1280, L501.4700, L3410.1000, L3000.0375, L503.6030, L300.3900, L506.0400, L3100.5450 #### [facility] [address] [facility] [place], [place], [id number] T4 Free Directon 07-27-2024 T4 FREE DIRECT 1.07 ng/dL Normal 0.76-1.46 [facility] Comment on above: Performed By: #### L 100.0100, L803.2200, L3100.3425, L500.4100, L501.2450, L501.6710, L3410.2400, L501.9520, L3300.1800, L501.2300, L3410.0900, L3200.1100, L500.4050, L3130.0010, L800.1280, L501.4700, L3410.1000, L3000.0375, L503.6030, L300.3900, L506.0400, L3100.5450 ####[facility] [address] [facility] [place], [place], [id number] Thyroid Stim Hormone (TSH)on 07-27-2024 TSH 5.760 uIU/mL High 0.358-3.74 0 [facility] Comment on above: Performed By: #### L 100.0100, L803.2200, L3100.3425, L500.4100, L501.2450, L501.6710, L3410.2400, L501.9520, L3300.1800, L501.2300, L3410.0900, L3200.1100, L500.4050, L3130.0010, L800.1280, L501.4700, L3410.1000, L3000.0375, L503.6030, L300.3900, L506.0400, L3100.5450 ####[facility] [address] [place], [address] Basophil percentageOrdered B y: Rhianna Christine on 01-02-2024 Chloride [Moles/Vol] 113 mmol/L 98-107 [facility] Glucose [Mass/Vol] 101 mg/dL 74-106 [facility] Comment on above: Fasting Glucose resu lt from 100 to 125 mg/dL suggests IMPAIRED HOMEOSTASIS per A.D.A. criteria. Potassium [Moles/Vol] 4.3 mmol/L 3.5-5.1 [facility] Sodium [Moles/Vol] 140 mmol/L 136-145 [facility] Laboratory - Chemistry and C hemistry - challengeOrdered By: Rhianna Christine on 01-02-2024 CO2 [Moles/Vol] 24.0 mmol/L 21.0-32.0 [facility] Urea nitrogen/Creatinine [Mass ratio] 19.0 mg/mg 10-20 [facility] No Panel InformationOrdered By: Rhianna Christine on 01-02-2024 Estimated GFR (MDRD) Amer 56 mL/min >60 [facility] Comment on above: GFR Calc Estimated GFR (MDRD) Non-Af Amer 47 mL/min >60 [facility] Comment on above: Non- GFR Calc Serum or plasma calcium carlitos urement (mass/volume)Ordered By: Rhianna Christine on 01-02-2024 Calcium [Mass/Vol] 9.8 mg/dL 8.5-10.1 [facility] Serum or plasma creatinine m easurement (mass/volume)Ordered By: Rhianna Christine on 01-02-2024 Creatinine [Mass/Vol] 1.21 mg/dL 0.55-1.02 [facility] Comment on above: The validity of the calculated GFR & GFRAA in patients over 70 years has not been determined. Clinical correlation is essential. Serum or plasma thyroid stim ulating hormone (TSH) measurement (units/volume)Ordered By: Rhianna Christine on 01-02-2024 TSH Qn 0.36 uIU/mL 0.358-3.74 [facility] Serum or plasma urea nitroge n measurement (mass/volume)Ordered By: Rhianna Christine on 01-02-2024 Urea nitrogen [Mass/Vol] 23 mg/dL 7-18 [facility] Thin prep Papanicolaou smear with manual screeningOrdered By: Rhianna Christine on 01-02-2024 Thin prep Papanicolaou smear with manual screening 3 5-15 [facility] Thin prep Papanicolaou smear with manual screening 1.53 ng/dL 0.76-1.46 [facility] Basophil percentageOrdered B y: Rhianna Christine on 11-14-2023 Chloride [Moles/Vol] 106 mmol/L 98-107 [facility] Glucose [Mass/Vol] 92 mg/dL 74-106 [facility] Potassium [Moles/Vol] 4.2 mmol/L 3.5-5.1 [facility] Sodium [Moles/Vol] 138 mmol/L 136-145 [facility] Laboratory - Chemistry and C hemistry - challengeOrdered By: Rhianna Christine on 11-14-2023 CO2 [Moles/Vol] 26.0 mmol/L 21.0-32.0 [facility] Free T4 [Mass/Vol] 1.38 ng/dL 0.76-1.46 [facility] Urea nitrogen/Creatinine [Mass ratio] 18.9 mg/mg 10-20 [facility] No Panel InformationOrdered By: Rhianna Christine on 11-14-2023 Estimated GFR (MDRD) Amer 56 mL/min >60 [facility] Comment on above: GFR Calc Estimated GFR (MDRD) Non-Af Amer 46 mL/min >60 [facility] Comment on above: Non- GFR Calc Thyroid Stimulating Hormone (TSH) 4.98 uIU/mL 0.358-3.74 [facility] Serum or plasma calcium carlitos urement (mass/volume)Ordered By: Rhianna Christine on 11-14-2023 Calcium [Mass/Vol] 9.0 mg/dL 8.5-10.1 [facility] Serum or plasma creatinine m easurement (mass/volume)Ordered By: Rhianna Christine on 11-14-2023 Creatinine [Mass/Vol] 1.22 mg/dL 0.55-1.02 [facility] Comment on above: The validity of the calculated GFR & GFRAA in patients over 70 years has not been determined. Clinical correlation is essential. Serum or plasma urea nitroge n measurement (mass/volume)Ordered By: Rhianna Christine on 11-14-2023 Urea nitrogen [Mass/Vol] 23 mg/dL 7-18 [facility] Thin prep Papanicolaou smear with manual screeningOrdered By: Rhianna Christine on 11-14-2023 Thin prep Papanicolaou smear with manual screening 6 5-15 [facility] Basophil percentageOrdered B y: Rhianna Christine on 10-17-2023 Bilirubin [Mass/Vol] 0.60 mg/dL 0.20-1.00 [facility] Comment on above: For patients on eltr ombopag therapy, use of Dimension [place] TBIL is not recommended. Chloride [Moles/Vol] 109 mmol/L 98-107 [facility] Cholesterol [Mass/Vol] 201 mg/dL <200 [facility] Comment on above: <200 mg/dL Desirable 200-240 mg/dL Borderline >240 mg/dL High Risk Glucose [Mass/Vol] 106 mg/dL 74-106 [facility] Comment on above: Fasting Glucose resu lt from 100 to 125 mg/dL suggests IMPAIRED HOMEOSTASIS per A.D.A. criteria. Potassium [Moles/Vol] 3.9 mmol/L 3.5-5.1 [facility] Protein [Mass/Vol] 7.0 g/dL 6.4-8.2 [facility] Sodium [Moles/Vol] 140 mmol/L 136-145 [facility] Triglyceride [Mass/Vol] 69 mg/dL <199 [facility] Comment on above: The drugs N-Acetylcy steine and Metamizole may falsely depress this assay.Serum Triglycerides Reference Interval Normal <150 mg/dL Borderline high 150 - 199 mg/dL High 200 - 499 mg/dL Very High > or = 500 mg/dL Laboratory - Chemistry and C hemistry - challengeOrdered By: Rhianna Christine on 10-17-2023 ALP [Catalytic activity/Vol] 60 U/L 45-117 [facility] ALT [Catalytic activity/Vol] 15 U/L 13-56 [facility] CO2 [Moles/Vol] 23.0 mmol/L 21.0-32.0 [facility] Free T4 [Mass/Vol] 1.34 ng/dL 0.76-1.46 [facility] Globulin (S) [Mass/Vol] 3.5 g/dL 2.2-4.2 [facility] Urea nitrogen/Creatinine [Mass ratio] 15.5 mg/mg 10-20 [facility] No Panel InformationOrdered By: Rhianna Christine on 10-17-2023 Estimated GFR (MDRD) Amer 59 mL/min >60 [facility] Comment on above: GFR Calc Estimated GFR (MDRD) Non-Af Amer 49 mL/min >60 [facility] Comment on above: Non- GFR Calc Thyroid Stimulating Hormone (TSH) 4.55 uIU/mL 0.358-3.74 [facility] Urine Microalbumin/Creatinin e Ratio 194.0 mg/g CRE <30 [facility] Serum or plasma albumin carlitos urement (mass/volume)Ordered By: Rhianna Christine on 10-17-2023 Albumin [Mass/Vol] 3.5 g/dL 3.2-5.0 [facility] Serum or plasma albumin/glob ulin mass ratioOrdered By: Rhianna Christine on 10-17-2023 Albumin/Globulin [Mass ratio] 1.0 {ratio} 0.9-2.4 [facility] Serum or plasma calcium carlitos urement (mass/volume)Ordered By: Rhianna Christine on 10-17-2023 Calcium [Mass/Vol] 8.6 mg/dL 8.5-10.1 [facility] Serum or plasma cholesterol in HDL measurement (mass/volume)Ordered By: Rhianna Christine on 10-17-2023 Cholesterol in HDL [Mass/Vol] 94 mg/dL >40 [facility] Comment on above: The drugs N-Acetylcy steine and Metamizole may falsely depress this assay. Reference Range HDL <40 mg/dL Low HDL Cholesterol HDL >or= 60 mg/dL High HDL Cholesterol Serum or plasma cholesterol in VLDL measurement (mass/volume)Ordered By: Rhianna Christine on 10-17-2023 Cholesterol in VLDL [Mass/Vol] 14 mg/dL 5-40 [facility] Serum or plasma creatinine m easurement (mass/volume)Ordered By: Rhianna Christine on 10-17-2023 Creatinine [Mass/Vol] 1.16 mg/dL 0.55-1.02 [facility] Comment on above: The validity of the calculated GFR & GFRAA in patients over 70 years has not been determined. Clinical correlation is essential. Serum or plasma low density lipoprotein (LDL) cholesterol measurement (mass/volume)Ordered By: Rhianna Christine on 10-17-2023 Cholesterol in LDL [Mass/Vol] 93 mg/dL 0-130 [facility] Serum or plasma urea nitroge n measurement (mass/volume)Ordered By: Rhianna Christine on 10-17-2023 Urea nitrogen [Mass/Vol] 18 mg/dL 7-18 [facility] Thin prep Papanicolaou smear with manual screeningOrdered By: Rhianna Christine on 10-17-2023 Thin prep Papanicolaou smear with manual screening 19 U/L 15-37 [facility] Thin prep Papanicolaou smear with manual screening 8 5-15 [facility] Thin prep Papanicolaou smear with manual screening 96.8 mg/L NO RANGE EST. [facility] Urine creatinine measurement (mass/volume)Ordered By: Rhianna Christine on 10-17-2023 Creatinine (U) [Mass/Vol] 49.90 mg/dL NO RANGE EST. [facility] Laboratory - Chemistry and C hemistry - challengeOrdered By: Rhianna Christine on 04-14-2023 Free T4 [Mass/Vol] 1.18 ng/dL 0.76-1.46 [facility] No Panel InformationOrdered By: Rhianna Christine on 04-14-2023 Thyroid Stimulating Hormone (TSH) 1.87 uIU/mL 0.358-3.74 [facility] CNPNon 02-03-2023 CNPN Telephone (Zenogen) GAYLE BANKS ([id number]) 1950 F EXC Date Time Provider Department 02/03/23 ANTWON BRIZUELA During your visit today, we recorded the following information about you: Allergies As of Date: 02/03/2023 Noted Allergy Reaction HUY INHIBITORS 11/13/2022 14 - Other: See Comments OLMESARTAN 07/15/2017 3 - Cough Date Reviewed: 11/13/2022 Reviewed by: Beatrice Farooq LPN - Fully Assessed Reason for Visit: Orders [681] Primary Visit Diagnosis:Acquired hypothyroidism [E03.9] Order(s):TSH BLD [SQTS] Order #: [id number] FUTURE Prescriptions as of 02/03/2023 - pantoprazole DR (PROTONIX) 40 mg tablet Take 40 mg by mouth twice daily. - estradiol (ESTRACE) 0.01 % (0.1 mg/gram) vaginal cream Estradiol Active 0 VAGINAL .COMPLEX 42.5 July 23, 2022 11:00pm small amount as directed vaginal every other day X 4 weeks then twice a week; - metoprolol succinate ER (TOPROL XL) 50 mg 24 hr tablet Take 1 tablet by mouth once daily. - amLODIPine (NORVASC) 5 mg tablet Take 1 tablet by mouth once daily. - levothyroxine (SYNTHROID) 100 mcg tablet Take 1 tablet by mouth once daily. - Cholecalciferol, Vitamin D3, 50 mcg (2,000 unit) cap Take 1 capsule by mouth twice daily. - Ascorbic Acid 100 mg tablet Take 1 tablet by mouth once daily. - CALCIUM CARBONATE/VITAMIN D3 (CALCIUM 500 + D, D3, ORAL) Take by mouth twice daily. - OTC NUTRITIONAL SUPPLEMENT Multi-Vitamin, Take one(1) tablet daily. Problem List As Of Date 02/03/2023 Noted Resolved Abdominal pain [R10.9] 01/05/2020 Gastroesophageal reflux disease [K21.9] 03/19/2022 Herpes zoster [B02.9] 09/30/2017 Hyperlipidemia [E78.5] 10/24/2020 Hypertension [I10] 07/15/2017 Hypothyroidism [E03.9] 07/15/2017 Need for prophylactic vaccination against Strep*05/01/2021 Renal insufficiency syndrome [N28.9] 10/25/2020 Urinary tract infection [N39.0] 05/10/2021 Colon cancer screening [Z12.11] 05/01/2021 Well adult health check [Z00.00] 08/18/2017 Encounter for other general examination [Z00.8] 05/01/2021 Screening for iron deficiency anemia [Z13.0] 05/01/2021 Screening for breast cancer [Z12.39] 05/01/2021 Visit for screening mammogram [Z12.31] 02/26/2018 GERD without esophagitis [K21.9] 05/07/2022 Encounter Status:Closed by ANTWON BRIZUELA on 02/03/23 [facility] CNPN Telephone (LXSNS) GAYLE BANKS ([id number]) 1950 F EXC Date Time Provider Department 02/03/23 ANTWON BRIZUELA During your visit today, we recorded the following information about you: Beatrice Farooq LPN 02/03/2023 12:49 PM Signed ----- Message from Antwon Brizuela MD sent at 02/03/2023 8:17 AM EDT ----- increase Synthroid to 112 mcg daily. Recheck in 2 months Beatrice Farooq LPN 02/03/2023 12:50 PM Signed Patient notified of information, verbalized understanding Beatrice Farooq LPN February 03, 2023 12:50 PM Allergies As of Date: 02/03/2023 Noted Allergy Reaction HUY INHIBITORS 11/13/2022 14 - Other: See Comments OLMESARTAN 07/15/2017 3 - Cough Date Reviewed: 11/13/2022 Reviewed by: Beatrice Farooq LPN - Fully Assessed Reason for Visit: Results [95] Prescriptions as of 02/03/2023 - pantoprazole DR (PROTONIX) 40 mg tablet Take 40 mg by mouth twice daily. - estradiol (ESTRACE) 0.01 % (0.1 mg/gram) vaginal cream Estradiol Active 0 VAGINAL .COMPLEX 42.5 July 23, 2022 11:00pm small amount as directed vaginal every other day X 4 weeks then twice a week; - metoprolol succinate ER (TOPROL XL) 50 mg 24 hr tablet Take 1 tablet by mouth once daily. - amLODIPine (NORVASC) 5 mg tablet Take 1 tablet by mouth once daily. - levothyroxine (SYNTHROID) 100 mcg tablet Take 1 tablet by mouth once daily. - Cholecalciferol, Vitamin D3, 50 mcg (2,000 unit) cap Take 1 capsule by mouth twice daily. - Ascorbic Acid 100 mg tablet Take 1 tablet by mouth once daily. - CALCIUM CARBONATE/VITAMIN D3 (CALCIUM 500 + D, D3, ORAL) Take by mouth twice daily. - OTC NUTRITIONAL SUPPLEMENT Multi-Vitamin, Take one(1) tablet daily. Problem List As Of Date 02/03/2023 Noted Resolved Abdominal pain [R10.9] 01/05/2020 Gastroesophageal reflux disease [K21.9] 03/19/2022 Herpes zoster [B02.9] 09/30/2017 Hyperlipidemia [E78.5] 10/24/2020 Hypertension [I10] 07/15/2017 Hypothyroidism [E03.9] 07/15/2017 Need for prophylactic vaccination against Strep*05/01/2021 Renal insufficiency syndrome [N28.9] 10/25/2020 Urinary tract infection [N39.0] 05/10/2021 Colon cancer screening [Z12.11] 05/01/2021 Well adult health check [Z00.00] 08/18/2017 Encounter for other general examination [Z00.8] 05/01/2021 Screening for iron deficiency anemia [Z13.0] 05/01/2021 Screening for breast cancer [Z12.39] 05/01/2021 Visit for screening mammogram [Z12.31] 02/26/2018 GERD without esophagitis [K21.9] 05/07/2022 Encounter Status:Closed by BEATRICE FAROOQ on 02/03/23 [facility] No Panel InformationOrdered By: Dr. Brizuela on 01-30-2023 Thyroid Stimulating Hormone (TSH) 10.80 uIU/mL 0.358-3.74 [facility] TSH, REFLEXon 01-30-2023 TSH Reflex 10.8 High [facility] CNPNon 01-20-2023 JOEY Telephone (FAMStarGreetzS) GAYLE BANKS ([id number]) 1950 F EXC Date Time Provider Department 01/20/23 ANTWON BRIZUELA During your visit today, we recorded the following information about you: Beatrice Farooq LPN 01/20/2023 11:53 AM Signed Patient phoned office, requesting order. Patient was advised in November to have lab rechecked in 2 months. Please sign attached order. Beatrice Farooq LPN January 20, 2023 11:52 AM Allergies As of Date: 01/20/2023 Noted Allergy Reaction HUY INHIBITORS 11/13/2022 14 - Other: See Comments OLMESARTAN 07/15/2017 3 - Cough Date Reviewed: 11/13/2022 Reviewed by: Beatrice Farooq LPN - Fully Assessed Reason for Visit: Orders [681] Primary Visit Diagnosis:Hypothyroidism, acquired [E03.9] Order(s):TSH BLD [SQTS] Order #: [id number] FUTURE Prescriptions as of 01/20/2023 - pantoprazole DR (PROTONIX) 40 mg tablet Take 40 mg by mouth twice daily. - estradiol (ESTRACE) 0.01 % (0.1 mg/gram) vaginal cream Estradiol Active 0 VAGINAL .COMPLEX 42.5 July 23, 2022 11:00pm small amount as directed vaginal every other day X 4 weeks then twice a week; - metoprolol succinate ER (TOPROL XL) 50 mg 24 hr tablet Take 1 tablet by mouth once daily. - amLODIPine (NORVASC) 5 mg tablet Take 1 tablet by mouth once daily. - levothyroxine (SYNTHROID) 100 mcg tablet Take 1 tablet by mouth once daily. - Cholecalciferol, Vitamin D3, 50 mcg (2,000 unit) cap Take 1 capsule by mouth twice daily. - Ascorbic Acid 100 mg tablet Take 1 tablet by mouth once daily. - CALCIUM CARBONATE/VITAMIN D3 (CALCIUM 500 + D, D3, ORAL) Take by mouth twice daily. - OTC NUTRITIONAL SUPPLEMENT Multi-Vitamin, Take one(1) tablet daily. Problem List As Of Date 01/20/2023 Noted Resolved Abdominal pain [R10.9] 01/05/2020 Gastroesophageal reflux disease [K21.9] 03/19/2022 Herpes zoster [B02.9] 09/30/2017 Hyperlipidemia [E78.5] 10/24/2020 Hypertension [I10] 07/15/2017 Hypothyroidism [E03.9] 07/15/2017 Need for prophylactic vaccination against Strep*05/01/2021 Renal insufficiency syndrome [N28.9] 10/25/2020 Urinary tract infection [N39.0] 05/10/2021 Colon cancer screening [Z12.11] 05/01/2021 Well adult health check [Z00.00] 08/18/2017 Encounter for other general examination [Z00.8] 05/01/2021 Screening for iron deficiency anemia [Z13.0] 05/01/2021 Screening for breast cancer [Z12.39] 05/01/2021 Visit for screening mammogram [Z12.31] 02/26/2018 GERD without esophagitis [K21.9] 05/07/2022 Encounter Status:Closed by ANTWON BRIZUELA on 01/20/23 [facility] Franko 12-20-2022 JOEY Telephone (AGGENMCY) GAYLE BANKS ([id number]) 1950 F EXC Date Time Provider Department 12/20/22 ANTWON BRIZUELARegan During your visit today, we recorded the following information about you: Lisa Balderrama 12/20/2022 12:55 PM Signed Lvm to sched mammo Allergies As of Date: 12/20/2022 Noted Allergy Reaction HUY INHIBITORS 11/13/2022 14 - Other: See Comments OLMESARTAN 07/15/2017 3 - Cough Date Reviewed: 11/13/2022 Reviewed by: Beatrice Farooq LPN - Fully Assessed Reason for Visit: Appointment [186] Prescriptions as of 12/20/2022 - pantoprazole DR (PROTONIX) 40 mg tablet Take 40 mg by mouth twice daily. - estradiol (ESTRACE) 0.01 % (0.1 mg/gram) vaginal cream Estradiol Active 0 VAGINAL .COMPLEX 42.5 July 23, 2022 11:00pm small amount as directed vaginal every other day X 4 weeks then twice a week; - metoprolol succinate ER (TOPROL XL) 50 mg 24 hr tablet Take 1 tablet by mouth once daily. - amLODIPine (NORVASC) 5 mg tablet Take 1 tablet by mouth once daily. - levothyroxine (SYNTHROID) 100 mcg tablet Take 1 tablet by mouth once daily. - Cholecalciferol, Vitamin D3, 50 mcg (2,000 unit) cap Take 1 capsule by mouth twice daily. - Ascorbic Acid 100 mg tablet Take 1 tablet by mouth once daily. - CALCIUM CARBONATE/VITAMIN D3 (CALCIUM 500 + D, D3, ORAL) Take by mouth twice daily. - OTC NUTRITIONAL SUPPLEMENT Multi-Vitamin, Take one(1) tablet daily. Problem List As Of Date 12/20/2022 Noted Resolved Abdominal pain [R10.9] 01/05/2020 Gastroesophageal reflux disease [K21.9] 03/19/2022 Herpes zoster [B02.9] 09/30/2017 Hyperlipidemia [E78.5] 10/24/2020 Hypertension [I10] 07/15/2017 Hypothyroidism [E03.9] 07/15/2017 Need for prophylactic vaccination against Strep*05/01/2021 Renal insufficiency syndrome [N28.9] 10/25/2020 Urinary tract infection [N39.0] 05/10/2021 Colon cancer screening [Z12.11] 05/01/2021 Well adult health check [Z00.00] 08/18/2017 Encounter for other general examination [Z00.8] 05/01/2021 Screening for iron deficiency anemia [Z13.0] 05/01/2021 Screening for breast cancer [Z12.39] 05/01/2021 Visit for screening mammogram [Z12.31] 02/26/2018 GERD without esophagitis [K21.9] 05/07/2022 Encounter Status:Closed by LISA BALDERRAMA on 12/20/22 [facility] Franko 11-18-2022 CNPN Telephone (FAMMAS) GAYLE BANKS ([id number]) 1950 F EXC Date Time Provider Department 11/18/22 ANTWON BRIZUELA During your visit today, we recorded the following information about you: Beatrice Farooq LPN 11/18/2022 4:12 PM Signed ----- Message from Antwon Brizuela MD sent at 11/17/2022 8:48 PM EST ----- Patient's TSH elevated. Was she taking her thyroid medicine daily at the time of her lab? Beatrice Farooq LPN 11/18/2022 4:13 PM Signed Message left for patient to phone office at earliest convenience. Beatrice Farooq LPN November 18, 2022 4:12 PM Beatrice Farooq LPN 11/18/2022 4:32 PM Signed Patient returned call. Stated that at the time she was taking her synthroid with her protonix together at 4 am. She stated that she now has been taking her Synthroid at 2 am and her protonix around 5 am Beatrice Farooq LPN November 18, 2022 4:32 PM Antwon Brizuela MD 11/19/2022 9:45 AM Signed Recheck in 2m Beatrice Farooq LPN 11/19/2022 3:40 PM Signed Patient notified of information Beatrice Farooq LPN November 19, 2022 3:40 PM Allergies As of Date: 11/18/2022 Noted Allergy Reaction HUY INHIBITORS 11/13/2022 14 - Other: See Comments OLMESARTAN 07/15/2017 3 - Cough Date Reviewed: 11/13/2022 Reviewed by: Beatrice Farooq LPN - Fully Assessed Reason for Visit: Results [95] Prescriptions as of 11/19/2022 - pantoprazole DR (PROTONIX) 40 mg tablet Take 40 mg by mouth twice daily. - estradiol (ESTRACE) 0.01 % (0.1 mg/gram) vaginal cream Estradiol Active 0 VAGINAL .COMPLEX 42.5 July 23, 2022 11:00pm small amount as directed vaginal every other day X 4 weeks then twice a week; - metoprolol succinate ER (TOPROL XL) 50 mg 24 hr tablet Take 1 tablet by mouth once daily. - amLODIPine (NORVASC) 5 mg tablet Take 1 tablet by mouth once daily. - levothyroxine (SYNTHROID) 100 mcg tablet Take 1 tablet by mouth once daily. - Cholecalciferol, Vitamin D3, 50 mcg (2,000 unit) cap Take 1 capsule by mouth twice daily. - Ascorbic Acid 100 mg tablet Take 1 tablet by mouth once daily. - CALCIUM CARBONATE/VITAMIN D3 (CALCIUM 500 + D, D3, ORAL) Take by mouth twice daily. - OTC NUTRITIONAL SUPPLEMENT Multi-Vitamin, Take one(1) tablet daily. Problem List As Of Date 11/18/2022 Noted Resolved Abdominal pain [R10.9] 01/05/2020 Gastroesophageal reflux disease [K21.9] 03/19/2022 Herpes zoster [B02.9] 09/30/2017 Hyperlipidemia [E78.5] 10/24/2020 Hypertension [I10] 07/15/2017 Hypothyroidism [E03.9] 07/15/2017 Need for prophylactic vaccination against Strep*05/01/2021 Renal insufficiency syndrome [N28.9] 10/25/2020 Urinary tract infection [N39.0] 05/10/2021 Colon cancer screening [Z12.11] 05/01/2021 Well adult health check [Z00.00] 08/18/2017 Encounter for other general examination [Z00.8] 05/01/2021 Screening for iron deficiency anemia [Z13.0] 05/01/2021 Screening for breast cancer [Z12.39] 05/01/2021 Visit for screening mammogram [Z12.31] 02/26/2018 GERD without esophagitis [K21.9] 05/07/2022 Encounter Status:Closed by BEATRICE FAROOQ on 11/18/22 [facility] Estefani 11-13-2022 CNOV Office Visit (FAMMAS ) GAYLE BANKS ([id number]) 1950 F EXC Date Time Provider Department 11/13/22 1:40 PM ANTWON BRIZUELA During your visit today, we recorded the following information about you: Temperature Pulse Respiration Blood pressure 97.3 degrees 63/minute 18/minute 134/82 Weight Height 75.9 kg 1.753 m Beatrice Farooq LPN 11/16/2022 3:51 PM Signed Patient is in office today for 6 month exam. No complaints or concerns at this time Beatrice Farooq LPN November 13, 2022 1:26 PM Antwon Brizuela MD 11/16/2022 3:51 PM Signed This note was created using Splitforceriter. Subjective Gayle Banks is a 71 year old female. Gayle [...] (Temporal) Resp 18 Ht 175.3 cm (5' 9) Wt 75.9 kg (167 lb 6.4 oz) [...] Take 1 tablet by mouth once daily. Allergies As of Date: 11/13/2022 Noted Allergy Reaction HUY INHIBITORS 11/13/2022 14 - Other: See Comments OLMESARTAN 07/15/2017 3 - Cough Date Reviewed: 11/13/2022 Reviewed by: Beatrice Farooq LPN - Fully Assessed Reason for Visit: 6 Month Exam [189] Primary Visit Diagnosis:Acquired hypothyroidism [E03.9] Other Visit Diagnoses:Pure hypercholesterolemia [E78.00] Primary hypertension [I10] Gastroesophageal reflux disease with esophagitis without hemorrhage [K21.00] Renal insufficiency syndrome [N28.9] Order(s):metoprolol succinate ER (TOPROL XL) 50 mg 24 hr tabletTake 1 tablet by mouth once daily.Disp: 90 tabletRfl: 3 amLODIPine (NORVASC) 5 mg tabletTake 1 tablet by mouth once daily.Disp: 90 tabletRfl: 3 levothyroxine (SYNTHROID) 100 mcg tabletTake 1 tablet by mouth once daily.Disp: 90 tabletRfl: 3 Cholecalciferol, Vitamin D3, 50 mcg (2,000 unit) capTake 1 capsule by mouth twice daily.Disp: 180 capsuleRfl: 3 Ascorbic Acid 100 mg tabletTake 1 tablet by mouth once daily.Disp: 90 tabletRfl: 3 TSH BLD [SQTS] Order #: [id number] FUTURE Prescriptions as of 11/16/2022 - pantoprazole DR (PROTONIX) 40 mg tablet Take 40 mg by mouth twice daily. - estradiol (ESTRACE) 0.01 % (0.1 mg/gram) vaginal cream Estradiol Active 0 VAGINAL .COMPLEX 42.5 July 23, 2022 11:00pm small amount as directed vaginal every other day X 4 weeks then twice a week; - metoprolol succinate ER (TOPROL XL) 50 mg 24 hr tablet Take 1 tablet by mouth once daily. - amLODIPine (NORVASC) 5 mg tablet Take 1 tablet by mouth once daily. - levothyroxine (SYNTHROID) 100 mcg tablet Take 1 tablet by mouth once daily. - Chol (more content not included)... Normal [facility] TSH BLDon 11-13-2022 TSH Qn 8.525 m[IU]/L High 0.358 - 3.740 mIU/L [facility] TSH SerPl-aCncon 11-13-2022 TSH Qn 8.525 m[IU]/L High 0.358-3.74 0 [facility] Comment on above: Order Comment: Speci men Type: BLOOD SPECIMEN Ordering Facility: [facility] Address: [place] [address] Result Comment: 3rd generation ultra sensitive TSH. Performed By: #### 3 016-3 #### [facility] CLIA [id number] [facility] [place] [address] [facility] Gel ABOon 08-13-2022 ABO/Rh Interp Positive Invalid Interpretation Code [facility] ([place]) Comment on above: Performed By: #### A JORDEN, VILMAG #### [address] [place], [place] [address] Gel ABSon 08-13-2022 Antibody Screen Gel Negative Normal [facility] ([place]) Comment on above: Performed By: #### A JORDEN, VILMAG #### [address] [place], [place] [address] XR KNEE 1 OR 2 VIEWS RIGHTon 08-13-2022 XR KNEE 1 OR 2 VIEWS RIGHT ORIGINAL HISTORY: Arthroplasty postop COMPARISON: CT 26 July 2011 FINDINGS: There is an arthroplasty in near anatomic alignment. There is no radiographic evidence of loosening or failure. There are lucent defects in the distal femur consistent with hardware removal. There is gas in the joint space and there are skin levon. IMPRESSION: Arthroplasty with immediate postoperative changes. Interpreted by: Altaf Caballero MD Preliminary Report By: Altaf Caballero MD Electronically signed By Altaf Caballero MD Dictated Date: 08/13/2022 9:07:52 AM Prelim Date: 08/13/2022 9:16:14 AM Sign Date: 08/13/2022 9:16:14 AM Ordering Provider: RENEE Huynh [facility] ([place]) CT KNEE W/O CONTRAST RIGHTon 07-29-2022 CT KNEE W/O CONTRAST RIGHT ORIGINAL EXAMINATION: CT OF THE RIGHT KNEE WITHOUT CONTRAST07/26/2022 10:[address] of the right knee without contrast TECHNIQUE: Axial images of the knee are obtained with sagittal and coronal reconstructions. Limited axial imaging is also performed through the ipsilateral hip and ankle joints. This exam was performed according to our departmental dose-optimization program which includes automated exposure control, adjustment of the mA and/or kVp according to patient size and/or use of iterative reconstruction technique where applicable. COMPARISON: None HISTORY: ORDERING SYSTEM PROVIDED HISTORY: Reason for Exam: UNILATERAL PRIMARY OSTEOARTHRITIS, chronic knee pain, FINDINGS: Medial compartment: Marginal spurring and subchondral sclerosis. No compartment narrowing. There is a meniscal ossicle of the medial meniscus posteriorly. Lateral compartment: Marginal spurring and subchondral sclerosis without compartment narrowing. There is some smooth erosion and cystic changes in the popliteal groove of the lateral femoral condyle. Patellofemoral compartment: The patella is superiorly and laterally subluxed. There is patellofemoral marginal spurring but also severe chondromalacia of the patellar and trochlear facets with smooth erosions of subchondral bone. There is moderate marginal spurring also. Other: There is large joint effusion. No significant popliteal cyst. There are cystic/erosive changes in the fibular head adjacent to the tibia-fibular articulation. Hip: Limited axial images through the hip joint. There is mild hip osteoarthritis with moderate trochanteric enthesopathy. Ankle: Limited axial images of the ankle are also obtained. IMPRESSION: Tricompartment osteoarthritis is present. There is a meniscal ossicle medially. Large joint effusion with severe loss of the entire patellar and trochlear cartilage with extensive erosion of subchondral bone. There are also smooth erosions in the fibular head adjacent to the tibia-fibular articulation and in the popliteus groove of the lateral femoral condyle. Suggest evaluation to exclude inflammatory/erosive type of arthritis. Interpreted by: Sam Dodd MD Preliminary Report By: Sam Dodd MD Electronically signed By Sam Dodd MD Dictated Date: 07/29/2022 12:25:55 AM Prelim Date: 07/29/2022 12:36:21 AM Sign Date: 07/29/2022 12:36:21 AM Ordering Provider: RENEE Huynh [facility]) .Auto Diffon 07-26-2022 Basophil, Absolute 0.1 10 3/mcL Normal 0.0-0.2 [facility] ([place]) Comment on above: Performed By: #### A BOG, GFR, ANSG, ALB, BMP #### [address] [address] Basophils/100 WBC (Bld) 1.7 % Normal 0.0-2.5 [facility] ([place] Comment on above: Performed By: #### A BOG, GFR, ANSG, ALB, BMP #### [address] [address] Eosinophil, Absolute 0.4 10 3/mcL Normal 0.0-0.4 [facility] [place] Comment on above: Performed By: #### A BOG, GFR, ANSG, ALB, BMP #### [address] [address] Eosinophils/100 WBC (Bld) 12.5 % High 0.0-7.0 [facility] ([place] Comment on above: Performed By: #### A BOG, GFR, ANSG, ALB, BMP #### [address] [address] Lymphocyte, Absolute 0.9 10 3/mcL Normal 0.8-3.9 [facility] [place] Comment on above: Performed By: #### A BOG, GFR, ANSG, ALB, BMP #### [address] [address] Lymphocytes/100 WBC (Bld) 27.5 % Normal 10.0-50.0 [facility] ([place]) Comment on above: Performed By: #### A BOG, GFR, ANSG, ALB, BMP #### [address] [address] Monocyte, Absolute 0.3 10 3/mcL Normal 0.2-1.0 [facility] ([place]) Comment on above: Performed By: #### A BOG, GFR, ANSG, ALB, BMP #### [address] [address] Monocytes/100 WBC (Bld) 10.4 % Normal 1.7-13.0 [facility] ([place] Comment on above: Performed By: #### A BOG, GFR, ANSG, ALB, BMP #### [address] [address] Neutrophils/100 WBC (Bld) 47.9 % Normal 37.0-80.0 [facility] ([place] Comment on above: Performed By: #### A BOG, GFR, ANSG, ALB, BMP #### [address] [address] .GFRon 07-26-2022 GFR 55 ml/min/1.73sqm Normal [facility] ([place]) Comment on above: Result Comment: GFR Population mean for , Non- Americans Ages 20-29 = 116 mL/min/1.73 sq.m. Ages 30-39 = 107 mL/min/1.73 sq.m. Ages 40-49 = 99 mL/min/1.73 sq.m. Ages 50-59 = 93 mL/min/1.73 sq.m. Ages 60-69 = 85 mL/min/1.73 sq.m. Ages 70+ = 75 mL/min/1.73 sq.m. Chronic Kidney Disease: Less than 60 mL/min/1.73 square meters End Stage Renal Disease: Less than 15 mL/min/1.73 square meters Performed By: #### A BOG, GFR, ANSG, ALB, BMP #### [address] [address] GFR Non- 45 ml/min/1.73sqm Normal [facility] ([place] Comment on above: Result Comment: GFR Population mean for , Non- Americans Ages 20-29 = 116 mL/min/1.73 sq.m. Ages 30-39 = 107 mL/min/1.73 sq.m. Ages 40-49 = 99 mL/min/1.73 sq.m. Ages 50-59 = 93 mL/min/1.73 sq.m. Ages 60-69 = 85 mL/min/1.73 sq.m. Ages 70+ = 75 mL/min/1.73 sq.m. Chronic Kidney Disease: Less than 60 mL/min/1.73 square meters End Stage Renal Disease: Less than 15 mL/min/1.73 square meters Performed By: #### A BOG, GFR, ANSG, ALB, BMP #### [address] [address] .NEUABSon 07-26-2022 Neutrophil, Absolute 1.5 10 3/mcL Low 2.9-6.2 [facility] [place] Comment on above: Performed By: #### A BOG, GFR, ANSG, ALB, BMP #### [address] [address] ALBon 07-26-2022 Albumin Level 3.9 G/dL Normal 3.4-4.8 [facility] ([place] Comment on above: Performed By: #### A BOG, GFR, ANSG, ALB, BMP #### [address] [address] BMPon 07-26-2022 BUN/Creatinine Ratio 25 ratio Normal 7-27 [facility] ([place]) Comment on above: Performed By: #### A BOG, GFR, ANSG, ALB, BMP #### [address] [address] Calcium [Mass/Vol] 8.9 mg/dL Normal 8.4-10.2 [facility] ([place]) Comment on above: Performed By: #### A BOG, GFR, ANSG, ALB, BMP #### [place] [id number] Chloride [Moles/Vol] 102 mmol/L Normal 98-107 [facility] ([place] Comment on above: Performed By: #### A BOG, GFR, ANSG, ALB, BMP #### [place] [id number] CO2 [Moles/Vol] 28 mmol/L Normal 23-31 [facility] ([place] Comment on above: Performed By: #### A BOG, GFR, ANSG, ALB, BMP #### [address] [address] Creatinine [Mass/Vol] 1.18 mg/dL High 0.55-1.02 [facility] ([place] Comment on above: Performed By: #### A BOG, GFR, ANSG, ALB, BMP #### [address] [address] Electrolyte Balance 10.0 mEq/L Normal 4.0-15.0 [facility] ([place]) Comment on above: Performed By: #### A BOG, GFR, ANSG, ALB, BMP #### [place] [id number] Glucose [Mass/Vol] 87 mg/dL Normal 80-115 [facility] ([place]) Comment on above: Performed By: #### A BOG, GFR, ANSG, ALB, BMP #### [address] [address] Potassium [Moles/Vol] 4.5 mmol/L Normal 3.5-5.1 [facility] ([place] Comment on above: Performed By: #### A BOG, GFR, ANSG, ALB, BMP #### [address] [address] Sodium [Moles/Vol] 140 mmol/L Normal 136-145 [facility] ([place] Comment on above: Performed By: #### A BOG, GFR, ANSG, ALB, BMP #### [address] [address] Urea nitrogen [Mass/Vol] 30 mg/dL High 7-18 [facility] ([place] Comment on above: Performed By: #### A BOG, GFR, ANSG, ALB, BMP #### [address] [address] CBCon 07-26-2022 Erythrocyte distribution width (RBC) [Ratio] 12.9 % Normal 11.5-14.5 [facility] ([place] Comment on above: Order Comment: Pre-A dmission Testing Performed By: #### A BOG, GFR, ANSG, ALB, BMP #### [address] [address] Hematocrit (Bld) [Volume fraction] 39.0 % Normal 37.0-47.0 [facility] ([place] Comment on above: Order Comment: Pre-A dmission Testing Performed By: #### A BOG, GFR, ANSG, ALB, BMP #### [address] [address] Hgb 13.2 G/dL Normal 12.0-16.0 [facility] ([place] Comment on above: Order Comment: Pre-A dmission Testing Performed By: #### A BOG, GFR, ANSG, ALB, BMP #### [address] [address] MCH (RBC) [Entitic mass] 31.2 pg Normal 27.0-31.2 [facility] ([place] Comment on above: Order Comment: Pre-A dmission Testing Performed By: #### A BOG, GFR, ANSG, ALB, BMP #### [address] [address] MCHC 33.7 G/dL Normal 33.0-37.0 [facility] ([place] Comment on above: Order Comment: Pre-A dmission Testing Performed By: #### A BOG, GFR, ANSG, ALB, BMP #### [address] [address] MCV (RBC) [Entitic vol] 92.7 fL Normal 80.0-94.0 [facility] ([place] Comment on above: Order Comment: Pre-A dmission Testing Performed By: #### A BOG, GFR, ANSG, ALB, BMP #### [address] [address] Platelet 248 10 3/mcL Normal 130-400 [facility] ([place] Comment on above: Order Comment: Pre-A dmission Testing Performed By: #### A BOG, GFR, ANSG, ALB, BMP #### [address] [address] Platelet mean volume (Bld) [Entitic vol] 7.9 fL Normal 7.4-10.4 [facility] ([place] Comment on above: Order Comment: Pre-A dmission Testing Performed By: #### A BOG, GFR, ANSG, ALB, BMP #### [address] [address] RBC 4.21 10 6/mcL Normal 4.20-5.40 [facility] ([place] Comment on above: Order Comment: Pre-A dmission Testing Performed By: #### A BOG, GFR, ANSG, ALB, BMP #### [address] [address] WBC 3.1 10 3/mcL Low 4.6-10.8 [facility] ([place] Comment on above: Order Comment: Pre-A dmission Testing Performed By: #### A BOG, GFR, ANSG, ALB, BMP #### [address] [address] Gel ABOon 07-26-2022 ABO/Rh Interp Positive Invalid Interpretation Code [facility] ([place] Comment on above: Performed By: #### A NSG, ABOG #### [place] [place], [place] [address] Gel ABSon 07-26-2022 Antibody Screen Gel Negative Normal [facility] ([place] Comment on above: Performed By: #### A NSG, ABOG #### [place] [place], [place] [address] LABORATORYOrdered By: Gila Cary on 07-26-2022 ABO/Rh Interp Positive Invalid Interpretation Code AO BB SS Albumin BCP dye [Mass/Vol] 3.9 G/dL Invalid Interpretation Code 3.4 - 4.8 G/dL AO ADM SS Antibody Screen Gel Negative [facility]SC (07/26/22 8:55 AM) Invalid Interpretation Code AO BB SS Calcium [Mass/Vol] 8.9 mg/dL Invalid Interpretation Code 8.4 - 10.2 mg/dL AO ADM SS Chloride [Moles/Vol] 102 mmol/L Invalid Interpretation Code 98 - 107 mmol/L AO ADM SS CO2 [Moles/Vol] 28 mmol/L Invalid Interpretation Code 23 - 31 mmol/L AO ADM SS Creatinine [Mass/Vol] 1.18 mg/dL Invalid Interpretation Code 0.55 - 1.02 mg/dL AO ADM SS Electrolyte Balance 10.0 mEq/L Invalid Interpretation Code 4.0 - 15.0 mEq/L AO ADM SS Glucose [Mass/Vol] 87 mg/dL Invalid Interpretation Code 80 - 115 mg/dL AO ADM SS Potassium [Moles/Vol] 4.5 mmol/L Invalid Interpretation Code 3.5 - 5.1 mmol/L AO ADM SS Sodium [Moles/Vol] 140 mmol/L Invalid Interpretation Code 136 - 145 mmol/L AO ADM SS Urea nitrogen [Mass/Vol] 30 mg/dL Invalid Interpretation Code 7 - 18 mg/dL AO ADM SS Urea nitrogen/Creatinine [Mass ratio] 25 ratio Invalid Interpretation Code 7 - 27 ratio AO ADM SS LABORATORYOrdered By: Ivis Doshi on 07-26-2022 Basophil, Absolute 0.1 103/mcL Invalid Interpretation Code 0.0 - 0.2 10^3/mcL AO Workflow SS Basophils/100 WBC (Bld) 1.7 % Invalid Interpretation Code 0.0 - 2.5 % AO Workflow SS Eosinophil, Absolute 0.4 103/mcL Invalid Interpretation Code 0.0 - 0.4 10^3/mcL AO Workflow SS Eosinophils/100 WBC (Bld) 12.5 % Invalid Interpretation Code 0.0 - 7.0 % AO Workflow SS Erythrocyte distribution width (RBC) [Ratio] 12.9 % Invalid Interpretation Code 11.5 - 14.5 % AO Workflow SS Hematocrit (Bld) [Volume fraction] 39.0 % Invalid Interpretation Code 37.0 - 47.0 % AO Workflow SS Hemoglobin (Bld) [Mass/Vol] 13.2 G/dL Invalid Interpretation Code 12.0 - 16.0 G/dL AO Workflow SS Lymphocyte, Absolute 0.9 103/mcL Invalid Interpretation Code 0.8 - 3.9 10^3/mcL AO Workflow SS Lymphocytes/100 WBC (Bld) 27.5 % Invalid Interpretation Code 10.0 - 50.0 % AO Workflow SS MCH (RBC) [Entitic mass] 31.2 pg Invalid Interpretation Code 27.0 - 31.2 pg AO Workflow SS MCHC 33.7 G/dL Invalid Interpretation Code 33.0 - 37.0 G/dL AO Workflow SS MCV (RBC) [Entitic vol] 92.7 fL Invalid Interpretation Code 80.0 - 94.0 fL AO Workflow SS Monocyte, Absolute 0.3 103/mcL Invalid Interpretation Code 0.2 - 1.0 10^3/mcL AO Workflow SS Monocytes/100 WBC (Bld) 10.4 % Invalid Interpretation Code 1.7 - 13.0 % AO Workflow SS Neutrophil, Absolute 1.5 103/mcL Invalid Interpretation Code 2.9 - 6.2 10^3/mcL AO Workflow SS Neutrophils/100 WBC (Bld) 47.9 % Invalid Interpretation Code 37.0 - 80.0 % AO Workflow SS Platelet mean volume (Bld) [Entitic vol] 7.9 fL Invalid Interpretation Code 7.4 - 10.4 fL AO Workflow SS Platelets (Bld) [#/Vol] 248 103/mcL Invalid Interpretation Code 130 - 400 10^3/mcL AO Workflow SS RBC (Bld) [#/Vol] 4.21 106/mcL Invalid Interpretation Code 4.20 - 5.40 10^6/mcL AO Workflow SS WBC (Bld) [#/Vol] 3.1 103/mcL Invalid Interpretation Code 4.6 - 10.8 10^3/mcL AO Workflow SS LABORATORYOrdered By: SYSTEM SYSTEM on 07-26-2022 GFR 55 ml/min/1.73sqm Invalid Interpretation Code AO Chemistry S GFR Non- 45 ml/min/1.73sqm Invalid Interpretation Code AO [facility] [place] Tele[facility] (ELLYMAS) GAYLE BANKS ([id number]) 1950 F EXC Date Time Provider Department 05/16/22 CHIVO MEMBRENO During your visit today, we recorded the following information about you: Blanca Villasenor LPN 05/16/2022 4:52 PM Signed I faxed a referral to [facility]#[phone] fax#[phone]. 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 - metoprolol succinate ER (TOPROL XL) 50 mg 24 hr tablet Take 1 tablet by mouth once daily. - levothyroxine (SYNTHROID) 100 mcg tablet Take 1 tablet by mouth once daily. - Cholecalciferol, Vitamin D3, 2,000 unit cap Take by mouth twice daily. - omeprazole 20 mg capsule Take 20 mg by mouth once daily. - CALCIUM CARBONATE/VITAMIN D3 (CALCIUM 500 + D, D3, ORAL) Take by mouth twice daily. - Ascorbic Acid (VITAMIN C) 100 mg tablet Take 100 mg by mouth once daily. - OTC NUTRITIONAL SUPPLEMENT Multi-Vitamin, Take one(1) tablet daily. Problem List As Of Date 05/16/2022 Noted Resolved Abdominal pain [R10.9] 01/05/2020 Gastroesophageal reflux disease [K21.9] 03/19/2022 Herpes zoster [B02.9] 09/30/2017 Hyperlipidemia [E78.5] 10/24/2020 Hypertension [I10] 07/15/2017 Hypothyroidism [E03.9] 07/15/2017 Need for prophylactic vaccination against Strep*05/01/2021 Renal insufficiency syndrome [N28.9] 10/25/2020 Urinary tract infection [N39.0] 05/10/2021 Colon cancer screening [Z12.11] 05/01/2021 Well adult health check [Z00.00] 08/18/2017 Encounter for other general examination [Z00.8] 05/01/2021 Screening for iron deficiency anemia [Z13.0] 05/01/2021 Screening for breast cancer [Z12.39] 05/01/2021 Visit for screening mammogram [Z12.31] 02/26/2018 GERD without esophagitis [K21.9] 05/07/2022 Encounter Status:Closed by BLANCA VILLASENOR on 05/16/22 [facility] Franko 05-08-2022 [facility] Telephone (LXSNS) GAYLE BANKS ([id number]) 1950 F EXC Date Time Provider Department 05/08/22 CHIVO MEMBRENO During your visit today, we recorded the following information about you: Allergies As of Date: 05/08/2022 Noted Allergy Reaction OLMESARTAN 07/15/2017 3 - Cough Date Reviewed: 05/07/2022 Reviewed by: Chivo Membreno APRN.SENIOR GRAPHIC DESIGNER - Fully Assessed Reason for Visit: Orders [681] Prescriptions as of 05/14/2022 - amLODIPine (NORVASC) 5 mg tablet Take 1 tablet by mouth once daily. - metoprolol succinate ER (TOPROL XL) 50 mg 24 hr tablet Take 1 tablet by mouth once daily. - levothyroxine (SYNTHROID) 100 mcg tablet Take 1 tablet by mouth once daily. - Cholecalciferol, Vitamin D3, 2,000 unit cap Take by mouth twice daily. - omeprazole 20 mg capsule Take 20 mg by mouth once daily. - CALCIUM CARBONATE/VITAMIN D3 (CALCIUM 500 + D, D3, ORAL) Take by mouth twice daily. - Ascorbic Acid (VITAMIN C) 100 mg tablet Take 100 mg by mouth once daily. - OTC NUTRITIONAL SUPPLEMENT Multi-Vitamin, Take one(1) tablet daily. Problem List As Of Date 05/08/2022 Noted Resolved Abdominal pain [R10.9] 01/05/2020 Gastroesophageal reflux disease [K21.9] 03/19/2022 Herpes zoster [B02.9] 09/30/2017 Hyperlipidemia [E78.5] 10/24/2020 Hypertension [I10] 07/15/2017 Hypothyroidism [E03.9] 07/15/2017 Need for prophylactic vaccination against Strep*05/01/2021 Renal insufficiency syndrome [N28.9] 10/25/2020 Urinary tract infection [N39.0] 05/10/2021 Colon cancer screening [Z12.11] 05/01/2021 Well adult health check [Z00.00] 08/18/2017 Encounter for other general examination [Z00.8] 05/01/2021 Screening for iron deficiency anemia [Z13.0] 05/01/2021 Screening for breast cancer [Z12.39] 05/01/2021 Visit for screening mammogram [Z12.31] 02/26/2018 GERD without esophagitis [K21.9] 05/07/2022 Encounter Status:Closed by BLANCA VILLASENOR on 05/14/22 [facility] CBC W Auto Differential pane l (Bld)on 05-07-2022 Basophils (Bld) [#/Vol] 0.05 10*3/uL Normal <0.11 [facility] Comment on above: Order Comment: Speci men Type: BLOOD SPECIMEN Ordering Facility: [facility] Address: [address] [place] [address] Performed By: #### 5 7021-8 #### [facility] CLIA [id number] [address] [place] [address] [place] Basophils/100 WBC (Bld) 1.1 % Normal [facility] Comment on above: Order Comment: Speci men Type: BLOOD SPECIMEN Ordering Facility: [facility] Address: [address] [place] [address] Performed By: #### 5 7021-8 #### [facility] CLIA [id number] [address] [place] [address] [place] Differential cell count method Nom (Bld) Auto Normal [facility] Comment on above: Order Comment: Speci men Type: BLOOD SPECIMEN Ordering Facility: [facility] Address: [address] [place] [address] Performed By: #### 5 7021-8 #### [facility] CLIA [id number] [address] [place] [address] [place] Eosinophils (Bld) [#/Vol] 0.27 10*3/uL Normal <0.46 [facility] Comment on above: Order Comment: Speci men Type: BLOOD SPECIMEN Ordering Facility: [facility] Address: [address] [place] [address] Performed By: #### 5 7021-8 #### [facility] CLIA [id number] [address] [place] [address] [place] Eosinophils/100 WBC (Bld) 5.9 % Normal [facility] Comment on above: Order Comment: Speci men Type: BLOOD SPECIMEN Ordering Facility: [facility] Address: [address] [place] [address] Performed By: #### 5 7021-8 #### [facility] CLIA [id number] [address] [place] [address] [place] Erythrocyte distribution width (RBC) [Ratio] 12.2 % Normal 11.5-15.0 [facility] Comment on above: Order Comment: Speci men Type: BLOOD SPECIMEN Ordering Facility: [facility] Address: [address] [place] [address] Performed By: #### 5 7021-8 #### [facility] CLIA [id number] [address] [place] [address] [place] [facility] [place] Hematocrit (Bld) [Volume fraction] 37.7 % Normal 36.0-46.0 [facility] Comment on above: Order Comment: Speci men Type: BLOOD SPECIMEN Ordering Facility: [facility] Address: [address] [place] [address] Performed By: #### 5 7021-8 #### [facility] CLIA [id number] [address] [place] [address] [place] Hemoglobin (Bld) [Mass/Vol] 12.5 g/dL Normal 11.5-15.5 [facility] Comment on above: Order Comment: Speci men Type: BLOOD SPECIMEN Ordering Facility: [facility] Address: [address] [place] [address] Performed By: #### 5 7021-8 #### [facility] CLIA [id number] [address] [place] [address] [place] IMMATURE GRAN % 0.2 % Normal [facility] Comment on above: Order Comment: Speci men Type: BLOOD SPECIMEN Ordering Facility: [facility] Address: [address] [place] [address] Performed By: #### 5 7021-8 #### [facility] CLIA [id number] [address] [place] [address] [place] IMMATURE GRAN ABS <0.03 Normal <0.10 [facility] Comment on above: Order Comment: Speci men Type: BLOOD SPECIMEN Ordering Facility: [facility] Address: [address] [place] [address] Performed By: #### 5 7021-8 #### [facility] CLIA [id number] [address] [place] [address] [place] Lymphocytes (Bld) [#/Vol] 1.19 10*3/uL Normal 1.00-4.00 [facility] Comment on above: Order Comment: Speci men Type: BLOOD SPECIMEN Ordering Facility: [facility] Address: [address] [place] [address] Performed By: #### 5 7021-8 #### [facility] CLIA [id number] [address] [place] [address] [place] Lymphocytes/100 WBC (Bld) 26.2 % Normal [facility] Comment on above: Order Comment: Speci men Type: BLOOD SPECIMEN Ordering Facility: [facility] Address: [address] [place] [address] Performed By: #### 5 7021-8 #### [facility] IA [id number] [address] [place] [address] [place] MCH (RBC) [Entitic mass] 31.2 pg Normal 26.0-34.0 [facility] Comment on above: Order Comment: Speci men Type: BLOOD SPECIMEN Ordering Facility: [facility] Address: [address] [place] [address] Performed By: #### 5 7021-8 #### [facility] CLIA [id number] [address] [place] [address] [place] MCHC (RBC) [Mass/Vol] 33.2 g/dL Normal 30.5-36.0 [facility] Comment on above: Order Comment: Speci men Type: BLOOD SPECIMEN Ordering Facility: [facility] Address: [address] [place] [address] Performed By: #### 5 7021-8 #### [facility] CLIA [id number] [address] [place] [address] [place] MCV (RBC) [Entitic vol] 94.0 fL Normal 80.0-100.0 [facility] Comment on above: Order Comment: Speci men Type: BLOOD SPECIMEN Ordering Facility: [facility] Address: [address] [place] [address] Performed By: #### 5 7021-8 #### [facility] CLIA [id number] [address] [place] [address] [place] Monocytes (Bld) [#/Vol] 0.52 10*3/uL Normal <0.87 [facility] Comment on above: Order Comment: Speci men Type: BLOOD SPECIMEN Ordering Facility: [facility] Address: [address] [place] [address] Performed By: #### 5 7021-8 #### [facility] CLIA [id number] [address] [place] [address] [place] Monocytes/100 WBC (Bld) 11.4 % Normal [facility] Comment on above: Order Comment: Speci men Type: BLOOD SPECIMEN Ordering Facility: [facility] Address: [address] [place] [address] Performed By: #### 5 7021-8 #### [facility] CLIA [id number] [address] [place] [address] [place] Neutrophils (Bld) [#/Vol] 2.51 10*3/uL Normal 1.45-7.50 [facility] Comment on above: Order Comment: Speci men Type: BLOOD SPECIMEN Ordering Facility: [facility] Address: [address] [place] [address] Performed By: #### 5 7021-8 #### [facility] CLIA [id number] [address] [place] [address] [place] Neutrophils/100 WBC (Bld) 55.2 % Normal [facility] Comment on above: Order Comment: Speci men Type: BLOOD SPECIMEN Ordering Facility: [facility] Address: [address] [place] [address] Performed By: #### 5 7021-8 #### [facility] CLIA [id number] [address] [place] [address] [place] Nucleated RBC (Bld) [#/Vol] 10*3/uL Normal <0.01 [facility] Comment on above: Order Comment: Speci men Type: BLOOD SPECIMEN Ordering Facility: [facility] Address: [address] Performed By: #### 5 7021-8 #### [facility] CLIA [id number] [address] [place] [address] [place] Nucleated RBC/100 WBC (Bld) [Ratio] 0.0 /100 WBC Normal [facility] Comment on above: Order Comment: Speci men Type: BLOOD SPECIMEN Ordering Facility: [facility] Address: [address] [place], [place] [address] Performed By: #### 5 7021-8 #### [facility] CLIA [id number] [address] [place] [address] [place] Platelet mean volume (Bld) [Entitic vol] 10.2 fL Normal 9.0-12.7 [facility] Comment on above: Order Comment: Speci men Type: BLOOD SPECIMEN Ordering Facility: [facility] Address: [address] [place] [address] Performed By: #### 5 7021-8 #### [facility] CLIA [id number] [address] [place] [address] [place] Platelets (Bld) [#/Vol] 223 10*3/uL Normal 150-400 [facility] Comment on above: Order Comment: Speci men Type: BLOOD SPECIMEN Ordering Facility: [facility] Address: [address] Performed By: #### 5 7021-8 #### [facility] CLIA [id number] [address] [place] [address] [place] RBC (Bld) [#/Vol] 4.01 10*6/uL Normal 3.90-5.20 [facility] Comment on above: Order Comment: Speci men Type: BLOOD SPECIMEN Ordering Facility: [facility] Address: [address] [place], [place] [address] Performed By: #### 5 7021-8 #### [facility] CLIA [id number] [address] [place], [place] [address] [place] WBC (Bld) [#/Vol] 4.55 10*3/uL Normal 3.70-11.00 [facility] Comment on above: Order Comment: Speci men Type: BLOOD SPECIMEN Ordering Facility: [facility] Address: [address] [place] [address] Performed By: #### 5 7021-8 #### [facility] CLIA [id number] [address] [place] [address] [facility] CNOVon 05-07-2022 CNOV Office Visit ([place] ) GAYLE BANKS ([id number]) 1950 F EXC Date Time Provider Department 05/07/22 1:00 PM CHIVO MEMBRENO During your visit today, we recorded the following information about you: Temperature Pulse Respiration Blood pressure 97.1 degrees 61/minute 14/minute 130/84 Weight Height 76.6 kg 1.727 m Chivo Membreno APRN.CNP 05/07/2022 1:38 PM Addendum - Complete labs, fast for 12 hrs prior to lab draw - Complete mammogram-----dial [phone] to schedule - Follow up with GI, [...] office with any health issues or concerns Chivo Membreno APRN.CNP 05/07/2022 1:45 PM Signed This note was created using Heliospectrater. Subjective Gayle Banks is a 71 year old female. HPI Review of Systems Objective BP 130/84 (BP Site: Left Arm, BP Position: Sitting) Pulse 61 Temp 36.2 ?C (97.1 ?F) (Temporal) Resp 14 Ht 172.7 cm (5' 8) Wt 76.6 kg (168 lb 12.8 oz) LMP 04/12/2005 SpO2 98% BMI 25.67 kg/m? Physical Exam Assessment and Plan Chivo Membreno APRN.SENIOR GRAPHIC DESIGNER 05/07/2022 1:45 PM Signed This note was created using [employer]. Subjective Gayle Banks is a 71 year old female. Patient [...] (Temporal) Resp 14 Ht 172.7 cm (5' 8) Wt 76.6 kg (168 lb 12.8 oz) [...] diet of 1000 mg/day for under 50, 7825-6834 mg/day for 50+ - CBC + DIFF [...] Refer for GI consult - CONSULT TO GAS (more content not included)... Normal [facility] Comprehensive metabolic 2000 panelon 05-07-2022 Albumin [Mass/Vol] 3.9 g/dL Normal 3.2-5.0 [facility] Comment on above: Order Comment: Speci men Type: BLOOD SPECIMEN Ordering Facility: [facility] Address: [address] [place] [address] Performed By: #### 2 4323-8, 3016-3 #### [facility] CLIA [id number] [address] [place] [address] OF [place] #### 84775-3 #### [facility] CLIA [id number] [address] [place], [place] [address] [facility] CLIA [id number] [address] [place], [place] [address] [place] [address] [place] ALP [Catalytic activity/Vol] 67 U/L Normal 45-117 [facility] Comment on above: Order Comment: Speci men Type: BLOOD SPECIMEN Ordering Facility: [facility] Address: [address] [place] [address] Performed By: #### 2 4323-8, 6-3 #### [facility] CLIA [id number] [address] [place] [address] #### 24340-0 #### [facility] CLIA [id number] [address] [place], [place] [address] [facility] CLIA [id number] [address] ALT [Catalytic activity/Vol] 13 U/L Normal 13-61 [facility] Comment on above: Order Comment: Speci men Type: BLOOD SPECIMEN Ordering Facility: [facility] Address: [address] [place] [address] Result Comment: Resu lts may be falsely depressed after the administration of Sulfasalazine and/or Sulfapyridine. Performed By: #### 2 4323-8, 6-3 #### [facility] CLIA [id number] [address] [place] [address] [place] #### 91557-5 #### [facility] CLIA [id number] [address] [place], [place] [address] [facility] CLIA [id number] [address] [place] [address] [place] [facility] Anion gap [Moles/Vol] 6 mmol/L Normal 5-16 [facility] Comment on above: Order Comment: Speci men Type: BLOOD SPECIMEN Ordering Facility: [facility] Address: [address] [place], [place] [address] Performed By: #### 2 4323-8, 3016-3 #### [facility] CLIA [id number] [address] [place] [address] [place] #### 93320-5 #### [facility] CLIA [id number] [address] [place] [address] LAB CLIA [id number] [address] [place] [address] [place] [facility] AST [Catalytic activity/Vol] 24 U/L Normal 8-34 [facility] Comment on above: Order Comment: Speci men Type: BLOOD SPECIMEN Ordering Facility: [facility] Address: [address] [place] [address] Result Comment: Resu lts may be falsely depressed after the administration of Sulfasalazine and/or Sulfapyridine. Performed By: #### 2 4323-8, 6-3 #### [facility] CLIA [id number] [address] [place] [address] [place] #### 29271-8 #### [facility] CLIA [id number] [address] [place] [address] LAB CLIA [id number] [address] [place] [address] [place] Bilirubin [Mass/Vol] 0.6 mg/dL Normal 0.2-1.0 [facility] Comment on above: Order Comment: Speci men Type: BLOOD SPECIMEN Ordering Facility: [facility] Address: [address] [place], [place] [address] Performed By: #### 2 4323-8, 6-3 #### [facility] CLIA [id number] [address] [place] [address] [place] #### 37964-4 #### [facility] CLIA [id number] [address] [place] [address] [place] [facility] CLIA [id number] [address] [place] [address] [place] Calcium [Mass/Vol] 10.1 mg/dL Normal 8.5-10.5 [facility] Comment on above: Order Comment: Speci men Type: BLOOD SPECIMEN Ordering Facility: [facility] Address: [address] [place] [address] Performed By: #### 2 4323-8, 3015-3 #### [facility] CLIA [id number] [address] [place] [address] [place] #### 62917-0 #### [facility] CLIA [id number] [address] [place], [place] [address] [place] [facility] CLIA [id number] [address] [place] [address] [place] Chloride [Moles/Vol] 108 mmol/L High 98-107 [facility] Comment on above: Order Comment: Speci men Type: BLOOD SPECIMEN Ordering Facility: [facility] Address: [address] [place] [address] Performed By: #### 2 4323-8, 3015-3 #### [facility] CLIA [id number] [address] [place] [address] [place] #### 07749-0 #### [facility] CLIA [id number] [address] [place] [address] [place] [facility] CLIA [id number] [address] [place] [address] [place] CO2 [Moles/Vol] 27 mmol/L Normal 21-32 [facility] Comment on above: Order Comment: Speci men Type: BLOOD SPECIMEN Ordering Facility: [facility] Address: [address] [place] [address] Performed By: #### 2 4323-8, 3016-3 #### [facility] CLIA [id number] [address] [place] [address] #### 48346-1 #### [facility] CLIA [id number] [address] [place], [place] [address] [facility] CLIA [id number] [address] [place] [address] Creatinine [Mass/Vol] 1.11 mg/dL High 0.51-0.95 [facility] Comment on above: Order Comment: Speci men Type: BLOOD SPECIMEN Ordering Facility: [facility] Address: [address] [place], [place] [address] Result Comment: Angi ents receiving either N-Acetylcysteine (NAC) or Metamizole prior to venipuncture, may have falsely depressed results. Performed By: #### 2 4323-8, 3016-3 #### [facility] CLIA [id number] [address] [place] [address] #### 19565-0 #### [facility] CLIA [id number] [address] [place], [place] [address]N LAB CLIA [id number] [address] [place] [address] ESTIMATED GLOMERULAR FILTRATION RATE 54 mL/min/1.73m??? Low >=60 [facility] Comment on above: Order Comment: Speci men Type: BLOOD SPECIMEN Ordering Facility: [facility] Address: [address] [place] [phone] Result Comment: Mary mated Glomerular Filtration Rate (eGFR) is calculated using the 2020 CKD-EPI creatinine equation. This equation utilizes serum creatinine, sex, and age as parameters. The creatinine assay has traceable calibration to isotope dilution-mass spectrometry. Refer to KDIGO guidelines for clinical interpretation. In patients with unstable renal function, e.g. those with acute kidney injury, the eGFR may not accurately reflect actual GFR. Performed By: #### 2 4323-8, 6-3 #### [facility] CLIA [id number] [address] [place] [address] #### 27814-3 #### [facility] CLIA [id number] [address] [place], [place] [address] [facility] CLIA [id number] [address] [place] [address] [place] Glucose [Mass/Vol] 100 mg/dL Normal 70-100 [facility] Comment on above: Order Comment: Speci men Type: BLOOD SPECIMEN Ordering Facility: [facility] Address: [address] [place] [address] Result Comment: The [place] Diabetes Association (ADA) provides guidance for cutoff values for fasting glucose and random glucose. The ADA defines fasting as no caloric intake for at least 8 hours. Fasting plasma glucose results between 100 to 125 mg/dL indicate increased risk for diabetes (prediabetes). Fasting plasma glucose results greater than or equal to 126 mg/dL meet the criteria for diagnosis of diabetes. In the absence of unequivocal hyperglycemia, results should be confirmed by repeat testing. In a patient with classic symptoms of hyperglycemia or hyperglycemic crisis, random plasma glucose results greater than or equal to 200 mg/dL meet the criteria for diagnosis of diabetes. Reference: Standards of Medical Care in Diabetes 2016, [place] [employer] Association. Diabetes Care. 2016.39(Suppl 1). Results may be falsely elevated after the administration of Sulfapyridine. Results may be falsely depressed after the administration of Sulfasalazine. Performed By: #### 2 4323-8, 6-3 #### [facility] CLIA [id number] [address] [place], [place] [address] [place] #### 55171-8 #### [facility] CLIA [id number] [address] [place], [place] [address] [place] [facility] CLIA [id number] [address] [place] [address] [place] Potassium [Moles/Vol] 4.3 mmol/L Normal 3.5-5.1 [facility] Comment on above: Order Comment: Speci men Type: BLOOD SPECIMEN Ordering Facility: [facility] Address: [place] [address] Performed By: #### 2 4323-8, 3016-3 #### [facility] CLIA [id number] [address] [place] [address] [place] #### 01366-2 #### [facility] CLIA [id number] [address] [place], [place] [address] [facility] CLIA [id number] [address] [place] Protein [Mass/Vol] 6.9 g/dL Normal 6.0-8.5 [facility] Comment on above: Order Comment: Speci men Type: BLOOD SPECIMEN Ordering Facility: [facility] Address: [address] [place], [place] [address] Performed By: #### 2 4323-8, 6-3 #### [facility] CLIA [id number] [address] [place] [address] [place] #### 20004-6 #### [facility] CLIA [id number] [address] [place], [place] [address] [place] [facility] CLIA [id number] [address] [place] [address] [place] Sodium [Moles/Vol] 141 mmol/L Normal 136-145 [facility] Comment on above: Order Comment: Speci men Type: BLOOD SPECIMEN Ordering Facility: [facility] Address: [address] [place], [place] [address] Performed By: #### 2 4323-8, 3016-3 #### [facility] CLIA [id number] [address] [place] [address] [place] #### 85380-3 #### [facility] CLIA [id number] [address] [place] [address] [facility] CLIA [id number] [address] [place] [address] [place] Urea nitrogen [Mass/Vol] 21 mg/dL Normal 7-26 [facility] Comment on above: Order Comment: Speci men Type: BLOOD SPECIMEN Ordering Facility: [facility] Address: [address] [place] [address] Performed By: #### 2 4323-8, 3016-3 #### [facility] CLIA [id number] [address] [place], [place] [address] [place] #### 58632-9 #### [facility] CLIA [id number] [address] [place], [place] [address] [place] [facility] CLIA [id number] [address] [place] [address] [place] Lipid 1996 panelon 2 Cholesterol [Mass/Vol] 213 mg/dL High 0-199 [facility] Comment on above: Order Comment: Speci men Type: BLOOD SPECIMEN Ordering Facility: [facility] Address: [address] [place], [place] [id number] Result Comment: <200 mg/dL, Desirable 200-239 mg/dL, Borderline high >239 mg/dL, High Performed By: #### 2 4323-8, 3016-3 #### [facility] CLIA [id number] [address] [place] [address] [place] #### 88734-2 #### [facility] CLIA [id number] [address] [place], [place] [address] [facility] CLIA [id number] [address] [place] Cholesterol in HDL [Mass/Vol] 84 mg/dL Normal >40 [facility] Comment on above: Order Comment: Speci men Type: BLOOD SPECIMEN Ordering Facility: [facility] Address: [address] [place] [phone] Result Comment: 40-5 9 mg/dL, Acceptable >59 mg/dL, High: Negative risk factor for coronary heart disease <40 mg/dL, Low: Positive risk factor for coronary heart disease Performed By: #### 2 4323-8, 3016-3 #### [facility] CLIA [id number] [address] [place] [address] [place] #### 73487-9 #### [facility] CLIA [id number] [address] [place] [address] [place] [facility] CLIA [id number] [address] [place] Cholesterol in LDL [Mass/Vol] 116 mg/dL Normal 0-129 [facility] Comment on above: Order Comment: Speci men Type: BLOOD SPECIMEN Ordering Facility: [facility] Address: [address] [place] [place] [id number] Result Comment: <100 mg/dL, Optimal 100-129 mg/dL, Near optimal/above optimal 130-159 mg/dL, Borderline high 160-189 mg/dL, High >189 mg/dL, Very high Secondary prevention optimal LDL Cholesterol levels are recommended to be < 70 mg/dL Performed By: #### 2 4323-8, 3016-3 #### [facility] CLIA [id number] [address] [place], [place] [address] [facility] OF [place] #### 03387-4 #### [facility] CLIA [id number] [address] [place], [place] [address] [place] [facility] CLIA [id number] [address] [place] Cholesterol in LDL/Cholesterol in HDL [Mass ratio] 1.38 {ratio} Normal <2.54 [facility] Comment on above: Order Comment: Speci men Type: BLOOD SPECIMEN Ordering Facility: [facility] Address: [address] [place] [id number] Result Comment: Refe rence: 1. National Cholesterol Education Program ATP III Guideline At-A-Glance Quick Desk Reference: National Heart, Lung, and Blood [place]. National Institutes of Health. 2001: NIH Publication No. 01-3305. 2. An International Atherosclerosis Society position paper: global recommendations for the management of dyslipidemia: executive summary, Atherosclerosis. 2014: 232(2):410-413. Performed By: #### 2 4323-8, 3016-3 #### [facility] CLIA [id number] [address] [place] [address] [place] #### 37817-0 #### [facility] CLIA [id number] [address] [place], [place] [address] [facility] CLIA [id number] [address] Cholesterol in VLDL [Mass/Vol] 13 mg/dL Normal <30 [facility] Comment on above: Order Comment: Bing morataya Type: BLOOD SPECIMEN Ordering Facility: [facility] Address: [address] [place] [address] Performed By: #### 2 4323-8, 3016-3 #### [facility] CLIA [id number] [address] [place] [address] OF [facility] #### 07328-7 #### [facility] CLIA [id number] [address] [place], [place] [address] [facility] CLIA [id number] [facility] Cholesterol non HDL [Mass/Vol] 129 mg/dL Normal <130 [facility] Comment on above: Order Comment: Bing morataya Type: BLOOD SPECIMEN Ordering Facility: [facility] Address: [address] [place] [address] Result Comment: <130 mg/dL, Optimal 130-159 mg/dL, Near optimal/above optimal 160-189 mg/dL, Borderline high 190-219 mg/dL, High >219 mg/dL, Very high Secondary prevention optimal non HDL Cholesterol levels are recommended to be <100 mg/dL Performed By: #### 2 4323-8, 6-3 #### [facility] CLIA [id number] [address] [place] [address] [place] #### 53082-6 #### [facility] CLIA [id number] [address] [place], [place] [address] [facility] CLIA [id number] [address] [place], [place] [address] [place] [address] [place] Cholesterol.total/Chol esterol in HDL [Mass ratio] 2.54 {ratio} Normal <5.10 [facility] Comment on above: Order Comment: Speci men Type: BLOOD SPECIMEN Ordering Facility: [facility] Address: [address] [place] [address] Performed By: #### 2 4323-8, 3 #### [facility] CLIA [id number] [address] [place] [address] STATES OF [facility] #### 51478-4 #### [facility] CLIA [id number] [address] [place], [place] [address] [place] OF [facility] CLIA [id number] [address] [place] [address] STATES [facility] FASTING TIME 16 hrs Normal [facility] Comment on above: Order Comment: Speci men Type: BLOOD SPECIMEN Ordering Facility: [facility] Address: [address] [place], [place] [address] [address] Performed By: #### 2 4323-8, 3 #### [facility] CLIA [id number] [address] [place], [place] [address] [place] #### 93618-3 #### [facility] CLIA [id number] [address] [place], [place] [address] [place] [facility] CLIA [id number] [address] [place] [address] [place] Triglyceride [Mass/Vol] 65 mg/dL Normal 30-149 [facility] Comment on above: Order Comment: Speci men Type: BLOOD SPECIMEN Ordering Facility: [facility] Address: [address] [place], [place] [id number] Result Comment: <150 mg/dL, Normal 150-199 mg/dL, Borderline high 200-499 mg/dL, High >499 mg/dL, Very high Patients receiving either N-Acetylcysteine (NAC) or Metamizole prior to venipuncture, may have falsely depressed results. Performed By: #### 2 4323-8, 3016-3 #### [facility] CLIA [id number] [address] [place] [address] #### 82029-2 #### [facility] CLIA [id number] [address] [place], [place] [address] LAB CLIA [id number] [address] [place] [address] [place] TSH SerPl-aCncon 05-07-2022 TSH Qn 1.268 m[IU]/L Normal 0.358-3.74 0 [facility] Comment on above: Order Comment: Bing morataya Type: BLOOD SPECIMEN Ordering Facility: [facility] Address: [address] [place], [place] [id number] Result Comment: 3rd generation ultra sensitive TSH. Performed By: #### 2 4323-8, 6-3 #### [facility] CLIA [id number] [address] [place] [address] OF [place] #### 98158-4 #### [facility] CLIA [id number] [address] [place], [place] [address] LAB CLIA [id number] [address] [place] [address] [place] TSHon 10-23-2021 TSH 1.692 UIU/ML Normal 0.358-3.74 0 [facility] Comment on above: Result Comment: 3rd generation ultra sensitive TSH Performed By: #### L 500.49640 #### [facility] [address] [place] [address] T4 FREEon 11-21-2020 Free T4 [Mass/Vol] 1.39 ng/dL Normal 0.76-1.46 [facility] Comment on above: Performed By: #### L 500.27190, L500.82991 #### [facility] [place] [address] TSHon 11-21-2020 TSH 0.674 UIU/ML Normal 0.358-3.74 0 [facility] Comment on above: Result Comment: 3rd generation ultra sensitive TSH Performed By: #### L 500.14525, L500.07824 #### [facility] [address] [place] [address] Vital Signs Date Time Vital Sign Value Performing Clinician Facility 05-27-2025 11:05-0400 Body height 175.26 cm Nathan Degroot MD Work Phone: [facility] 05-27-2025 11:05-0400 Body mass index (BMI) [Ratio] 24 kg/m2 Nathan Degroot MD Work Phone: [facility] 05-27-2025 11:05-0400 Body weight 74.04 kg Nathan Degroot MD Work Phone: [facility] 05-27-2025 11:05-0400 Diastolic blood pressure 68 mm[Hg] Nathan Degroot MD Work Phone: [facility] 05-27-2025 11:05-0400 Systolic blood pressure 117 mm[Hg] Nathan Degroot MD Work Phone: [facility] 05-19-2025 10:34-0400 Body height 175.26 cm Nathan Degroot MD Work Phone: [facility] 05-19-2025 10:34-0400 Body mass index (BMI) [Ratio] 24 kg/m2 Nathan Degroot MD Work Phone: [facility] 05-19-2025 10:34-0400 Body weight 73.93 kg Nathan Degroot MD Work Phone: [facility] 05-19-2025 10:34-0400 Diastolic blood pressure 73 mm[Hg] Nathan Degroot MD Work Phone: [facility] 05-19-2025 10:34-0400 Heart rate 65 /min Nathan Degroot MD Work Phone: [facility] 05-19-2025 10:34-0400 Respiratory rate 18 /min Nathan Degroot MD Work Phone: [facility] 05-19-2025 10:34-0400 Systolic blood pressure 126 mm[Hg] Nathan Degroot MD Work Phone: [facility] 05-17-2025 14:30-0400 Body temperature 97.2 [degF] Nathan Degroot MD Work Phone: [facility] 05-17-2025 14:30-0400 Diastolic blood pressure 67 mm[Hg] Nathan Degroot MD Work Phone: [facility] 05-17-2025 14:30-0400 Heart rate 54 /min Nathan Degroot MD Work Phone: [facility] 05-17-2025 14:30-0400 Respiratory rate 16 /min Nathan Degroot MD Work Phone: [facility] 05-17-2025 14:30-0400 SaO2% (BldA) [Mass fraction] 94 % Nathan Degroot MD Work Phone: [facility] 05-17-2025 14:30-0400 Systolic blood pressure 123 mm[Hg] Nathan Degroot MD Work Phone: [facility] 05-17-2025 12:20-0400 Body height 175.26 cm Nathan Degroot MD Work Phone: [facility] 05-17-2025 12:20-0400 Body mass index (BMI) [Ratio] 23.8 kg/m2 Nathan Degroot MD Work Phone: [facility] 05-17-2025 12:20-0400 Body weight 73 kg Nathan Degroot MD Work Phone: [facility] 04-04-2025 10:50-0400 Body height 175.26 cm Nathan Degroot MD Work Phone: 7(932)143-972205 [place] [address] 04-04-2025 10:50-0400 Body mass index (BMI) [Ratio] 23.9 kg/m2 Nathan Degroot MD Work Phone: [facility] 04-04-2025 10:50-0400 Body weight 73.59 kg Nathan Degroot MD Work Phone: 4(820)444-097879 [place] [address] 04-04-2025 10:50-0400 Diastolic blood pressure 71 mm[Hg] Nathan Degroot MD Work Phone: 2(238)252-500279 [place] [address] 04-04-2025 10:50-0400 Systolic blood pressure 128 mm[Hg] Nathan Degroot MD Work Phone: 9(716)867-617005 [place] [address] 03-08-2025 10:30-0400 Body height 175.26 cm Nathan Degroot MD Work Phone: 6(718)944-148779 [place] [address] 03-08-2025 10:29-0400 Body mass index (BMI) [Ratio] 24.4 kg/m2 Nathan Degroot MD Work Phone: 9(603)681-802105 [place] [address] 03-08-2025 10:29-0400 Body weight 75.06 kg Nathan Degroot MD Work Phone: 8(650)053-730305 [place] [address] 03-08-2025 10:29-0400 Diastolic blood pressure 73 mm[Hg] Nathan Degroot MD Work Phone: 0(747)518-026305 [place] [address] 03-08-2025 10:29-0400 Systolic blood pressure 139 mm[Hg] Nathan Degroot MD Work Phone: 8(435)497-552105 [place] [address] 02-15-2025 09:56-0400 Body mass index (BMI) [Ratio] 24.2 kg/m2 Nathan Degroot MD Work Phone: 8(449)422-900305 [place] [address] 02-15-2025 09:56-0400 Body weight 74.38 kg Nathan Degroot MD Work Phone: [facility] 02-15-2025 09:56-0400 Diastolic blood pressure 66 mm[Hg] Nathan Degroot MD Work Phone: [facility] 02-15-2025 09:56-0400 Systolic blood pressure 101 mm[Hg] Nathan Degroot MD Work Phone: [facility] 02-10-2025 11:09-0400 Body mass index (BMI) [Ratio] 24.5 kg/m2 Nathan Degroot MD Work Phone: [facility] 02-10-2025 11:09-0400 Body temperature 98.1 [degF] Nathan Degroot MD Work Phone: [facility] 02-10-2025 11:09-0400 Body weight 75.29 kg Nathan Degroot MD Work Phone: [facility] 02-10-2025 11:09-0400 Diastolic blood pressure 65 mm[Hg] Nathan Degroot MD Work Phone: [facility] 02-10-2025 11:09-0400 Heart rate 64 /min Nathan Degroot MD Work Phone: [facility] 02-10-2025 11:09-0400 Respiratory rate 16 /min Nathan Degroot MD Work Phone: [facility] 02-10-2025 11:09-0400 SaO2% (BldA) [Mass fraction] 95 % Nathan Degroot MD Work Phone: [facility] 02-10-2025 11:09-0400 Systolic blood pressure 118 mm[Hg] Nathan Degroot MD Work Phone: [facility] 01-20-2025 09:50-0400 Body temperature 97.2 [degF] Nathan Degroot MD Work Phone: [facility] 01-20-2025 09:50-0400 Diastolic blood pressure 69 mm[Hg] Nathan Degroot MD Work Phone: [facility] 01-20-2025 09:50-0400 Heart rate 63 /min Nathan Degroot MD Work Phone: [facility] 01-20-2025 09:50-0400 Respiratory rate 16 /min Nathan Degroot MD Work Phone: [facility] 01-20-2025 09:50-0400 SaO2% (BldA) [Mass fraction] 100 % Nathan Degroot MD Work Phone: [facility] 01-20-2025 09:50-0400 Systolic blood pressure 120 mm[Hg] Nathan Degroot MD Work Phone: [facility] 01-20-2025 07:34-0400 Body height 175.26 cm Nathan Degroot MD Work Phone: 6(914)685-020805 [place] [address] 01-20-2025 07:34-0400 Body mass index (BMI) [Ratio] 24.5 kg/m2 Nathan Degroot MD Work Phone: [facility] 01-20-2025 07:34-0400 Body weight 75.29 kg Nathan Degroot MD Work Phone: [facility] 12-08-2024 13:47-0500 Body mass index (BMI) [Ratio] 23.9 kg/m2 Nathan Degroot MD Work Phone: [facility] 12-08-2024 13:47-0500 Body weight 73.48 kg Nathan Degroot MD Work Phone: [facility] 12-08-2024 13:47-0500 Diastolic blood pressure 65 mm[Hg] Nathan Degroot MD Work Phone: [facility] 12-08-2024 13:47-0500 Systolic blood pressure 161 mm[Hg] Nathan Degroot MD Work Phone: [facility] 11-22-2024 09:45-0500 Body mass index (BMI) [Ratio] 23.9 kg/m2 Nathan Degroot MD Work Phone: [facility] 11-22-2024 09:45-0500 Body weight 73.48 kg Nathan Degroot MD Work Phone: [facility] 11-22-2024 09:45-0500 Diastolic blood pressure 82 mm[Hg] Nathan Degroot MD Work Phone: [facility] 11-22-2024 09:45-0500 Systolic blood pressure 138 mm[Hg] Nathan Degroot MD Work Phone: [facility] 11-16-2024 14:33-0500 Body mass index (BMI) [Ratio] 23.6 kg/m2 Nathan Degroot MD Work Phone: [facility] 11-16-2024 14:33-0500 Body temperature 96.5 [degF] Nathan Degroot MD Work Phone: 8(116)[phone] [place] [address] 11-16-2024 14:33-0500 Body weight 72.57 kg Nathan Degroot MD Work Phone: [facility] 11-16-2024 14:33-0500 Diastolic blood pressure 67 mm[Hg] Nathan Degroot MD Work Phone: [facility] 11-16-2024 14:33-0500 Heart rate 58 /min Nathan Degroot MD Work Phone: [facility] 11-16-2024 14:33-0500 Respiratory rate 16 /min Nathan Degroot MD Work Phone: [facility] 11-16-2024 14:33-0500 SaO2% (BldA) [Mass fraction] 99 % Nathan Degroot MD Work Phone: [facility] 11-16-2024 14:33-0500 Systolic blood pressure 126 mm[Hg] Nathan Degroot MD Work Phone: [facility] 11-16-2024 10:56-0500 Body mass index (BMI) [Ratio] 22.8 kg/m2 Nathan Degroot MD Work Phone: [facility] 11-16-2024 10:56-0500 Body weight 70.3 kg Nathan Degroot MD Work Phone: [facility] 11-16-2024 10:56-0500 Diastolic blood pressure 78 mm[Hg] Nathan Degroot MD Work Phone: [facility] 11-16-2024 10:56-0500 Systolic blood pressure 130 mm[Hg] Nathan Degroot MD Work Phone: [facility] 10-13-2024 10:41-0500 Diastolic blood pressure 67 mm[Hg] Nathan Degroot MD Work Phone: [facility] 10-13-2024 10:41-0500 Heart rate 39 /min Nathan Dergoot MD Work Phone: [facility] 10-13-2024 10:41-0500 Respiratory rate 18 /min Nathan Degroot MD Work Phone: [facility] 10-13-2024 10:41-0500 SaO2% (BldA) [Mass fraction] 96 % Nathan Degroot MD Work Phone: [facility] 10-13-2024 10:41-0500 Systolic blood pressure 128 mm[Hg] Nathan Degroot MD Work Phone: [facility] 11-13-2022 13:34-0500 Body height 175.3 cm Antwon Brizuela MD Work Phone: [facility] 11-13-2022 13:34-0500 Body temperature 97.3 [degF] Antwon Brizuela MD Work Phone: [facility] 11-13-2022 13:34-0500 Body weight 75.93 kg Antwon Brizuela MD Work Phone: [facility] 11-13-2022 13:34-0500 Diastolic blood pressure 82 mm[Hg] Antwon Brizuela MD Work Phone: [facility] 11-13-2022 13:34-0500 Heart rate 63 /min Antwon Brizuela MD Work Phone: [facility] 11-13-2022 13:34-0500 Respiratory rate 18 /min Antwon Brizuela MD Work Phone: [facility] 11-13-2022 13:34-0500 SaO2% (BldA) [Mass fraction] 97 % Antwon Brizuela MD Work Phone: [facility] 11-13-2022 13:34-0500 Systolic blood pressure 134 mm[Hg] Antwon Brizuela MD Work Phone: [facility] 10-08-2022 08:05-0500 Body height 175.[address] Antwon Brizuela Work Phone: [facility] 10-08-2022 08:05-0500 Body mass index (BMI) [Ratio] 24.2 kg/m2 Dr. Antwon Brizuela Work Phone: [facility] 10-08-2022 08:05-0500 Body weight 74.[address] Antwon Brizuela Work Phone: [facility] 10-08-2022 08:05-0500 Diastolic blood pressure 66 mm[Hg] Dr. Antwon Brizuela Work Phone: [facility] 10-08-2022 08:05-0500 Heart rate 73 /min Dr. Antwon Brizuela Work Phone: [facility] 10-08-2022 08:05-0500 SaO2% (BldA) [Mass fraction] 98 % Dr. Antwon Brizuela Work Phone: [facility] 10-08-2022 08:05-0500 Systolic blood pressure 105 mm[Hg] Dr. Antwon Brizuela Work Phone: [facility] 09-24-2022 13:46-0500 Body temperature 97.7 [degF] Dr. Antwon Brizuela Work Phone: [facility] Work Phone: 09-24-2022 13:46-0500 Diastolic blood pressure 84 mm[Hg] Dr. Antwon Brizuela Work Phone: [facility] Work Phone: 09-24-2022 13:46-0500 Heart rate 65 /min Dr. Antwon Brizuela Work Phone: [facility] Work Phone: 09-24-2022 13:46-0500 Respiratory rate 16 /min Dr. Antwon Brizuela Work Phone: [facility] Work Phone: 09-24-2022 13:46-0500 SaO2% (BldA) [Mass fraction] 98 % Dr. Antwon Brizuela Work Phone: [facility] Work Phone: 09-24-2022 13:46-0500 Systolic blood pressure 124 mm[Hg] Dr. Antwon Brizuela Work Phone: [facility] Work Phone: 09-24-2022 12:40-0500 Body height 175.[address] Antwon Brizuela Work Phone: [facility] Work Phone: 09-24-2022 12:40-0500 Body mass index (BMI) [Ratio] 24 kg/m2 Dr. Antwon Brizuela Work Phone: [facility] Work Phone: 09-24-2022 12:40-0500 Body weight 73.[address] Antwon Brizuela Work Phone: [facility] Work Phone: 07-26-2022 08:27-0400 Body height 172.[address] RENEE LINDO MD [facility] 07-26-2022 08:27-0400 Body weight 73.[address] RENEE LINDO MD [facility] 07-24-2022 13:39-0400 Body mass index (BMI) [Ratio] 24.7 kg/m2 Dr. Antwon Brizuela Work Phone: [facility] Work Phone: 07-24-2022 13:39-0400 Body weight 75.[address] Antwon Brizuela Work Phone: [facility] Work Phone: 07-24-2022 13:39-0400 Diastolic blood pressure 78 mm[Hg] Dr. Antwon Brizuela Work Phone: [facility] Work Phone: 07-24-2022 13:39-0400 Systolic blood pressure 130 mm[Hg] Dr. Antwon Brizuela Work Phone: [facility] Work Phone: 06-24-2022 10:24-0400 Body mass index (BMI) [Ratio] 24.8 kg/m2 Dr. Antwon Brizuela Work Phone: [facility] Work Phone: 06-24-2022 10:24-0400 Body weight 75.[address] Antwon Brizuela Work Phone: [facility] Work Phone: 06-24-2022 10:24-0400 Diastolic blood pressure 80 mm[Hg] Dr. Antwon Brizuela Work Phone: [facility] Work Phone: 06-24-2022 10:24-0400 Systolic blood pressure 134 mm[Hg] Dr. Antwon Brizuela Work Phone: [facility] Work Phone: 05-07-2022 13:09-0400 Body height 172.7 cm Chivo Membreno APRN.SENIOR GRAPHIC DESIGNER Work Phone: [facility] 05-07-2022 13:09-0400 Body temperature 97.11 [degF] Chivo Membreno APRN.SENIOR GRAPHIC DESIGNER Work Phone: [facility] 05-07-2022 13:09-0400 Body weight 76.57 kg Chivo Paradahelm FORESTRY TECHNICIAN.SENIOR GRAPHIC DESIGNER Work Phone: [facility] 05-07-2022 13:09-0400 Diastolic blood pressure 84 mm[Hg] Zainerie Temi FORESTRY TECHNICIAN.SENIOR GRAPHIC DESIGNER Work Phone: [facility] 05-07-2022 13:09-0400 Heart rate 61 /min Zainerie Temi FORESTRY TECHNICIAN.SENIOR GRAPHIC DESIGNER Work Phone: [facility] 05-07-2022 13:09-0400 Respiratory rate 14 /min Zainerie Temi FORESTRY TECHNICIAN.SENIOR GRAPHIC DESIGNER Work Phone: [facility] 05-07-2022 13:09-0400 SaO2% (BldA) [Mass fraction] 98 % Susane Temi FORESTRY TECHNICIAN.SENIOR GRAPHIC DESIGNER Work Phone: [facility] 05-07-2022 13:09-0400 Systolic blood pressure 130 mm[Hg] Zainerie Temi FORESTRY TECHNICIAN.SENIOR GRAPHIC DESIGNER Work Phone: [facility] 10-22-2021 07:39-0500 Body temperature 97.5 [degF] Zainrie Temi FORESTRY TECHNICIAN.SENIOR GRAPHIC DESIGNER Work Phone: [facility] 10-22-2021 07:39-0500 Body weight 74.39 kg Emeli Paradahelm FORESTRY TECHNICIAN.SENIOR GRAPHIC DESIGNER Work Phone: [facility] 10-22-2021 07:39-0500 Diastolic blood pressure 78 mm[Hg] Zainrie Temi FORESTRY TECHNICIAN.SENIOR GRAPHIC DESIGNER Work Phone: [facility] 10-22-2021 07:39-0500 Heart rate 73 /min Jeffrie Temi FORESTRY TECHNICIAN.SENIOR GRAPHIC DESIGNER Work Phone: [facility] 10-22-2021 07:39-0500 Respiratory rate 14 /min Zainrie Temi FORESTRY TECHNICIAN.SENIOR GRAPHIC DESIGNER Work Phone: [facility] 10-22-2021 07:39-0500 SaO2% (BldA) [Mass fraction] 98 % Zainrie Temi FORESTRY TECHNICIAN.SENIOR GRAPHIC DESIGNER Work Phone: [facility] 10-22-2021 07:39-0500 Systolic blood pressure 112 mm[Hg] Emeli Temi SUAREZ.SENIOR GRAPHIC DESIGNER Work Phone: [facility] Encounters Encounter Date Encounter Type Care Provider Facility Start: 06-02-2025 End: 06-02-2025 ambulatory Nathan Degroot MD Work Phone: -Ultrasound [facility] Start: 06-02-2025 End: 06-02-[address] Giorgio Egan MD -Ultrasound [facility] Work Phone: Start: 06-02-2025 End: 06-02-2025 ambulatory Giorgio Egan Facility:[facility] Start: 05-27-2025 End: 05-27-[address] Gayle Dinh MD -[facility] Work Phone: Start: 05-27-2025 End: 05-27-2025 ambulatory Nathan Degroot MD Work Phone: -[facility] Start: 05-25-2025 [facility] Start: 05-19-2025 End: 05-19-2025 Patient encounter procedure Lenora Cabezas [place] -[facility] Work Phone: Start: 05-19-2025 End: 05-19-2025 ambulatory Nathan Degroot MD Work Phone: -[facility] Start: 05-17-2025 Non-patient / Non-visit Dr. Bree Dinh MD -[facility] Start: 05-17-2025 End: 05-17-2025 Admission to same day surgery center Dr. Gayle Dinh MD -[facility] Start: 05-17-2025 End: 05-17-2025 ambulatory Nathan Degroot MD Work Phone: -[facility] Start: 05-05-2025 End: 05-05-2025 ambulatory Gayle Dinh Facility:[facility] Start: 05-05-2025 End: 05-05-2025 Non-patient / Non-visit Dr. Jose Neil MD -[facility] Work Phone: Start: 05-03-2025 Non-patient / Non-visit Dr. Giselle dickinson MD -[facility] Work Phone: Start: 04-04-2025 End: 04-04-[address] [facility] Work Phone: Start: 04-04-2025 End: 04-04-2025 ambulatory Nathan Degroot MD Work Phone: [facility] Work Phone: Start: 03-08-2025 End: 03-08-2025 ambulatory Nathan Degroot MD Work Phone: [facility] Work Phone: Start: 03-08-2025 End: 03-08-2025 Patient encounter procedure Katia IBRAHIM -[facility] Work Phone: Start: 03-08-2025 End: 03-08-2025 ambulatory Nathan Zane Facility:[facility] Start: 02-18-2025 End: 02-18-[address] Gayle Dinh MD -Ultrasound, [facility] Work Phone: Start: 02-18-2025 End: 02-18-2025 ambulatory Gayle Dinh Facility:[facility] Start: 02-15-2025 End: 02-15-[address] Gayle Dinh MD -[facility] Work Phone: Start: 02-15-2025 End: 02-15-2025 ambulatory Gayle Dinh Facility:[facility] Start: 02-10-2025 End: 02-10-[address] Giorgio Egan MD -[facility] Work Phone: Start: 02-10-2025 End: 02-10-2025 ambulatory Nathan Degroot Facility:[facility] Start: 01-20-2025 Non-patient / Non-visit Dr. Julia Hodges MD -[facility] Start: 01-20-2025 End: 01-20-2025 Admission to same day surgery center Dr. Giselle Booth MD -[facility] Start: 01-20-2025 End: 01-20-2025 ambulatory Nathan Degroot MD Work Phone: [facility] Work Phone: Start: 12-08-2024 End: 12-08-2024 Patient encounter procedure Betty IBRAHIM -[facility] Work Phone: Start: 12-08-2024 End: 12-08-2024 ambulatory Betty Smith Facility:[facility] Start: 11-25-2024 End: 11-25-[address] Nathan Degroot MD -Outpatient Bone Densitometry Work Phone: Start: 11-25-2024 End: 11-25-2024 ambulatory Nathan Degroot Facility:[facility] Start: 11-22-2024 End: 11-22-2024 Patient encounter procedure Katia IBRAHIM -[facility] Work Phone: Start: 11-22-2024 End: 11-22-2024 ambulatory Nathan Degroot Facility:[facility] Start: 11-16-2024 End: 11-16-2024 Emergency department patient visit Dr. Tony Grant DO -Emergency Department Work Phone: Start: 11-16-2024 End: 11-16-2024 Patient encounter procedure Katia IBRAHMI -[facility] Work Phone: Start: 11-16-2024 End: 11-16-2024 ambulatory Nathan Degroot Facility:[facility] Start: 11-10-2024 End: 11-10-[address] Giorgio Egan MD -Nuclear Medicine, [facility] Work Phone: Start: 11-10-2024 End: 11-10-2024 ambulatory Nathan Degroot Facility:[facility] Start: 10-18-2024 End: 10-18-[address] Nathan Degroot MD -Laboratory, [facility] Start: 10-18-2024 End: 10-18-2024 ambulatory Chalngozi Zane Facility:[facility] Start: 10-13-2024 End: 10-13-[address] Giorgio Egan MD -[facility] Work Phone: Start: 10-13-2024 End: 10-13-2024 ambulatory Chalon Zane Facility:[facility] Start: 09-10-2024 ambulatory Chalon Zane Facility:[facility] Start: 09-10-2024 End: 09-10-2024 [facility] Start: 07-27-2024 End: 07-27-2024 ambulatory Chalngozi Zane Facility:[facility] Start: 07-27-2024 End: 07-27-2024 ambulatory Giorgio Egan Facility:[facility] Start: 01-02-2024 End: 01-02-2024 ambulatory [facility] Work Phone: Start: 01-02-2024 End: 01-02-2024 Patient encounter procedure [facility]Laboratory Work Phone: Start: 11-14-2023 End: 11-14-2023 ambulatory [facility] Work Phone: Start: 11-14-2023 End: 11-14-2023 Patient encounter procedure [facility]Laboratory Work Phone: Start: 10-17-2023 End: 10-17-2023 ambulatory [facility] Work Phone: Start: 10-17-2023 End: 10-17-2023 Patient encounter procedure [facility]Laboratory Work Phone: Start: 05-27-2023 End: 05-27-2023 ambulatory DO Rhianna Christine Work Phone: [facility] Work Phone: Start: 05-27-2023 End: 05-27-2023 Patient encounter procedure DO Rhianna Christine Work Phone: [facility]-Outpatient Breast Imaging Work Phone: Start: 04-25-2023 Non-patient / Non-visit Dr. Ra janelle Brizuela Work Phone: [facility] Start: 04-25-2023 End: 04-25-[address] Antwon Brizuela Work Phone: [facility] Work Phone: Start: 04-25-2023 End: 04-25-[address] Antwon Brizuela Work Phone: [facility]-Cardiovascular Services Work Phone: Start: 04-14-2023 End: 04-14-[address] Antwon Brizuela Work Phone: [facility] Work Phone: Start: 04-14-2023 End: 04-14-[address] Antwon Brizuela Work Phone: [facility] Start: 02-03-2023 Telephone encounter Antwon Brizuela MD Work Phone: [facility] Comment on above: Orders Results Start: 01-31-2023 Chart abstracting Antwon Brizuela MD Work Phone: [facility] Start: 01-30-2023 End: 01-30-[address] Antwon Brizuela Work Phone: [facility] Work Phone: Start: 01-30-2023 End: 01-30-[address] Antwon Brizuela Work Phone: [facility] Start: 01-20-2023 Telephone encounter Antwon Brizuela MD Work Phone: [facility] Comment on above: Orders Start: 01-20-2023 Non-patient / Non-visit Dr. Ra janelle Brizuela Work Phone: [facility] Start: 01-20-[address] Ignacio Brizuela Work Phone: [facility]Card[facility] Start: 12-20-2022 Telephone encounter Antwon Brizuela MD Work Phone: [facility] General Surgery Comment on above: Appointment Start: 11-18-2022 Telephone encounter Antwon Brizuela MD Work Phone: [facility] Comment on above: Results Start: 11-13-2022 End: 11-14-2022 ambulatory ANTWON BRIZUELA Facility:[id number] Start: 11-13-2022 End: 11-13-2022 Office outpatient visit 15 minutes Antwon Brizuela MD Work Phone: [facility] Comment on above: Acquired hypothyroid ism (Primary Dx); Pure hypercholesterolemia; Primary hypertension; Gastroesophageal reflux disease with esophagitis without hemorrhage; Renal insufficiency syndrome Start: 10-08-2022 End: 10-08-[address] Antwon Brizuela Work Phone: [facility] Start: 09-28-2022 Refill Chivo hdz APRN.[facility] Work Phone: [facility] Comment on above: Refill Request Start: 09-24-2022 Non-patient / Non-visit Dr. Ra janelle Brizuela Work Phone: [facility] Start: 09-24-2022 End: 09-24-2022 Admission to same day surgery center Dr. Antwon Brizuela Work Phone: [facility]-Endoscopy Start: 09-24-2022 End: 09-24-[address] Antwon Brizuela Work Phone: [facility] Work Phone: Start: 09-06-2022 Patient encounter procedure [facility] Start: 08-13-2022 End: 08-13-2022 ambulatory RENEE LINDO MD Facility:[facility] Start: 07-26-2022 End: 07-26-[address] Antwon Brizuela Work Phone: [facility] Start: 07-26-2022 End: 07-27-2022 ambulatory RENEE LINDO MD Facility:[facility] Start: 07-26-2022 End: 07-27-2022 ambulatory RENEE LINDO MD Facility:[facility] Start: 07-26-2022 End: 07-26-[address] RENEE LINDO MD [facility] Start: 07-24-2022 End: 07-24-[address] Antw[facility] Brizuela [facility] Start: 06-24-2022 End: 06-24-[address] Antwon Brizuela [facility] Phone[facility] Start: 05-17-2022 End: 05-17-2022 Patient encounter procedure [facility]Outpatient Breast Imaging Start: 05-08-2022 Telephone encounter Chivo Membreno APRN.SENIOR GRAPHIC DESIGNER Work Phone: [facility] Comment on above: Orders Start: 05-07-2022 End: 05-08-2022 ambulatory CHIVO MEMBRENO Facility:[id number] Start: 05-07-2022 End: 05-07-2022 ambulatory CHIVO MEMBRENO Facility:[id number] Start: 05-07-2022 Encounter for genera l adult medical examination without abnormal findings CHIVO MEMBRENO [facility] Start: 05-07-2022 End: 05-07-2022 Patient encounter status Chivo Membreno APRN.SENIOR GRAPHIC DESIGNER Work Phone: [facility] Start: 05-07-2022 End: 05-07-2022 Periodic preventive med est patient 65yrs& older Chivo Balwinder Temi SUAREZ.SENIOR GRAPHIC DESIGNER Work Phone: [facility] Comment on above: Wellness examination (Primary Dx); Hypothyroidism, unspecified type; Primary hypertension; Mixed hyperlipidemia; Encounter for screening mammogram for malignant neoplasm of breast; GERD without esophagitis Start: 03-19-2022 Chart abstracting Emeli olmedo APRN.SENIOR GRAPHIC DESIGNER Work Phone: [facility] Start: 03-19-2022 Medical examinations/reports status Jessicakaycee Temi SUAREZ.SENIOR GRAPHIC DESIGNER Work Phone: [facility] Start: 03-19-2022 Patient encounter status Zaincodey Temi SUAREZ.SENIOR GRAPHIC DESIGNER Work Phone: [facility] Start: 10-22-2021 End: 10-22-2021 Subsequent hospital visit by physician [facility] Provider IF AMANDA BOYCE Comment on above: E03.9 Procedures Date Procedure Procedure Detail Performing Clinician Start: 06-02-2025 Ultrasound elastography of liver Nathan Degroot MD Work Phone: Start: 05-17-2025 Hysteroscopy Nathan Degroot MD Work Phone: Start: 05-05-2025 Procedure Nathan Degroot MD Work Phone: Comment on above: Test Ordered: [id number] Enhanced Liver Fibr osis (ELF)ELF(TM) Score 10.33 [H ] BN Reference Range: <9.80ELF(TM) Score Interpretation:Risk cut-offs to assess the likelihood of progressionto cirrhosis and liver-related clinical events within3.9 years following baseline ELF score (IQR: 14.0-22.4months)*: Lower risk < 9.80 Mid risk 9.80 - 11.29 Higher risk >11.29Note: The ELF(TM) Score is a unitless numerical value.*Nagi SA, Aureliano VW, Franny T, et al. Selonsertibfor patients with bridging fibrosis or compensatedcirrhosis due to SAWYER: Results from randomized phaseIII STELLAR trials. J Hepatol. 2020 May;73(1):26-39.Performed at: [facility] [address] [id number] Director: Clifford Denise MD, Phone: [phone] at: [facility] [id number] [place], [place] [id number] Director: Caesar Brewster PhD, Phone: [phone] Start: 03-08-2025 Vitamin D, 25-hydroxy measurement Nathan Degroot MD Work Phone: Comment on above: Vitamin D StatusDeficiency: <20 ng/mL (5 0nmol/L)Insufficiency: 20-30 ng/mL (50-75 nmol/L)Sufficiency: 30-100 ng/mL (75-250 nmol/L)Toxicity: >100 ng/mL (>250 nmol/L) Start: 02-18-2025 Pelvic echography Nathan Degroot MD Work Phone: Start: 01-20-2025 Transurethral fulguration of bladder Nathan Degroot MD Work Phone: Start: 01-20-2025 Estimated creatinine clearance Nathan jackson MD Work Phone: Start: 11-25-2024 Dual energy X-ray absorptiometry Nathan Degroot MD Work Phone: Start: 11-16-2024 Plain x-ray of wrist Nathan Degroot MD Work Phone: Start: 11-16-2024 Plain x-ray of wrist Nathan Degroot MD Work Phone: Start: 11-10-2024 Radionuclide gastric emptying study Nathan Degroot MD Work Phone: Start: 05-27-2023 Screening mammography DO Rhianna Christine Work Phone: Start: 01-30-2023 TSH, REFLEX Antwon Brizuela MD Work Phone: Start: 09-24-[address] Antwon wick Work Phone: Start: 05-17-2022 Screening mammography Start: 05-07-2022 Adult depression screening assessment Chivo Membreno ATUL Work Phone: Start: 11-10-2006 Mammography [facility] Start: 01-02-2004 Colonoscopy [facility] Provider Excision of bunion DR RENEE LINDO MD Comment on above: MYAH Foot structure (body structure) DR RENEE LINOD MD Comment on above: LEFT Ligation of fallopian tube D R RENEE LINDO MD Rotator cuff includi ng muscles and tendons (body structure) DR RENEE LINDO MD Comment on above: RIGHT Plan of Treatment Date Care Activity Detail Author Start: 05-07-2027 LIPID SCREEN LIPID SCREEN [facility] Start: 10-24-2025 LIPID SCREEN LIPID SCREEN [facility] Start: 09-02-2025 ambulatory Ambulatory Facility:[facility] Start: 06-15-2025 ambulatory Ambulatory Facility:[facility] Start: 05-17-2025 Ambulation without limitation [facility] Start: 05-17-2025 Medical regimen orde rs management [facility] Start: 05-17-2025 Medication education [facility] Start: 05-17-2025 Patient discharge [facility] Start: 05-17-2025 Procedure discontinued [facility] Start: 05-17-2025 Taking patient vital signs [facility] Start: 05-17-2025 Vital signs measurements [facility] Start: 05-17-2025 [facility] Start: 05-17-2025 Anesthesia vaginal procedure w/biopsy nos ANESTH VAGINAL PROCEDURES [facility] Start: 05-17-2025 Pelvic examination w/anesthesia other than local PELVIC EXAMINATION [facility] Start: 05-07-2025 DIABETES SCREEN DIABETES SCREEN [facility] Start: 01-20-2025 Anes transurethral w/urethrocystoscopy nos ANESTH BLADDER SURGERY [facility] Start: 01-20-2025 Cysto w/destruction of lesions CYSTOSCOPY AND TREATMENT [facility] Start: 01-20-2025 Cystourethroscopy wi th biopsy CYSTOSCOPY W/BIOPSY(S) [facility] Start: 01-20-2025 Patient discharge [facility] Start: 12-08-2024 Patient referral [facility] Work Phone: Start: 11-16-2024 [facility] Start: 11-16-2024 Application short ar m splint forearm-hand static APPLY FOREARM SPLINT [facility] Start: 03-24-2024 Colonoscopy COLONOSCOPY [facility] Start: 03-24-2024 COLORECTAL CANCER SCREENING COLORECTAL CANCER SCREENING [facility] Start: 11-13-2023 ANNUAL PCP TEAM DECK MATE JARRED DISEASE VISIT ANNUAL PCP TEAM CHRONIC DISEASE VISIT [facility] Start: 10-24-2023 DIABETES SCREEN DIABETES SCREEN [facility] Start: 05-07-2023 Adult depression scr eening assessment DEPRESSION SCREENING [facility] Start: 05-07-2023 ANNUAL PCP TEAM DECK MATE JARRED DISEASE VISIT ANNUAL PCP TEAM CHRONIC DISEASE VISIT [facility] Start: 03-05-2023 End: 05-05-2023 Thyrotropin [Units/volume] in Serum or Plasma TSH BLD Lab Routine Acquired hypothyroidism Expected: 03/05/2023, Expires: 05/05/2023 [facility] Work Phone: Comment on above: Expected: 03/05/2023 , Expires: 05/05/2023 Start: 01-20-2023 End: 03-22-2023 Thyrotropin [Units/volume] in Serum or Plasma TSH BLD Lab Routine Hypothyroidism, acquired Expected: 01/20/2023, Expires: 03/22/2023 [facility] Work Phone: Comment on above: Expected: 01/20/2023 , Expires: 03/22/2023 Start: 11-03-2022 ADVANCE DIRECTIVE DISCUSSION ADVANCE DIRECTIVE DISCUSSION [facility] Start: 11-03-2022 DEPRESSION ASSESSMENT DEPRESSION ASS ESSMENT [facility] Start: 10-22-2022 BP CONTROLLED (<130/80) BP CONTROLLE D (<130/80) [facility] Start: 09-24-2022 Patient discharge [facility] Work Phone: Start: 07-04-2022 Influenza vaccination [facility] Start: 06-07-2022 End: 08-07-2022 CBC W Auto Differential panel - Blood CBC + DIFF Lab Routine Wellness examination Expected: 06/07/2022, Expires: 08/07/2022 [facility] Work Phone: Comment on above: Expected: 06/07/2022 , Expires: 08/07/2022 Start: 05-07-2022 End: 07-07-2022 Comprehensive metabolic 2000 panel - Serum or Plasma [facility] Work Phone: Comment on above: Expected: 05/07/2022 , Expires: 07/07/2022 Start: 05-07-2022 End: 07-07-2022 Lipid 1996 panel - Serum or Plasma [facility] Work Phone: Comment on above: Expected: 05/07/2022 , Expires: 07/07/2022 Start: 05-07-2022 End: 07-07-2022 Thyrotropin [Units/volume] in Serum or Plasma [facility] Work Phone: Comment on above: Expected: 05/07/2022 , Expires: 07/07/2022 Start: 05-01-2022 PNEUMOCOCCAL: 65+ (2 - PCV) PNEUMOCOCCAL: 65+ (2 - PCV) [facility] Start: 01-05-2022 COVID-19 VACCINE (4 - Booster for Moderna series) COVID-19 VACCINE (4 - Booster for Moderna series) [facility] [facility] Start: 11-03-2021 ADVANCE DIRECTIVE DISCUSSION ADVANCE DIRECTIVE DISCUSSION [facility] Start: 11-03-2021 DEPRESSION ASSESSMENT DEPRESSION ASS ESSMENT [facility] Start: 11-02-2021 COVID-19 VACCINE (4 - Booster for Moderna series) COVID-19 VACCINE (4 - Booster for Moderna series) [facility] Start: 07-04-2021 Influenza vaccination INFLUENZA (#1) [facility] Start: 2017 ADVANCE DIRECTIVE DISCUSSION ADVANCE DIRECTIVE DISCUSSION [facility] Start: 2017 BONE DENSITY BONE DENSITY [facility] Start: 2017 PNEUMOVAX AGE 65 AND OVER WITH 5YR LOOKBACK (#1) PNEUMOVAX AGE 65 AND OVER WITH 5YR LOOKBACK (#1) [facility] Start: 01-01-2014 Colonoscopy COLONOSCOPY [facility] Start: 01-01-2014 COLORECTAL CANCER SCREENING COLORECTAL CANCER SCREENING [facility] Start: 11-24-2007 FECAL OCCULT BLOOD FECAL OCCULT BLOO D [facility] Start: 11-10-2007 Mammography MAMMOGRAM [facility] Start: 2002 SHINGRIX VACCINE (1 of 2) TABOR GRIX VACCINE (1 of 2) [facility] Start: 1997 COLOGUARD (FIT-DNA) COLOGUARD (FIT-D NA) [facility] Start: [address] COLONOGRAPHY [facility] Start: 1997 DIABETES SCREEN DIABETES SCREEN [facility] Start: 1997 LIPID SCREEN LIPID SCREEN [facility] Start: 1997 SIGMOIDOSCOPY SIGMOIDOSCOPY [facility] Start: 1971 Urine microalbumin profile DTAP,TDAP ,TD (1 - Tdap) [facility] Start: 1970 ANNUAL PCP TEAM DECK MATE JARRED DISEASE VISIT ANNUAL PCP TEAM CHRONIC DISEASE VISIT [facility] Start: 1970 BP CONTROLLED (<130/80) BP CONTROLLE D (<130/80) [facility] Start: 1970 HEPATITIS C SCREENING HEPATITIS C SC REENING [facility] Start: 1964 Adult depression scr [facility] assessment DEPRESSION SCREENING [facility] Start: 1957 COVID-19 VACCINE (#1) COVID-19 VACCI NE (#1) [facility] Start: 1957 COVID-19 VACCINE (1) COVID-19 VACCIN E (1) [facility] C reactive protein [Mass/volume] in Serum or Plasma [facility] C reactive protein [Mass/volume] in Serum or Plasma [facility] CBC W Auto Different ial panel - Blood CBC + DIFF Lab Routine Wellness examination 05/07/2022 2:49 PM EDT [facility] Work Phone: CBC W Auto Different ial panel - Blood [facility] CBC W Auto Different ial panel - Blood [facility] Colonoscopy [facility] Comprehensive metabo lic 1999 panel - Serum or Plasma [facility] Comprehensive metabo lic 1999 panel - Serum or Plasma [facility] Lipid 1996 panel - S fabian or Plasma [facility] Liver stiffness by US.transient elastography [facility] Patient referral [facility] Work Phone: Procedure [facility] Prothrombin time [facility] End: 06-06-2023 Screening mammography bi 2-view breast inc cad CHRIS SCREENING Radiology Routine Encounter for screening mammogram for malignant neoplasm of breast 1 Occurrences starting 05/07/2022 until 06/06/2023 [facility] Work Phone: Comment on above: 1 Occurrences starti ng 05/07/2022 until 06/06/2023 T4 free measurement [facility] Thyroid stimulating hormone measurement [facility] US Heart [facility] Vitamin D, 25-hydrox y measurement [facility] Immunizations Immunization Date Immunization Notes Care Provider Davi gudino 07-19-2022 Covid Moderna Bivale nt Booster Dr. Antwon Brizuela Work Phone: [facility] 08-20-2021 influenza, injectabl e, quadrivalent, preservative free [facility] 08-20-2021 influenza, seasonal, injectable [facility] 05-01-2021 pneumococcal polysaccharide vaccine, 23 valent Emeli Membreno APRN.SENIOR GRAPHIC DESIGNER Work Phone: [facility] 12-06-2020 Covid (Moderna) [facility] 11-07-2020 Covid (Moderna) [facility] 08-09-2020 influenza, injectabl e, quadrivalent, preservative free [facility] 08-09-2020 influenza, seasonal, injectable [facility] 09-06-2019 influenza nasal, unspecified formulation Emeli Membreno APRN.SENIOR GRAPHIC DESIGNER Work Phone: [facility] 09-06-2019 influenza, injectabl e, quadrivalent, preservative free [facility] 09-06-2019 influenza, seasonal, injectable [facility] 07-31-2018 influenza, injectabl e, quadrivalent, preservative free [facility] 07-31-2018 influenza, seasonal, injectable [facility] Payers Date Payer Category Payer Self-pay [id number] 2024 Medicare [id number] 2017 Medicare MEDICARE MEDICAR E A AND B [id number] 2017-Present [phone] [place] [address] Medicare [id number] 2017 Medicare [id number] 2017 Medicare MEDICARE MEDICAR E A AND B [id number] 2017-Present [phone] [place] [address] Medicare [id number] 2017 Unknown [id number] 2017 Unknown MEDICO MEDICO 2N D [id number] 2017-Present [phone] [address] [address] [place] [address] Indemnity [id number] 2006 Unknown ANTHEM BLUE CARD PPO OOS [id number] 2006-Present [phone] [address] [place] [address] PPO [id number] .[id number] 2006 Unknown [id number] 2005 Unknown PSYCH GENERIC BH GENERIC [id number] 2005-Present [phone] [address] [place] [address] Indemnity [id number] .[id number] 1952 Unknown [id number] 2.16.840.1.025064.3.579.2.627 1950 Unknown [id number] 2.16.840.1.215863.3.579.2.627 1950 Unknown [id number] 2.16.840.1.434894.3.579.2.627 Unknown [id number] 2.16.840.1.173495.3.579.2.462 Unknown [id number] 2.16840.1.179956.3.579.2.462 Unknown [id number] 2.16.840.1.671499.3.579.2.462 Unknown [id number] 2.840.1.321798.3.579.2.462 Unknown [id number] 2.16840.1.090946.3.579.2.462 Unknown [id number] 2.16840.1.166124.3.579.2.462 Unknown [id number] 2.16840.1.945294.3.579.2.462 Unknown [id number] 2.16840.1.411076.3.579.2.462 Unknown [id number] 2.16840.1.329203.3.579.2.462 Unknown [id number] 2.16.840.1.351661.3.579.2.462 Unknown [id number] 2.16.840.1.785179.3.579.2.462 Unknown [id number] 2.16.840.1.255211.3.579.2.462 Unknown [id number] 2.16.840.1.682608.3.579.2.462 Unknown [id number] 2.16840.1.390654.3.579.2.462 Unknown [id number] 2.16.840.1.611245.3.579.2.462 Unknown [id number] 2.16.840.1.383396.3.579.2.462 Unknown [id number] 2.16.840.1.323978.3.579.2.462 Unknown [id number] 2.16.840.1.967669.3.579.2.462 Unknown [id number] 2.16.840.1.517502.3.579.2.462 Unknown [id number] 2.16.840.1.710582.3.579.2.462 Unknown [id number] 2.16.840.1.331293.3.579.2.462 Unknown [id number] 2.16.840.1.753813.3.579.2.462 Unknown [id number] 2.16.840.1.272888.3.579.2.462 Unknown [id number] 2.16.840.1.921156.3.579.2.462 Unknown [id number] 2.16.840.1.051047.3.579.2.462 Unknown [id number] 2.16.840.1.935459.3.579.2.462 Unknown [id number] 2.16.840.1.537381.3.579.2.462 Unknown [id number] 2.16.840.1.148521.3.579.2.462 Social History Date Type Detail Facility Start: 07-26-2022 End: 05-03-2025 Tobacco smoking status NHIS Never smoked tobacco [facility] Start: 05-15-2015 End: 11-13-2022 Alcohol intake Current drinker of alcohol (finding) [facility] Start: 1950 Sex Assigned At Not on file [facility] Start: 1950 Sex Assigned At Female [facility] Start: 04-27-2022 End: 05-07-2022 Exposure to SARS-CoV-2 (event) Not sure [facility] Start: 05-07-2022 End: 11-13-2022 Tobacco use and exposure Smokeless tobacco non-user [facility] Start: 09-18-2022 End: 10-08-2022 Tobacco smoking status NHIS Unknown if ever smoked [facility] Start: 01-20-2025 Sex Female (finding) [facility] Not [facility] NEGATED: Highlighted row Not [facility] Goals Date Patient Goal Desired Activity /State Functional Status Date Assessment Result Facility 07-26-2022 Functional Status Sensory Deficits None A [facility] Mental Status Date Assessment Result Facility 05-17-2025 Cognitive function Level Of Cons ciousness Awake;Drowsy [facility] Work Phone: 05-17-2025 Cognitive function Voice/Name;Touch/Shaki [facility] Work Phone: 01-20-2025 Cognitive function Voice/Name [facility] Work Phone: 09-24-2022 Cognitive function Voice/Name;Touch/Shaki [facility] Work Phone: Clinical Notes 05-07-2022 to 06-02-2025 Note Date & Type Note Facility 06-02-2025 Radiology Diagnostic study note [facility] Imaging Services [address] [place], [place] [address] ABD Limited w/ Elastography MR#: [id number] Acct: [id number] Name: GAYLE BANKS MELVIN Rep #: [id number] : 1950 F 74 From: Marilu Alvarez MD PCP: Dr. Nathan Degroot MD Status: REG CL I Study:ABD Limited w/ Elastography Date of Exa m: 06/02/25 Exam# [id number] Ordering Dr: Val Egan MD PROCEDURE: ABD LIMITED W/ ELASTOGRAPHY, 06/02/2025 REASON FOR EXAM: LIVER FIBROSIS, RULE OUT MASS COMPARISON: 05/03/2024 TECHNIQUE: Grayscale and color Doppler imaging of the right upper quadrant was performed. Elastography was performed for non-invasive assessment of liver tissue stiffness utilizing a [employer] S-shear wave imaging unit. FINDINGS: Liver: Questionably slightly coarsened appearance. 14.8 cm in length. Gallbladder: Unremarkable. Reportedly, sonographic Ruby's was negative. Biliary tree: Unremarkable. CBD measures 5 mm. Pancreas: Partially obscured by shadowing bowel gas, grossly unremarkable as visualized. Right kidney: 2.1 x 1.9 x 1.3 cm cyst. 8.6 cm in length. Other: Spleen measures 9.7 x 4.1 x 4.7 cm. Hepatic elastography: Number of measurements: 15 measurements across 3 regions, 5 measurements per region. US probe: CA1-7A. EQI median: 9.6 kPa EQI median velocity: 1.8 m/s IQR/Med: 16.3-24.5% (kPa) and 7.9-12.6% (m/s). If the IQR/Med is IQR/median >30%(for kPa) or >15% in m/s, the variance in the measurements is a large and the accuracy of the measurement may be in question. US/ABD Limited w/ Elastography IMPRESSION: 1. Questionable slight hepatic parenchymal coarsening which could be seen in early chronic liver disease. Correlate with clinical and laboratory evaluation. 2. Liver stiffness is 9.6 kPa. Per the below 2020 SRU criteria, this is suggestive of compensated advanced chronic liver disease but requires further testing for confirmation. 3. Additional description as above. Assessment is per the Update to the SRU Liver Elastography Consensus Statement (2020) Note that the above assessment of liver fibrosis is vendor-neutral and intended for use in fibrosis related to viral etiologies and non-alcoholic fatty-liver disease (NAFLD); in causes other than viral hepatitis and NAFLD, the cutoff values are currently not well established. In some patients with NAFLD, the cutoff values for cACLD may be lower (7-9 kPa). Note also that in the setting of elevated LFTs, nonfasting or vascular congestion, the stage of lifer fibrosis may be overestimated. Previous SRU reference values: <1.37 m/s (5.7kPa): No to mild fibrosis 1.37 m/s - 2.2 m/s: Moderate to severe fibrosis >2.2 m/s (15kPa): Significant fibrosis / cirrhosis Reading Location: [id number] CC: Dr. Nathan Degroot MD; Dr. Giorgio Egan MD ~ Site Director: Signed [facility] 05-17-2025 Consult note Note Date/Time May 17, 2025 12:53pm [facility] Medical Records Department [address] [place] [address] Pre-Anesthesia Evaluation 05/17/25 1248 MR#: [id number] Acct: [id number] Name: GAYLE BANKS Rep #:[id number] : 1950 74 From: Juan Limon MD PCP: Dr. Nathan Degroot MD Status:REG SD C Y Race: C Location: [place] [address] ASA Classification* ASA Classification ASA Classification: 2 Assessment & Plan Anesthesia* Anesthesia Assessment Anesthesia Assessment: Discussed sedation and/or anesthesia options, risks, benefits, and alternatives with patient/parents/legal guardian/POA. Questions invited. The patient/parents/legal guardian/POA seems to understand and agrees to proceedwith anesthesia plan. Reviewed the physical assessment, medical history, allergy history and patient home medications list prior to surgery/procedure/anesthetic and documented any changes. Performed airway and anesthesia risk assessments. Anesthesia Type Anesthesia Type: MAC History Source History Obtained from:: Patient and Chart Anesthesia Focused Assessment* Temperature: 97.2 F Pulse Rate: 63 Blood Pressure: 121/81 Respiratory Rate: 16 Pulse Ox: 96 Oxygen Delivery Method: Room Air Airway Assessment Mouth opens: >3 cm Mallampati Score: III Teeth Condition: Dentures (Patient has full upper and lower dentures. They willstay in.) Neck Range of motion (ROM): Full ROM Labs Anesthesia Preop lab: CBC WBC 4.1 K/mm3 (4.4-11.0) L 05/05/25 10:05/05/25 RBC 3.91 M/mm3 (4.2-5.4) L 05/05/25 10:30 05/05/25 Hgb 12.1 g/dL (12.0-15.0) 05/05/25 10:05/05/25 Hct 36.4 % (37-47) L 05/05/25 10:30 05/05/25 Plt Count 241 K/mm3 (150-450) 05/05/25 10:30 05/05/25 CHEMISTRY Potassium 4.3 mmol/L (3.3-5.1) 05/05/25 10:30 05/05/25 Sodium 136 mmol/L (133-145) 05/05/25 10:30 05/05/25 Phosphorus 3.2 mg/dL (2.5-4.9) 07/27/24 11:11 07/27/24 BUN 24 mg/dL (4-19) H 05/05/25 10:30 05/05/25 Creatinine 1.17 mg/dL (0.70-1.20) 05/05/25 10:30 05/05/25 Glucose 94 mg/dL (70-99) 05/05/25 10:30 05/05/25 TSH 5.630 uIU/mL (0.300-4.200) H 05/05/25 10:29 COAG PT 13.2 SECONDS (11.7-14.9) 05/05/25 10:29 Pre-Assessment Diagnosis/Proposed Procedure Planned Operative Procedure(s): Hysteroscopy, Dilation and Curettage Anesthesia History Anesthesia History - facility operations manager: Anesthesia History - facility operations manager Hx Hospitalization No 05/03/25 14:01 Any Problems With Anesthesia No 05/03/25 14:01 Cholinesterase deficiency No 05/03/25 14:01 You/Your Family Experience No 05/03/25 14:01 fever (hyperthermia) with Relationship Recent Exposure to Contagious No 05/17/25 12:20 Disease Does patient have nerve No 05/03/25 14:01 stimulator Patient instructed to have device shut off --Does patient have Pacemaker No 05/17/25 12:20 or ICD? When Was Last Pacemaker Check QUESTION #4 FULL TEXT: You/Your Family Experience fever (hyperthermia) with Anesthesia Last Oral Intake Last Oral intake: Last Oral Intake NPO since 21:30 05/17/25 12:20 Meds taken in AM with sips of Yes 05/17/25 12:20 water? Meds patient instructed to LEVOTHYROXINE 05/17/25 12:20 take am of surgery AMLODIPINE METOPROLOL CYTOTEC Any additional information?: Yes Meds taken in AM with sips of water?: Yes PONV PONV - facility operations manager: PONV - facility operations manager Female Yes 05/03/25 14:01 HX of Motion Sickness No 05/03/25 14:01 HX of N/V After Surgery No 05/03/25 14:01 Non-Smoker Yes 05/03/25 14:01 Duration of Surgery greater No 05/03/25 14:01 than 60 minutes Number of Risk Factors 2 05/03/25 14:01 PONV Score Moderate Risk 05/03/25 14:01 Height & Weight Height & Weight: Anesthesia: Height & Weight Height 5 ft 9 in 05/17/25 12:20 Weight: 73 kg 05/17/25 12:20 Body Mass Index (BMI) 23.8 05/17/25 12:20 Respiratory Assessment Respiratory Assessment - facility operations manager: Respiratory Tract Infection Hx - facility operations manager Hx Respiratory Tract Infection No 05/03/25 14:01 STOP Sleep Apnea STOP Sleep Apnea - facility operations manager: STOP Sleep Apnea - facility operations manager Hx Hypertension Yes: CONTROLLED WITH MED 05/03/25 14:01 Hx Sleep Apnea No 05/03/25 14:01 CPAP BIPAP Do you snore loudly (louder No 05/03/25 14:01 than talking or can be heard Do you often feel tired/ No 05/03/25 14:01 fatigued/ sleepy during daytime? Has anyone observed you stop No 05/03/25 14:01 breathing during sleep? STOP Results Negative 05/03/25 14:01 QUESTION #5 FULL TEXT : Do you snore loudly (louder than talking or can be heard through closed doors)? 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 Specify any problems Hx of Preganancy in last 3 No 05/03/25 14:01 Months Nurse Filling Out Transfusion VCHRISTIN 05/03/25 14:01 & Questions: Date: 05/03/25 05/03/25 14:01 Time: 14:02 05/03/25 14:01 Patient unable to answer at this time (ie. confused, unrespo /Reproduction History /Reproductive History - facility operations manager: /Reproductive Hx- facility operations manager Hx Now No 05/03/25 14:01 Gestational Age (in weeks): EDC: Hx Hx Para Hx Section SAB No 05/03/25 14:01 Active Medications Active Medications: Current Medications Generic Name Dose Route Start Last Admin Trade Name Freq PRN Reason Stop Dose Admin Lactated Ringer's 1,000 mls @ 15 mls/hr 05/17/25 12:30 05/17/25 12:26 IV 15 mls/hr .Q48H EDUARDO Administration PFSH Medical History Bladder disease Restless legs History of hiatal hernia Wears glasses Wears dentures Post-menopausal Low iron Non-smoker History of echocardiogram Cardiology follow-up encounter Renal insufficiency syndrome Depression Mitral stenosis Gallbladder anomaly RUQ abdominal pain Schatzki's ring of distal esophagus Thyroid disease Arthritis Restless legs Dysphagia Lichen sclerosus HTN (hypertension) Hypothyroidism GERD (gastroesophageal reflux disease) Home Medications ?Medication ?Instructions ?Recorded ?Last Taken ?Type amlodipine 5 mg tablet 5 mg PO DAILY 06/06/2205/17 History metoprolol succinate 50 mg 50 mg PO DAILY 06/06/22 History tablet,extended release 24 hr famotidine 20 mg tablet (Pepcid AC) 20 mg PO BID PRN h eart burn 1 02/10/25 Unknown Rx month #60 tabs levothyroxine 75 mcg tablet 75 mcg PO QDAY 1 month #30 tabs 03/08/25 05/17/25 Rx misoprostol 200 mcg tablet 200 mcg PO .complex #2 tabs 04/04/25 05/17/25 Rx (Cytotec) Allergy/AdvReac Type Severity Reaction Status Date / Time HUY Inhibitors AdvReac Intermediate COUGH Verified 05/17/25 12:17 fosinopril (From Monopril) AdvReac Intermediate Cough Verified 05/17/25 12:17 Family History Mother Hypertension Thyroid disorder Father Hypertension Heart disease Arthritis Sister Arthritis Hyperlipidemia Hypertension Aunt Breast cancer Surgical History History of bladder surgery Hx of colonoscopy History of esophagogastroduodenoscopy (EGD) Hx of total knee arthroplasty History of tubal ligation History of rotator cuff surgery History of foot surgery Social History household members: spouse current occupational status: 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 05/17/25 1253 <Electronically signed by Juan lr MD> Date _ Juan Limon MD Cosigner Signature: Date CC: ~ Signed [facility] Work Phone: 1(347) 904-118607-15-2025 Consult note [facility] Medical Records Department [address] [place] [address] Anesthesia Postop Eval I 05/17/25 1419 MR#: [id number] Acct: [id number] Name: SHAKAJESSIEGAYLE MELVIN Rep #:[id number] : 1950 74 From: Hernan BETANCOURT PCP: Dr. Nathan Degroot MD Status:REG SD C Y Race: C Location: [place] [address] Anesthesia: Postop Eval I Current Vital Signs Temperature: 97.3 F Pulse Rate: 61 Blood Pressure: 90/62 Respiratory Rate: 16 Pulse Ox: 97 Assessment Airway patent: Yes Spontaneous unlabored respirations: Yes nausea: No Vomiting: No Anesthesia Complication: No Fluid Hydration Crystalloid volume administer (ml): 800 Total IV fluid infused: 800 Progress Note Anesthesia document: Postop Eval 1 completed: Yes 05/17/25 1420 LOGISTICS TECH> Date _ Hernan [place] LOGISTICS TECH Cosigner Signature: Date CC: ~ Signed [facility]07-15-2025 Discharge summary [facility] Medical Records Department [address] [place] [address] Instructions for Home/Discharge Instructions 05/17/25 1417 MR#: [id number] Acct: [id number] Name: GAYLE BANKS MELVIN Rep #:[id number] : 1950 74 From: Gayle downey MD PCP: Dr. Nathan Degroot MD Status:REG SD C Discharge Instructions DC O2, CPAP, BIPAP needs Home O2 Discharge instructions: No Dressing / Incision Discharge Activity: Return to Normal Activity, May Shower and May Take a Tub Bath (after 1 week) May resume sexual activity in: 1-2 weeks Weight Bearing Status: Weight bearing as tolerated Lifting Restrictions: none Dressing / Incision Call your doctor if you observe: Fever of 101 or Higher, Using more than 1 pad per hour, Shortness of breath and Uncontrolled pain Follow Up Care Please Follow Up With: Gayle Dinh MD When: Call [phone] to schedule appointment. Test Results: Test results from this visit will be discussed in further detail at your follow- up appointment, if applicable. Discharge Plan Admission Attending Provider: Gayle Dinh Primary Care Provider: Nathan Degroot Consulting Providers: Giorgio Egan Instructions Print Language: Uruguayan Discharge Orders/Prescriptions Prescriptions: No Action amlodipine 5 mg tablet 5 mg PO DAILY metoprolol succinate 50 mg tablet extended release 24 hr 50 mg PO DAILY famotidine [Pepcid AC] 20 mg tablet 20 mg PO BID PRN (Reason: heart burn) 30 Days Qty: 60 2RF misoprostol [Cytotec] 200 mcg tablet 200 mcg PO .complex Qty: 2 1RF Rx Instructions: take the night before and two hours prior to the procedure levothyroxine 75 mcg tablet 75 mcg PO QDAY 30 Days Qty: 30 3RF Referrals / Follow Up: Nathan Degroot MD [Primary Care Provider] - Disposition Disposition (needs filled in before D/C Order can be placed): Home, Self Care 05/17/25 1418Gayle Dinh MD CC: Dr. Nathan Degroot MD; Dr. Giorgio Egan MD ~ Signed [facility]07-15-2025 Procedure note [facility] Medical Records Department [address] [place] [address] Operative Report 05/17/25 1412 MR#: [id number] Acct: [id number] Name: GAYLE BANKS MELVIN Rep #:[id number] : 1950 74 From: Gayle downey MD PCP: Dr. Nathan Degroot MD Status:[facility] Location: [place] [address] Problems Associated Problem List Diagnoses (1) Thickened endometrium: (2) Stenosis, cervix: (3) Cystocele and rectocele with incomplete uterovaginal prolapse: Multi Select Codes Urinary/Genital Urinary/Genital CPT Codes: 33123 PEUA Operative Report (Standard) Operative Information Date of Procedure: 05/17/25 Pre-Operative Diagnosis: cervical stenosis Post-Operative Diagnosis: same Surgery/Procedure Performed: pelvic exam under anesthesia carver and checkerer specials: No Type of Anesthesia: MAC RN Documented Start/Stop Times: Operation Date: 05/17/25 13:15 Case Time Into Pre-Op 05/17/25 11:37 Out of Pre-Op 05/17/25 13:38 Anesthesia Start 05/17/25 13:39 Into Room 07/15/25 13:39 Procedure Start 05/17/25 13:55 Procedure End 05/17/25 14:07 Procedure Start Time: 13:55 Procedure Stop Time: 14:07 Select all DRAINS/GRAFTS/IMPLANTS that apply: None Estimated Blood Loss: 0 Specimen collected: No Description of surgery: Patient was placed under anesthesia and was prepped and draped in normal sterilefashion the dorsolithotomy position. Bladder drained of clear urine. Weighted speculum placed in the vagina and cervix inspected and absolutely no discerniblecervical os visualized. There is barely an apical reflection present. Pelvic exam performed and uterus and cervix palpated however tissue was very thick overthe vaginal apex where the opening of the cervix would be expected to be. No discernible location to be able to make an incision to open the vagina in order to get the cervix. Decision was made to abort the procedure to not disrupt anatomy that would interfere with the hysterectomy that she will have done in August. Will discuss with patient postoperatively how to proceed Surgical Findings: complete obliteration of the cervical opening Complications Complications: No 05/17/25 1417 Cosigner Signature (if applicable): CC: Dr. Nathan Degroot MD; Dr. Giorgio Egan MD; Dr. Gayle Dinh MD~ Signed [facility]07-15-2025 History and physical note Author Gayle Dinh [facility] Note Date/Time May 17, 2025 12:1 6pm [facility] Medical Records Department [address] [place] [address] History & Physical Exam 05/17/25 1215 MR#: [id number] Acct: [id number] Name: GAYLE BANKS MELVIN Rep #:[id number] : 1950 74 From: Gayle downey MD PCP: Dr. Nathan Degroot MD Status:REG SD C Location: [place] [address] History and Physical Date of Admission: 05/17/25 Intake Vital Signs 03/08/2510:30 04/04/2510:50 Height 5 ft 9 in 5 ft 9 in Weight: 162 lb 4 oz BMI 23.9 BP 128/71 H Intake Visit Reasons: fu prolapse/stenosis per Report Writer Required: No Is patient in pain?: No Allergies HUY Inhibitors Adverse Reaction (Intermediate, Verified 04/04/25 10:48) COUGHfosinopril (From Monopril) Adverse Reaction (Intermediate, Verified 04/04/25 10:48) Cough Medications ?Medication ?Instructions ?Recorded ?Confirmed ?Type amlodipine 5 mg tablet 5 mg PO DAILY 06/06/22 04/04/25 History metoprolol succinate 50 mg 50 mg PO DAILY 06/06/22 04/04/25 History tablet,extended release 24 hr Lactobacillus acidophilus 10 10,000 mmu cells PO DAILY 09/18/2204/04 History billion cell capsule (Probiotic) cholecalciferol (vitamin D3) 125 125 mcg PO DAILY 01/14/25 04/04/25 Histo ry mcg (5,000 unit) tablet (Vitamin D3) famotidine 20 mg tablet (Pepcid AC) 20 mg PO BID PRN heart burn 1 02/10/25 04/04/25 Rx month #60 tabs levothyroxine 75 mcg tablet 75 mcg PO QDAY 1 month #30 tabs 03/08/25 04/04/25 Rx misoprostol 200 mcg tablet 200 mcg PO .complex #2 tabs 04/04/2512/28 Rx (Cytotec) Is last menstrual period known: No Post menopausal: Yes Patient : No : No [facility] Medical History Bladder disease Restless legs History of hiatal hernia Wears glasses Wears dentures Post-menopausal Low iron Non-smoker History of echocardiogram Cardiology follow-up encounter Renal insufficiency syndrome Depression Mitral stenosis Gallbladder anomaly RUQ abdominal pain Schatzki's ring of distal esophagus Thyroid disease Arthritis Restless legs Dysphagia Lichen sclerosus HTN (hypertension) Hypothyroidism GERD (gastroesophageal reflux disease) Surgical History Hx of colonoscopy History of esophagogastroduodenoscopy (EGD) Hx of total knee arthroplasty History of tubal ligation History of rotator cuff surgery History of foot surgery Family History Mother Hypertension Thyroid disorderFather Hypertension Heart disease ArthritisSister Arthritis Hyperlipidemia HypertensionAunt Breast cancer Social History household members: spouse current occupational status: 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 she denies any bleeding or discharge. she had an attempted EMB and was unable to be done. s he is having ahsyterectomy in the fall. US shows 8 mm lining. History 2 Elective abortions Hx Para Spontaneous abortions Hx # Term Pregnancies Ectopic pregnancies Hx # Pregnancies Multiple births # of living children 2 ROS Const Constitutional: Reports system reviewed and no additional complaints, except as documented ENT ENT: Reports system reviewed and no additional complaints, except as documented Cardio Card: Denies chest pain Resp Resp: Denies cough or dyspnea GI GI: Reports system reviewed and no additional complaints, except as documented : Reports prolapse symptoms, urinary incontinence (with pessary in) and vaginal dryness; Denies nipple discharge, pelvic pain, vaginal discharge, vaginal odor or vaginal pruritus Musc Musc: Denies arthralgias or muscle weakness Skin Skin/Breast: Denies alopecia, change in hair, dry skin, breast mass, breast pain, breast skin changes or nipple discharge Neuro Neuro: Reports system reviewed and no additional complaints, except as documented Psych Psych: Reports system reviewed and no additional complaints, except as documented Endo Endo: Denies cold intolerance, excessive sweating, heat intolerance or polydipsia Santos/Lymph Hematologic/Lymphatic: Denies easy bleeding, Denies easy bruising and Denies lymphadenopathy Exam Const General: cooperative and no acute distress Nutritional Appearance: well nourished Orientation: oriented x3 HENID Head: normal to inspection and normocephalic Ears: hearing grossly normal bilaterally and external ears normal Nose: external nose normal and nares normal Face and sinus: normal facial exam Neck Neck: normal visual inspection and no lymphadenopathy Thyroid: thyroid normal Chest Chest palpation & inspection: normal inspection of the chest Resp Effort & Inspection: normal respiratory effort Auscultation: clear to auscultation bilaterally Cardio Rate: regular rate Rhythm: regular rhythm Heart Sounds: S1 normal and S2 normal GI Inspection: normal to inspection and non-distended Palpation: soft and no hepatosplenomegaly Musc Other: gross motor intact no deficits, full bilateral strength Skin General: no rashes or lesions noted Neuro General: patient alert, patient awake, moves all extremities and no focal motor deficits Motor: muscle tone normal throughout Extrem General: normal to inspection and no pedal edema Psych Appearance: grossly normal Mental Status: mental status grossly normal Affect: normal affect Speech and Movement: speech and movement normal Coding Level of Care Code Off vis,est,level 4 Diagnoses Thickened endometrium R93.89 Stenosis, cervix N88.2 Cystocele and rectocele with incomplete uterovaginal prolapse N81.2 Assessment and Plan Assessment and Plan (1) Thickened endometrium: Status: Acute Comment: 8mm. Unable to complete EMB due to cervical stenosis. recommend d and c hysteroscopy prior to hyst (2) Stenosis, cervix: Status: Acute Comment: give cytotec preop (3) Cystocele and rectocele with incomplete uterovaginal prolapse: Status: Acute Comment: #3 donut fell out. #4 ring w/support and knob fell out. plan TVH BS combo with Emmy Medications: New misoprostol (Cytotec) take the night before and two hours prior to the procedure 2 tabs 1RF Plan After discussing the patient's diagnosis and treatment plan options, patient wishes to proceed with surgical management. I have discussed with the patient the risks, benefits, and alternatives of the procedure which include but are notlimited to risks of anesthesia, bleeding, infection, possible damage to bowel, bladder, or surrounding vasculature which could lead to additional surgery to evaluate any complications. Patient agrees to procedure and wishes to proceed. ACOG/uptodate references given for additional information regarding procedure. 05/17/25 1216 <Electronically signed by Gayle Dinh MD> Cosigner Signature (if applicable): CC: Dr. Nathan Degroot MD; Dr. Gayle Dinh MD~ Signed ADDENDUM by Dr. Gayle Dinh MD on 05/17/25 at 1216 Addendum UPDATE- I have seen the patient and performed any clinically relevant updates to the history and physical exam. Gayle Dinh MD 05/17/25 1216<Electronically signed by Gayle Dinh MD> Cosigner Signature (if applicable): cc: Dr. Nathan Degroot MD; Dr. Gayle Dinh MD ~* Signed [facility] Work Phone: [phone] 924-807407-15-2025 Consult note [facility] Medical Records Department [address] [place] [address] Pre-Anesthesia Evaluation 05/17/25 1248 MR#: [id number] Acct: [id number] Name: GAYLE BANKS Rep #:[id number] : 1950 74 From: Juan Limon MD PCP: Dr. Nathan Degroot MD Status:REG SD C Y Race: C Location: [place] [address] ASA Classification* ASA Classification ASA Classification: 2 Assessment & Plan Anesthesia* Anesthesia Assessment Anesthesia Assessment: Discussed sedation and/or anesthesia options, risks, benefits, and alternatives with patient/parents/legal guardian/POA. Questions invited. The patient/parents/legal guardian/POA seems to understand and agrees to proceedwith anesthesia plan. Reviewed the physical assessment, medical history, allergy history and patient home medications list prior to surgery/procedure/anesthetic and documented any changes. Performed airway and anesthesia risk assessments. Anesthesia Type Anesthesia Type: MAC History Source History Obtained from:: Patient and Chart Anesthesia Focused Assessment* Temperature: 97.2 F Pulse Rate: 63 Blood Pressure: 121/81 Respiratory Rate: 16 Pulse Ox: 96 Oxygen Delivery Method: Room Air Airway Assessment Mouth opens: >3 cm Mallampati Score: III Teeth Condition: Dentures (Patient has full upper and lower dentures. They willstay in.) Neck Range of motion (ROM): Full ROM Labs Anesthesia Preop lab: CBC WBC 4.1 K/mm3 (4.4-11.0) L 05/05/25 10:05/05/25 RBC 3.91 M/mm3 (4.2-5.4) L 05/05/25 10:05/05/25 Hgb 12.1 g/dL (12.0-15.0) 05/05/25 10:05/05/25 Hct 36.4 % (37-47) L 05/05/25 10:05/05/25 Plt Count 241 K/mm3 (150-450) 05/05/25 10:05/05/25 CHEMISTRY Potassium 4.3 mmol/L (3.3-5.1) 05/05/25 10:30 05/05/25 Sodium 136 mmol/L (133-145) 05/05/25 10:30 05/05/25 Phosphorus 3.2 mg/dL (2.5-4.9) 07/27/24 11:11 07/27/24 BUN 24 mg/dL (4-19) H 05/05/25 10:30 05/05/25 Creatinine 1.17 mg/dL (0.70-1.20) 05/05/25 10:30 05/05/25 Glucose 94 mg/dL (70-99) 05/05/25 10:05/05/25 TSH 5.630 uIU/mL (0.300-4.200) H 05/05/25 10:29 COAG PT 13.2 SECONDS (11.7-14.9) 05/05/25 10:29 Pre-Assessment Diagnosis/Proposed Procedure Planned Operative Procedure(s): Hysteroscopy, Dilation and Curettage Anesthesia History Anesthesia History - facility operations manager: Anesthesia History - facility operations manager Hx Hospitalization No 05/03/25 14:01 Any Problems With Anesthesia No 05/03/25 14:01 Cholinesterase deficiency No 05/03/25 14:01 You/Your Family Experience No 05/03/25 14:01 fever (hyperthermia) with Relationship Recent Exposure to Contagious No 05/17/25 12:20 Disease Does patient have nerve No 05/03/25 14:01 stimulator Patient instructed to have device shut off --Does patient have Pacemaker No 05/17/25 12:20 or ICD? When Was Last Pacemaker Check QUESTION #4 FULL TEXT: You/Your Family Experience fever (hyperthermia) with Anesthesia Last Oral Intake Last Oral intake: Last Oral Intake NPO since 21:30 05/17/25 12:20 Meds taken in AM with sips of Yes 05/17/25 12:20 water? Meds patient instructed to LEVOTHYROXINE 05/17/25 12:20 take am of surgery AMLODIPINE METOPROLOL CYTOTEC Any additional information?: Yes Meds taken in AM with sips of water?: Yes PONV PONV - facility operations manager: PONV - facility operations manager Female Yes 05/03/25 14:01 HX of Motion Sickness No 05/03/25 14:01 HX of N/V After Surgery No 05/03/25 14:01 Non-Smoker Yes 05/03/25 14:01 Duration of Surgery greater No 05/03/25 14:01 than 60 minutes Number of Risk Factors 2 05/03/25 14:01 PONV Score Moderate Risk 05/03/25 14:01 Height & Weight Height & Weight: Anesthesia: Height & Weight Height 5 ft 9 in 05/17/25 12:20 Weight: 73 kg 05/17/25 12:20 Body Mass Index (BMI) 23.8 05/17/25 12:20 Respiratory Assessment Respiratory Assessment - facility operations manager: Respiratory Tract Infection Hx - facility operations manager Hx Respiratory Tract Infection No 05/03/25 14:01 STOP Sleep Apnea STOP Sleep Apnea - facility operations manager: STOP Sleep Apnea - facility operations manager Hx Hypertension Yes: CONTROLLED WITH MED 05/03/25 14:01 Hx Sleep Apnea No 05/03/25 14:01 CPAP BIPAP Do you snore loudly (louder No 05/03/25 14:01 than talking or can be heard Do you often feel tired/ No 05/03/25 14:01 fatigued/ sleepy during daytime? Has anyone observed you stop No 05/03/25 14:01 breathing during sleep? STOP Results Negative 05/03/25 14:01 QUESTION #5 FULL TEXT : Do you snore loudly (louder than talking or can be heard through closeddoors)? 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 Specify any problems Hx of Preganancy in last 3 No 05/03/25 14:01 Months Nurse Filling Out Transfusion VCHRISTIN 05/03/25 14:01 & Questions: Date: 05/03/25 05/03/25 14:01 Time: 14:02 05/03/25 14:01 Patient unable to answer at this time (ie. confused, unrespo /Reproduction History /Reproductive History - facility operations manager: /Reproductive Hx- facility operations manager Hx Now No 05/03/25 14:01 Gestational Age (in weeks): EDC: Hx Hx Para Hx Section SAB No 05/03/25 14:01 Active Medications Active Medications: Current Medications Generic Name Dose Route Start Last Admin Trade Name Freq PRN Reason Stop Dose Admin Lactated Ringer's 1,000 mls @ 15 mls/hr 05/17/25 12:30 05/17/25 12:26 IV 15 mls/hr .Q48H EDUARDO Administration PFSH Medical History Bladder disease Restless legs History of hiatal hernia Wears glasses Wears dentures Post-menopausal Low iron Non-smoker History of echocardiogram Cardiology follow-up encounter Renal insufficiency syndrome Depression Mitral stenosis Gallbladder anomaly RUQ abdominal pain Schatzki's ring of distal esophagus Thyroid disease Arthritis Restless legs Dysphagia Lichen sclerosus HTN (hypertension) Hypothyroidism GERD (gastroesophageal reflux disease) Home Medications ?Medication ?Instructions ?Recorded ?Last Taken ?Type amlodipine 5 mg tablet 5 mg PO DAILY 06/06/2205/17 History metoprolol succinate 50 mg 50 mg PO DAILY 06/06/22 History tablet,extended release 24 hr famotidine 20 mg tablet (Pepcid AC) 20 mg PO BID PRN h eart burn 1 02/10/25 Unknown Rx month #60 tabs levothyroxine 75 mcg tablet 75 mcg PO QDAY 1 month #30 tabs 03/08/25 05/17/25 Rx misoprostol 200 mcg tablet 200 mcg PO .complex #2 tabs 04/04/25 05/17/25 Rx (Cytotec) Allergy/AdvReac Type Severity Reaction Status Date / Time HUY Inhibitors AdvReac Intermediate COUGH Verified 05/17/25 12:17 fosinopril (From Monopril) AdvReac Intermediate Cough Verified 05/17/25 12:17 Family History Mother Hypertension Thyroid disorder Father Hypertension Heart disease Arthritis Sister Arthritis Hyperlipidemia Hypertension Aunt Breast cancer Surgical History History of bladder surgery Hx of colonoscopy History of esophagogastroduodenoscopy (EGD) Hx of total knee arthroplasty History of tubal ligation History of rotator cuff surgery History of foot surgery Social History household members: spouse current occupational status: 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 05/17/25 1253 be TONG> Date _ Juan Limon MD Cosigner Signature: Date CC: ~ Signed [facility]07-15-2025 History and physical note [facility] Medical Records Department [address] [place] [address] History & Physical Exam 05/17/25 1215 MR#: [id number] Acct: [id number] Name: GAYLE BANKS Rep #:[id number] : 1950 74 From: Gayle downey MD PCP: Dr. Nathan Degroot MD Status:REG SD C Location: [place] [address] History and Physical Date of Admission: 05/17/25 Intake Vital Signs 03/08/2510:30 04/04/2510:50 Height 5 ft 9 in 5 ft 9 in Weight: 162 lb 4 oz BMI 23.9 BP 128/71 H Intake Visit Reasons: fu prolapse/stenosis per SM Report Writer Required: No Is patient in pain?: No Allergies HUY Inhibitors Adverse Reaction (Intermediate, Verified 04/04/25 10:48) COUGHfosinopril (From Monopril) Adverse Reaction (Intermediate, Verified 04/04/25 10:48) Cough Medications ?Medication ?Instructions ?Recorded ?Confirmed ?Type amlodipine 5 mg tablet 5 mg PO DAILY 06/06/22 04/04/25 History metoprolol succinate 50 mg 50 mg PO DAILY 06/06/22 04/04/25 History tablet,extended release 24 hr Lactobacillus acidophilus 10 10,000 mmu cells PO DAILY 09/18/2204/04 History billion cell capsule (Probiotic) cholecalciferol (vitamin D3) 125 125 mcg PO DAILY 01/14/25 04/04/25 Histo ry mcg (5,000 unit) tablet (Vitamin D3) famotidine 20 mg tablet (Pepcid AC) 20 mg PO BID PRN heart burn 1 02/10/25 04/04/25 Rx month #60 tabs levothyroxine 75 mcg tablet 75 mcg PO QDAY 1 month #30 tabs 03/08/25 04/04/25 Rx misoprostol 200 mcg tablet 200 mcg PO .complex #2 tabs 04/04/2512/28 Rx (Cytotec) Is last menstrual period known: No Post menopausal: Yes Patient : No : No PFSH Medical History Bladder disease Restless legs History of hiatal hernia Wears glasses Wears dentures Post-menopausal Low iron Non-smoker History of echocardiogram Cardiology follow-up encounter Renal insufficiency syndrome Depression Mitral stenosis Gallbladder anomaly RUQ abdominal pain Schatzki's ring of distal esophagus Thyroid disease Arthritis Restless legs Dysphagia Lichen sclerosus HTN (hypertension) Hypothyroidism GERD (gastroesophageal reflux disease) Surgical History Hx of colonoscopy History of esophagogastroduodenoscopy (EGD) Hx of total knee arthroplasty History of tubal ligation History of rotator cuff surgery History of foot surgery Family History Mother Hypertension Thyroid disorderFather Hypertension Heart disease ArthritisSister Arthritis Hyperlipidemia HypertensionAunt Breast cancer Social History household members: spouse current occupational status: 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 she denies any bleeding or discharge. she had an attempted EMB and was unable to be done. she is having ahsyterectomy in the fall. US shows 8 mm lining. History 2 Elective abortions Hx Para Spontaneous abortions Hx # Term Pregnancies Ectopic pregnancies Hx # Pregnancies Multiple births # of living children 2 ROS Const Constitutional: Reports system reviewed and no additional complaints, except as documented ENT ENT: Reports system reviewed and no additional complaints, except as documented Cardio Card: Denies chest pain Resp Resp: Denies cough or dyspnea GI GI: Reports system reviewed and no additional complaints, except as documented : Reports prolapse symptoms, urinary incontinence (with pessary in) and vaginal dryness; Denies nipple discharge, pelvic pain, vaginal discharge, vaginal odor or vaginal pruritus Musc Musc: Denies arthralgias or muscle weakness Skin Skin/Breast: Denies alopecia, change in hair, dry skin, breast mass, breast pain, breast skin changes or nipple discharge Neuro Neuro: Reports system reviewed and no additional complaints, except as documented Psych Psych: Reports system reviewed and no additional complaints, except as documented Endo Endo: Denies cold intolerance, excessive sweating, heat intolerance or polydipsia Santos/Lymph Hematologic/Lymphatic: Denies easy bleeding, Denies easy bruising and Denies lymphadenopathy Exam Const General: cooperative and no acute distress Nutritional Appearance: well nourished Orientation: oriented x3 HENMT Head: normal to inspection and normocephalic Ears: hearing grossly normal bilaterally and external ears normal Nose: external nose normal and nares normal Face and sinus: normal facial exam Neck Neck: normal visual inspection and no lymphadenopathy Thyroid: thyroid normal Chest Chest palpation & inspection: normal inspection of the chest Resp Effort & Inspection: normal respiratory effort Auscultation: clear to auscultation bilaterally Cardio Rate: regular rate Rhythm: regular rhythm Heart Sounds: S1 normal and S2 normal GI Inspection: normal to inspection and non-distended Palpation: soft and no hepatosplenomegaly Musc Other: gross motor intact no deficits, full bilateral strength Skin General: no rashes or lesions noted Neuro General: patient alert, patient awake, moves all extremities and no focal motor deficits Motor: muscle tone normal throughout Extrem General: normal to inspection and no pedal edema Psych Appearance: grossly normal Mental Status: mental status grossly normal Affect: normal affect Speech and Movement: speech and movement normal Coding Level of Care Code Off vis,est,level 4 Diagnoses Thickened endometrium R93.89 Stenosis, cervix N88.2 Cystocele and rectocele with incomplete uterovaginal prolapse N81.2 Assessment and Plan Assessment and Plan (1) Thickened endometrium: Status: Acute Comment: 8mm. Unable to complete EMB due to cervical stenosis. recommend d and c hysteroscopy prior to hyst (2) Stenosis, cervix: Status: Acute Comment: give cytotec preop (3) Cystocele and rectocele with incomplete uterovaginal prolapse: Status: Acute Comment: #3 donut fell out. #4 ring w/support and knob fell out. plan TVH BS combo with Emmy Medications: New misoprostol (Cytotec) take the night before and two hours prior to the procedure 2 tabs 1RF Plan After discussing the patient's diagnosis and treatment plan options, patient wishes to proceed withsurgical management. I have discussed with the patient the risks, benefits, and alternatives of theprocedure which include but are notlimited to risks of anesthesia, bleeding, infection, possible damage to bowel, bladder, or surrounding vasculature which could lead to additional surgery to evaluate any complications. Patient agrees to procedure and wishes to proceed. ACOG/uptodate references given for additional information regarding procedure. 05/17/25 1216 Cosigner Signature (if applicable): CC: Dr. Nathan Degroot MD; Dr. Gayle Dinh MD~ Signed ADDENDUM by Dr. Gayle Dinh MD on 05/17/25 at 1216 Addendum UPDATE- I have seen the patient and performed any clinically relevant updates to the history and physical exam. Gayle Dinh MD 05/17/25 1216 Cosigner Signature (if applicable): cc: Dr. Nathan Degroot MD; Dr. Gayle Dinh MD ~* Signed [facility]07-15-2025 [facility] Medical Records Department [address] [place] [address] History Physical Exam 05/17/251214 MR#: [id number] Acct: [id number] Name: GAYLE BANKS Rep #: [id number] : 1950 74 From: Gayle Dinh MD PCP: Dr. Nathan Degroot MD Status[facility] Location: [place] [address] History and Physical Date of Admission: 05/17/25 Intake Vital Signs 03/08/2510:30 04/04/2510:50 Height 5 ft 9 in 5 ft 9 in Weight: 162 lb 4 oz BMI 23.9 BP 128/71 H Intake Visit Reasons: fu prolapse/stenosis per Report Writer Required: No Is patient in pain?: No Allergies HUY Inhibitors Adverse Reaction (Intermediate, Verified 04/04/25 10:48) COUGHfosinopril (From Monopril) Adverse Reaction (Intermediate, Verified 04/04/25 10:48) Cough Medications ???Medication ???Instructions ???Recorded ???Confirmed ???Type amlodipine 5 mg tablet 5 mg PO DAILY 06/06/22 04/04/25 History metoprolol succinate 50 mg 50 mg PO DAILY 06/06/22 04/04/25 History tablet,extended release 24 hr Lactobacillus acidophilus 10 10,000 mmu cells PO DAILY 09/18/22 04/04/25 Histor y billion cell capsule (Probiotic) cholecalciferol (vitamin D3) 125 125 mcg PO DAILY 01/14/25 04/04/25 History mcg (5,000 unit) tablet (Vitamin D3) famotidine 20 mg tablet (Pepcid AC) 20 mg PO BID PRN heart burn 1 02/10/25 04/04/25 Rx month #60 tabs levothyroxine 75 mcg tablet 75 mcg PO QDAY 1 month #30 tabs 03/08/25 04/04/25 Rx misoprostol 200 mcg tablet 200 mcg PO .complex #2 tabs 04/04/25 04/04/25 Rx (Cytotec) Is last menstrual period known: No Post menopausal: Yes Patient : No : No [facility] Medical History Bladder disease Restless legs History of hiatal hernia Wears glasses Wears dentures Post-menopausal Low iron Non-smoker History of echocardiogram Cardiology follow-up encounter Renal insufficiency syndrome Depression Mitral stenosis Gallbladder anomaly RUQ abdominal pain Schatzki's ring of distal esophagus Thyroid disease Arthritis Restless legs Dysphagia Lichen sclerosus HTN (hypertension) Hypothyroidism GERD (gastroesophageal reflux disease) Surgical History Hx of colonoscopy History of esophagogastroduodenoscopy (EGD) Hx of total knee arthroplasty History of tubal ligation History of rotator cuff surgery History of foot surgery Family History Mother Hypertension Thyroid disorderFather Hypertension Heart disease ArthritisSister Arthritis Hyperlipidemia HypertensionAunt Breast cancer Social History household members: spouse 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 she denies any bleeding or discharge. she had an attempted EMB and was unable to be done. s he is having ahsyterectomy in the fall. US shows 8 mm lining. History 2 Elective abortions Hx Para Spontaneous abortions Hx # Term Pregnancies Ectopic pregnancies Hx # Pregnancies Multiple births # of living children 2 ROS Const Constitutional: Reports system reviewed and no additional complaints, except as documented ENT ENT: Reports system reviewed and no additional complaints, except as documented Cardio Card: Denies chest pain Resp Resp: Denies cough or dyspnea GI GI: Reports system reviewed and no additional complaints, except as documented : Reports prolapse symptoms, urinary incontinence (with pessary in) and vaginal dryness; Denies nipple discharge, pelvic pain, vaginal discharge, vaginal odor or vaginal pruritus Musc Musc: Denies arthralgias or muscle weakness Skin Skin/Breast: Denies alopecia, change in hair, dry skin, breast mass, breast pain, breast skin changes or nipple discharge Neuro Neuro: Reports system reviewed and no additional complaints, except as documented Psych Psych: Reports system reviewed and no additional complaints, except as documented Endo Endo: Denies cold intolerance, excessive sweating, heat intolerance or polydipsia Santos/Lymph Hematologic/Lymphatic: Denies easy bleeding, Denies easy bruising and Denies lymphadenopathy Exam Const General: cooperative and no acute d (more content not included)...[facility]04-10-2025 Evaluation note* Diagnosis Onset Date Resolution Status Admit Date Metabolic dysfunction-associated steatotic liver disease (MASLD) acute February 10, 2025 10:59am Gastric stenosis chronic February 102024 10:59am GERD (gastroesophageal reflu x disease) chronic February 10, 2025 10:59am Lymphocytic colitis chronic February 10, 2025 10:59am Cystocele and rectocele with incomplete uterovaginal prolapse acute February 15, 2025 9:52am Atrophic vaginitis acute March 10:16am Cystocele and rectocele with incomplete uterovaginal prolapse acute March 08, 2025 10 :16am Stenosis, cervix acute March 08, 2025 10:16am Thickened endometrium acute March 08, 2025 10:16am Cystocele and rectocele with incomplete uterovaginal prolapse acute April 04, 2025 1 0:43am Stenosis, cervix acute April 10:43am Thickened endometrium acute Apr 10:43am Cystocele and rectocele with incomplete uterovaginal prolapse acute May 17, 2025 11:32am Stenosis, cervix acute May 11:32am Thickened endometrium acute May 11:32am [facility] Work Phone: 1(527) 530-919004-10-2025 Evaluation note* Diagnosis Onset Date Resolution Status Admit Date Metabolic dysfunction-associ ated steatotic liver disease (MASLD) acute February 10, 2025 10:59am Gastric stenosis chronic February 102024 10:59am GERD (gastroesophageal reflu x disease) chronic February 10, 2025 10:59am Lymphocytic colitis chronic February 10, 2025 10:59am Cystocele and rectocele with incomplete uterovaginal prolapse acute February 15, 2025 9:52am Atrophic vaginitis acute March 10:16am Cystocele and rectocele with incomplete uterovaginal prolapse acute March 08, 2025 10:16am Stenosis, cervix acute March 08, 2025 10:16am Thickened endometrium acute March 08, 2025 10:16am Cystocele and rectocele with incomplete uterovaginal prolapse acute April 04, 2025 10:43am Stenosis, cervix acute April 10:43am Thickened endometrium acute Apr 10:43am Cystocele and rectocele with incomplete uterovaginal prolapse acute May 17, 2025 11:32am Stenosis, cervix acute May 11:32am Thickened endometrium acute May 11:32am Mitral regurgitation acute May 19, 2025 10:17am HTN (hypertension) chronic May 032024 10:17am [facility] Work Phone: 1(740) 698-912204-10-2025 Evaluation note* Diagnosis Onset Date Resolution Status Admit Date Metabolic dysfunction-associ ated steatotic liver disease (MASLD) acute February 10, 2025 10:59am Gastric stenosis chronic February 102024 10:59am GERD (gastroesophageal reflu x disease) chronic February 10, 2025 10:59am Lymphocytic colitis chronic February 10, 2025 10:59am Cystocele and rectocele with incomplete uterovaginal prolapse acute February 15, 2025 9:52am Atrophic vaginitis acute March 10:16am Cystocele and rectocele with incomplete uterovaginal prolapse acute March 08, 2025 10:16am Stenosis, cervix acute March 08, 2025 10:16am Thickened endometrium acute March 08, 2025 10:16am Cystocele and rectocele with incomplete uterovaginal prolapse acute April 04, 2025 10:43am Stenosis, cervix acute April 10:43am Thickened endometrium acute Apr 10:43am Cystocele and rectocele with incomplete uterovaginal prolapse acute May 17, 2025 11:32am Stenosis, cervix acute May 11:32am Thickened endometrium acute May 11:32am Mitral regurgitation acute May 19, 2025 10:17am HTN (hypertension) chronic May 032024 10:17am Stenosis, cervix acute May 10:56am Thickened endometrium acute May 10:56am [facility] Work Phone: 1([phone]) 532-187203-20-2025 Consult note Author Juan Limon [facility] Note Date/Time January 20, 2025 7:5 8am [facility] Medical Records Department [address] [place] [address] Pre-Anesthesia Evaluation 01/20/25 0751 MR#: [id number] Acct: [id number] Name: GAYLE BANKS Rep #:[id number] : 1950 74 From: Juan Limon MD PCP: Dr. Nathan Degroot MD Status:REG SD C Y Race: C Location: [place] [address] ASA Classification* ASA Classification ASA Classification: 3 Assessment & Plan Anesthesia* Anesthesia Assessment Anesthesia Assessment: Discussed sedation and/or anesthesia options, risks, benefits, and alternatives with patient/parents/legal guardian/POA. Questions invited. The patient/parents/legal guardian/POA seems to understand and agrees to proceedwith anesthesia plan. Reviewed the physical assessment, medical history, allergy history and patient home medications list prior to surgery/procedure/anesthetic and documented any changes. Performed airway and anesthesia risk assessments. Anesthesia Type Anesthesia Type: MAC (General anesthesia as a backup.) History Source History Obtained from:: Patient and Chart Anesthesia Focused Assessment* Temperature: 97.7 F Pulse Rate: 69 Blood Pressure: 143/64 Respiratory Rate: 18 Pulse Ox: 98 Oxygen Delivery Method: Room Air Airway Assessment Mouth opens: >3 cm Mallampati Score: I Teeth Condition: Dentures (Patient has full upper and lower dentures.) Neck Range of motion (ROM): Full ROM Focused Labs Anesthesia Preop lab: CBC WBC 4.8 K/mm3 (4.4-11.0) 07/27/24 11:11 07/27/24 RBC 3.82 M/mm3 (4.2-5.4) L 07/27/24 11:11 07/27/24 Hgb 12.2 g/dL (12.0-15.0) 07/27/24 11:11 07/27/24 Hct 36.5 % (37-47) L 07/27/24 11:11 07/27/24 Plt Count 261 K/mm3 (150-450) 07/27/24 11:11 07/27/24 CHEMISTRY Potassium 4.0 mmol/L (3.5-5.1) 07/27/24 11:11 07/27/24 Sodium 138 mmol/L (136-145) 07/27/24 11:11 07/27/24 Phosphorus 3.2 mg/dL (2.5-4.9) 07/27/24 11:11 07/27/24 BUN 25 mg/dL (7-18) H 07/27/24 11:11 07/27/24 Creatinine 1.40 mg/dL (0.55-1.02) H 07/27/24 11:11 Glucose 97 mg/dL (74-106) 07/27/24 11:11 07/27/24 TSH 2.090 uIU/mL (0.358-3.740) 10/18/24 11:39 10/03 04/26 COAG PT 14.6 SECONDS (11.7-14.9) 07/27/24 11:11 Pre-Assessment Diagnosis/Proposed Procedure Planned Operative Procedure(s): CYSTO BLADDER BIOPSY WITH FULGERATION Anesthesia History Anesthesia History - facility operations manager: Anesthesia History - facility operations manager Hx Hospitalization No 01/14/25 15:38 Any Problems With Anesthesia No 01/14/25 15:38 Cholinesterase deficiency No 01/14/25 15:38 You/Your Family Experience No 01/14/25 15:38 fever (hyperthermia) with Relationship Recent Exposure to Contagious No 01/20/25 07:33 Disease Does patient have nerve No 01/14/25 15:38 stimulator Patient instructed to have device shut off --Does patient have Pacemaker No 01/20/25 07:34 or ICD? When Was Last Pacemaker Check QUESTION #4 FULL TEXT: You/Your Family Experience fever (hyperthermia) with Anesthesia Last Oral Intake Last Oral intake: Last Oral Intake NPO since 06:00 01/20/25 07:34 Meds taken in AM with sips of water? Meds patient instructed to take am of surgery Any additional information?: Yes NPO since: 06:30 (Patient had some black coffeeat 6:30 AM.) Meds taken in AM with sips of water?: Yes PONV PONV - facility operations manager: PONV - facility operations manager Female Yes 01/14/25 15:38 HX of Motion Sickness No 01/14/25 15:38 HX of N/V After Surgery No 01/14/25 15:38 Non-Smoker Yes 01/14/25 15:38 Duration of Surgery greater No 01/14/25 15:38 than 60 minutes Number of Risk Factors 2 01/14/25 15:38 PONV Score Moderate Risk 01/14/25 15:38 Height & Weight Height & Weight: Anesthesia: Height & Weight Height 5 ft 9 in 01/20/25 07:34 Weight: 75.296 kg 01/20/25 07:34 Body Mass Index (BMI) 24.5 01/20/25 07:34 Respiratory Assessment Respiratory Assessment - facility operations manager: Respiratory Tract Infection Hx - facility operations manager Hx Respiratory Tract Infection No 01/14/25 15:38 STOP Sleep Apnea STOP Sleep Apnea - facility operations manager: STOP Sleep Apnea - facility operations manager Hx Hypertension Yes: CONTROLLED WITH MED 01/14/25 15:38 Hx Sleep Apnea No 01/14/25 15:38 CPAP BIPAP Do you snore loudly (louder Yes 01/14/25 15:38 than talking or can be heard Do you often feel tired/ No 01/14/25 15:38 fatigued/ sleepy during daytime? Has anyone observed you stop No 01/14/25 15:38 breathing during sleep? STOP Results Positive 01/14/25 15:38 QUESTION #5 FULL TEXT : Do you snore loudly (louder than talking or can be heard through closed doors)? 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 Specify any problems Hx of Preganancy in last 3 No 01/14/25 15:38 Months Nurse Filling Out Transfusion DSCHRIBER 01/14/25 15:38 & Questions: Date: 01/14/25 01/14/25 15:38 Time: 15:39 01/14/25 15:38 Patient unable to answer at this time (ie. confused, unrespo /Reproduction History /Reproductive History - facility operations manager: /Reproductive Hx- facility operations manager Hx Now No 01/14/25 15:38 Gestational Age (in weeks): EDC: Hx Hx Para Hx Section SAB No 01/14/25 15:38 Active Medications Active Medications: Current Medications Generic Name Dose Route Start Last Admin Trade Name Freq PRN Reason Stop Dose Admin Cefazolin Sodium 2 gm/ N/A 20 mls @ 400 mls/hr 01/20/25 08:30 IV 01/20/25 08:32 PREOP ONE [facility] Medical History Bladder disease Restless legs History of hiatal hernia Wears glasses Wears dentures Post-menopausal Low iron Non-smoker History of echocardiogram Cardiology follow-up encounter Renal insufficiency syndrome Depression Mitral stenosis Gallbladder anomaly RUQ abdominal pain Schatzki's ring of distal esophagus Thyroid disease Arthritis Restless legs Dysphagia Lichen sclerosus HTN (hypertension) Hypothyroidism GERD (gastroesophageal reflux disease) Home Medications ?Medication ?Instructions ?Recorded ?Last Taken ?Type amlodipine 5 mg tablet 5 mg PO DAILY 06/06/2201/20 05:30 History metoprolol succinate 50 mg 50 mg PO DAILY 06/06/22 05:30 History tablet,extended release 24 hr Lactobacillus acidophilus 10 10,000 mmu cells PO DAILY 09/18/22 01/17/25 History billion cell capsule (Probiotic) levothyroxine 100 mcg tablet 100 mcg PO QDAY 1 month # 30 tabs 07/28/24 01/20/25 05:30 Rx cholecalciferol (vitamin D3) 125 125 mcg PO DAILY 01/0101/17/25 History mcg (5,000 unit) tablet (Vitamin D3) pantoprazole 40 mg tablet,delayed 40 mg PO DAILY 01/1401/20/25 03:00 History release Allergy/AdvReac Type Severity Reaction Status Date / Time HUY Inhibitors AdvReac Intermediate COUGH Verified 01/20/25 07:31 fosinopril (From Monopril) AdvReac Intermediate Cough Verified 01/20/25 07:31 Family History Mother Hypertension Thyroid disorder Father Hypertension Heart disease Arthritis Sister Arthritis Hyperlipidemia Hypertension Aunt Breast cancer Surgical History Hx of colonoscopy History of esophagogastroduodenoscopy (EGD) Hx of total knee arthroplasty History of tubal ligation History of rotator cuff surgery History of foot surgery Social History household members: spouse current occupational status: 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 01/20/25 0758 <Electronically signed by Juan lr MD> Date _ Juan Limon MD Cosigner Signature: Date CC: ~ Signed [facility] Work Phone: 1(365) 703-656703-20-2025 Discharge summary [facility] Medical Records Department [employer] [place] [address] Instructions for Home/Discharge Instructions 01/20/25 0853 MR#: [id number] Acct: [id number] Name: GAYLE BANKS MELVIN Rep #:[id number] : 1950 74 From: Giselle Machuca PCP: Dr. Nathan Degroot MD Status:REG SD C Discharge Instructions Diet Discharge Diet: No restrictions Activity Discharge Activity: Return to Normal Activity May resume sexual activity in: No Restrictions Dressing / Incision Call your doctor if you observe: Fever of 101 or Higher, Inability to urinate and Inability to havea bowel movement Follow Up Care Please Follow Up With: Giselle Booth MD When: She will need to follow-up with her primary care physician regarding some premature atrial contractions seen during surgery. Test Results: Test results from this visit will be discussed in further detail at your follow- up appointment, if applicable. Discharge Plan Admission Attending Provider: Giselle Booth Primary Care Provider: Nathan Degroot Instructions Print Language: Uruguayan Discharge Orders/Prescriptions Prescriptions: Continued amlodipine 5 mg tablet 5 mg PO DAILY metoprolol succinate 50 mg tablet extended release 24 hr 50 mg PO DAILY Probiotic 10 billion cell Capsule 10,000 mmu cells PO DAILY cholecalciferol (vitamin D3) [Vitamin D3] 125 mcg (5,000 unit) tablet 125 mcg PO DAILY pantoprazole 40 mg tablet,delayed release (DR/EC) 40 mg PO DAILY levothyroxine 100 mcg tablet 100 mcg PO QDAY 30 Days Qty: 30 6RF Referrals / Follow Up: Nathan Degroot MD [Primary Care Provider] - Disposition Disposition (needs filled in before D/C Order can be placed): Home, Self Care 01/20/25 0955Giselle Booth MD CC: Dr. Nathan Degroot MD ~ Signed [facility]03-20-2025 Consult note [facility] Medical Records Department [address] [place] [address] Anesthesia Postop Eval I 01/20/25 0931 MR#: [id number] Acct: [id number] Name: GAYLE BANKS MELVIN Rep #:[id number] : 1950 74 From: Juliane jimenez CRNA PCP: Dr. Nathan Degroot MD Status:REG SD C Y Race: C Location: [place] [address] Anesthesia: Postop Eval I Current Vital Signs Temperature: 97 F Pulse Rate: 68 Blood Pressure: 81/54 Respiratory Rate: 16 Pulse Ox: 96 Oxygen Delivery Method: Room Air Assessment Airway patent: Yes Spontaneous unlabored respirations: Yes Mental status: Awake and Calm nausea: No Vomiting: No Anesthesia Complication: No Fluid Hydration Crystalloid volume administer (ml): 10 Total IV fluid infused: 10 Progress Note Anesthesia document: Postop Eval 1 completed: Yes 01/20/25 0932 niko LOGISTICS TECH> Date _ Juliane Taveras LOGISTICS TECH Cosigner Signature: Date CC: ~ Signed [facility]03-20-2025 Consult note [facility] Medical Records Department [address] [place] [id number] Pre-Anesthesia Evaluation 01/20/25 0751 MR#: [id number] Acct: [id number] Name: GAYLE BANKS MELVIN Rep #:[id number] : 1950 74 From: Juan Limon MD PCP: Dr. Nathan Degroot MD Status:REG SD C Y Race: C Location: [place] [address] ASA Classification* ASA Classification ASA Classification: 3 Assessment & Plan Anesthesia* Anesthesia Assessment Anesthesia Assessment: Discussed sedation and/or anesthesia options, risks, benefits, and alternatives with patient/parents/legal guardian/POA. Questions invited. The patient/parents/legal guardian/POA seems to understand and agrees to proceedwith anesthesia plan. Reviewed the physical assessment, medical history, allergy history and patient home medications list prior to surgery/procedure/anesthetic and documented any changes. Performed airway and anesthesia risk assessments. Anesthesia Type Anesthesia Type: MAC (General anesthesia as a backup.) History Source History Obtained from:: Patient and Chart Anesthesia Focused Assessment* Temperature: 97.7 F Pulse Rate: 69 Blood Pressure: 143/64 Respiratory Rate: 18 Pulse Ox: 98 Oxygen Delivery Method: Room Air Airway Assessment Mouth opens: >3 cm Mallampati Score: I Teeth Condition: Dentures (Patient has full upper and lower dentures.) Neck Range of motion (ROM): Full ROM Focused Labs Anesthesia Preop lab: CBC WBC 4.8 K/mm3 (4.4-11.0) 07/27/24 11:11 07/27/24 RBC 3.82 M/mm3 (4.2-5.4) L 07/27/24 11:11 07/27/24 Hgb 12.2 g/dL (12.0-15.0) 07/27/24 11:11 07/27/24 Hct 36.5 % (37-47) L 07/27/24 11:11 07/27/24 Plt Count 261 K/mm3 (150-450) 07/27/24 11:11 07/27/24 CHEMISTRY Potassium 4.0 mmol/L (3.5-5.1) 07/27/24 11:11 07/27/24 Sodium 138 mmol/L (136-145) 07/27/24 11:11 07/27/24 Phosphorus 3.2 mg/dL (2.5-4.9) 07/27/24 11:11 07/27/24 BUN 25 mg/dL (7-18) H 07/27/24 11:11 07/27/24 Creatinine 1.40 mg/dL (0.55-1.02) H 07/27/24 11:11 Glucose 97 mg/dL (74-106) 07/27/24 11:11 07/27/24 TSH 2.090 uIU/mL (0.358-3.740) 10/18/24 11:39 10/03 04/26 COAG PT 14.6 SECONDS (11.7-14.9) 07/27/24 11:11 Pre-Assessment Diagnosis/Proposed Procedure Planned Operative Procedure(s): CYSTO BLADDER BIOPSY WITH FULGERATION Anesthesia History Anesthesia History - facility operations manager: Anesthesia History - facility operations manager Hx Hospitalization No 01/14/25 15:38 Any Problems With Anesthesia No 01/14/25 15:38 Cholinesterase deficiency No 01/14/25 15:38 You/Your Family Experience No 01/14/25 15:38 fever (hyperthermia) with Relationship Recent Exposure to Contagious No 01/20/25 07:33 Disease Does patient have nerve No 01/14/25 15:38 stimulator Patient instructed to have device shut off --Does patient have Pacemaker No 01/20/25 07:34 or ICD? When Was Last Pacemaker Check QUESTION #4 FULL TEXT: You/Your Family Experience fever (hyperthermia) with Anesthesia Last Oral Intake Last Oral intake: Last Oral Intake NPO since 06:00 01/20/25 07:34 Meds taken in AM with sips of water? Meds patient instructed to take am of surgery Any additional information?: Yes NPO since: 06:30 (Patient had some black coffeeat 6:30 AM.) Meds taken in AM with sips of water?: Yes PONV PONV - facility operations manager: PONV - facility operations manager Female Yes 01/14/25 15:38 HX of Motion Sickness No 01/14/25 15:38 HX of N/V After Surgery No 01/14/25 15:38 Non-Smoker Yes 01/14/25 15:38 Duration of Surgery greater No 01/14/25 15:38 than 60 minutes Number of Risk Factors 2 01/14/25 15:38 PONV Score Moderate Risk 01/14/25 15:38 Height & Weight Height & Weight: Anesthesia: Height & Weight Height 5 ft 9 in 01/20/25 07:34 Weight: 75.296 kg 01/20/25 07:34 Body Mass Index (BMI) 24.5 01/20/25 07:34 Respiratory Assessment Respiratory Assessment - facility operations manager: Respiratory Tract Infection Hx - facility operations manager Hx Respiratory Tract Infection No 01/14/25 15:38 STOP Sleep Apnea STOP Sleep Apnea - facility operations manager: STOP Sleep Apnea - facility operations manager Hx Hypertension Yes: CONTROLLED WITH MED 01/14/25 15:38 Hx Sleep Apnea No 01/14/25 15:38 CPAP BIPAP Do you snore loudly (louder Yes 01/14/25 15:38 than talking or can be heard Do you often feel tired/ No 01/14/25 15:38 fatigued/ sleepy during daytime? Has anyone observed you stop No 01/14/25 15:38 breathing during sleep? STOP Results Positive 01/14/25 15:38 QUESTION #5 FULL TEXT : Do you snore loudly (louder than talking or can be heard through closeddoors)? 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 Specify any problems Hx of Preganancy in last 3 No 01/14/25 15:38 Months Nurse Filling Out Transfusion DSCHRIBER 01/14/25 15:38 & Questions: Date: 01/14/25 01/14/25 15:38 Time: 15:39 01/14/25 15:38 Patient unable to answer at this time (ie. confused, unrespo /Reproduction History /Reproductive History - facility operations manager: /Reproductive Hx- facility operations manager Hx Now No 01/14/25 15:38 Gestational Age (in weeks): EDC: Hx Hx Para Hx Section SAB No 01/14/25 15:38 Active Medications Active Medications: Current Medications Generic Name Dose Route Start Last Admin Trade Name Freq PRN Reason Stop Dose Admin Cefazolin Sodium 2 gm/ N/A 20 mls @ 400 mls/hr 01/20/25 08:30 IV 01/20/25 08:32 PREOP ONE PFSH Medical History Bladder disease Restless legs History of hiatal hernia Wears glasses Wears dentures Post-menopausal Low iron Non-smoker History of echocardiogram Cardiology follow-up encounter Renal insufficiency syndrome Depression Mitral stenosis Gallbladder anomaly RUQ abdominal pain Schatzki's ring of distal esophagus Thyroid disease Arthritis Restless legs Dysphagia Lichen sclerosus HTN (hypertension) Hypothyroidism GERD (gastroesophageal reflux disease) Home Medications ?Medication ?Instructions ?Recorded ?Last Taken ?Type amlodipine 5 mg tablet 5 mg PO DAILY 06/06/2201/20 05:30 History metoprolol succinate 50 mg 50 mg PO DAILY 06/06/22 05:30 History tablet,extended release 24 hr Lactobacillus acidophilus 10 10,000 mmu cells PO DAILY 09/18/22 01/17/25 History billion cell capsule (Probiotic) levothyroxine 100 mcg tablet 100 mcg PO QDAY 1 month # 30 tabs 07/28/24 01/20/25 05:30 Rx cholecalciferol (vitamin D3) 125 125 mcg PO DAILY 01/0101/17/25 History mcg (5,000 unit) tablet (Vitamin D3) pantoprazole 40 mg tablet,delayed 40 mg PO DAILY 01/1401/20/25 03:00 History release Allergy/AdvReac Type Severity Reaction Status Date / Time HUY Inhibitors AdvReac Intermediate COUGH Verified 01/20/25 07:31 fosinopril (From Monopril) AdvReac Intermediate Cough Verified 01/20/25 07:31 Family History Mother Hypertension Thyroid disorder Father Hypertension Heart disease Arthritis Sister Arthritis Hyperlipidemia Hypertension Aunt Breast cancer Surgical History Hx of colonoscopy History of esophagogastroduodenoscopy (EGD) Hx of total knee arthroplasty History of tubal ligation History of rotator cuff surgery History of foot surgery Social History household members: spouse current occupational status: 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 01/20/25 0758 be TONG> Date _ Juan Limon MD Cosigner Signature: Date CC: ~ Signed [facility]02-05-2025 Evaluation note* Diagnosis Onset Date Resolution Status Admit Date Cystocele and rectocele with incomplete uterovaginal prolapse acute December 08 1:45pm Metabolic dysfunction-associated steatotic liver disease (MASLD) acute February 10, 2025 10:59am Gastric stenosis chronic February 102024 10:59am GERD (gastroesophageal reflu x disease) chronic February 10, 2025 10:59am Lymphocytic colitis chronic February 10, 2025 10:59am Cystocele and rectocele with incomplete uterovaginal prolapse acute February 15, 2025 9:52am Atrophic vaginitis acute March 10:16am Cystocele and rectocele with incomplete uterovaginal prolapse acute March 08, 2025 10 :16am Stenosis, cervix acute March 08, 2025 10:16am Thickened endometrium acute March 08, 2025 10:16am [facility] Work Phone: 1(986) 203-102801-14-2025 Evaluation note* Diagnosis Onset Date Resolution Status Admit Date Atrophic vaginitis acute 2024 10:54am Cystocele and rectocele with incomplete uterovaginal prolapse acute November 16 10:54am Fitting and adjustment of pessary noneactive November 16 10:54am Atrophic vaginitis acute 2024 9:39am Cystocele and rectocele with incomplete uterovaginal prolapse acute November 22 9:39am Cystocele and rectocele with incomplete uterovaginal prolapse acute December 08 1:45pm Metabolic dysfunction-associated steatotic liver disease (MASLD) acute February 10, 2025 10:59am Gastric stenosis chronic February 102024 10:59am GERD (gastroesophageal reflux disease) chronic February 10, 2025 10:59am Lymphocytic colitis chronic February 10, 2025 10:59am Cystocele and rectocele with incomplete uterovaginal prolapse acute February 15, 2025 9:52am Atrophic vaginitis acute March 10:16am Cystocele and rectocele with incomplete uterovaginal prolapse acute March 08, 2025 10 :16am Stenosis, cervix acute March 08, 2025 10:16am Thickened endometrium acute March 08, 2025 10:16am [facility] Work Phone: 1(504) 954-494012-11-2024 Evaluation note* Diagnosis Onset Date Resolution Status Admit Date Gastric stenosis chronic October 13, 2024 10:22am GERD (gastroesophageal reflux disease) chronic October 13, 2 024 10:22am Hiatal hernia chronic October 132023 10:22am Lymphocytic colitis chronic Decem 2023 10:22am Atrophic vaginitis acute 2024 10:54am Cystocele and rectocele with incomplete uterovaginal prolapse acute November 16 10:54am Fitting and adjustment of pessary noneactive November 16 10:54am Atrophic vaginitis acute 2024 9:39am Cystocele and rectocele with incomplete uterovaginal prolapse acute November 22 9:39am Cystocele and rectocele with incomplete uterovaginal prolapse acute December 08 1:45pm [facility] Work Phone: 1(165) 502-643711-08-2024 [facility] Medical Records Department [address] [place] [address] History Physical Exam 09/10/24 1220 MR#: [id number] Acct: [id number] Name: GAYLE BANKS MELVIN Rep #: [id number] : 1950 73 From: Mj Friend DO PCP: Dr. Nathan Degroot MD Status:[facility] Location: [place] [address] History and Physical Date of Admission: 09/10/24 GAYLE BANKS, is a 73 F who presents to the office today for OV 04.15.24- Last saw patient 10.08.22 for GERD with schatzki ring that was treated with dilation. Pt has new concerns about her gallbladder. For the last 6 months she has been experiencing episodes of RUQ and epigastric pain. She said the pain is around the right upper quadrant wraps around the back, on and off stays for half an hour, recurrent for 1 to 2 weeks and then goes away, pain-free for about 2 to 3 months. Last pain episode was 2 and half weeks ago. She mostly grilled food without oily or spicy food. Her father mother all had cholecystectomy. BM are usually 1-2 times a day. Will have intermittent post prandial diarrhea. Has not had any issues of heartburn or dysphagia. Has cut out spicy foods, red sauces and greasy foods. Says both her parents had gallbladder issues and wants to have hers worked up. OV 07.27.24- During the last month increased episodes abdominal pain, cramping, and diarrhea especially after eating. Stools watery dark brown and sometimes slimy. Vegetables may contribute to diarrhea at times. Although, diarrhea episodes may not be consistent with certain types of foods. Reports feeling better and having first solid BM today. Questions need for cholecystectomy. 05/05/24 US/ABD Limited w/ Elastography IMPRESSION: Liver stiffness measures 9.53 kPa compatible with F2-F3 Metavir score. ROS Const Constitutional: Positive for fatigue; No fever(s), frequent falls, headache(s), weakness or weight change Eyes Eyes: No blurry vision, change in vision or double vision ENT ENT: No headache(s) or difficulty swallowing Resp Respiratory: No shortness of breath or wheezing Cardio Cardiology: No leg pain with exertion Gastro GI: Positive for abdominal pain, bloating, change in bowel habits and diarrhea; No constipation, heartburn, difficulty swallowing, excessive flatus, Vomiting blood/hematemesis, Blood in stool, nausea/dyspepsia or vomiting Genitourinary-Female: No difficulty urinating or burning urination Musc Musculoskeletal: Positive for restless legs and leg pain at night; No joint pain, back pain, joint swelling, muscle cramps, muscle weakness, numbness, stiffness, tingling, Arthritis, sciatica or leg pain with exertion Skin Skin: No dry skin, lesions, itchy eyes or rash Neuro Neurology: Positive for restless legs; No behavioral changes, unsteady gait/balance, weakness, frequent falls, headache(s), numbness, tingling, tremor(s), Increased tone in limbs, paralysis or seizures Psych Psychiatric: No anxiety, No behavioral changes, No depression, No paranoia, No Compulsive Behavior, No hyperactivity, No inattentiveness, No obsessions/compulsions, No Temper Tantrums and No suicidal ideation Endo Endocrine: Positive for fatigue; No weight change Aller/Imm Allergy/Immunologic: No itchy eyes or wheezing Santos/Lymp Hematologic/Lymphatic: No easy bleeding or easy bruising Exam Const General: cooperative, no acute distress and well developed Nutritional Appearance: average body habitus Orientation: alert, awake and oriented x3 HENMT Head: normocephalic and atraumatic Nose: external nose normal Face and sinus: normal facial exam Mouth: moist mucous membranes Eyes Pupils: PERRL EOM: EOM intact bilaterally Neck Neck: normal visual inspection, no meningeal signs and trachea midline Carotids: no bruits Chest Chest palpation inspection: normal inspection of the chest Resp Effort Inspection: normal respiratory effort and symmetric chest movement Auscultation: Bilateral: Clear to Auscultation Cardio Palpation: normal PMI Rate: regular rate Rhythm: regular rhythm Heart Sounds: S1 normal and S2 normal GI Auscultation: normal bowel sounds Percussion: normal to percussion Palpation: soft, no hepatosplenomegaly and no guarding Other: No tenderness/Rebound tenderness or distention. Ruby sign negative. No palpable mass. No ascites. General: bimanual renal exam normal bilaterally, bladder normal to inspection and bladder normal to palpation Bimanual Exam- Vagina Uterus: bladder normal to palpation Musc Musculoskeletal: No joint tenderness, joint redness, joint warmth or decreased range of motion Thoracic/Lumbar Spine: thor and lumb spine abnorm to inspection Skin General: rashes and/or lesions noted, turgor normal and no erythema Wounds: wound noted Neuro General: patient alert, patient awake, patient oriented x3 and no focal motor deficits Speech (more content not included)...[facility]04-03-2023 Miscellaneous Notes* Telephone Encounter - Beatrice Farooq LPN - 02/03/2023 12:49 PM EDT Patient notified of information, verbalized understanding Beatrice Farooq LPN February 03, 2023 12:50 PM * Telephone Encounter - Beatrice Farooq LPN - 02/03/2023 12:49 PM EDT ----- Message from Antwon Brizuela MD sent at 02/03/2023 8:17 AM EDT ----- increase Synthroid to 112 mcg daily. Recheck in 2 months documented in this encounterC[facility] Foundation03-31-2023 NoteHNO ID: [id number] Author: Beatrice Farooq LPN Service: ? Author Type: LICENSED NURSE Type: Progress Notes Filed: 01/31/2023 2:17 PM Note Text: TSH 10.8 [facility] Result scanned in chart Beatrice Farooq LPN January 31, 2023 2:17 [facility] History of Present illness Narrative* Beatrice Farooq LPN - 01/31/2023 2:16 PM EDT TSH 10.8 [facility] Result scanned in chart Beatrice Farooq LPN January 31, 2023 2:17 PM documented in this encounterCleveland Clinic Foundation03-20-2023 Miscellaneous Notes* Telephone Encounter - Beatrice Farooq LPN - 01/20/2023 11:50 AM EDT Patient phoned office, requesting order. Patient was advised in November to have lab rechecked in 2 months. Please sign attached order. Beatrice Farooq LPN January 20, 2023 11:52 AM documented in this encounterCleveland Clinic Foundation02-17-2023 Miscellaneous Notes* Telephone Encounter - Lisa Balderrama - 12/20/2022 12:55 PM EST Lvm to sched mammo documented in this encounterCleveland Clinic Foundation01-16-2023 Miscellaneous Notes* Telephone Encounter - Beatrice Farooq LPN - 11/18/2022 4:30 PM EST Patient returned call. Stated that at the time she was taking her synthroid with her protonix together at 4 am. She stated that she now has been taking her Synthroid at 2 am and her protonix around 5am Beatrice Farooq LPN November 18, 2022 4:32 PM * Telephone Encounter - Beatrice Farooq LPN - 11/18/2022 4:12 PM EST Message left for patient to phone office at earliest convenience. Beatrice Farooq LPN November 18, 2022 4:12 PM * Telephone Encounter - Beatrice Farooq LPN - 11/18/2022 4:12 PM EST ----- Message from Antwon Brizuela MD sent at 11/17/2022 8:48 PM EST ----- Patient's TSH elevated. Was she taking her thyroid medicine daily at the time of her lab? documented in this encounterCleveland Clinic Foundation01-11-2023 NoteHNO ID: [id number] Author: Antwon Brizuela MD Service: ? Author Type: Physician Type: Progress Notes Filed: 11/16/2022 3:51 PM Note Text: This note was created using Heliospectrater. Subjective Gayle Banks is a 71 year old female. Gayle [...] (Temporal) Resp 18 Ht 175.3 cm (5' 9) Wt 75.9 kg (167 lb 6.4 oz) [...] tablet; Take 1 tablet by mouth once daily.[facility]01-11-2023 NoteHNO ID: [id number] Author: Beatrice Farooq LPN Service: ? Author Type: LICENSED NURSE Type: Progress Notes Filed: 11/16/2022 3:51 PM Note Text: Patient is in office today for 6 month exam. No complaints or concerns at this time Beatrice FarooqGREGORY November 13, 2022 1:26 [facility]MS[facility]01-11-2023 History of Present illness Narrative* Antwon Brizuela MD - 11/13/2022 1:53 PM EST This note was created using Splitforceriter. Subjective Gayle Banks is a 71 year old female. Gayle [...] (Temporal) Resp 18 Ht 175.3 cm (5' 9) Wt 75.9 kg (167 lb 6.4 oz) [...] Take 1 tablet by mouth once daily. * Beatrice Farooq LPN - 11/13/2022 1:26 PM EST Patient is in office today for 6 month exam. No complaints or concerns at this time Beatrice Farooq LPN November 13, 2022 1:26 PM documented in this encounterCleveland Clinic Foundation11-28-2022 Miscellaneous Notes* Telephone Encounter - Beatrice Farooq LPN - 09/30/2022 12:07 PM EST Last office visit 05-07-2022 Requested Prescriptions Pending Prescriptions Disp Refills metoprolol succinate ER (TOPROL XL) 50 mg 24 hr tablet [Pharmacy Med Name: Metoprolol Succinate ER 50 MG Oral Tablet Extended Release 24 Hour] 90 tablet 0 Sig: Take 1 tablet by mouth once daily Beatrice Farooq LPN September 30, 2022 12:07 PM documented in this encounterCleveland Clinic Foundation07-05-2022 NoteHNO ID: [id number] Author: Chivo Membreno APRN.SENIOR GRAPHIC DESIGNER Service: ? Author Type: Nurse Practitioner Type: Progress Notes Filed: 05/07/2022 1:45 PM Note Text: This note was created using Splitforceriter. Subjective Gayle Banks is a 71 year old female. Patient [...] (Temporal) Resp 14 Ht 172.7 cm (5' 8) Wt 76.6 kg (168 lb 12.8 oz) [...] diet of 1000 mg/day for under 50, 5191-8411 mg/day for 50+ - CBC + DIFF [...] for GI consult - CONSULT TO GASTROENTEROLOGY Chivo Membreno APRN.[facility]07-05-2022 NoteHNO ID: [id number] Author: Chivo Membreno APRN.[facility] Service: ? Author Type: Nurse Practitioner Type: Progress Notes Filed: 05/07/2022 1:45 PM Note Text: This note was created using Lorena. Subjective Gayle Banks is a 71 year old female. HPI Review of Systems Objective BP 130/84 (BP Site: Left Arm, BP Position: Sitting) Pulse 61 Temp 36.2 ?C (97.1 ?F) (Temporal) Resp 14 Ht 172.7 cm (5' 8) Wt 76.6 kg (168 lb 12.8 oz) LMP 04/12/2005 SpO2 98% BMI 25.67 kg/m? Physical Exam Assessment and [facility]07-05-2022 History of Present illness Narrative* Chivo Membreno APRN.SENIOR GRAPHIC DESIGNER - 05/07/2022 1:41 PM EDT This note was created using NoteWriter. Subjective Gayle Banks is a 71 year old female. Patient [...] (Temporal) Resp 14 Ht 172.7 cm (5' 8) Wt 76.6 kg (168 lb 12.8 oz) [...] diet of 1000 mg/day for under 50, 1200- 1500 mg/day for 50+ - CBC + DIFF [...] for GI consult - CONSULT TO GASTROENTEROLOGY Chivo Membreno APRN.SENIOR GRAPHIC DESIGNER * Chivo Membreno APRN.CNP - 05/07/2022 1:41 PM EDT This note was created using Splitforceriter. Subjective Gayle Banks is a 71 year old female. HPI Review of Systems Objective BP 130/84 (BP Site: Left Arm, BP Position: Sitting) Pulse 61 Temp 36.2 C (97.1 F) (Temporal) Resp 14 Ht 172.7 cm (5' 8) Wt 76.6 kg (168 lb 12.8 oz) LMP 04/12/2005 SpO2 98% BMI 25.67 kg/m Physical Exam Assessment and Plan documented in this encounterCleveland Clinic Foundation07-05-2022 Instructions* Patient Instructions* Chivo Membreno APRN.CNP - 05/07/2022 1:31 PM EDT - Complete labs, fast for 12 hrs prior to lab draw - Complete mammogram-----dial [phone] to schedule - Follow up with GI, [...] health issues or concerns documented in this encounterCleveland Clinic FoundationConsult note Author Juliane Taveras [facility] Note Date/Time January 20, 2025 9:3 2am [facility] Medical Records Department [address] [place] [id number] Anesthesia Postop Eval I 01/20/25930 MR#: [id number] Acct: [id number] Name: GAYLE BANKS MELVIN Rep #:[id number] : 1950 74 From: Juliane jimenez CRNA PCP: Dr. Nathan Degroot MD Status:REG SD C Y Race: C Location: [place] [address] Anesthesia: Postop Eval I Current Vital Signs Temperature: 97 F Pulse Rate: 68 Blood Pressure: 81/54 Respiratory Rate: 16 Pulse Ox: 96 Oxygen Delivery Method: Room Air Assessment Airway patent: Yes Spontaneous unlabored respirations: Yes Mental status: Awake and Calm nausea: No Vomiting: No Anesthesia Complication: No Fluid Hydration Crystalloid volume administer (ml): 10 Total IV fluid infused: 10 Progress Note Anesthesia document: Postop Eval 1 completed: Yes 01/20/25931 <Electronically signed by Juliane pope CRNA> Date _ Juliane Kobylanski LOGISTICS TECH Cosigner Signature: Date CC: ~ Signed [facility] Work Phone: Consult note Author Hernan Olivas [facility] Note Date/Time May 17, 2025 2:20 pm [facility] Medical Records Department [address] [place] [address] Anesthesia Postop Eval I 05/17/25 1419 MR#: [id number] Acct: [id number] Name: GAYLE BANKS MELVIN Rep #:[id number] : 1950 74 From: Hernan BETANCOURT PCP: Dr. Nathan Degroot MD Status:REG SD C Y Race: C Location: [place] [address] Anesthesia: Postop Eval I Current Vital Signs Temperature: 97.3 F Pulse Rate: 61 Blood Pressure: 90/62 Respiratory Rate: 16 Pulse Ox: 97 Assessment Airway patent: Yes Spontaneous unlabored respirations: Yes nausea: No Vomiting: No Anesthesia Complication: No Fluid Hydration Crystalloid volume administer (ml): 800 Total IV fluid infused: 800 Progress Note Anesthesia document: Postop Eval 1 completed: Yes 05/17/25 1420 <Electronically signed by Hernan Olivas CRNA> Date _ Hernan Olivas LOGISTICS TECH Cosigner Signature: Date CC: ~ Signed [facility] Work Phone: Discharge summary Author Giselle Booth [facility] Note Date/Time January 20, 2025 9:5 5am [facility] Medical Records Department [address] [place] [address] Instructions for Home/Discharge Instructions 01/20/25 0853 MR#: [id number] Acct: [id number] Name: GAYLE BANKS MELVIN Rep #:[id number] : 1950 74 From: Giselle Machuca PCP: Dr. Nathan Degroot MD Status:REG SD C Discharge Instructions Diet Discharge Diet: No restrictions Activity Discharge Activity: Return to Normal Activity May resume sexual activity in: No Restrictions Dressing / Incision Call your doctor if you observe: Fever of 101 or Higher, Inability to urinate and Inability to have a bowel movement Follow Up Care Please Follow Up With: Giselle Booth MD When: She will need to follow-up with her primary care physician regarding some premature atrial contractions seen during surgery. Test Results: Test results from this visit will be discussed in further detail at your follow- up appointment, if applicable. Discharge Plan Admission Attending Provider: Giselle Booth Primary Care Provider: Nathan Degroot Instructions Print Language: Uruguayan Discharge Orders/Prescriptions Prescriptions: Continued amlodipine 5 mg tablet 5 mg PO DAILY metoprolol succinate 50 mg tablet extended release 24 hr 50 mg PO DAILY Probiotic 10 billion cell Capsule 10,000 mmu cells PO DAILY cholecalciferol (vitamin D3) [Vitamin D3] 125 mcg (5,000 unit) tablet 125 mcg PO DAILY pantoprazole 40 mg tablet,delayed release (DR/EC) 40 mg PO DAILY levothyroxine 100 mcg tablet 100 mcg PO QDAY 30 Days Qty: 30 6RF Referrals / Follow Up: Nathan Degroot MD [Primary Care Provider] - Disposition Disposition (needs filled in before D/C Order can be placed): Home, Self Care 01/20/25 0965<Electronically signed by Giselle Booth MD>Giselle Booth MD CC: Dr. Nathan Degroot MD ~ Signed [facility] Work Phone: Discharge summary Author Gayle Dinh [facility] Note Date/Time May 17, 2025 2:18 pm [facility] Medical Records Department [address] [place] [address] Instructions for Home/Discharge Instructions 05/17/25 1417 MR#: [id number] Acct: [id number] Name: GAYLE BANKS [facility] Rep #:[id number] : 1950 74 From: Gayle downey MD PCP: Dr. Nathan Degroot MD Status:REG SD C Discharge Instructions DC O2, CPAP, BIPAP needs Home O2 Discharge instructions: No Dressing / Incision Discharge Activity: Return to Normal Activity, May Shower and May Take a Tub Bath (after 1 week) May resume sexual activity in: 1-2 weeks Weight Bearing Status: Weight bearing as tolerated Lifting Restrictions: none Dressing / Incision Call your doctor if you observe: Fever of 101 or Higher, Using more than 1 pad per hour, Shortness of breath and Uncontrolled pain Follow Up Care Please Follow Up With: Gayle Dinh MD When: Call [phone] to schedule appointment. Test Results: Test results from this visit will be discussed in further detail at your follow- up appointment, if applicable. Discharge Plan Admission Attending Provider: Gayle Dinh Primary Care Provider: Nathan Degroot Consulting Providers: Giorgio Egan Instructions Print Language: Uruguayan Discharge Orders/Prescriptions Prescriptions: No Action amlodipine 5 mg tablet 5 mg PO DAILY metoprolol succinate 50 mg tablet extended release 24 hr 50 mg PO DAILY famotidine [Pepcid AC] 20 mg tablet 20 mg PO BID PRN (Reason: heart burn) 30 Days Qty: 60 2RF misoprostol [Cytotec] 200 mcg tablet 200 mcg PO .complex Qty: 2 1RF Rx Instructions: take the night before and two hours prior to the procedure levothyroxine 75 mcg tablet 75 mcg PO QDAY 30 Days Qty: 30 3RF Referrals / Follow Up: Nathan Degroot MD [Primary Care Provider] - Disposition Disposition (needs filled in before D/C Order can be placed): Home, Self Care 05/17/25 1418<Electronically signed by Gayle Dinh MD>Gayle Dinh MD CC: Dr. Nathan Degroot MD; Dr. Giorgio Egan MD ~ Signed [facility] Work Phone: Evaluation + Plan note Future Appointments [facility] Evaluation note* Diagnosis Wellness examination- Primary Hypothyroidism, unspecified type Primary hypertension Unspecified essential hypertension Mixed hyperlipidemia Encounter for screening mammogram for malignant neoplasm of breast Other screening mammogram GERD without esophagitis Esophageal reflux documented in this encounter [facility] noteNo assessment information availableWCleveland Clinic [facility] Work Phone: Evaluation note* Diagnosis Onset Date Resolution Status Atrophic vaginitis acute Lichen sclerosus acute Encounter for routine gynecological examination noneactive Atrophic vaginitis acute Cystocele and rectocele with incomplete uterovaginal prolapse acute Lichen sclerosus acute Dysphagia acute Epigastric burning sensation acute [facility] Work Phone: Evaluation note* Diagnosis Acquired hypothyroidism- Primary Unspecified hypothyroidism Pure hypercholesterolemia Primary hypertension Unspecified essential hypertension Gastroesophageal reflux disease with esophagitis without hemorrhage Renal insufficiency syndrome Unspecified disorder of kidney and ureter documented in this encounter [facility] note* Diagnosis Hypothyroidism, acquired- Primary Unspecified hypothyroidism documented in this encounter [facility] note* Diagnosis Acquired hypothyroidism- Primary Unspecified hypothyroidism documented in this encounter [facility] note* Diagnosis Onset Date Resolution Status GERD (gastroesophageal reflux disease) acute Hiatal hernia acute Schatzki's ring of distal esophagus acute [facility] Work Phone: Hospital course Narrative No data available for this section [facility] Hospital Discharge instructions No data available for this section [facility] Reason for referral (narrative)No reason for referral information availableWC[facility] Work Phone: Summary Purpose Family History No Family History Records Found Relationship Condition Age at Onset Recorded Date/T mamadou mother Hypertension Unknown father Hypertension Unknown Cardiac disease Unknown sister Arthritis Unknown aunt Malignant neoplasm of breast Unknown Relationship Condition Age at Onset Recorded Date/T mamadou mother Hypertension Unknown Disorder of thyroid Unknown father Hypertension Unknown Cardiac disease Unknown Arthritis Unknown sister Arthritis Unknown Hyperlipidemia Unknown Hypertension Unknown aunt Malignant neoplasm of breast Unknown Advance Directives No Advanced Directives Records Found Advance Directive Response Recorded Date/ Time Living Will No September 18, 022 3:00pm Power of Communications Equipment Operator No September 18, 2022 3:00pm Advance Directive Response Recorded Date/ Time Living Will No September 18, 2 022 4:00pm Power of Communications Equipment Operator No September 18, 2022 4:00pm Advance Directive Response Recorded Date/ Time Living Will No September 18, 2 022 4:00pm Do you have a Healthcare Power of Communications Equipment Operator? No September 18, 2022 4:00pm Living Will No January 14, 2025 3:38pm Do you have a Healthcare Power of Communications Equipment Operator? No January 14, 2025 3:38pm Living Will No November 16 3:38pm Do you have a Healthcare Power of Communications Equipment Operator? No November 16, 2024 3:38pm Advance Directive Response Recorded Date/ Time Living Will No January 14, 2025 3:38pm Do you have a Healthcare Power of Communications Equipment Operator? No January 14, 2025 3:38pm Living Will No November 16 3:38pm Do you have a Healthcare Power of Communications Equipment Operator? No November 16, 2024 3:38pm Advance Directive Response Recorded Date/ Time Living Will No January 14, 2025 3:38pm Do you have a Healthcare Power of Communications Equipment Operator? No January 14, 2025 3:38pm Advance Directive Response Recorded Date/ Time Living Will No January 14, 2025 3:38pm Do you have a Healthcare Power of Communications Equipment Operator? No January 14, 2025 3:38pm Do you have a Healthcare Power of Communications Equipment Operator? No May 03, 2025 2:01pm Advance Directive Response Recorded Date/ Time Living Will No September 18, 2 022 4:00pm Do you have a Healthcare Power of Communications Equipment Operator? No September 18, 2022 4:00pm Living Will No January 14, 2025 3:38pm Do you have a Healthcare Power of Communications Equipment Operator? No January 14, 2025 3:38pm Do you have a Healthcare Power of Communications Equipment Operator? No May 03, 2025 2:01pm Advance Directive Response Recorded Date/ Time Living Will No September 18, 2 022 4:00pm Do you have a Healthcare Power of Communications Equipment Operator? No September 18, 2022 4:00pm Do you have a Healthcare Power of Communications Equipment Operator? No May 03, 2025 2:01pm Reason for Referral Specialty Diagnoses / Procedures Referred By Contarabella t Referred To Contact Gastroenterology Diagnoses GERD without esophagitis Procedures CONSULT TO [facility]STROENTEROLOGY OFFICE[facility] 60-74 [facility]UTES Chivo Membreno, FORESTRY TECHNICIAN.SENIOR GRAPHIC DESIGNER [address] [place] [address] Referral ID Status Reason Start Date Expiration Date Visits Requested Visits Authorized [id number] Authorized PCP Requested Referral 05/07/2022 05/07/2023 1 1 Specialty Diagnoses / Procedures Referred By Contarabella t Referred To Contact [facility] Diagnoses Encounter for screening mammogram for malignant neoplasm of breast Procedures CHRIS SCREENING SCREENING MAMMOGRAPHY BI 2-VIEW BREAST INC CAD Chivo Membreno, FORESTRY TECHNICIAN.SENIOR GRAPHIC DESIGNER [address] [place] [address] [facility] [address] [place] [address] Referral ID Status Reason Start Date Expiration Date Visits Requested Visits Authorized [id number] Authorized Auto-Generat ed Referral 05/07/2022 06/06/2023 1 1 Chief Complaint and Reason for Visit Chief Complaint SCREENING Chief Complaint 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 FU Consult Reason for Visit Atrophic vaginitis Lichen sclerosus Encounter for routine gynecological examination Atrophic vaginitis Cystocele and rectocele with incomplete uterovaginal prolapse Lichen sclerosus Dysphagia Epigastric burning sensation Chief Complaint 2 week after egd Blood Flow Screening - Johnathan Reason for Visit GERD (gastroesophage al reflux disease) Hiatal hernia Schatzki's ring of distal esophagus Chief Complaint Blood Flow Screening - Johnathan Chief Complaint Blood Flow Screening - Johnathan HEART MURMUR Chief Complaint HEART MURMUR SCREENING Chief Complaint E ORDERS Chief Complaint Admit Date 3 M FU October 13, 2024 10:22am GASTRIC REFLUX November 10, 2024 12 :06pm Pessary fitting November 16, 2024 1 0:54am WRIST INJURY November 16, 2024 2 :33pm PESSARY CHECK November 22, 2024 9 :39am OSTEOPOROSIS November 25, 2024 1 2:36pm Pessary won't stay in December 08, 2024 1:45pm Cysto,Biopsy,Fulguration,Bladder Tumor M arch 2024 7:06am Reason for Visit Admit Date Gastric stenosis October 13, 2024 10:22am GERD (gastroesophageal reflux disease) D ecember 2023 10:22am Hiatal hernia October 13, 2024 10:22am Lymphocytic colitis October 13, 2024 10:22am Atrophic vaginitis November 16, 2024 1 0:54am Cystocele and rectocele with incomplete uterovaginal prolapse November 16, 2024 10:54am Fitting and adjustment of pessary Novuar y 2024 10:54am Atrophic vaginitis November 22, 2024 9 :39am Cystocele and rectocele with incomplete uterovaginal prolapse November 22, 2024 9:39am Cystocele and rectocele with incomplete uterovaginal prolapse December 08, 2024 1:45pm Chief Complaint Admit Date Pessary fitting November 16, 2024 1 0:54am WRIST INJURY November 16, 2024 2 :33pm PESSARY CHECK November 22, 2024 9 :39am OSTEOPOROSIS November 25, 2024 1 2:36pm Pessary won't stay in December 08, 2024 1:45pm Cysto,Biopsy,Fulguration,Bladder Tumor M arch 2024 7:06am BLADDER ULCERATION January 20, 2025 8:0 0am 4 M FU February 10, 2025 10: 59am Consult hysterectomy, combo surgery Apri l 2024 9:52am PROLAPSE February 18, 2025 3:[address] March 08, 2025 9:46am EMB March 08, 2025 10:16a m Reason for Visit Admit Date Atrophic vaginitis November 16, 2024 1 0:54am Cystocele and rectocele with incomplete uterovaginal prolapse November 16, 2024 10:54am Fitting and adjustment of pessary Novuar y 2024 10:54am Atrophic vaginitis November 22, 2024 9 :39am Cystocele and rectocele with incomplete uterovaginal prolapse November 22, 2024 9:39am Cystocele and rectocele with incomplete uterovaginal prolapse December 08, 2024 1:45pm Metabolic dysfunction-associ ated steatotic liver disease (MASLD) February 10, 2025 10:59am Gastric stenosis February 10, 2025 10: 59am GERD (gastroesophageal reflux disease) A pril 2024 10:59am Lymphocytic colitis February 10, 2025 10: 59am Cystocele and rectocele with incomplete uterovaginal prolapse February 15, 2025 9:52am Atrophic vaginitis March 08, 2025 10:16a m Cystocele and rectocele with incomplete uterovaginal prolapse March 08, 2025 10:16am Stenosis, cervix March 08, 2025 10:16a m Thickened endometrium March 08, 2025 10:1 6am Chief Complaint Admit Date Pessary won't stay in December 08, 2024 1:45pm Cysto,Biopsy,Fulguration,Bladder Tumor M arch 2024 7:06am BLADDER ULCERATION January 20, 2025 8:0 0am 4 M FU February 10, 2025 10: 59am Consult hysterectomy, combo surgery Apri l 2024 9:52am PROLAPSE February 18, 2025 3:3 0pm 2 ORDERING March 08, 2025 9:46am EMB March 08, 2025 10:16a m fu prolapse/stenosis per April 04 10:43am Reason for Visit Admit Date Cystocele and rectocele with incomplete uterovaginal prolapse December 08, 2024 1:45pm Metabolic dysfunction-associ ated steatotic liver disease (MASLD) February 10, 2025 10:59am Gastric stenosis February 10, 2025 10: 59am GERD (gastroesophageal reflux disease) A pril 2024 10:59am Lymphocytic colitis February 10, 2025 10: 59am Cystocele and rectocele with incomplete uterovaginal prolapse February 15, 2025 9:52am Atrophic vaginitis March 08, 2025 10:16a m Cystocele and rectocele with incomplete uterovaginal prolapse March 08, 2025 10:16am Stenosis, cervix March 08, 2025 10:16a m Thickened endometrium March 08, 2025 10:1 6am Chief Complaint Admit Date Cysto,Biopsy,Fulguration,Bladder Tumor M arch 2024 7:06am BLADDER ULCERATION January 20, 2025 8:0 0am 4 M FU February 10, 2025 10: 59am Consult hysterectomy, combo surgery Apri l 2024 9:52am PROLAPSE February 18, 2025 3:3 0pm 2 ORDERING March 08, 2025 9:46am EMB March 08, 2025 10:16a m fu prolapse/stenosis per SM April 04 10:43am Hysteroscopy,Dilation and Curettage May 17, 2025 11:32am Hysteroscopy,Dilation and Curettage May 17, 2025 12:15pm Reason for Visit Admit Date Metabolic dysfunction-associ ated steatotic liver disease (MASLD) February 10, 2025 10:59am Gastric stenosis February 10, 2025 10: 59am GERD (gastroesophageal reflux disease) A pril 2024 10:59am Lymphocytic colitis February 10, 2025 10: 59am Cystocele and rectocele with incomplete uterovaginal prolapse February 15, 2025 9:52am Atrophic vaginitis March 08, 2025 10:16a m Cystocele and rectocele with incomplete uterovaginal prolapse March 08, 2025 10:16am Stenosis, cervix March 08, 2025 10:16a m Thickened endometrium March 08, 2025 10:1 6am Cystocele and rectocele with incomplete uterovaginal prolapse April 04, 2025 10:43am Stenosis, cervix April 04, 2025 10:43 am Thickened endometrium April 04, 2025 10: 43am Cystocele and rectocele with incomplete uterovaginal prolapse May 17, 2025 11:32am Stenosis, cervix May 17, 2025 11:3 2am Thickened endometrium May 17, 2025 11 :32am Chief Complaint Admit Date Cysto,Biopsy,Fulguration,Bladder Tumor M arch 2024 7:06am BLADDER ULCERATION January 20, 2025 8:0 0am 4 M FU February 10, 2025 10: 59am Consult hysterectomy, combo surgery Apri l 2024 9:52am PROLAPSE February 18, 2025 3:3 [address] March 08, 2025 9:46am EMB March 08, 2025 10:16a m fu prolapse/stenosis per SM April 04 10:43am Hysteroscopy,Dilation and Curettage May 17, 2025 11:32am Hysteroscopy,Dilation and Curettage May 17, 2025 12:15pm 1 Y FU May 19, 2025 10:1 7am Reason for Visit Admit Date Metabolic dysfunction-associ ated steatotic liver disease (MASLD) February 10, 2025 10:59am Gastric stenosis February 10, 2025 10: 59am GERD (gastroesophageal reflux disease) A pril 2024 10:59am Lymphocytic colitis February 10, 2025 10: 59am Cystocele and rectocele with incomplete uterovaginal prolapse February 15, 2025 9:52am Atrophic vaginitis March 08, 2025 10:16a m Cystocele and rectocele with incomplete uterovaginal prolapse March 08, 2025 10:16am Stenosis, cervix March 08, 2025 10:16a m Thickened endometrium March 08, 2025 10:1 6am Cystocele and rectocele with incomplete uterovaginal prolapse April 04, 2025 10:43am Stenosis, cervix April 04, 2025 10:43 am Thickened endometrium April 04, 2025 10: 43am Cystocele and rectocele with incomplete uterovaginal prolapse May 17, 2025 11:32am Stenosis, cervix May 17, 2025 11:3 2am Thickened endometrium May 17, 2025 11 :32am Mitral regurgitation May 19, 2025 10: 17am HTN (hypertension) May 19, 2025 10:1 7am Chief Complaint Admit Date 4 M FU February 10, 2025 10: 59am Consult hysterectomy, combo surgery Apri l 2024 9:52am PROLAPSE February 18, 2025 3:3 0pm 2 ORDERING March 08, 2025 9:46am EMB March 08, 2025 10:16a m fu prolapse/stenosis per SM April 04 10:43am PREOP May 05, 2025 10:19 am Hysteroscopy,Dilation and Curettage May 17, 2025 11:32am Hysteroscopy,Dilation and Curettage May 17, 2025 12:15pm 1 Y FU May 19, 2025 10:1 7am 2 wk post op D&C May 27, 2025 10:5 6am Chief Complaint Admit Date 4 M FU February 10, 2025 10: 59am Consult hysterectomy, combo surgery Apri l 2024 9:52am PROLAPSE February 18, 2025 3:3 0pm 2 ORDERING March 08, 2025 9:46am EMB March 08, 2025 10:16a m fu prolapse/stenosis per SM April 04 10:43am PREOP May 05, 2025 10:19 am Hysteroscopy,Dilation and Curettage May 17, 2025 11:32am Hysteroscopy,Dilation and Curettage May 17, 2025 12:15pm 1 Y FU May 19, 2025 10:1 7am 2 wk post op D&C May 27, 2025 10:5 6am LIVER FIBROSIS, RO MASS June 02, 2025 9:37am Reason for Visit Admit Date Metabolic dysfunction-associ ated steatotic liver disease (MASLD) February 10, 2025 10:59am Gastric stenosis February 10, 2025 10: 59am GERD (gastroesophageal reflux disease) A pril 2024 10:59am Lymphocytic colitis February 10, 2025 10: 59am Cystocele and rectocele with incomplete uterovaginal prolapse February 15, 2025 9:52am Atrophic vaginitis March 08, 2025 10:16a m Cystocele and rectocele with incomplete uterovaginal prolapse March 08, 2025 10:16am Stenosis, cervix March 08, 2025 10:16a m Thickened endometrium March 08, 2025 10:1 6am Cystocele and rectocele with incomplete uterovaginal prolapse April 04, 2025 10:43am Stenosis, cervix April 04, 2025 10:43 am Thickened endometrium April 04, 2025 10: 43am Cystocele and rectocele with incomplete uterovaginal prolapse May 17, 2025 11:32am Stenosis, cervix May 17, 2025 11:3 2am Thickened endometrium May 17, 2025 11 :32am Mitral regurgitation May 19, 2025 10: 17am HTN (hypertension) May 19, 2025 10:1 7am Stenosis, cervix May 27, 2025 10:5 6am Thickened endometrium May 27, 2025 10 :56am Additional Source Comments Source Comments (unrecognize d section and content) In the event this informatio n is protected by the Federal Confidentiality of Alcohol and Drug Abuse Patient Records regulations: The Federal rules restrict any use of the information to criminally investigate or prosecute any alcohol or drug abuse patient.[facility] FoundationIn the event this information is protected by the Federal Confidentiality of Alcohol and Drug Abuse Patient Records regulations: The Federal rules restrict any use of the information to criminally investigate or prosecute any alcohol or drug abuse patient.[facility] FoundationIn the event this information is protected by the Federal Confidentiality of Alcohol and Drug Abuse Patient Records regulations: The Federal rules restrict any use of the information to criminally investigate or prosecute any alcohol or drug abuse patient.[facility] FoundationIn the event this information is protected by the Federal Confidentiality of Alcohol and Drug Abuse Patient Records regulations: The Federal rules restrict any use of the information to criminally investigate or prosecute any alcohol or drug abuse patient.[facility] FoundationIn the event this information is protected by the Federal Confidentiality of Alcohol and Drug Abuse Patient Records regulations: The Federal rules restrict any use of the information to criminally investigate or prosecute any alcohol or drug abuse patient.[facility] FoundationIn the event this information is protected by the Federal Confidentiality of Alcohol and Drug Abuse Patient Records regulations: The Federal rules restrict any use of the information to criminally investigate or prosecute any alcohol or drug abuse patient.[facility] FoundationIn the event this information is protected by the Federal Confidentiality of Alcohol and Drug Abuse Patient Records regulations: The Federal rules restrict any use of the information to criminally investigate or prosecute any alcohol or drug abuse patient.[facility] FoundationIn the event this information is protected by the Federal Confidentiality of Alcohol and Drug Abuse Patient Records regulations: The Federal rules restrict any use of the information to criminally investigate or prosecute any alcohol or drug abuse patient.[facility] FoundationIn the event this information is protected by the Federal Confidentiality of Alcohol and Drug Abuse Patient Records regulations: The Federal rules restrict any use of the information to criminally investigate or prosecute any alcohol or drug abuse patient.[facility] FoundationIn the event this information is protected by the Federal Confidentiality of Alcohol and Drug Abuse Patient Records regulations: The Federal rules restrict any use of the information to criminally investigate or prosecute any alcohol or drug abuse patient.[facility] FoundationIn the event this information is protected by the Federal Confidentiality of Alcohol and Drug Abuse Patient Records regulations: The Federal rules restrict any use of the information to criminally investigate or prosecute any alcohol or drug abuse patient.[facility] FoundationIn the event this information is protected by the Federal Confidentiality of Alcohol and Drug Abuse Patient Records regulations: The Federal rules restrict any use of the information to criminally investigate or prosecute any alcohol or drug abuse patient.[facility] FoundationIn the event this information is protected by the Federal Confidentiality of Alcohol and Drug Abuse Patient Records regulations: The Federal rules restrict any use of the information to criminally investigate or prosecute any alcohol or drug abuse patient.[facility] Teams (unrecognized sec tion and content) Food And Beverage Service Manager Relationship Specialty Start Date End Date Anna Duque DO PCP - General Internal Medicine 03/27/12 Food And Beverage Service Manager Relationship Specialty Start Date End Date Anna Duque DO PCP - General Internal Medicine 03/27/12 Food And Beverage Service Manager Relationship Specialty Start Date End Date Chivo Membreno, FORESTRY TECHNICIAN.SENIOR GRAPHIC DESIGNER [address] [place] [address] PCP - General Internal Medicine 05/07/22 Food And Beverage Service Manager Relationship Specialty Start Date End Date Chivo Membreno, FORESTRY TECHNICIAN.SENIOR GRAPHIC DESIGNER [address] [place] [address] PCP - General Internal Medicine 05/07/22 Food And Beverage Service Manager Relationship Specialty Start Date End Date Antwon Brizuela MD [address] [place] [address] PCP - General Family Medicine 07/24/22 Food And Beverage Service Manager Relationship Specialty Start Date End Date Antwon Brizuela MD [address] [place] [address] PCP - General Family Medicine 07/24/22 Food And Beverage Service Manager Relationship Specialty Start Date End Date Antwon Brizuela MD [address] [place] [address] PCP - General Family Medicine 07/24/22 Food And Beverage Service Manager Relationship Specialty Start Date End Date Antwon Brizuela MD [address] [place] [address] PCP - General Family Medicine 07/24/22 Food And Beverage Service Manager Relationship Specialty Start Date End Date Antwon Brizuela MD [address] [place] [address] PCP - General Family Medicine 07/24/22 Team Status: Active Member Role Status Dates Dr. Antwon Brizuela MD Family Provider Active Dr. Antwon Brizuela MD Primary Care Provider Active Team Status: Inactive Member Role Status Dates Dr. Antwon Brizuela MD Primary Care Provider, Referrin g Provider Active Rafaela Ortez DIRECTOR [employer]UMNI RELATIONS, DIRECTOR ALUMNI RELATIONS-C Attending Provider Active Team Status: Active Member Role Status Dates Dr. Antwon Brizuela MD Primary Care Provider Active Dr. Scar Davis MD Attending Provider Active Team Status: Active Member Role Status Dates Dr. Antwon Brizuela MD Primary Care Provider Active Dr. Alexandre Tobar MD Attending Provider Active Team Status: Inactive Member Role Status Dates Dr. Antwon Brizuela MD Primary Care Prov ider, Attending Provider, Referring Provider Active Team Status: Inactive Member Role Status Dates Dr. Antwon Brizuela MD Primary Care Provider Active Rhianna Christine DO Attending Provider Active Team Status: Active Member Role Status Dates Dr. Antwon Brizuela MD Family Provider Active Rhianna Christine DO Primary Care Provider Active Team Status: Active Member Role Status Dates Rhianna Christine DO Primary Care Provider Active Dr. Juan Luna MD Attending Provider Active Team Status: Inactive Member Role Status Dates Rhianna Christine DO Primary Care Provi sadia, Attending Provider, Referring Provider Active Team Status: Active Member Role Status Dates Nathan Degroot MD Primary Care Provider Active Team Status: Inactive Member Role Status Dates Nathan Degroot MD Primary Care Provider Active St art: October 13, 2024 End: October 13, 2024 Nathan Degroot MD Referring Provider Active Start : October 13, 2024 End: October 13, 2024 Dr. Giorgio Egan MD Attending Provider Active Start: October 13, 2024 End: October 13, 2024 Team Status: Inactive Member Role Status Dates Nathan Degroot MD Primary Care Provider Active St art: October 18, 2024 End: October 18, 2024 Nathan Degroot MD Attending Provider Active Start : October 18, 2024 End: October 18, 2024 Nathan Degroot MD Referring Provider Active Start : October 18, 2024 End: October 18, 2024 Team Status: Inactive Member Role Status Paz Degroot MD Primary Care Provider Active St art: November 10, 2024 End: November 10, 2024 Dr. Giorgio Egan MD Attending Provider Active Start: November 10, 2024 End: November 10, 2024 Dr. Giorgio Egan MD Referring Provider Active Start: November 10, 2024 End: November 10, 2024 Team Status: Inactive Member Role Status Paz Degroot MD Primary Care Provider Active St art: November 16, 2024 End: November 16, 2024 Nathan Degroot MD Referring Provider Active Start : November 16, 2024 End: November 16, 2024 Katia Carranza DIRECTOR [employer] RELATIONS, DIRECTOR AL[employer]NI RELATIONS-C Attending Provider Active Start: November 16, 2024 End: November 16, 2024 Team Status: Inactive Member Role Status Paz Degroot MD Primary Care Provider Active St art: November 16, 2024 End: November 16, 2024 Dr. Tony Grant DO Attending Provider Active Start: November 16, 2024 End: November 16, 2024 Dr. Tony Grant DO Emergency Provider Active Start: November 16, 2024 End: November 16, 2024 Team Status: Inactive Member Role Status Paz Degroot MD Primary Care Provider Active St art: November 22, 2024 End: November 22, 2024 Nathan Degroot MD Referring Provider Active Start : November 22, 2024 End: November 22, 2024 Katia Carranza DIRECTOR [employer] RELATIONS, DIRECTOR AL[employer]NI RELATIONS-C Attending Provider Active Start: November 22, 2024 End: November 22, 2024 Team Status: Inactive Member Role Status Paz Degroot MD Primary Care Provider Active St art: November 25, 2024 End: November 25, 2024 Nathan Degroot MD Attending Provider Active Start : November 25, 2024 End: November 25, 2024 Nathan Degroot MD Referring Provider Active Start : November 25, 2024 End: November 25, 2024 Team Status: Inactive Member Role Status Paz Degroot MD Primary Care Provider Active St art: December 08, 2024 End: December 08, 2024 Nathan Degroot MD Referring Provider Active Start : December 08, 2024 End: December 08, 2024 PATRICE Carl Attending Provider Active Start: December 08, 2024 End: December 08, 2024 Team Status: Inactive Member Role Status Paz Degroot MD Primary Care Provider Active St art: January 20, 2025 End: January 20, 2025 Dr. Giselle Booth MD Attending Provider Active Start: January 20, 2025 End: January 20, 2025 Dr. Giselle Booth MD Referring Provider Active Start: January 20, 2025 End: January 20, 2025 Team Status: Active Member Role Status Paz Degroot MD Primary Care Provider Active St art: January 20, 2025 Dr. Joseph Hodges MD Attending Provider Active Start: January 20, 2025 Dr. Joseph Hodges MD Referring Provider Active Start: January 20, 2025 Team Status: Inactive Member Role Status Paz Degroot MD Primary Care Provider Active St art: February 10, 2025 End: February 10, 2025 Nathan Degroot MD Referring Provider Active Start : February 10, 2025 End: February 10, 2025 Dr. Giorgio Egan MD Attending Provider Active Start: February 10, 2025 End: February 10, 2025 Team Status: Inactive Member Role Status Paz Degroot MD Primary Care Provider Active St art: February 15, 2025 End: February 15, 2025 Nathan Degroot MD Referring Provider Active Start : February 15, 2025 End: February 15, 2025 Dr. Gayle Dinh MD Attending Provider Active Start: February 15, 2025 End: February 15, 2025 Team Status: Inactive Member Role Status Paz Degroot MD Primary Care Provider Active St art: February 18, 2025 End: February 18, 2025 Dr. Gayle Dinh MD Attending Provider Active Start: February 18, 2025 End: February 18, 2025 Dr. Gayle Dinh MD Referring Provider Active Start: February 18, 2025 End: February 18, 2025 Team Status: Inactive Member Role Status Paz Degroot MD Primary Care Provider Active St art: March 08, 2025 End: March 08, 2025 Nathan Degroot MD Attending Provider Active Start : March 08, 2025 End: March 08, 2025 Nathan Degroot MD Referring Provider Active Start : March 08, 2025 End: March 08, 2025 Dr. Giorgio Egan MD Other Provider Active Sta rt: March 08, 2025 End: March 08, 2025 Team Status: Inactive Member Role Status Paz Degroot MD Primary Care Provider Active St art: March 08, 2025 End: March 08, 2025 Nathan Degroot MD Referring Provider Active Start : March 08, 2025 End: March 08, 2025 Katia Carranza DIRECTOR [employer], DIRECTOR [employer]-C Attending Provider Active Start: March 08, 2025 End: March 08, 2025 Team Status: Inactive Member Role Status Paz Degroot MD Primary Care Provider Active St art: April 04, 2025 End: April 04, 2025 Nathan Degroot MD Referring Provider Active Start : April 04, 2025 End: April 04, 2025 Dr. Gayle Dinh MD Attending Provider Active Start: April 04, 2025 End: April 04, 2025 Team Status: Active Member Role/Relationship Status Paz Degroot MD Primary Care Provider Active Team Status: Inactive Member Role/Relationship Status Paz Degroot MD Primary Care Provider Active St art: January 20, 2025 End: January 20, 2025 Dr. Giselle Booth MD Attending Provider Active Start: January 20, 2025 End: January 20, 2025 Dr. Giselle Booth MD Referring Provider Active Start: January 20, 2025 End: January 20, 2025 Team Status: Active Member Role/Relationship Status Paz Degroot MD Primary Care Provider Active St art: January 20, 2025 Dr. Joseph Hodges MD Attending Provider Active Start: January 20, 2025 Dr. Joseph Hodges MD Referring Provider Active Start: January 20, 2025 Team Status: Inactive Member Role/Relationship Status Paz Degroot MD Primary Care Provider Active St art: February 10, 2025 End: February 10, 2025 Nathan Degroot MD Referring Provider Active Start : February 10, 2025 End: February 10, 2025 Dr. Giorgio Egan MD Attending Provider Active Start: February 10, 2025 End: February 10, 2025 Team Status: Inactive Member Role/Relationship Status Dates Chalon Zane , MD Primary Care Provider Active St art: February 15, 2025 End: February 15, 2025 Nathan Degroot MD Referring Provider Active Start : February 15, 2025 End: February 15, 2025 Dr. Gayle Dinh MD Attending Provider Active Start: February 15, 2025 End: February 15, 2025 Team Status: Inactive Member Role/Relationship Status Paz Degroot MD Primary Care Provider Active St art: February 18, 2025 End: February 18, 2025 Dr. Gayle Dinh MD Attending Provider Active Start: February 18, 2025 End: February 18, 2025 Dr. Gayle Dinh MD Referring Provider Active Start: February 18, 2025 End: February 18, 2025 Team Status: Inactive Member Role/Relationship Status Paz Degroot MD Primary Care Provider Active St art: March 08, 2025 End: March 08, 2025 Nathan Degroot MD Attending Provider Active Start : March 08, 2025 End: March 08, 2025 Nathan Degroot MD Referring Provider Active Start : March 08, 2025 End: March 08, 2025 Dr. Giorgio Egan MD Other Provider Active Sta rt: March 08, 2025 End: March 08, 2025 Team Status: Inactive Member Role/Relationship Status Paz Degroot MD Primary Care Provider Active St art: March 08, 2025 End: March 08, 2025 Nathan Degroot MD Referring Provider Active Start : March 08, 2025 End: March 08, 2025 Katia Carranza DIRECTOR [employer], DIRECTOR [employer]-C Attending Provider Active Start: March 08, 2025 End: March 08, 2025 Team Status: Inactive Member Role/Relationship Status aPz Degroot MD Primary Care Provider Active St art: April 04, 2025 End: April 04, 2025 Nathan Degroot MD Referring Provider Active Start : April 04, 2025 End: April 04, 2025 Dr. Gayle Dinh MD Attending Provider Active Start: April 04, 2025 End: April 04, 2025 Team Status: Inactive Member Role/Relationship Status Paz Degroot MD Primary Care Provider Active St art: May 17, 2025 End: May 17, 2025 Dr. Gayle Dinh MD Attending Provider Active Start: May 17, 2025 End: May 17, 2025 Dr. Gayle Dinh MD Referring Provider Active Start: May 17, 2025 End: May 17, 2025 Dr. Giorgio Egan MD Other Provider Active Sta rt: May 17, 2025 End: May 17, 2025 Team Status: Active Member Role/Relationship Status Paz Degroot MD Primary Care Provider Active St art: May 17, 2025 Dr. Gayle Dinh MD Attending Provider Active Start: May 17, 2025 Dr. Gayle Dinh MD Referring Provider Active Start: May 17, 2025 Dr. Gayle Dinh MD Other Provider Active Start: May 17, 2025 Dr. Giorgio Egan MD Other Provider Active Sta rt: May 17, 2025 Team Status: Inactive Member Role/Relationship Status Paz Degroot MD Primary Care Provider Active St art: May 19, 2025 End: May 19, 2025 Nathan Degroot MD Referring Provider Active Start : May 19, 2025 End: May 19, 2025 Lenora Cabezas PA, PA Attending Provider Active Start: May 19, 2025 End: May 19, 2025 Team Status: Inactive Member Role/Relationship Status Paz Degroot MD Primary Care Provider Active St art: February 10, 2025 End: February 10, 2025 Nathan Degroot MD Referring Provider Active Start : February 10, 2025 End: February 10, 2025 Dr. Giorgio Egan MD Attending Provider Active Start: February 10, 2025 End: February 10, 2025 Team Status: Inactive Member Role/Relationship Status Paz Degroot MD Primary Care Provider Active St art: February 15, 2025 End: February 15, 2025 Nathan Degroot MD Referring Provider Active Start : February 15, 2025 End: February 15, 2025 Dr. Gayle Dinh MD Attending Provider Active Start: February 15, 2025 End: February 15, 2025 Team Status: Inactive Member Role/Relationship Status Paz Degroot MD Primary Care Provider Active St art: February 18, 2025 End: February 18, 2025 Dr. Gayle Dinh MD Attending Provider Active Start: February 18, 2025 End: February 18, 2025 Dr. Gayle Dinh MD Referring Provider Active Start: February 18, 2025 End: February 18, 2025 Team Status: Inactive Member Role/Relationship Status Paz Degroot MD Primary Care Provider Active St art: March 08, 2025 End: March 08, 2025 Nathan Degroot MD Attending Provider Active Start : March 08, 2025 End: March 08, 2025 Nathan Degroot MD Referring Provider Active Start : March 08, 2025 End: March 08, 2025 Dr. Giorgio Egan MD Other Provider Active Sta rt: March 08, 2025 End: March 08, 2025 Team Status: Inactive Member Role/Relationship Status Paz Degroot MD Primary Care Provider Active St art: March 08, 2025 End: March 08, 2025 Nathan Degroot MD Referring Provider Active Start : March 08, 2025 End: March 08, 2025 Katia Carranza DIRECTOR [employer], DIRECTOR [employer]-C Attending Provider Active Start: March 08, 2025 End: March 08, 2025 Team Status: Inactive Member Role/Relationship Status Paz Degroot MD Primary Care Provider Active St art: April 04, 2025 End: April 04, 2025 Nathan Degroot MD Referring Provider Active Start : April 04, 2025 End: April 04, 2025 Dr. Gayle Dinh MD Attending Provider Active Start: April 04, 2025 End: April 04, 2025 Team Status: Inactive Member Role/Relationship Status Paz Degroot MD Primary Care Provider Active St art: May 03, 2025 Dr. Giselle Booth MD Attending Provider Active Start: May 03, 2025 Team Status: Active Member Role/Relationship Status Paz Degroot MD Primary Care Provider Active St art: May 05, 2025 End: May 05, 2025 Dr. Jose Neil MD Attending Provider Active S tart: May 05, 2025 End: May 05, 2025 Dr. Gayle Dinh MD Referring Provider Active Start: May 05, 2025 End: May 05, 2025 Team Status: Inactive Member Role/Relationship Status Paz Degroot MD Primary Care Provider Active St art: May 27, 2025 End: May 27, 2025 Nathan Degroot MD Referring Provider Active Start : May 27, 2025 End: May 27, 2025 Dr. Gayle Dinh MD Attending Provider Active Start: May 27, 2025 End: May 27, 2025 Team Status: Inactive Member Role/Relationship Status Dates Nathan Degroot MD Primary Care Provider Active St art: June 02, 2025 End: June 02, 2025 Dr. Giorgio Egan MD Attending Provider Active Start: June 02, 2025 End: June 02, 2025 Dr. Giorgio Egan MD Referring Provider Active Start: June 02, 2025 End: June 02, 2025 INFORMATION SOURCE (unrecogn ized section and content) DATE CREATED AUTHOR 10/31/2021 [facility] DATE CREATED AUTHOR AUTHOR'S ORGANIZ ATION 08/14/2022 [facility] ([place] DATE CREATED AUTHOR AUTHOR'S ORGANIZ ATION 02/05/2023 [facility] DATE CREATED AUTHOR AUTHOR'S ORGANIZ ATION 06/11/2025 [facility] Reason for Visit (unrecogniz ed section and content) Reason Comments Yearly Exam wellness CPE Reason Comments Orders Reason Comments Refill Request Reason Comments 6 Month Exam Reason Comments Results Reason Comments Appointment Goals (unrecognized section and content) Goals may be documented in a n alternate section No data available for this sectionGoals may be documented in an alternate sectionGoals may be documented in an alternate sectionGoals may be documented in an alternate sectionGoals may be documented in an alternate sectionGoals may be documented in an alternate sectionGoals may be documented in an alternate sectionGoals may be documented in an alternate section Care Team (unrecognized sect ion and content) Care Team Personnel Name: ANTWON BRIZUELA MD Member Role: Primary Care Physician Address: Address: [address] [place] [id number] Care Team Related Persons Name: CARMEN FELICIANO Name: FELIX BANKS Address: Home [address] [place] [id number] FOR RECORDS PERTAINING TO PATIENTS WHO ARE [...] BE BASED ON THE PRIMARY CLINICAL RECORDS. [facility]. provides no warranty or guarantee of the accuracy or completeness of information in this document.
== END | disposition home or self-care (01) ==
LOC: CVS 12:45
PROVIDERS: PCP Family Medicine; Referring Provider Physician Assistant Medical; Visit Provider Physician Assistant Medical
DX: I34.0 Nonrheumatic mitral (valve) insufficiency (principal)
CPT/HCPCS: 93306

== ENCOUNTER → 2025-06-27 | Outpatient (CLI) | payer MEDICARE, OTHER, SELFPAY | END | disposition home or self-care (01) | LOC: LAB 10:24 | PROVIDERS: PCP Family Medicine; Referring Provider Family Medicine; Visit Provider Family Medicine | DX: E03.9 Hypothyroidism, unspecified (principal) | CPT/HCPCS: 36415; 84443 ==